=== PATIENT | female | born 1945 | race Caucasian/White ===

== ENCOUNTER → 2016-03-19 | Outpatient (CLI) | payer MEDICARE ==
--- NOTE | 2016-03-19 11:08 | REP ---
Bilateral shoulders: The right shoulder three views : There is no fracture or dislocation. Mineralization and joint spaces are normal. There are no calcifications or foreign bodies. Impression: Negative right shoulder Left shoulder three views : There is no fracture or dislocation. Mineralization and joint spaces are normal. There are no calcifications or foreign bodies. Impression: Negative left shoulder . Signed by Dimitri Nunez MD 03/19/2016 11:00 A
--- NOTE | 2016-03-19 11:13 | REP ---
Cervical spine seven views: There are no comparison studies. There is approximate 4 mm of anterolisthesis of C4-5 on the flexion view para. This corrects on the neutral view and extension view. The facets are normally aligned. This may be from ligamentous laxity. Prevertebral soft tissues are normal. Vertebral alignment is otherwise normal. Vertebral body heights are normal. There is a degenerative disc disease at C 05/ and 07/14. The odontoid view is unremarkable. There is moderate bony foraminal encroachment on the right at C6-7 The left foramen are suboptimally demonstrated. There is osteoarthritis in the posterior facets. Impression: 4 mm of the anterior listhesis of L4-5 on the flexion view. This corrects on the neutral and extension views. Prevertebral soft tissues are normal. Facets normally aligned. There is facet osteoarthritis. There is moderate bony foraminal encroachment on the right at C6-7. The left foramen are suboptimally demonstrated. Signed by Dimitri Nunez MD 03/19/2016 11:05 A
== END | disposition home or self-care (01) ==
LOC: M SMT 10:19
PROVIDERS: ATTEND Physician Assistant
DX: M25.512 Pain in left shoulder (principal); M25.511 Pain in right shoulder; M47.812 Spondylosis without myelopathy or radiculopathy, cervical region; M50.323 Other cervical disc degeneration at C6-C7 level; M43.16 Spondylolisthesis, lumbar region

== ENCOUNTER → 2016-05-20 | Outpatient (REF) | payer MEDICARE ==
[2016-05-20 17:40] LABS: ALBUMIN 4.1 GM/DL (3.2-5.2); ALBUMIN/GLOBULIN RATIO 1.41 (1.00-1.93); ALKALINE PHOSPHATASE 78 U/L (45-117); ALT/SGPT 35 U/L (12-78); ANION GAP 8 MEQ/L (8-16); AST/SGOT 18 U/L (15-37); BILIRUBIN,TOTAL 0.4 MG/DL (0.2-1.0); BLOOD UREA NITROGEN 12 MG/DL (7-18); CALCIUM LEVEL 9.2 MG/DL (8.8-10.2); CARBON DIOXIDE LEVEL 30 MEQ/L (21-32); CHLORIDE LEVEL 100 MEQ/L (98-107); CHOLESTEROL LEVEL 152 MG/DL (<200); CREATININE FOR GFR 0.53 MG/DL (0.55-1.02); GLOMERULAR FILTRATION RATE > 60.0 (>39); GLUCOSE, FASTING 138 MG/DL (83-110); POTASSIUM SERUM 4.1 MEQ/L (3.5-5.1); SODIUM LEVEL 138 MEQ/L (136-145); TRIGLYCERIDES LEVEL 114 MG/DL (<150); URIC ACID 6.3 MG/DL (2.6-6.0)
== END ==
LOC: M SFHCLACO 09:02
PROVIDERS: ATTEND Physician Assistant
DX: E78.2 Mixed hyperlipidemia (principal); I10 Essential (primary) hypertension; E11.9 Type 2 diabetes mellitus without complications; M10.9 Gout, unspecified; M15.9 Polyosteoarthritis, unspecified; Z79.1 Long term (current) use of non-steroidal anti-inflammatories (NSAID); Z79.82 Long term (current) use of aspirin; Z79.84 Long term (current) use of oral hypoglycemic drugs; Z79.899 Other long term (current) drug therapy

== ENCOUNTER → 2016-08-31 | Outpatient (REF) | payer MEDICARE ==
[2016-08-31 16:33] LABS: ALBUMIN/GLOBULIN RATIO 1.33 (1.00-1.93); ALKALINE PHOSPHATASE 82 U/L (45-117); ALT/SGPT 33 U/L (12-78); ANION GAP 8 MEQ/L (8-16); AST/SGOT 17 U/L (15-37); BILIRUBIN,TOTAL 0.4 MG/DL (0.2-1.0); BLOOD UREA NITROGEN 12 MG/DL (7-18); CALCIUM LEVEL 9.5 MG/DL (8.8-10.2); CARBON DIOXIDE LEVEL 29 MEQ/L (21-32); CHLORIDE LEVEL 101 MEQ/L (98-107); CHOLESTEROL LEVEL 143 MG/DL (<200); CREATININE FOR GFR 0.62 MG/DL (0.55-1.02); GLOMERULAR FILTRATION RATE > 60.0 (>39); GLUCOSE, FASTING 137 MG/DL (83-110); POTASSIUM SERUM 4.5 MEQ/L (3.5-5.1); SODIUM LEVEL 138 MEQ/L (136-145); TRIGLYCERIDES LEVEL 101 MG/DL (<150)
[2016-09-02 00:08] LABS: Lyme Disease IgG/IgM Antibodie <0.91 ISR (0.00-0.90); Lyme Disease IgM Ab Quantitati <0.80 index (0.00-0.79)
== END ==
LOC: M SFHCLACO 08:40
PROVIDERS: ATTEND Physician Assistant
DX: I10 Essential (primary) hypertension (principal); E78.2 Mixed hyperlipidemia; E11.9 Type 2 diabetes mellitus without complications; W57.XXXS Bitten or stung by nonvenomous insect and other nonvenomous arthropods, sequela; X58.XXXA Exposure to other specified factors, initial encounter; Y92.9 Unspecified place or not applicable

== ENCOUNTER → 2017-01-04 | Outpatient (REF) | payer MEDICARE ==
[2017-01-04 15:06] LABS: ALBUMIN 4.1 GM/DL (3.2-5.2); ALBUMIN/GLOBULIN RATIO 1.32 (1.00-1.93); ALKALINE PHOSPHATASE 65 U/L (45-117); ALT/SGPT 35 U/L (12-78); ANION GAP 10 MEQ/L (8-16); AST/SGOT 20 U/L (7-37); BILIRUBIN,TOTAL 0.4 MG/DL (0.2-1.0); BLOOD UREA NITROGEN 17 MG/DL (7-18); CALCIUM LEVEL 9.8 MG/DL (8.8-10.2); CARBON DIOXIDE LEVEL 28 MEQ/L (21-32); CHLORIDE LEVEL 100 MEQ/L (98-107); CHOLESTEROL LEVEL 139 MG/DL (<200); CREATININE FOR GFR 0.57 MG/DL (0.55-1.02); GLOMERULAR FILTRATION RATE > 60.0 (>39); GLUCOSE, FASTING 116 MG/DL (83-110); POTASSIUM SERUM 4.1 MEQ/L (3.5-5.1); SODIUM LEVEL 138 MEQ/L (136-145); TOTAL PROTEIN 7.2 GM/DL (6.4-8.2); TRIGLYCERIDES LEVEL 98 MG/DL (<150)
== END ==
LOC: M SFHCLACO 08:39
PROVIDERS: ATTEND Physician Assistant
DX: I10 Essential (primary) hypertension (principal); E78.2 Mixed hyperlipidemia; E11.9 Type 2 diabetes mellitus without complications

== ENCOUNTER → 2017-04-22 | Outpatient (REF) | payer MEDICARE | LOC: M SFHCLACO 14:57 | DX: L72.11 Pilar cyst (principal) | CPT/HCPCS: 88304 ==

== ENCOUNTER → 2017-04-28 | Outpatient (CLI) | payer MEDICARE | LOC: M ADAMS 11:52 | DX: M25.551 Pain in right hip (principal); M54.5 Low back pain; M51.36 Other intervertebral disc degeneration, lumbar region; M51.37 Other intervertebral disc degeneration, lumbosacral region | CPT/HCPCS: 72110 ==

== ENCOUNTER → 2017-05-04 | Outpatient (CLI) | payer MEDICARE | LOC: M RAD 14:22 | DX: M51.36 Other intervertebral disc degeneration, lumbar region (principal); M48.061 Spinal stenosis, lumbar region without neurogenic claudication | CPT/HCPCS: 72148 ==

== ENCOUNTER → 2017-05-17 | Outpatient (REF) | payer MEDICARE ==
[2017-05-17 15:13] LABS: ALBUMIN 4.2 GM/DL (3.2-5.2); ALBUMIN/GLOBULIN RATIO 1.35 (1.00-1.93); ALKALINE PHOSPHATASE 71 U/L (45-117); ALT/SGPT 29 U/L (12-78); ANION GAP 6 MEQ/L (8-16); AST/SGOT 18 U/L (7-37); BILIRUBIN,TOTAL 0.3 MG/DL (0.2-1.0); BLOOD UREA NITROGEN 14 MG/DL (7-18); CALCIUM LEVEL 9.3 MG/DL (8.8-10.2); CARBON DIOXIDE LEVEL 28 MEQ/L (21-32); CHLORIDE LEVEL 102 MEQ/L (98-107); CHOLESTEROL LEVEL 141 MG/DL (<200); CHOLESTEROL RISK RATIO 2.311 (<5); CREATININE FOR GFR 0.56 MG/DL (0.55-1.30); GLOMERULAR FILTRATION RATE > 60.0 (>39); GLUCOSE, FASTING 127 MG/DL (70-100); HDL CHOLESTEROL 61 MG/DL (>40); LDL CHOLESTEROL 63.8 MG/DL (<100); NON-HDL-C 80 MG/DL; POTASSIUM SERUM 4.4 MEQ/L (3.5-5.1); SODIUM LEVEL 136 MEQ/L (136-145); TOTAL PROTEIN 7.3 GM/DL (6.4-8.2); TRIGLYCERIDES LEVEL 81 MG/DL (<150)
[2017-05-17 15:16] LABS: ESTIMATED AVERAGE GLUCOSE 151 MG/DL (60-110); HEMOGLOBIN A1c 6.9 %
== END ==
LOC: M SFHCLACO 08:36
DX: I10 Essential (primary) hypertension (principal); E78.2 Mixed hyperlipidemia; E11.9 Type 2 diabetes mellitus without complications
CPT/HCPCS: 80053

== ENCOUNTER → 2017-05-18 | Outpatient (CLI) | payer MEDICARE | LOC: M PAIN 14:15 | DX: M51.26 Other intervertebral disc displacement, lumbar region (principal); M54.16 Radiculopathy, lumbar region; M48.061 Spinal stenosis, lumbar region without neurogenic claudication; I10 Essential (primary) hypertension; E78.5 Hyperlipidemia, unspecified; E11.9 Type 2 diabetes mellitus without complications; J45.909 Unspecified asthma, uncomplicated; F41.9 Anxiety disorder, unspecified; M85.80 Other specified disorders of bone density and structure, unspecified site; Z79.82 Long term (current) use of aspirin; Z79.84 Long term (current) use of oral hypoglycemic drugs; Z79.1 Long term (current) use of non-steroidal anti-inflammatories (NSAID); Z79.899 Other long term (current) drug therapy; Z88.1 Allergy status to other antibiotic agents; Z88.6 Allergy status to analgesic agent; Z88.8 Allergy status to other drugs, medicaments and biological substances; Z86.39 Personal history of other endocrine, nutritional and metabolic disease; Z98.61 Coronary angioplasty status | CPT/HCPCS: G0463 ==

== ENCOUNTER → 2017-05-26 | Outpatient (CLI) | payer MEDICARE ==
[~2017-05-26] MED LIST: ISOVUE-M 300 61% 15ML VIAL (Q9967) As Ordered; LIDOCAINE 1% SDV INJ 30 ML VIAL As Ordered; diazePAM 5 MG TAB As Ordered; methylPREDNISolone SUSP 40 MG/ML (DEPO-medrol) VIAL (J1030) As Ordered; oxyCODONE 5MG TAB As Ordered
== END ==
LOC: M PAIN 13:30
DX: G89.29 Other chronic pain (principal); M48.07 Spinal stenosis, lumbosacral region; I10 Essential (primary) hypertension; E78.5 Hyperlipidemia, unspecified; I25.10 Atherosclerotic heart disease of native coronary artery without angina pectoris; J45.909 Unspecified asthma, uncomplicated; E11.9 Type 2 diabetes mellitus without complications; M10.9 Gout, unspecified; M85.80 Other specified disorders of bone density and structure, unspecified site; F41.9 Anxiety disorder, unspecified; Z79.82 Long term (current) use of aspirin; Z79.84 Long term (current) use of oral hypoglycemic drugs; Z79.899 Other long term (current) drug therapy; Z95.5 Presence of coronary angioplasty implant and graft; Z88.1 Allergy status to other antibiotic agents; Z88.8 Allergy status to other drugs, medicaments and biological substances; Z88.6 Allergy status to analgesic agent
CPT/HCPCS: J1030

== ENCOUNTER → 2017-06-23 | Outpatient (CLI) | payer MEDICARE | LOC: M PAIN 09:15 | DX: G89.29 Other chronic pain (principal); M51.26 Other intervertebral disc displacement, lumbar region; M54.16 Radiculopathy, lumbar region; M48.061 Spinal stenosis, lumbar region without neurogenic claudication; I10 Essential (primary) hypertension; E78.5 Hyperlipidemia, unspecified; I25.10 Atherosclerotic heart disease of native coronary artery without angina pectoris; J45.909 Unspecified asthma, uncomplicated; E11.9 Type 2 diabetes mellitus without complications; M10.9 Gout, unspecified; M85.80 Other specified disorders of bone density and structure, unspecified site; F41.9 Anxiety disorder, unspecified; Z79.82 Long term (current) use of aspirin; Z79.84 Long term (current) use of oral hypoglycemic drugs; Z79.891 Long term (current) use of opiate analgesic; Z79.899 Other long term (current) drug therapy; Z88.1 Allergy status to other antibiotic agents; Z88.6 Allergy status to analgesic agent; Z88.8 Allergy status to other drugs, medicaments and biological substances | CPT/HCPCS: G0463 ==

== ENCOUNTER → 2017-07-07 | Outpatient (CLI) | payer MEDICARE ==
[~2017-07-07] MED LIST changes: +BUPIVACAINE HCL 0.25% 30 ML VIAL As Ordered; +TRIAMCINOLONE ACETONIDE SUSP 40 MG/ML VIAL (J3301) As Ordered; -methylPREDNISolone SUSP 40 MG/ML (DEPO-medrol) VIAL (J1030) As Ordered
== END ==
LOC: M PAIN 10:30
DX: G89.29 Other chronic pain (principal); M47.816 Spondylosis without myelopathy or radiculopathy, lumbar region; M47.817 Spondylosis without myelopathy or radiculopathy, lumbosacral region; E78.5 Hyperlipidemia, unspecified; I10 Essential (primary) hypertension; I25.10 Atherosclerotic heart disease of native coronary artery without angina pectoris; J45.909 Unspecified asthma, uncomplicated; E11.9 Type 2 diabetes mellitus without complications; M10.9 Gout, unspecified; M85.80 Other specified disorders of bone density and structure, unspecified site; F41.9 Anxiety disorder, unspecified; Z79.82 Long term (current) use of aspirin; Z79.84 Long term (current) use of oral hypoglycemic drugs; Z79.891 Long term (current) use of opiate analgesic; Z79.899 Other long term (current) drug therapy; Z95.5 Presence of coronary angioplasty implant and graft; Z88.6 Allergy status to analgesic agent; Z88.8 Allergy status to other drugs, medicaments and biological substances
CPT/HCPCS: J3301

== ENCOUNTER → 2017-07-21 | Outpatient (CLI) | payer MEDICARE | LOC: M PAIN 10:00 | DX: M51.26 Other intervertebral disc displacement, lumbar region (principal); M54.16 Radiculopathy, lumbar region; M48.061 Spinal stenosis, lumbar region without neurogenic claudication; E11.9 Type 2 diabetes mellitus without complications; E78.5 Hyperlipidemia, unspecified; I10 Essential (primary) hypertension; I25.10 Atherosclerotic heart disease of native coronary artery without angina pectoris; J45.909 Unspecified asthma, uncomplicated; M85.80 Other specified disorders of bone density and structure, unspecified site; F41.9 Anxiety disorder, unspecified; Z79.82 Long term (current) use of aspirin; Z79.84 Long term (current) use of oral hypoglycemic drugs; Z79.899 Other long term (current) drug therapy; Z88.1 Allergy status to other antibiotic agents; Z88.6 Allergy status to analgesic agent; Z88.8 Allergy status to other drugs, medicaments and biological substances; Z87.39 Personal history of other diseases of the musculoskeletal system and connective tissue | CPT/HCPCS: G0463 ==

== ENCOUNTER → 2017-08-02 | Outpatient (CLI) | payer MEDICARE | LOC: M PAIN 08:30 | DX: M46.1 Sacroiliitis, not elsewhere classified (principal); M53.3 Sacrococcygeal disorders, not elsewhere classified; G89.29 Other chronic pain; E78.5 Hyperlipidemia, unspecified; I10 Essential (primary) hypertension; I35.0 Nonrheumatic aortic (valve) stenosis; J45.909 Unspecified asthma, uncomplicated; E11.9 Type 2 diabetes mellitus without complications; M85.80 Other specified disorders of bone density and structure, unspecified site; F41.9 Anxiety disorder, unspecified; Z79.52 Long term (current) use of systemic steroids; Z79.84 Long term (current) use of oral hypoglycemic drugs; Z79.899 Other long term (current) drug therapy; Z88.1 Allergy status to other antibiotic agents; Z88.6 Allergy status to analgesic agent; Z88.8 Allergy status to other drugs, medicaments and biological substances; Z86.79 Personal history of other diseases of the circulatory system; Z87.39 Personal history of other diseases of the musculoskeletal system and connective tissue | CPT/HCPCS: J3301 ==

== ENCOUNTER → 2017-09-08 | Outpatient (CLI) | payer MEDICARE | LOC: M PAIN 10:30 | DX: M51.26 Other intervertebral disc displacement, lumbar region (principal); M54.16 Radiculopathy, lumbar region; M48.061 Spinal stenosis, lumbar region without neurogenic claudication; E11.9 Type 2 diabetes mellitus without complications; E78.5 Hyperlipidemia, unspecified; I10 Essential (primary) hypertension; J45.909 Unspecified asthma, uncomplicated; F41.9 Anxiety disorder, unspecified; Z79.82 Long term (current) use of aspirin; Z79.84 Long term (current) use of oral hypoglycemic drugs; Z79.899 Other long term (current) drug therapy; Z88.1 Allergy status to other antibiotic agents; Z88.6 Allergy status to analgesic agent; Z88.8 Allergy status to other drugs, medicaments and biological substances; Z86.79 Personal history of other diseases of the circulatory system; Z87.39 Personal history of other diseases of the musculoskeletal system and connective tissue | CPT/HCPCS: G0463 ==

== ENCOUNTER → 2017-09-27 | Outpatient (CLI) | payer MEDICARE ==
[~2017-09-27] MED LIST changes: -BUPIVACAINE HCL 0.25% 30 ML VIAL As Ordered; -TRIAMCINOLONE ACETONIDE SUSP 40 MG/ML VIAL (J3301) As Ordered; +methylPREDNISolone SUSP 40 MG/ML (DEPO-medrol) VIAL (J1030) As Ordered
== END ==
LOC: M PAIN 13:15
DX: M51.17 Intervertebral disc disorders with radiculopathy, lumbosacral region (principal); M48.062 Spinal stenosis, lumbar region with neurogenic claudication; E78.5 Hyperlipidemia, unspecified; I10 Essential (primary) hypertension; I25.10 Atherosclerotic heart disease of native coronary artery without angina pectoris; J45.909 Unspecified asthma, uncomplicated; E11.9 Type 2 diabetes mellitus without complications; M10.9 Gout, unspecified; M85.80 Other specified disorders of bone density and structure, unspecified site; F41.9 Anxiety disorder, unspecified; Z95.5 Presence of coronary angioplasty implant and graft; Z98.41 Cataract extraction status, right eye; Z98.42 Cataract extraction status, left eye; Z90.49 Acquired absence of other specified parts of digestive tract; Z79.82 Long term (current) use of aspirin; Z79.84 Long term (current) use of oral hypoglycemic drugs; Z79.899 Other long term (current) drug therapy; Z88.2 Allergy status to sulfonamides; Z88.6 Allergy status to analgesic agent; Z88.8 Allergy status to other drugs, medicaments and biological substances
CPT/HCPCS: J1030

== ENCOUNTER → 2017-10-11 | Outpatient (CLI) | payer MEDICARE | LOC: M PAIN 09:45 | DX: M51.26 Other intervertebral disc displacement, lumbar region (principal); M54.16 Radiculopathy, lumbar region; M48.061 Spinal stenosis, lumbar region without neurogenic claudication; E11.9 Type 2 diabetes mellitus without complications; I10 Essential (primary) hypertension; E78.5 Hyperlipidemia, unspecified; J45.909 Unspecified asthma, uncomplicated; F41.9 Anxiety disorder, unspecified; M85.80 Other specified disorders of bone density and structure, unspecified site; Z79.82 Long term (current) use of aspirin; Z79.84 Long term (current) use of oral hypoglycemic drugs; Z79.899 Other long term (current) drug therapy; Z88.1 Allergy status to other antibiotic agents; Z88.8 Allergy status to other drugs, medicaments and biological substances; Z86.79 Personal history of other diseases of the circulatory system; Z87.39 Personal history of other diseases of the musculoskeletal system and connective tissue | CPT/HCPCS: G0463 ==

== ENCOUNTER → 2017-10-31 | Outpatient (CLI) | payer MEDICARE ==
[~2017-10-31] MED LIST changes: +BUPIVACAINE HCL 0.25% 30 ML VIAL As Ordered; -diazePAM 5 MG TAB As Ordered; -methylPREDNISolone SUSP 40 MG/ML (DEPO-medrol) VIAL (J1030) As Ordered; -oxyCODONE 5MG TAB As Ordered
== END ==
LOC: M PAIN 10:00
DX: M47.816 Spondylosis without myelopathy or radiculopathy, lumbar region (principal); M47.817 Spondylosis without myelopathy or radiculopathy, lumbosacral region; E78.5 Hyperlipidemia, unspecified; I10 Essential (primary) hypertension; I25.10 Atherosclerotic heart disease of native coronary artery without angina pectoris; J45.909 Unspecified asthma, uncomplicated; E11.9 Type 2 diabetes mellitus without complications; M10.9 Gout, unspecified; M85.80 Other specified disorders of bone density and structure, unspecified site; F41.9 Anxiety disorder, unspecified; Z79.82 Long term (current) use of aspirin; Z79.84 Long term (current) use of oral hypoglycemic drugs; Z79.899 Other long term (current) drug therapy; Z88.6 Allergy status to analgesic agent; Z88.2 Allergy status to sulfonamides; Z88.8 Allergy status to other drugs, medicaments and biological substances
CPT/HCPCS: Q9967

== ENCOUNTER → 2017-11-16 | Outpatient (CLI) | payer MEDICARE | LOC: M PAIN 10:45 | DX: M51.26 Other intervertebral disc displacement, lumbar region (principal); M54.16 Radiculopathy, lumbar region; M48.061 Spinal stenosis, lumbar region without neurogenic claudication; E11.9 Type 2 diabetes mellitus without complications; E78.5 Hyperlipidemia, unspecified; I10 Essential (primary) hypertension; J45.909 Unspecified asthma, uncomplicated; F41.9 Anxiety disorder, unspecified; M85.80 Other specified disorders of bone density and structure, unspecified site; Z79.82 Long term (current) use of aspirin; Z79.84 Long term (current) use of oral hypoglycemic drugs; Z79.899 Other long term (current) drug therapy; Z88.1 Allergy status to other antibiotic agents; Z88.6 Allergy status to analgesic agent; Z88.8 Allergy status to other drugs, medicaments and biological substances; Z86.79 Personal history of other diseases of the circulatory system; Z87.39 Personal history of other diseases of the musculoskeletal system and connective tissue | CPT/HCPCS: G0463 ==

== ENCOUNTER → 2018-01-16 | Outpatient (CLI) | payer MEDICARE ==
--- NOTE | 2018-02-09 01:19 | ECWPNPC ---
PATIENT NAME: AL BARRIOS : 1945 GENDER: FEMALE VISIT DATE: 01/16/2018 DISCHARGE DATE: 01/16/18 1110 VISIT LOCKED DATE TIME: PHYSICIAN: PETER RECINOS RESOURCE: PETER RECINOS REASON FOR APPOINTMENT 1. BACK HISTORY OF PRESENT ILLNESS DEPRESSION SCREENING: PHQ-2 IN LAST TWO WEEKS HAVE YOU BEEN BOTHERED BY LITTLE INTEREST OR PLEASURE IN DOING THINGSNO FEELING DOWN, DEPRESSED, OR HOPELESSNO HISTORY OF PRESENT ILLNESS: HERE FOR F/U OF CHRONIC RIGHT LOW BACK PAIN.HAS INTERMITTENT SEVERE RIGHT LOW BACK PAIN WITH AMBULATION.RATING PAIN RANGE FROM 0-10/10.DESCRIBES PAIN INTERMITTENT AND STABBING. PAIN THE PATIENT DESCRIBES THE PAIN... FALL RISK SCREENING: SCREENING :NO FALLS IN THE PAST YEAR CURRENT MEDICATIONS TAKING ATENOLOL 50 MG TABLET 1 TABLET ORALLY ONCE A DAY TAKING LISINOPRIL 2.5 MG TABLET 1 TABLET ORALLY ONCE A DAY TAKING HYDROCHLOROTHIAZIDE 25 MG TABLET 1 TABLET ORALLY ONCE A DAY TAKING ASPIRIN 81 MG TABLET 2 TABLETS ORALLY ONCE A DAY TAKING FOLIC ACID 400 MCG TABLET 1 TABLET ORALLY ONCE A DAY TAKING JANUVIA 25 MG TABLET 1 TABLET ORALLY ONCE A DAY TAKING WELLBUTRIN SR 150 MG TABLET EXTENDED RELEASE 12 HOUR TAKE 1 TABLET TWICE DAILY TWICE A DAY TAKING SPIRONOLACTONE 25 MG TABLET 1/2 TABLET ORALLY ONCE A DAY TAKING CALCIUM CITRATE 150 MG CAPSULE 1 CAP ORALLY TWICE A DAY TAKING VITAMIN B COMPLEX TABLET 1 TABLET ORALLY ONCE A DAY TAKING ZINC 50 MG TABLET 1 TABLET ORALLY ONCE A DAY TAKING YOSEF 500 MG CAPSULE 1 CAP ORALLY TWICE A DAY TAKING VITAMIN D3 5000 UNIT CAPSULE 1 CAPSULE ORALLY ONCE A DAY TAKING METFORMIN HCL 500 MG TABLET TAKE 1 TABLET TWICE DAILY TAKING EPIPEN 2-DELROY 0.3 MG/0.3ML (1:1000) DEVICE DIRECTED INTRAMUSCULAR NEEDED TAKING TYLENOL 325 MG TABLET 2 TABLET NEEDED ORALLY EVERY 6 HRS TAKING TRAMADOL HCL 50 MG TABLET 1 ORALLY Q8H PRN FOR SEVERE PAIN MDD3 TAKING LIPITOR 40 MG TABLET TAKE 1 TABLET EVERY DAY TAKING ALLOPURINOL 100 MG TABLET TAKE 1 TABLET EVERY DAY TAKING HYDROCHLOROTHIAZIDE 25 MG TABLET TAKE 1 TABLET EVERY DAY NOT-TAKING PERCOCET 5-325 MG TABLET 1 TABLET NEEDED ORALLY Q8H PRN MDD 3 #30 TAB SHOULD LAST 30 DAYS, NOTES: TAKING SPORATICALLY MEDICATION LIST REVIEWED AND RECONCILED WITH THE PATIENT PAST MEDICAL HISTORY HYPERLIPIDEMIA HYPERTENSION CORONARY ARTERY DISEASE-2008-RST WITHOUT REVERSIBILITY MILD AORTIC STENOSIS AND MILD AORTIC REGURGITATION AND MILD MITRAL REGURGITATION BY TTE SEPTEMBER 2008 ASTHMA DIABETES MELLITUS TYPE 2 [id number] SEPTEMBER 2009 A1C 6.5 GOUT OSTEOPENIA MULTIPLE CHEMICAL SENSITIVITY ANXIETY ALLERGIES LESCOL: MYALGIA: ALLERGY ADVAIR: PARALYZED VIOCAL CORDS: ALLERGY BACTRIM: HIVES: ALLERGY DECONGESTANTS: SHAKING ON THE INSIDE, FEELS "UNWELL": SIDE EFFECTS IBUPROFEN: HEAVINESS IN CHEST: SIDE EFFECTS NAPROXEN: RINGING IN EARS: SIDE EFFECTS MINOCYCLINE JANUVIA: FATIGUE, WEAKNESS: SIDE EFFECTS SURGICAL HISTORY HYSTERECTOMY 1986 ANGIOPLASTY WITH STENT 06/10 RIGHT CARPAL RELEASE 11/2009 T&A 1951 APPENDECTOMY 1956 BUNIONECTOMY 1993 MENISCUS REPAIR 1996 CHOLECYSTECTOMY 2013 BILAT CATARACTS REMOVED 2016 CARPAL TUNNEL RIGHT 2011 CALCIFIED CYST REMOVED FROM HEAD 04/2017 SOCIAL HISTORY GENERAL: TOBACCO USE ARE YOU A:NONSMOKER LUNG CANCER SCREENING SMOKING STATUS:NON SMOKER BMI CARE GOAL FOLLOW-UP ABOVE NORMAL BMI FOLLOW-UPDIETARY MANAGEMENT EDUCATION, GUIDANCE, AND COUNSELING ALCOHOL SCREENING DID YOU HAVE A DRINK CONTAINING ALCOHOL IN THE PAST YEAR?NO POINTS0 INTERPRETATIONNEGATIVE RECREATIONAL DRUG USE DENIES. CAFFEINE NONE. SEXUAL HX HAD SEX IN THE LAST 12 MONTHS (VAGINAL, ORAL, OR ANAL)?NO HAVE YOU EVER HAD AN STD?NO HIV / HEP-C SCREENING HIV TEST OFFERED TO PATIENT:YES DATE OFFERED:04/22/2017 TEST ACCEPTED:NO HEP-C TEST OFFERED TO PATIENT:YES DATE OFFERED:04/22/2017 REASON:PATIENT DECLINED TEST ACCEPTED:NO REASON:PATIENT DECLINED BROCHURE PROVIDED TO PATIENTYES SIKH [id number] [employer] LANGUAGE SCOTTISH. 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 DIET: LOW FAT, LOW CHOLESTEROL, NO CONCENTRATED SWEETS.. EXERCISE: GARDENS. MARITAL STATUS: SINGLE. OTHERS AT HOME: NONE. PAIN CLINIC PFS, CLERGY, PUBLIC HEALTH REFERRALS PFS REFERRAL NEEDED?NO CLERGY REFERRAL NEEDED?NO PUBLIC HEALTH REFERRAL NEEDED?NO WAS THE PROVIDER NOTIFIED OF ANY PERTINENT INFO?YES N/A HAS THE PATIENT BEEN EDUCATED REGARDING HIS/HER PLAN OF CARE?YES HAS THE PATIENT BEEN EDUCATED REGARDING PAIN, THE RISK FOR PAIN, THE IMPORTANCE OF EFFECTIVE PAIN MANAGEMENT, AND THE PAIN ASSESSMENT PROCESS?YES HOUSING: OWNS HOME. ADVANCE DIRECTIVE ADVANCE DIRECTIVE DISCUSSED WITH PATIENT:YES HCP KRISTEN SHEPPARD [phone] LIVING WILL ALDO PARRISH [phone] REVIEWED WITH PT 09/27/17 1355 LAS REVIEWED WITH PATIENT 11/16/17 1114 JS. HOSPITALIZATION/MAJOR DIAGNOSTIC PROCEDURE SURGERIES ABOVE REVIEW OF SYSTEMS REVIEWED BY: PROVIDER: PETER RIGGS . CONSTITUTIONAL: ANY CHANGE IN YOUR MEDICAL CONDITION? NO . CHILLS NO . FEVER NO . INFECTION: DO YOU HAVE NEW INFECTIONS? NO . DO YOU HAVE HISTORY OF MRSA? NO . MUSCULOSKELETAL: ANY NEW PATTERNS OF PAIN OR NUMBNESS? NO . GASTROENTEROLOGY: ANY NEW CHANGE IN BOWEL CONTROL? NO . GENITOURINARY: ANY NEW CHANGE IN BLADDER CONTROL? NO . IS THERE A CHANCE YOU COULD BE ? NO . HEMATOLOGY/LYMPH: DO YOU TAKE ANY BLOOD THINNERS? (FOR EXAMPLE- COUMADIN, PLAVIX, AGGRENOX, PLATEL, PRADAXA, OR XARELTO) NO . WHEN WAS YOUR LAST DOSE? DATE: TIME: . NEUROLOGY: HAVE YOU FALLEN IN THE PAST 6 MONTHS? NO . ANY NEW EXTREMITY NUMBNESS OR WEAKNESS? NO . CARDIOLOGY: DO YOU HAVE A PACEMAKER OR DEFIBRILLATOR? NO . RESPIRATORY: HAVE YOU BEEN SICK IN THE PAST WEEK? NO . FEVER NO . FLU LIKE SYMPTOMS? NO . COUGH NO . INTEGUMENTARY: DO YOU HAVE ANY RASHES OR OPEN SORES? NO . ALLERGIC/IMMUNO: ARE YOU ALLERGIC TO SHELLFISH OR IV DYE? NO . ANY NEW ALLERGIES? NO . PSYCHIATRIC: DO YOU HAVE THOUGHTS OF HURTING YOURSELF OR SOMEONE ELSE? NO . ARE YOU ABUSED, NEGLECTED, OR IN AN UNSAFE ENVIRONMENT? NO . ENDOCRINOLOGY: ARE YOU DIABETIC? YES . OTHER: DO YOU NEED ANY PRESCRIPTIONS? NO . IF YES, PLEASE LIST: ____ . ANY NEW PROBLEMS WITH YOUR MEDICATIONS? NO . WHEN DID YOU LAST EAT? ____ . WHEN DID YOU LAST DRINK? ____ . WHAT DID YOU LAST DRINK? ____ . NAME OF PERSON DRIVING YOU HOME? ____ . DO YOU HAVE ANY OTHER QUESTIONS OR CONCERNS NO . VITAL SIGNS WT 184 LBS, HT 61 IN, BMI 34.76 INDEX, BP 184/78 MM HG, HR 79 /MIN, RR 16 /MIN, TEMP 96.1 F, OXYGEN SAT % 98%, NA INITIALS SC 10:18, REVIEWED BY: EM. EXAMINATION GENERAL EXAMINATION: GENERAL APPEARANCE:ALERT,APPEARS UNCOMFORTABLE . PSYCHAFFECT NORMAL . LUNGS:LUNG CALVIN ARE CLEAR TO AUSCULTATION BILATERALLY. GOOD MOVEMENT OF AIR . HEART:S1, S2 IN A REGULAR RATE AND RHYTHM. NO SIGNIFICANT MURMURS, RUBS OR GALLOPS NOTED . MUSCULOSKELETAL:SPECIFIC RIGHT L4/5-L5/S1 LUMBAR FACET PAIN W FACET LOADING . LUMBAR SACRAL SPINESPECIFIC RIGHT SIJ TENDERNESS. ASSESSMENTS SACROILIITIS - M46.1 (PRIMARY) INTERVERTEBRAL DISC DISORDER WITH RADICULOPATHY OF LUMBOSACRAL REGION - M51.17 TREATMENT SACROILIITIS NOTES: RIGHT SIJ. PROCEDURE CODES FA211 ESTABILISHED PATIENT NEW [facility] CHARGE DISPOSITION & COMMUNICATION FOLLOW UP POST (REASON: RIGHT SIJ IN 2 MOS) ELECTRONICALLY SIGNED BY ONEIL SHI ON 02/08/2018 AT 02:19 PM EST DISCLAIMER : THIS IS A VISIT SUMMARY EXTRACTED FROM THE [employer] CHART. IT IS NOT A COPY OF THE [employer] PROGRESS NOTE. CELESTINO
== END ==
LOC: M PAIN 10:15
PROVIDERS: ATTEND Nurse Practitioner Family
DX: M46.1 Sacroiliitis, not elsewhere classified (principal); M51.17 Intervertebral disc disorders with radiculopathy, lumbosacral region; E78.5 Hyperlipidemia, unspecified; I10 Essential (primary) hypertension; I25.10 Atherosclerotic heart disease of native coronary artery without angina pectoris; J45.909 Unspecified asthma, uncomplicated; E11.9 Type 2 diabetes mellitus without complications; M10.9 Gout, unspecified; M85.80 Other specified disorders of bone density and structure, unspecified site; F41.9 Anxiety disorder, unspecified; Z95.5 Presence of coronary angioplasty implant and graft; Z98.41 Cataract extraction status, right eye; Z98.42 Cataract extraction status, left eye; Z90.49 Acquired absence of other specified parts of digestive tract; Z79.82 Long term (current) use of aspirin; Z79.84 Long term (current) use of oral hypoglycemic drugs; Z79.899 Other long term (current) drug therapy; Z88.2 Allergy status to sulfonamides; Z88.6 Allergy status to analgesic agent; Z88.8 Allergy status to other drugs, medicaments and biological substances

== ENCOUNTER → 2018-04-20 | Outpatient (CLI) | payer MEDICARE ==
[~2018-04-20] MED LIST changes: -BUPIVACAINE HCL 0.25% 30 ML VIAL As Ordered; +BUPIVACAINE HCL 0.25% 30 ML VIAL As Ordered ONE; -ISOVUE-M 300 61% 15ML VIAL (Q9967) As Ordered; +ISOVUE-M 300 61% 15ML VIAL (Q9967) As Ordered ONE; -LIDOCAINE 1% SDV INJ 30 ML VIAL As Ordered; +LIDOCAINE 1% SDV INJ 30 ML VIAL As Ordered ONE; +TRIAMCINOLONE ACETONIDE SUSP 40 MG/ML VIAL (J3301) As Ordered ONE; +oxyCODONE 5MG TAB As Ordered ONE
--- NOTE | 2018-04-20 13:55 | REP ---
FLUOROSCOPIC GUIDANCE FOR RIGHT SI JOINT INJECTION: 04/20/2018 CLINICAL HISTORY: Right SI joint pain. FINDINGS: Six images from C-arm fluoroscopy provided to Dr. Schmitt of the pain clinic are reviewed. A needle is adjacent to the lower mid and upper portions of the right SI joint on the various images. Some images show contrast adjacent to the needle at the joint. FLUOROSCOPY TIME: 27 seconds. Electronically Signed by Markos Díaz MD 04/20/2018 07:49 P
--- NOTE | 2018-05-03 00:53 | ECWPNPC ---
PATIENT NAME: AL BARRIOS : 1945 GENDER: FEMALE VISIT DATE: 04/20/2018 DISCHARGE DATE: 04/20/18 1117 VISIT LOCKED DATE TIME: PHYSICIAN: AMINATA GARCIA MD RESOURCE: AMINATA GARCIA MD REASON FOR APPOINTMENT 1. RIGHT SIJ HISTORY OF PRESENT ILLNESS HISTORY OF PRESENT ILLNESS: PAIN THE PATIENT DESCRIBES THE PAIN... FALL RISK SCREENING: SCREENING : NO FALLS IN THE PAST YEAR. CURRENT MEDICATIONS TAKING ATENOLOL 50 MG TABLET 1 TABLET ORALLY ONCE A DAY, NOTES: 04/19/181999 TAKING LISINOPRIL 2.5 MG TABLET 1 TABLET ORALLY ONCE A DAY, NOTES: 04/19/181999 TAKING SPIRONOLACTONE 25 MG TABLET 1/2 TABLET ORALLY ONCE A DAY, NOTES: 04/19/18799 TAKING HYDROCHLOROTHIAZIDE 25 MG TABLET 1 TABLET ORALLY ONCE A DAY, NOTES: 04/19/18799 TAKING ASPIRIN 81 MG TABLET 2 TABLETS ORALLY ONCE A DAY, NOTES: 04/19/181999 TAKING FOLIC ACID 400 MCG TABLET 1 TABLET ORALLY ONCE A DAY, NOTES: 04/19/18799 TAKING LIPITOR 40 MG TABLET TAKE 1 TABLET EVERY DAY , NOTES: 04/19/181999 TAKING METFORMIN HCL 500 MG TABLET 1 TABLET WITH A MEAL ORALLY TWICE A DAY, NOTES: 04/19/181999 TAKING JANUVIA 25 MG TABLET 1 TABLET ORALLY ONCE A DAY, NOTES: 04/19/18799 TAKING WELLBUTRIN SR 150 MG TABLET EXTENDED RELEASE 12 HOUR TAKE 1 TABLET TWICE DAILY TWICE A DAY, NOTES: 04/19/18799 TAKING ALLOPURINOL 100 MG TABLET 1 TABLET ORALLY ONCE A DAY, NOTES: 04/16/18799 TAKING TYLENOL 325 MG TABLET 2 TABLET NEEDED ORALLY EVERY 6 HRS, NOTES: 04/19/18799 TAKING VITAMIN D3 5000 UNIT CAPSULE 1 CAPSULE ORALLY ONCE A DAY, NOTES: 04/19/18799 TAKING CALCIUM CITRATE 150 MG CAPSULE 1 CAP ORALLY TWICE A DAY, NOTES: FEW DAYS AGO TAKING VITAMIN B COMPLEX TABLET 1 TABLET ORALLY ONCE A DAY, NOTES: 04/19/18799 TAKING ZINC 50 MG TABLET 1 TABLET ORALLY ONCE A DAY, NOTES: 04/19/181999 TAKING YOSEF 500 MG CAPSULE 1 CAP ORALLY TWICE A DAY, NOTES: FEW DAYS AGO TAKING EPIPEN 2-DELROY 0.3 MG/0.3ML (1:1000) DEVICE DIRECTED INTRAMUSCULAR NEEDED, NOTES: NONE RECENT TAKING TRAMADOL HCL 50 MG TABLET 1 ORALLY Q8H PRN FOR SEVERE PAIN MDD3, NOTES: 04/19/18 1200 MEDICATION LIST REVIEWED AND RECONCILED WITH THE PATIENT PAST MEDICAL HISTORY HYPERLIPIDEMIA HYPERTENSION CORONARY ARTERY DISEASE-2008-RST WITHOUT REVERSIBILITY MILD AORTIC STENOSIS AND MILD AORTIC REGURGITATION AND MILD MITRAL REGURGITATION BY TTE SEPTEMBER 2008 ASTHMA DIABETES MELLITUS TYPE 2 [id number] SEPTEMBER 2009 A1C 6.5 GOUT OSTEOPENIA MULTIPLE CHEMICAL SENSITIVITY ANXIETY ALLERGIES LESCOL: MYALGIA - ALLERGY ADVAIR: PARALYZED VIOCAL CORDS - ALLERGY BACTRIM: HIVES - ALLERGY DECONGESTANTS: SHAKING ON THE INSIDE, FEELS "UNWELL" - SIDE EFFECTS IBUPROFEN: HEAVINESS IN CHEST - SIDE EFFECTS NAPROXEN: RINGING IN EARS - SIDE EFFECTS MINOCYCLINE JANUVIA: FATIGUE, WEAKNESS - SIDE EFFECTS SURGICAL HISTORY HYSTERECTOMY 1986 ANGIOPLASTY WITH STENT 06/10 RIGHT CARPAL RELEASE 11/2009 T&A 1951 APPENDECTOMY 1956 BUNIONECTOMY 1993 MENISCUS REPAIR 1996 CHOLECYSTECTOMY 2013 BILAT CATARACTS REMOVED 2016 CARPAL TUNNEL RIGHT 2011 CALCIFIED CYST REMOVED FROM HEAD 04/2017 FAMILY HISTORY FATHER: 68 YRS, ARTHRITIS, COMPLICATIONS, STROKE MOTHER: 92 YRS, CHF SIBLINGS: 58 YRS, NON-HODGKINS LYMPHOMA WITH TX COMPLICATIONS 2 SISTER(S) . 2 SON(S) . SISTER-GRAFT VS. HOST SYNDROME A RESULT OF DONOR TRANSPLANT FOR NON-HODGKINS LYMPHOMASISTER- ARTHRITIS, CHF, CAD1 SON COMMITTED SUICIDE1 SON ALIVE WITH SEVERE MENTAL ILLNESS AND ETOH. SOCIAL HISTORY GENERAL: TOBACCO USE ARE YOU A:NONSMOKER LATEX QUESTIONNAIRE LATEX ALLERGY : HAVE YOU EVER DEVELOPED ANY TYPE OF REACTION AFTER HANDLING LATEX PRODUCTS SUCH RUBBER GLOVES, CONDOMS, DIAPHRAGMS, BALLOONS, SOCKS, OR UNDERWEAR?NO LATEX ALLERGY : HAVE YOU EVER DEVELOPED ANY TYPE OF REACTION DURING OR AFTER DENTAL APPOINTMENT, VAGINAL/RECTAL EXAMINATION, SURGICAL PROCEDURE, OR ANY OTHER EXPOSURE?NO LATEX RISK : HAVE YOU EVER HAD ANY DIFFICULTY BREATHING OR HIVES AFTER EATING OR HANDLING ANY FRUITS, OR VEGETABLES; SUCH KIWI, BANANAS, STONE FRUITS, OR CHESTNUTSNO LATEX RISK : DO YOU HAVE A PREVIOUS PERSONAL HISTORY OF MORE THAN NINE SURGERIES, SPINA BIFIDA, OR REPEATED CATHERTIZATIONS? NO LATEX RISK : ARE YOU FREQUENTLY EXPOSED TO LATEX PRODUCTS IN YOUR OCCUPATION?NO DATE ASKED : 04/20/2018 LUNG CANCER SCREENING SMOKING STATUS:NON SMOKER BMI CARE GOAL FOLLOW-UP ABOVE NORMAL BMI FOLLOW-UPDIETARY MANAGEMENT EDUCATION, GUIDANCE, AND COUNSELING ALCOHOL SCREENING DID YOU HAVE A DRINK CONTAINING ALCOHOL IN THE PAST YEAR?NO POINTS0 INTERPRETATIONNEGATIVE RECREATIONAL DRUG USE DENIES. CAFFEINE NONE. SEXUAL HX HAD SEX IN THE LAST 12 MONTHS (VAGINAL, ORAL, OR ANAL)?NO HAVE YOU EVER HAD AN STD?NO HIV / HEP-C SCREENING HIV TEST OFFERED TO PATIENT:YES DATE OFFERED:04/22/2017 TEST ACCEPTED:NO HEP-C TEST OFFERED TO PATIENT:YES DATE OFFERED:04/22/2017 REASON:PATIENT DECLINED TEST ACCEPTED:NO REASON:PATIENT DECLINED BROCHURE PROVIDED TO PATIENTYES SCIENTOLOGIST [id number] WORSHIP LANGUAGE BRAZILIAN. 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 DIET: LOW FAT, LOW CHOLESTEROL, NO CONCENTRATED SWEETS.. EXERCISE: GARDENS. MARITAL STATUS: SINGLE. OTHERS AT HOME: NONE. PAIN CLINIC PFS, CLERGY, PUBLIC HEALTH REFERRALS PFS REFERRAL NEEDED?NO CLERGY REFERRAL NEEDED?NO PUBLIC HEALTH REFERRAL NEEDED?NO WAS THE PROVIDER NOTIFIED OF ANY PERTINENT INFO?YES N/A HAS THE PATIENT BEEN EDUCATED REGARDING HIS/HER PLAN OF CARE?YES HAS THE PATIENT BEEN EDUCATED REGARDING PAIN, THE RISK FOR PAIN, THE IMPORTANCE OF EFFECTIVE PAIN MANAGEMENT, AND THE PAIN ASSESSMENT PROCESS?YES HOUSING: OWNS HOME. ADVANCE DIRECTIVE ADVANCE DIRECTIVE DISCUSSED WITH PATIENT:YES HCP KRISTEN SHEPPARD [phone]([phone] LIVING WILL ALDO PARRISH [phone] REVIEWED WITH PT 09/27/17 1355 LAS REVIEWED WITH PATIENT 11/16/17 1114 JSREVIEWED WITH PATIENT 04/20/18 0958 JS. HOSPITALIZATION/MAJOR DIAGNOSTIC PROCEDURE SURGERIES ABOVE REVIEW OF SYSTEMS REVIEWED BY: PROVIDER: . CONSTITUTIONAL: ANY CHANGE IN YOUR MEDICAL CONDITION? NO . CHILLS NO . FEVER NO . INFECTION: DO YOU HAVE NEW INFECTIONS? NO . DO YOU HAVE HISTORY OF MRSA? NO . MUSCULOSKELETAL: ANY NEW PATTERNS OF PAIN OR NUMBNESS? NO . GASTROENTEROLOGY: ANY NEW CHANGE IN BOWEL CONTROL? YES, STATES BOUTS OF DIARRHEA, THINKS IT IS RELATED TO EATING WHEAT PRODUCTS . GENITOURINARY: ANY NEW CHANGE IN BLADDER CONTROL? NO . IS THERE A CHANCE YOU COULD BE ? NO . HEMATOLOGY/LYMPH: DO YOU TAKE ANY BLOOD THINNERS? (FOR EXAMPLE- COUMADIN, PLAVIX, AGGRENOX, PLATEL, PRADAXA, OR XARELTO) NO . WHEN WAS YOUR LAST DOSE? DATE: TIME: . NEUROLOGY: HAVE YOU FALLEN IN THE PAST 12 MONTHS? NO . ANY NEW EXTREMITY NUMBNESS OR WEAKNESS? NO . CARDIOLOGY: DO YOU HAVE A PACEMAKER OR DEFIBRILLATOR? NO . RESPIRATORY: HAVE YOU BEEN SICK IN THE PAST WEEK? NO . FEVER NO . FLU LIKE SYMPTOMS? NO . COUGH NO . INTEGUMENTARY: DO YOU HAVE ANY RASHES OR OPEN SORES? NO . ALLERGIC/IMMUNO: ARE YOU ALLERGIC TO IV DYE? NO . ANY NEW ALLERGIES? NO . PSYCHIATRIC: DO YOU HAVE THOUGHTS OF HURTING YOURSELF OR SOMEONE ELSE? NO . ARE YOU ABUSED, NEGLECTED, OR IN AN UNSAFE ENVIRONMENT? NO . ENDOCRINOLOGY: ARE YOU DIABETIC? YES . OTHER: DO YOU NEED ANY PRESCRIPTIONS? NO . IF YES, PLEASE LIST: ____ . ANY NEW PROBLEMS WITH YOUR MEDICATIONS? NO . WHEN DID YOU LAST EAT? ____04/19/181999 . WHEN DID YOU LAST DRINK? ____04/20/18 0800 . WHAT DID YOU LAST DRINK? ____WATER . NAME OF PERSON DRIVING YOU HOME? ____JOAN . DO YOU HAVE ANY OTHER QUESTIONS OR CONCERNS NO . VITAL SIGNS WT 180.2 LBS, HT 61 IN, BMI 34.04 INDEX, BP 169/70 MM HG, HR 71 /MIN, RR 16 /MIN, TEMP 96.3 F, OXYGEN SAT % 100%, BLOOD GLUCOSE LEVEL 145 THIS AM, SAFE IN ENV? (Y/N) YES, NA INITIALS CT 09:48, REVIEWED BY: LOREN. ASSESSMENTS SACROILIITIS, NOT ELSEWHERE CLASSIFIED - M46.1 (PRIMARY) PROCEDURES PN SI PRE PROCEDURE DIAGNOSIS SACROILIITIS, SACROILIAC JOINT DYSFUNCTION POST PROCEDURE DIAGNOSIS SACROILIITIS, SACROILIAC JOINT DYSFUNCTION PROCEDURE RIGHT SACROILIAC JOINT BLOCK SURGEON DR. AMINATA GARCIA PORTFOLIO CONSULTANT NONE ANESTHESIA LOCAL PRE PROCEDURE NOTE PATIENT WITH HISTORY OF CHRONIC LOW BACK PAIN. I EVALUATED THE PATIENT AND REVIEWED THE CHART. I WENT OVER THE RISKS, ALTERNATIVES, AND BENEFITS ASSOCIATED WITH THIS PROCEDURE. THE PATIENT WOULD LIKE TO PROCEED AND GAVE CONSENT TO PERFORM THE PROCEDURE. THE PATIENT DENIES UNEXPLAINABLE WEIGHT LOSS, FEVER, CHILLS, OR NEW CHANGES IN URINARY OR BOWEL CONTROL DESCRIPTION OF PROCEDURE THE PATIENT WAS BROUGHT TO THE PROCEDURE ROOM AND PLACED IN THE PRONE POSITION. THE LUMBOSACRAL AREA WAS CLEANED WITH CHLORAPREP SOLUTION AND DRAPED ASEPTICALLY. THE PROCEDURE WAS DONE UNDER STERILE CONDITIONS. I CHECKED LATERALITY AND THE LEVEL WHERE THE PROCEDURE WAS GOING TO BE PERFORMED WITH THE PATIENT AND THE SUPPORTING STAFF AT THE MOMENT OF THE TIME OUT IN THE PROCEDURE ROOM. UNDER FLUOROSCOPIC GUIDANCE, TARGET POINT WAS SELECTED AT THE LOWER BORDER OF THE RIGHT SACROILIAC JOINT. TARGET POINT WAS SELECTED AFTER MEDIAL ROTATION AND TILT OF THE MAGNIFIER OF THE C-ARM. LIDOCAINE WAS USED TO NUMB THE SKIN AND SUBCUTANEOUS TISSUE BELOW IT. A SPINAL NEEDLE, 22-GAUGE, WAS ADVANCED UNDER FLUOROSCOPIC GUIDANCE AND FOLLOWING PATIENT FEEDBACK UNTIL THE TARGET AREA WAS TOUCHED. THE POSITION OF THE NEEDLE WAS VERIFIED WITH AP AND LATERAL VIEWS. AFTER PROPER POSITION OF THE NEEDLE WAS ACHIEVED, ISOVUE M DYE 30%, 0.25 ML, WAS INJECTED SHOWING SPREAD OF THE DYE. THEN, A SOLUTION OF 20 MG OF KENALOG WAS INJECTED IN RIGHT JOINT WITH 3 ML OF BUPIVACAINE 0.125%. THERE WAS NO EVIDENCE OF BLOOD, PARESTHESIA OR CEREBROSPINAL FLUID DURING THE PROCEDURE. THE PATIENT WAS SENT TO THE RECOVERY ROOM. THE PATIENT WAS MOVING THE EXTREMITIES AND DOING WELL. THERE WAS NO COMPLICATION DURING THE PROCEDURE. FLUOROSCOPY TIME WAS 24 SECONDS POST PROCEDURE NOTE THE PATIENT WILL BE SEEN IN A FOLLOW UP IN THE NEXT FEW WEEKS. INSTRUCTIONS WERE GIVEN, QUESTIONS WERE ANSWERED, AND THE PATIENT EXPRESSED UNDERSTANDING AND AGREED WITH THE PLAN. I, BENNY TERRELL, DOCUMENTED THE ABOVE INFORMATION ACTING A SCRIBE FOR DR. GARCIA. I HAVE REVIEWED THE ABOVE DOCUMENT, WRITTEN BY BENNY BACA AND I VERIFY THAT IT IS ACCURATE. DIAGNOSTIC IMAGING [facility] FLUORO GUIDANCE (PAIN)[id number] PROCEDURE CODES 6045F RADXPS IN END [id number] PXD 10124 INJECT SACROILIAC JOINT, MODIFIERS: RT DISPOSITION & COMMUNICATION FOLLOW UP 3 WEEKS ELECTRONICALLY SIGNED BY AMINATA GARCIA MD, MD ON 05/02/2018 AT 10:54 AM EDT DISCLAIMER : THIS IS A VISIT SUMMARY EXTRACTED FROM THE [employer] CHART. IT IS NOT A COPY OF THE [employer] PROGRESS NOTE. CELESTINO
== END ==
LOC: M PAIN 10:00
PROVIDERS: ATTEND Anesthesiology
DX: M46.1 Sacroiliitis, not elsewhere classified (principal); E78.5 Hyperlipidemia, unspecified; I10 Essential (primary) hypertension; I25.10 Atherosclerotic heart disease of native coronary artery without angina pectoris; I35.2 Nonrheumatic aortic (valve) stenosis with insufficiency; J45.909 Unspecified asthma, uncomplicated; E11.9 Type 2 diabetes mellitus without complications; M10.9 Gout, unspecified; M85.80 Other specified disorders of bone density and structure, unspecified site; F41.9 Anxiety disorder, unspecified; Z98.41 Cataract extraction status, right eye; Z98.42 Cataract extraction status, left eye; Z90.49 Acquired absence of other specified parts of digestive tract; Z88.2 Allergy status to sulfonamides; Z88.6 Allergy status to analgesic agent; Z88.8 Allergy status to other drugs, medicaments and biological substances; Z79.82 Long term (current) use of aspirin; Z79.84 Long term (current) use of oral hypoglycemic drugs; Z79.891 Long term (current) use of opiate analgesic; Z79.899 Other long term (current) drug therapy
CPT/HCPCS: G0260; J3301; Q9967

== ENCOUNTER → 2018-05-10 | Outpatient (CLI) | payer MEDICARE ==
--- NOTE | 2018-05-25 00:40 | ECWPNPC ---
PATIENT NAME: AL BARRIOS : 1945 GENDER: FEMALE VISIT DATE: 05/10/2018 DISCHARGE DATE: 05/10/18 1145 VISIT LOCKED DATE TIME: PHYSICIAN: PETER RECINOS RESOURCE: PETER RECINOS REASON FOR APPOINTMENT 1. POST PROC HISTORY OF PRESENT ILLNESS HISTORY OF PRESENT ILLNESS: HERE FOR POST PROCEDURE F/U.HAD RIGHT SIJ ON 04/20/18.REPORTING SIGNIFICANT REDUCTION IN PAIN THAT CONTINUES TODAY.REPORTS IMPROVED ABILITY TO DRIVE AND TOLERATE PROLONGED SITTING.RATING PAIN 4/10. PAIN THE PATIENT DESCRIBES THE PAIN... FALL RISK SCREENING: SCREENING :NO FALLS REPORTED IN THE LAST YEAR CURRENT MEDICATIONS TAKING ATENOLOL 50 MG TABLET 1 TABLET ORALLY ONCE A DAY TAKING LISINOPRIL 2.5 MG TABLET 1 TABLET ORALLY ONCE A DAY TAKING SPIRONOLACTONE 25 MG TABLET 1/2 TABLET ORALLY ONCE A DAY TAKING HYDROCHLOROTHIAZIDE 25 MG TABLET 1 TABLET ORALLY ONCE A DAY TAKING ASPIRIN 81 MG TABLET 2 TABLETS ORALLY ONCE A DAY TAKING FOLIC ACID 400 MCG TABLET 1 TABLET ORALLY ONCE A DAY TAKING LIPITOR 40 MG TABLET TAKE 1 TABLET EVERY DAY TAKING METFORMIN HCL 500 MG TABLET 1 TABLET WITH A MEAL ORALLY TWICE A DAY TAKING JANUVIA 25 MG TABLET 1 TABLET ORALLY ONCE A DAY TAKING WELLBUTRIN SR 150 MG TABLET EXTENDED RELEASE 12 HOUR TAKE 1 TABLET TWICE DAILY TWICE A DAY TAKING ALLOPURINOL 100 MG TABLET 1 TABLET ORALLY ONCE A DAY TAKING TYLENOL 325 MG TABLET 2 TABLET NEEDED ORALLY EVERY 6 HRS TAKING VITAMIN D3 5000 UNIT CAPSULE 1 CAPSULE ORALLY ONCE A DAY TAKING CALCIUM CITRATE 150 MG CAPSULE 1 CAP ORALLY TWICE A DAY TAKING VITAMIN B COMPLEX TABLET 1 TABLET ORALLY ONCE A DAY TAKING ZINC 50 MG TABLET 1 TABLET ORALLY ONCE A DAY TAKING YOSEF 500 MG CAPSULE 1 CAP ORALLY TWICE A DAY TAKING EPIPEN 2-DELROY 0.3 MG/0.3ML (1:1000) DEVICE DIRECTED INTRAMUSCULAR NEEDED TAKING TRAMADOL HCL 50 MG TABLET 1 ORALLY Q8H PRN FOR SEVERE PAIN MDD3 MEDICATION LIST REVIEWED AND RECONCILED WITH THE PATIENT PAST MEDICAL HISTORY HYPERLIPIDEMIA HYPERTENSION CORONARY ARTERY DISEASE-2008-RST WITHOUT REVERSIBILITY MILD AORTIC STENOSIS AND MILD AORTIC REGURGITATION AND MILD MITRAL REGURGITATION BY TTE SEPTEMBER 2008 ASTHMA DIABETES MELLITUS TYPE 2 [id number] SEPTEMBER 2009 A1C 6.5 GOUT OSTEOPENIA MULTIPLE CHEMICAL SENSITIVITY ANXIETY ALLERGIES LESCOL: MYALGIA - ALLERGY ADVAIR: PARALYZED VIOCAL CORDS - ALLERGY BACTRIM: HIVES - ALLERGY DECONGESTANTS: SHAKING ON THE INSIDE, FEELS "UNWELL" - SIDE EFFECTS IBUPROFEN: HEAVINESS IN CHEST - SIDE EFFECTS NAPROXEN: RINGING IN EARS - SIDE EFFECTS MINOCYCLINE JANUVIA: FATIGUE, WEAKNESS - SIDE EFFECTS SURGICAL HISTORY HYSTERECTOMY 1986 ANGIOPLASTY WITH STENT 06/10 RIGHT CARPAL RELEASE 11/2009 T&A 195 APPENDECTOMY 1956 BUNIONECTOMY 1993 MENISCUS REPAIR 1996 CHOLECYSTECTOMY 2013 BILAT CATARACTS REMOVED 2016 CARPAL TUNNEL RIGHT 2011 CALCIFIED CYST REMOVED FROM HEAD 04/2017 FAMILY HISTORY FATHER: 68 YRS, ARTHRITIS, COMPLICATIONS, STROKE MOTHER: 92 YRS, CHF SIBLINGS: 58 YRS, NON-HODGKINS LYMPHOMA WITH [place] COMPLICATIONS 2 SISTER(S) . 2 SON(S) . SISTER-GRAFT VS. HOST SYNDROME A RESULT OF DONOR TRANSPLANT FOR NON-HODGKINS LYMPHOMA\\NSISTER- ARTHRITIS, CHF, CAD\\N1 SON COMMITTED SUICIDE\\N1 SON ALIVE WITH SEVERE MENTAL ILLNESS AND ETOH. SOCIAL HISTORY GENERAL: TOBACCO USE ARE YOU A:NONSMOKER LATEX QUESTIONNAIRE LATEX ALLERGY : HAVE YOU EVER DEVELOPED ANY TYPE OF REACTION AFTER HANDLING LATEX PRODUCTS SUCH RUBBER GLOVES, CONDOMS, DIAPHRAGMS, BALLOONS, SOCKS, OR UNDERWEAR?NO LATEX ALLERGY : HAVE YOU EVER DEVELOPED ANY TYPE OF REACTION DURING OR AFTER DENTAL APPOINTMENT, VAGINAL/RECTAL EXAMINATION, SURGICAL PROCEDURE, OR ANY OTHER EXPOSURE?NO DATE ASKED : 04/20/2018 LATEX RISK : HAVE YOU EVER HAD ANY DIFFICULTY BREATHING OR HIVES AFTER EATING OR HANDLING ANY FRUITS, OR VEGETABLES; SUCH KIWI, BANANAS, STONE FRUITS, OR CHESTNUTSNO LATEX RISK : DO YOU HAVE A PREVIOUS PERSONAL HISTORY OF MORE THAN NINE SURGERIES, SPINA BIFIDA, OR REPEATED CATHERTIZATIONS? NO LATEX RISK : ARE YOU FREQUENTLY EXPOSED TO LATEX PRODUCTS IN YOUR OCCUPATION?NO LUNG CANCER SCREENING SMOKING STATUS:NON SMOKER BMI CARE GOAL FOLLOW-UP ABOVE NORMAL BMI FOLLOW-UPDIETARY MANAGEMENT EDUCATION, GUIDANCE, AND COUNSELING ALCOHOL SCREENING DID YOU HAVE A DRINK CONTAINING ALCOHOL IN THE PAST YEAR?NO POINTS0 INTERPRETATIONNEGATIVE RECREATIONAL DRUG USE DENIES. CAFFEINE NONE. SEXUAL HX HAD SEX IN THE LAST 12 MONTHS (VAGINAL, ORAL, OR ANAL)?NO HAVE YOU EVER HAD AN STD?NO HIV / HEP-C SCREENING HIV TEST OFFERED TO PATIENT:YES DATE OFFERED:04/22/2017 TEST ACCEPTED:NO HEP-C TEST OFFERED TO PATIENT:YES DATE OFFERED:04/22/2017 REASON:PATIENT DECLINED TEST ACCEPTED:NO REASON:PATIENT DECLINED BROCHURE PROVIDED TO PATIENTYES CONGREGATIONAL LPRFWVIS95 CHRISTIAN LANGUAGE NIUEAN. 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 DIET: LOW FAT, LOW CHOLESTEROL, NO CONCENTRATED SWEETS.. EXERCISE: GARDENS. MARITAL STATUS: SINGLE. OTHERS AT HOME: NONE. PAIN CLINIC PFS, CLERGY, PUBLIC HEALTH REFERRALS PFS REFERRAL NEEDED?NO CLERGY REFERRAL NEEDED?NO PUBLIC HEALTH REFERRAL NEEDED?NO WAS THE PROVIDER NOTIFIED OF ANY PERTINENT INFO?YES N/A HAS THE PATIENT BEEN EDUCATED REGARDING HIS/HER PLAN OF CARE?YES HAS THE PATIENT BEEN EDUCATED REGARDING PAIN, THE RISK FOR PAIN, THE IMPORTANCE OF EFFECTIVE PAIN MANAGEMENT, AND THE PAIN ASSESSMENT PROCESS?YES HOUSING: OWNS HOME. ADVANCE DIRECTIVE ADVANCE DIRECTIVE DISCUSSED WITH PATIENT:YES HCP KRISTEN VALARIE [phone](H) LIVING WILL ALDO PARRISH [phone] REVIEWED WITH PT 09/27/17 1355 LAS REVIEWED WITH PATIENT 11/16/17 1114 JSREVIEWED WITH PATIENT 04/20/18 0958 JSREVIEWED WITH PATENT 05/10/18 1132 JS. HOSPITALIZATION/MAJOR DIAGNOSTIC PROCEDURE SURGERIES ABOVE REVIEW OF SYSTEMS REVIEWED BY: PROVIDER: PETER RIGGS . CONSTITUTIONAL: ANY CHANGE IN YOUR MEDICAL CONDITION? NO . CHILLS NO . FEVER NO . INFECTION: DO YOU HAVE NEW INFECTIONS? NO . DO YOU HAVE HISTORY OF MRSA? NO . MUSCULOSKELETAL: ANY NEW PATTERNS OF PAIN OR NUMBNESS? YES, STATES PAIN IMPROVED SINCE LAST PROCEDURE, RIGHT SACROILIAC JOINT BLOCK . GASTROENTEROLOGY: ANY NEW CHANGE IN BOWEL CONTROL? NO . GENITOURINARY: ANY NEW CHANGE IN BLADDER CONTROL? NO . IS THERE A CHANCE YOU COULD BE ? NO . HEMATOLOGY/LYMPH: DO YOU TAKE ANY BLOOD THINNERS? (FOR EXAMPLE- COUMADIN, PLAVIX, AGGRENOX, PLATEL, PRADAXA, OR XARELTO) NO . WHEN WAS YOUR LAST DOSE? DATE: TIME: . NEUROLOGY: HAVE YOU FALLEN IN THE PAST 12 MONTHS? NO . ANY NEW EXTREMITY NUMBNESS OR WEAKNESS? NO . CARDIOLOGY: DO YOU HAVE A PACEMAKER OR DEFIBRILLATOR? NO . RESPIRATORY: HAVE YOU BEEN SICK IN THE PAST WEEK? NO . FEVER NO . FLU LIKE SYMPTOMS? NO . COUGH NO . INTEGUMENTARY: DO YOU HAVE ANY RASHES OR OPEN SORES? NO . ALLERGIC/IMMUNO: ARE YOU ALLERGIC TO IV DYE? NO . ANY NEW ALLERGIES? NO . PSYCHIATRIC: DO YOU HAVE THOUGHTS OF HURTING YOURSELF OR SOMEONE ELSE? NO . ARE YOU ABUSED, NEGLECTED, OR IN AN UNSAFE ENVIRONMENT? NO . ENDOCRINOLOGY: ARE YOU DIABETIC? YES . OTHER: DO YOU NEED ANY PRESCRIPTIONS? NO . IF YES, PLEASE LIST: ____ . ANY NEW PROBLEMS WITH YOUR MEDICATIONS? NO . WHEN DID YOU LAST EAT? ____ . WHEN DID YOU LAST DRINK? ____ . WHAT DID YOU LAST DRINK? ____ . NAME OF PERSON DRIVING YOU HOME? ____ . DO YOU HAVE ANY OTHER QUESTIONS OR CONCERNS NO . VITAL SIGNS WT 180.3 LBS, HT 61 IN, BMI 34.06 INDEX, BP 161/69 MM HG, HR 71 /MIN, RR 16 /MIN, TEMP 96.9 F, OXYGEN SAT % 98%, SAFE IN ENV? (Y/N) YES, NA INITIALS MA 11:15, REVIEWED BY: LOREN. EXAMINATION GENERAL EXAMINATION: GENERAL APPEARANCE:AWAKE,ALERT ,PLEAASANT . PSYCHAFFECT NORMAL . LUNGS:LUNG CALVIN ARE CLEAR TO AUSCULTATION BILATERALLY. GOOD MOVEMENT OF AIR . HEART:S1, S2 IN A REGULAR RATE AND RHYTHM. NO SIGNIFICANT MURMURS, RUBS OR GALLOPS NOTED . ASSESSMENTS SACROILIITIS - M46.1 (PRIMARY) INTERVERTEBRAL DISC DISORDER WITH RADICULOPATHY OF LUMBOSACRAL REGION - M51.17 TREATMENT SACROILIITIS NOTES: PATIENT WAS ADVISED TO START A WALKING PROGRAM TO STRENGTHEN LUMBAR PARASPINAL MUSCLES AND IMPROVE MOBILITY. THEY WERE ADVISED THAT THIS WILL IMPROVE WEIGHT LOSS AND ALSO DEPRESSION/FIBROMYALGIA SYMPTOMS. ADVISED TO WALK 10 MINUTES EVERY OTHER DAY ON A FLAT SURFACE. EMPHASIZED THE IMPORTANCE OF DOING THIS CONSISTANTLY AND NOT SPORATICALLY TO AVOID INJURY. STRONG ADVISED NOT TO DO MORE THAN 10 MINUTES EVERY OTHER DAY FOR THE FIRST 4 WEEKS. PROCEDURE CODES FA211 ESTABILISHED PATIENT [facility] CHARGE DISPOSITION & COMMUNICATION FOLLOW UP 2 MONTHS ELECTRONICALLY SIGNED BY ONEIL SHI ON 05/24/2018 AT 10:22 AM EDT DISCLAIMER : THIS IS A VISIT SUMMARY EXTRACTED FROM THE [employer] CHART. IT IS NOT A COPY OF THE [employer] PROGRESS NOTE. CELESTINO
== END ==
LOC: M PAIN 10:45
PROVIDERS: ATTEND Nurse Practitioner Family
DX: M46.1 Sacroiliitis, not elsewhere classified (principal); M51.17 Intervertebral disc disorders with radiculopathy, lumbosacral region; E78.5 Hyperlipidemia, unspecified; I10 Essential (primary) hypertension; J45.909 Unspecified asthma, uncomplicated; E11.9 Type 2 diabetes mellitus without complications; Z86.39 Personal history of other endocrine, nutritional and metabolic disease; Z86.59 Personal history of other mental and behavioral disorders; Z88.1 Allergy status to other antibiotic agents; Z88.6 Allergy status to analgesic agent; Z88.8 Allergy status to other drugs, medicaments and biological substances; Z79.82 Long term (current) use of aspirin; Z79.84 Long term (current) use of oral hypoglycemic drugs; Z79.891 Long term (current) use of opiate analgesic; Z79.899 Other long term (current) drug therapy

== ENCOUNTER → 2018-07-10 | Outpatient (CLI) | payer MEDICARE ==
--- NOTE | 2018-07-25 02:33 | ECWPNPC ---
PATIENT NAME: AL BARRIOS : 1945 GENDER: FEMALE VISIT DATE: 07/10/2018 DISCHARGE DATE: 07/10/18 1016 VISIT LOCKED DATE TIME: PHYSICIAN: PETER RECINOS RESOURCE: PETER RECNIOS REASON FOR APPOINTMENT 1. LOW BACK HISTORY OF PRESENT ILLNESS HISTORY OF PRESENT ILLNESS: HERE FOR F/U OF CHRONIC LOW BACK PAIN.OVERALL DOING WELL.CONTINUES TO BENEFIT FROM RIGHT SIJ DONE ON 04/20/18.RATING PAIN VAS 4/10.USING TRAMADOL 1 TAB PLUS 2 ACETAMINOPHEN 500MG BID. PAIN THE PATIENT DESCRIBES THE PAIN... FALL RISK SCREENING: SCREENING :NO FALLS REPORTED IN THE LAST YEAR CURRENT MEDICATIONS TAKING ATENOLOL 50 MG TABLET 1 TABLET ORALLY ONCE A DAY TAKING LISINOPRIL 2.5 MG TABLET 1 TABLET ORALLY ONCE A DAY TAKING SPIRONOLACTONE 25 MG TABLET 1/2 TABLET ORALLY ONCE A DAY TAKING HYDROCHLOROTHIAZIDE 25 MG TABLET 1 TABLET ORALLY ONCE A DAY TAKING ASPIRIN 81 MG TABLET 2 TABLETS ORALLY ONCE A DAY TAKING FOLIC ACID 400 MCG TABLET 1 TABLET ORALLY ONCE A DAY TAKING LIPITOR 40 MG TABLET TAKE 1 TABLET EVERY DAY TAKING METFORMIN HCL 500 MG TABLET 1 TABLET WITH A MEAL ORALLY TWICE A DAY TAKING JANUVIA 25 MG TABLET 1 TABLET ORALLY ONCE A DAY TAKING WELLBUTRIN SR 150 MG TABLET EXTENDED RELEASE 12 HOUR TAKE 1 TABLET TWICE DAILY TWICE A DAY TAKING ALLOPURINOL 100 MG TABLET 1 TABLET ORALLY ONCE A DAY TAKING TYLENOL 325 MG TABLET 2 TABLET NEEDED ORALLY EVERY 6 HRS TAKING VITAMIN D3 5000 UNIT CAPSULE 1 CAPSULE ORALLY ONCE A DAY TAKING CALCIUM CITRATE 150 MG CAPSULE 1 CAP ORALLY TWICE A DAY TAKING VITAMIN B COMPLEX TABLET 1 TABLET ORALLY ONCE A DAY TAKING ZINC 50 MG TABLET 1 TABLET ORALLY ONCE A DAY TAKING YOSEF 500 MG CAPSULE 1 CAP ORALLY TWICE A DAY TAKING EPIPEN 2-DELROY 0.3 MG/0.3ML (1:1000) DEVICE DIRECTED INTRAMUSCULAR NEEDED TAKING TRAMADOL HCL 50 MG TABLET 1 ORALLY Q8H PRN FOR SEVERE PAIN MDD3 TAKING LORATADINE 10 MG TABLET 1 TABLET ORALLY ONCE A DAY MEDICATION LIST REVIEWED AND RECONCILED WITH THE PATIENT PAST MEDICAL HISTORY HYPERLIPIDEMIA HYPERTENSION CORONARY ARTERY DISEASE-2008-RST WITHOUT REVERSIBILITY MILD AORTIC STENOSIS AND MILD AORTIC REGURGITATION AND MILD MITRAL REGURGITATION BY TTE SEPTEMBER 2008 ASTHMA DIABETES MELLITUS TYPE 2 [id number] SEPTEMBER 2009 A1C 6.5 GOUT OSTEOPENIA MULTIPLE CHEMICAL SENSITIVITY ANXIETY ALLERGIES LESCOL: MYALGIA - ALLERGY ADVAIR: PARALYZED VIOCAL CORDS - ALLERGY BACTRIM: HIVES - ALLERGY DECONGESTANTS: SHAKING ON THE INSIDE, FEELS "UNWELL" - SIDE EFFECTS IBUPROFEN: HEAVINESS IN CHEST - SIDE EFFECTS NAPROXEN: RINGING IN EARS - SIDE EFFECTS MINOCYCLINE JANUVIA: FATIGUE, WEAKNESS - SIDE EFFECTS SURGICAL HISTORY HYSTERECTOMY 1986 ANGIOPLASTY WITH STENT 06/10 RIGHT CARPAL RELEASE 11/2009 T&A 1951 APPENDECTOMY 1956 BUNIONECTOMY 1993 MENISCUS REPAIR 1996 CHOLECYSTECTOMY 2013 BILAT CATARACTS REMOVED 2016 CARPAL TUNNEL RIGHT 2011 CALCIFIED CYST REMOVED FROM HEAD 04/2017 FAMILY HISTORY FATHER: 68 YRS, ARTHRITIS, COMPLICATIONS, STROKE MOTHER: 92 YRS, CHF SIBLINGS: 58 YRS, NON-HODGKINS LYMPHOMA WITH [place] COMPLICATIONS 2 SISTER(S) . 2 SON(S) . SISTER-GRAFT VS. HOST SYNDROME A RESULT OF DONOR TRANSPLANT FOR NON-HODGKINS LYMPHOMA\\NSISTER- ARTHRITIS, CHF, CAD\\N1 SON COMMITTED SUICIDE\\N1 SON ALIVE WITH SEVERE MENTAL ILLNESS AND ETOH. SOCIAL HISTORY GENERAL: TOBACCO USE ARE YOU A:NONSMOKER HIV / HEP-C SCREENING HIV TEST OFFERED TO PATIENT:YES DATE OFFERED:04/22/2017 TEST ACCEPTED:NO HEP-C TEST OFFERED TO PATIENT:YES DATE OFFERED:04/22/2017 REASON:PATIENT DECLINED TEST ACCEPTED:NO REASON:PATIENT DECLINED BROCHURE PROVIDED TO PATIENTYES OTHERS AT HOME: NONE. HOUSING: OWNS HOME. 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 DIET: LOW FAT, LOW CHOLESTEROL, NO CONCENTRATED SWEETS.. LANGUAGE TURKMEN. DOMESTIC VIOLENCE DO YOU FEEL SAFE IN YOUR ENVIRONMENT?YES BMI CARE GOAL FOLLOW-UP ABOVE NORMAL BMI FOLLOW-UPDIETARY MANAGEMENT EDUCATION, GUIDANCE, AND COUNSELING RECREATIONAL DRUG USE DENIES. EXERCISE: GARDENS. LEARNING BARRIERS / SPECIAL NEEDS CHANGE FROM LAST VISIT?NO BARRIERS TO LEARNING?NO HEARING IMPAIRED?NO VISION IMPAIRED?YES COGNITIVELY IMPAIRED?NO :CORRECTIVE LENSES READINESS TO LEARN?YES LEARNING PREFERENCES?NO LEARNING CAPABILITIES PRESENT?YES EMOTIONAL BARRIERS?NO SPECIAL DEVICES?NO BACKUP SAWYER NEEDED?NO LUNG CANCER SCREENING SMOKING STATUS:NON SMOKER PAIN CLINIC PFS, CLERGY, PUBLIC HEALTH REFERRALS PFS REFERRAL NEEDED?NO CLERGY REFERRAL NEEDED?NO PUBLIC HEALTH REFERRAL NEEDED?NO WAS THE PROVIDER NOTIFIED OF ANY PERTINENT INFO?YES N/A HAS THE PATIENT BEEN EDUCATED REGARDING HIS/HER PLAN OF CARE?YES HAS THE PATIENT BEEN EDUCATED REGARDING PAIN, THE RISK FOR PAIN, THE IMPORTANCE OF EFFECTIVE PAIN MANAGEMENT, AND THE PAIN ASSESSMENT PROCESS?YES LATEX QUESTIONNAIRE LATEX ALLERGY : HAVE YOU EVER DEVELOPED ANY TYPE OF REACTION AFTER HANDLING LATEX PRODUCTS SUCH RUBBER GLOVES, CONDOMS, DIAPHRAGMS, BALLOONS, SOCKS, OR UNDERWEAR?NO LATEX ALLERGY : HAVE YOU EVER DEVELOPED ANY TYPE OF REACTION DURING OR AFTER DENTAL APPOINTMENT, VAGINAL/RECTAL EXAMINATION, SURGICAL PROCEDURE, OR ANY OTHER EXPOSURE?NO DATE ASKED : 04/20/2018 LATEX RISK : HAVE YOU EVER HAD ANY DIFFICULTY BREATHING OR HIVES AFTER EATING OR HANDLING ANY FRUITS, OR VEGETABLES; SUCH KIWI, BANANAS, STONE FRUITS, OR CHESTNUTSNO LATEX RISK : DO YOU HAVE A PREVIOUS PERSONAL HISTORY OF MORE THAN NINE SURGERIES, SPINA BIFIDA, OR REPEATED CATHERTIZATIONS? NO LATEX RISK : ARE YOU FREQUENTLY EXPOSED TO LATEX PRODUCTS IN YOUR OCCUPATION?NO CAFFEINE NONE. ADVANCE DIRECTIVE ADVANCE DIRECTIVE DISCUSSED WITH PATIENT:YES HCP KRISTEN SHEPPARD [phone](H) LIVING WILL ALDO PARRISH [phone] JEW [id number] MANDAEN MARITAL STATUS: SINGLE. 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 SEXUAL HX HAD SEX IN THE LAST 12 MONTHS (VAGINAL, ORAL, OR ANAL)?NO HAVE YOU EVER HAD AN STD?NO REVIEWED WITH PT 09/27/17 1355 LAS REVIEWED WITH PATIENT 11/16/17 1114 JSREVIEWED WITH PATIENT 04/20/18 0958 JSREVIEWED WITH PATIENT 05/10/18 1132 JSREVIEWED WITH PATIENT 07/10/18 0922 JS. HOSPITALIZATION/MAJOR DIAGNOSTIC PROCEDURE SURGERIES ABOVE REVIEW OF SYSTEMS REVIEWED BY: PROVIDER: PETER RIGGS . CONSTITUTIONAL: ANY CHANGE IN YOUR MEDICAL CONDITION? NO . CHILLS NO . FEVER NO . INFECTION: DO YOU HAVE NEW INFECTIONS? NO . DO YOU HAVE HISTORY OF MRSA? NO . MUSCULOSKELETAL: ANY NEW PATTERNS OF PAIN OR NUMBNESS? NO . GASTROENTEROLOGY: ANY NEW CHANGE IN BOWEL CONTROL? NO . GENITOURINARY: ANY NEW CHANGE IN BLADDER CONTROL? NO . IS THERE A CHANCE YOU COULD BE ? NO . HEMATOLOGY/LYMPH: DO YOU TAKE ANY BLOOD THINNERS? (FOR EXAMPLE- COUMADIN, PLAVIX, AGGRENOX, PLATEL, PRADAXA, OR XARELTO) NO . WHEN WAS YOUR LAST DOSE? DATE: TIME: . NEUROLOGY: HAVE YOU FALLEN IN THE PAST 12 MONTHS? NO . ANY NEW EXTREMITY NUMBNESS OR WEAKNESS? NO . CARDIOLOGY: DO YOU HAVE A PACEMAKER OR DEFIBRILLATOR? NO . RESPIRATORY: HAVE YOU BEEN SICK IN THE PAST WEEK? NO . FEVER NO . FLU LIKE SYMPTOMS? NO . COUGH NO . INTEGUMENTARY: DO YOU HAVE ANY RASHES OR OPEN SORES? NO . ALLERGIC/IMMUNO: ARE YOU ALLERGIC TO IV DYE? NO . ANY NEW ALLERGIES? NO . PSYCHIATRIC: DO YOU HAVE THOUGHTS OF HURTING YOURSELF OR SOMEONE ELSE? NO . ARE YOU ABUSED, NEGLECTED, OR IN AN UNSAFE ENVIRONMENT? NO . ENDOCRINOLOGY: ARE YOU DIABETIC? YES . OTHER: DO YOU NEED ANY PRESCRIPTIONS? NO . IF YES, PLEASE LIST: ____ . ANY NEW PROBLEMS WITH YOUR MEDICATIONS? NO . WHEN DID YOU LAST EAT? ____ . WHEN DID YOU LAST DRINK? ____ . WHAT DID YOU LAST DRINK? ____ . NAME OF PERSON DRIVING YOU HOME? ____ . DO YOU HAVE ANY OTHER QUESTIONS OR CONCERNS NO . VITAL SIGNS WT 180.8 LBS, HT 61 IN, BMI 34.16 INDEX, BP 193/80 MM HG, REPEAT BP 141/64 MM HG, HR 80 /MIN, RR 16 /MIN, TEMP 97.1 F, OXYGEN SAT % 97%, SAFE IN ENV? (Y/N) YES, NA INITIALS CT 09:17, REVIEWED BY: LOREN. EXAMINATION GENERAL EXAMINATION: GENERAL APPEARANCE:AWAKE,ALERT ,PLEAASANT . PSYCHAFFECT NORMAL . LUNGS:LUNG CALVIN ARE CLEAR TO AUSCULTATION BILATERALLY. GOOD MOVEMENT OF AIR . HEART:S1, S2 IN A REGULAR RATE AND RHYTHM. NO SIGNIFICANT MURMURS, RUBS OR GALLOPS NOTED . ASSESSMENTS SACROILIITIS - M46.1 (PRIMARY) INTERVERTEBRAL DISC DISORDER WITH RADICULOPATHY OF LUMBOSACRAL REGION - M51.17 TREATMENT SACROILIITIS CONTINUE TRAMADOL HCL TABLET, 50 MG, 1, ORALLY, Q8H PRN FOR SEVERE PAIN MDD3, 30 DAY(S), 45, REFILLS 5 NOTES: ISTOP REGISTRY REVIEWED AND DEMONSTRATES COMPLLIANCE. (REF # ) BRINGS IN MEDICATIONS WHICH IS APPROPRIATE FOR WHAT WAS DISPENSED. RECENT URINE TOXICOLOGY REVIEWED. NO UNAUTHORIZED MEDICATIONS. NO ILLICIT SUBSTANCES AND PRESCRIBED MEDICATIONS WERE PRESENT. URINE TOX TODAY, RISKS AND BENEFITS OF NARCOTIC/OPIOD MEDICATIONS WERE REVIEWED WITH PATIENT - THIS INCLUDES BUT IS NOT LIMITED TO RISK OF DEPENDANCE/DEVELOPMENT OF ADDICTION, MOOD DISTURBANCE AND DEPRESSION, OSTEOPOROSIS, HORMONAL AND LABIDAL CHANGES, RESPIRATORY DEPRESSION AND . PATIENT IS ADVISED NOT TO DRIVE OR DRINK ALCOHOL WHILE ON THESE MEDICATIONS. PROCEDURE CODES FA211 ESTABILISHED PATIENT [facility] CHARGE DISPOSITION & COMMUNICATION FOLLOW UP 3 MONTHS ELECTRONICALLY SIGNED BY ONEIL SHI ON 07/24/2018 AT 03:50 PM EDT DISCLAIMER : THIS IS A VISIT SUMMARY EXTRACTED FROM THE [employer] CHART. IT IS NOT A COPY OF THE [employer] PROGRESS NOTE. CELESTINO
== END ==
LOC: M PAIN 09:15
PROVIDERS: ATTEND Nurse Practitioner Family
DX: M46.1 Sacroiliitis, not elsewhere classified (principal); M51.17 Intervertebral disc disorders with radiculopathy, lumbosacral region; G89.29 Other chronic pain; E78.5 Hyperlipidemia, unspecified; I10 Essential (primary) hypertension; J45.909 Unspecified asthma, uncomplicated; E11.9 Type 2 diabetes mellitus without complications; M85.88 Other specified disorders of bone density and structure, other site; Z86.59 Personal history of other mental and behavioral disorders; Z88.1 Allergy status to other antibiotic agents; Z88.6 Allergy status to analgesic agent; Z88.8 Allergy status to other drugs, medicaments and biological substances; Z79.82 Long term (current) use of aspirin; Z79.84 Long term (current) use of oral hypoglycemic drugs; Z79.891 Long term (current) use of opiate analgesic; Z79.899 Other long term (current) drug therapy

== ENCOUNTER → 2018-08-03 | Outpatient (CLI) | payer MEDICARE ==
--- NOTE | 2018-08-03 12:03 | REP ---
Clinical: Trauma. Technique: Frontal view of the chest with multiple views of the right hemithorax. Findings: Frontal view of the chest demonstrates no acute cardiopulmonary process. Multiple views of the right hemithorax demonstrates no obvious acute rib fracture or pathology. Impression: No obvious acute right rib fracture identified. Electronically Signed by Greg Urrutia MD 08/03/2018 11:55 A
== END ==
LOC: M ADAMS 09:45
PROVIDERS: ATTEND Physician Assistant
DX: R07.81 Pleurodynia (principal)
CPT/HCPCS: 71101; G0463

== ENCOUNTER → 2018-10-11 | Outpatient (CLI) | payer MEDICARE ==
--- NOTE | 2018-10-31 02:33 | ECWPNPC ---
PATIENT NAME: AL BARRIOS : 1945 GENDER: FEMALE VISIT DATE: 10/11/2018 DISCHARGE DATE: 10/11/18 1021 VISIT LOCKED DATE TIME: PHYSICIAN: PETER RECINOS RESOURCE: PETER RECINOS DISCLAIMER : THIS IS A VISIT SUMMARY EXTRACTED FROM THE [facility] CHART. IT IS NOT A COPY OF THE [facility] PROGRESS NOTE. CELESTINO
== END ==
LOC: M PAIN 09:45
PROVIDERS: ATTEND Nurse Practitioner Family
DX: M46.1 Sacroiliitis, not elsewhere classified (principal); G89.29 Other chronic pain; I10 Essential (primary) hypertension; E78.5 Hyperlipidemia, unspecified; J45.909 Unspecified asthma, uncomplicated; E11.9 Type 2 diabetes mellitus without complications; M85.88 Other specified disorders of bone density and structure, other site; Z86.59 Personal history of other mental and behavioral disorders; Z88.1 Allergy status to other antibiotic agents; Z88.6 Allergy status to analgesic agent; Z88.8 Allergy status to other drugs, medicaments and biological substances; Z79.82 Long term (current) use of aspirin; Z79.84 Long term (current) use of oral hypoglycemic drugs; Z79.891 Long term (current) use of opiate analgesic; Z79.899 Other long term (current) drug therapy

== ENCOUNTER → 2018-11-15 | Outpatient (CLI) | payer MEDICARE ==
[~2018-11-15] MED LIST changes: -oxyCODONE 5MG TAB As Ordered ONE
--- NOTE | 2018-11-15 16:02 | REP ---
C-ARM VIEWS RIGHT SACROILIAC JOINT: Clinical history: Pain. Four C-Arm views right sacroiliac joint performed during injection by Dr. Schmitt. Needle overlies the right sacroiliac joint. 16 seconds fluoroscopy time utilized. Electronically Signed by Dimitri Daiz MD 11/15/2018 06:43 P
--- NOTE | 2018-11-29 01:18 | ECWPNPC ---
PATIENT NAME: AL BARRIOS : 1945 GENDER: FEMALE VISIT DATE: 11/15/2018 DISCHARGE DATE: 11/15/18 1448 VISIT LOCKED DATE TIME: PHYSICIAN: AMINATA GARCIA MD RESOURCE: AMINATA GARCIA MD REASON FOR APPOINTMENT 1. RIGHT SIJ HISTORY OF PRESENT ILLNESS HISTORY OF PRESENT ILLNESS: PAIN THE PATIENT DESCRIBES THE PAIN... FALL RISK SCREENING: SCREENING :NO FALLS REPORTED IN THE LAST YEAR CURRENT MEDICATIONS TAKING LISINOPRIL 2.5 MG TABLET 1 TABLET ORALLY ONCE A DAY, NOTES: 11-14-18899 TAKING SPIRONOLACTONE 25 MG TABLET 1/2 TABLET ORALLY ONCE A DAY, NOTES: 11-15-18799 TAKING HYDROCHLOROTHIAZIDE 25 MG TABLET 1 TABLET ORALLY ONCE A DAY, NOTES: 11-15-18899 TAKING ASPIRIN 81 MG TABLET 2 TABLETS ORALLY ONCE A DAY, NOTES: 11-14-182099 TAKING FOLIC ACID 400 MCG TABLET 1 TABLET ORALLY ONCE A DAY, NOTES: 11-14-182099 TAKING LIPITOR 40 MG TABLET TAKE 1 TABLET EVERY DAY , NOTES: 11-14-182099 TAKING JANUVIA 25 MG TABLET 1 TABLET ORALLY ONCE A DAY, NOTES: YES TAKING WELLBUTRIN SR 150 MG TABLET EXTENDED RELEASE 12 HOUR TAKE 1 TABLET TWICE DAILY ONCE A DAY, NOTES: 11-15-18899 TAKING ALLOPURINOL 100 MG TABLET 1 TABLET ORALLY ONCE A DAY, NOTES: TUESDAY TAKING TYLENOL 325 MG TABLET 2 TABLET NEEDED ORALLY EVERY 6 HRS, NOTES: 11-15-18799 TAKING LORATADINE 10 MG TABLET 1 TABLET ORALLY ONCE A DAY, NOTES: 11-14-18899 TAKING VITAMIN D3 5000 UNIT CAPSULE 1 CAPSULE ORALLY ONCE A DAY, NOTES: 11-15-18799 TAKING CALCIUM CITRATE 150 MG CAPSULE 1 CAP ORALLY TWICE A DAY, NOTES: 11-14-182099 TAKING VITAMIN B COMPLEX TABLET 1 TABLET ORALLY ONCE A DAY, NOTES: 11-15-18799 TAKING ZINC 50 MG TABLET 1 TABLET ORALLY ONCE A DAY, NOTES: 11-14-182099 TAKING YOSEF 500 MG CAPSULE 1 CAP ORALLY TWICE A DAY, NOTES: 11-14-18899 TAKING TRAMADOL HCL 50 MG TABLET 1 ORALLY Q8H PRN FOR SEVERE PAIN MDD3, NOTES: 11-15-18899 TAKING ATENOLOL 50 MG TABLET 1 TABLET ORALLY ONCE A DAY, NOTES: 11-14-182099 TAKING METFORMIN HCL 500 MG TABLET TAKE 1 TABLET TWICE DAILY , NOTES: YESTERDAY UNKNOWN EPIPEN 2-DELROY 0.3 MG/0.3ML (1:1000) DEVICE DIRECTED INTRAMUSCULAR NEEDED MEDICATION LIST REVIEWED AND RECONCILED WITH THE PATIENT PAST MEDICAL HISTORY HYPERTENSION CORONARY ARTERY DISEASE-2008-RST WITHOUT REVERSIBILITY MILD AORTIC STENOSIS AND MILD AORTIC REGURGITATION AND MILD MITRAL REGURGITATION BY TTE SEPTEMBER 2008 HYPERLIPIDEMIA ASTHMA DIABETES MELLITUS TYPE 2 [id number] SEPTEMBER 2009 A1C 6.5 GOUT OSTEOPENIA MULTIPLE CHEMICAL SENSITIVITY ANXIETY ALLERGIES LESCOL: MYALGIA - ALLERGY ADVAIR: PARALYZED VIOCAL CORDS - ALLERGY BACTRIM: HIVES - ALLERGY DECONGESTANTS: SHAKING ON THE INSIDE, FEELS "UNWELL" - SIDE EFFECTS IBUPROFEN: HEAVINESS IN CHEST - SIDE EFFECTS NAPROXEN: RINGING IN EARS - SIDE EFFECTS MINOCYCLINE JANUVIA: FATIGUE, WEAKNESS - SIDE EFFECTS SURGICAL HISTORY HYSTERECTOMY 1986 ANGIOPLASTY WITH STENT 06/10 RIGHT CARPAL RELEASE 11/2009 T&A 1951 APPENDECTOMY 1956 BUNIONECTOMY 1993 MENISCUS REPAIR 1996 CHOLECYSTECTOMY 2013 BILAT CATARACTS REMOVED 2016 CARPAL TUNNEL RIGHT 2011 CALCIFIED CYST REMOVED FROM HEAD 04/2017 FAMILY HISTORY FATHER: 68 YRS, ARTHRITIS, COMPLICATIONS, STROKE MOTHER: 92 YRS, CHF SIBLINGS: 58 YRS, NON-HODGKINS LYMPHOMA WITH [place] COMPLICATIONS 2 SISTER(S) . 2 SON(S) . SISTER-GRAFT VS. HOST SYNDROME A RESULT OF DONOR TRANSPLANT FOR NON-HODGKINS LYMPHOMA\\NSISTER- ARTHRITIS, CHF, CAD\\N1 SON COMMITTED SUICIDE\\N1 SON ALIVE WITH SEVERE MENTAL ILLNESS AND ETOH DENIES ANY FAMILY HX OF MELANOMA AND PANCREATIC CANCERS. SOCIAL HISTORY GENERAL: TOBACCO USE ARE YOU A:NONSMOKER HIV / HEP-C SCREENING HIV TEST OFFERED TO PATIENT:YES DATE OFFERED:04/22/2017 TEST ACCEPTED:NO HEP-C TEST OFFERED TO PATIENT:YES DATE OFFERED:04/22/2017 REASON:PATIENT DECLINED TEST ACCEPTED:NO REASON:PATIENT DECLINED BROCHURE PROVIDED TO PATIENTYES OTHERS AT HOME: NONE. HOUSING: OWNS HOME. 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 DIET: LOW FAT, LOW CHOLESTEROL, NO CONCENTRATED SWEETS.. LANGUAGE CITIZEN OF [place]. DOMESTIC VIOLENCE DO YOU FEEL SAFE IN YOUR ENVIRONMENT?YES BMI CARE GOAL FOLLOW-UP ABOVE NORMAL BMI FOLLOW-UPDIETARY MANAGEMENT EDUCATION, GUIDANCE, AND COUNSELING RECREATIONAL DRUG USE DENIES. EXERCISE: GARDENS. LEARNING BARRIERS / SPECIAL NEEDS CHANGE FROM LAST VISIT?NO 09/22/18 BARRIERS TO LEARNING?NO HEARING IMPAIRED?NO VISION IMPAIRED?YES COGNITIVELY IMPAIRED?NO :CORRECTIVE LENSES READINESS TO LEARN?YES LEARNING PREFERENCES?NO LEARNING CAPABILITIES PRESENT?YES EMOTIONAL BARRIERS?NO SPECIAL DEVICES?NO AIRPLANE TESTER NEEDED?NO LUNG CANCER SCREENING SMOKING STATUS:NON SMOKER PAIN CLINIC PFS, CLERGY, PUBLIC HEALTH REFERRALS PFS REFERRAL NEEDED?NO CLERGY REFERRAL NEEDED?NO PUBLIC HEALTH REFERRAL NEEDED?NO WAS THE PROVIDER NOTIFIED OF ANY PERTINENT INFO?YES N/A HAS THE PATIENT BEEN EDUCATED REGARDING HIS/HER PLAN OF CARE?YES HAS THE PATIENT BEEN EDUCATED REGARDING PAIN, THE RISK FOR PAIN, THE IMPORTANCE OF EFFECTIVE PAIN MANAGEMENT, AND THE PAIN ASSESSMENT PROCESS?YES LATEX QUESTIONNAIRE LATEX ALLERGY : HAVE YOU EVER DEVELOPED ANY TYPE OF REACTION AFTER HANDLING LATEX PRODUCTS SUCH RUBBER GLOVES, CONDOMS, DIAPHRAGMS, BALLOONS, SOCKS, OR UNDERWEAR?NO LATEX ALLERGY : HAVE YOU EVER DEVELOPED ANY TYPE OF REACTION DURING OR AFTER DENTAL APPOINTMENT, VAGINAL/RECTAL EXAMINATION, SURGICAL PROCEDURE, OR ANY OTHER EXPOSURE?NO DATE ASKED : 04/20/2018 LATEX RISK : HAVE YOU EVER HAD ANY DIFFICULTY BREATHING OR HIVES AFTER EATING OR HANDLING ANY FRUITS, OR VEGETABLES; SUCH KIWI, BANANAS, STONE FRUITS, OR CHESTNUTSNO LATEX RISK : DO YOU HAVE A PREVIOUS PERSONAL HISTORY OF MORE THAN NINE SURGERIES, SPINA BIFIDA, OR REPEATED CATHERIZATIONS? NO LATEX RISK : ARE YOU FREQUENTLY EXPOSED TO LATEX PRODUCTS IN YOUR OCCUPATION?NO CAFFEINE NONE. ADVANCE DIRECTIVE ADVANCE DIRECTIVE DISCUSSED WITH PATIENT:YES HCP KRISTEN SHEPPARD [phone](H) LIVING WILL ALDO IMELDA PARRISH [phone](H) EPISCOPAL [id number] MU-ISM MARITAL STATUS: SINGLE. 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 SEXUAL HX HAD SEX IN THE LAST 12 MONTHS (VAGINAL, ORAL, OR ANAL)?NO HAVE YOU EVER HAD AN STD?NO REVIEWED WITH PT 09/27/17 1355 LAS REVIEWED WITH PATIENT 11/16/17 1114 JSREVIEWED WITH PATIENT 04/20/18 0958 JSREVIEWED WITH PATIENT 05/10/18 1132 JSREVIEWED WITH PATIENT 07/10/18 0922 JSREVIEWED WITH PT 10/11/18 0956 BV. HOSPITALIZATION/MAJOR DIAGNOSTIC PROCEDURE SURGERIES ABOVE REVIEW OF SYSTEMS REVIEWED BY: PROVIDER: . CONSTITUTIONAL: ANY CHANGE IN YOUR MEDICAL CONDITION? NO . CHILLS NO . FEVER NO . INFECTION: DO YOU HAVE NEW INFECTIONS? NO . DO YOU HAVE HISTORY OF MRSA? NO . MUSCULOSKELETAL: ANY NEW PATTERNS OF PAIN OR NUMBNESS? YES . GASTROENTEROLOGY: ANY NEW CHANGE IN BOWEL CONTROL? NO . GENITOURINARY: ANY NEW CHANGE IN BLADDER CONTROL? NO . IS THERE A CHANCE YOU COULD BE ? NO . HEMATOLOGY/LYMPH: DO YOU TAKE ANY BLOOD THINNERS? (FOR EXAMPLE- COUMADIN, PLAVIX, AGGRENOX, PLATEL, PRADAXA, OR XARELTO) NO . WHEN WAS YOUR LAST DOSE? DATE: TIME: . NEUROLOGY: HAVE YOU FALLEN IN THE PAST 12 MONTHS? NO . ANY NEW EXTREMITY NUMBNESS OR WEAKNESS? NO . CARDIOLOGY: DO YOU HAVE A PACEMAKER OR DEFIBRILLATOR? NO . RESPIRATORY: HAVE YOU BEEN SICK IN THE PAST WEEK? NO . FEVER NO . FLU LIKE SYMPTOMS? NO . COUGH NO . INTEGUMENTARY: DO YOU HAVE ANY RASHES OR OPEN SORES? NO . ALLERGIC/IMMUNO: ARE YOU ALLERGIC TO IV DYE? NO . ANY NEW ALLERGIES? NO . PSYCHIATRIC: DO YOU HAVE THOUGHTS OF HURTING YOURSELF OR SOMEONE ELSE? NO . ARE YOU ABUSED, NEGLECTED, OR IN AN UNSAFE ENVIRONMENT? NO . ENDOCRINOLOGY: ARE YOU DIABETIC? YES BLOOD SUGAR IS 140 THIS AM . OTHER: DO YOU NEED ANY PRESCRIPTIONS? NO . IF YES, PLEASE LIST: ____ . ANY NEW PROBLEMS WITH YOUR MEDICATIONS? NO . WHEN DID YOU LAST EAT? ____11-14- . WHEN DID YOU LAST DRINK? ____11-15- . WHAT DID YOU LAST DRINK? ____WATER . NAME OF PERSON DRIVING YOU HOME? ____SAULO GILLIAM . DO YOU HAVE ANY OTHER QUESTIONS OR CONCERNS NO . VITAL SIGNS WT 182 LBS, HT 61 IN, BMI 34.38 INDEX, BP 143/68 MM HG, HR 69 /MIN, RR 18 /MIN, TEMP 97.7 F, OXYGEN SAT % 97%, SAFE IN ENV? (Y/N) YES, NA INITIALS MT 10:45. ASSESSMENTS SACROILIITIS - M46.1 (PRIMARY) UNSPECIFIED ESSENTIAL HYPERTENSION - 401.9 TREATMENT SACROILIITIS [facility] FLUORO GUIDANCE (PAIN)[id number] PROCEDURES PN SI PRE PROCEDURE DIAGNOSIS SACROILIITIS, SACROILIAC JOINT DYSFUNCTION POST PROCEDURE DIAGNOSIS SACROILIITIS, SACROILIAC JOINT DYSFUNCTION PROCEDURE RIGHT SACROILIAC JOINT BLOCK SURGEON DR. AMINATA GARCIA REMOVABLE PROSTHODONTIST NONE ANESTHESIA LOCAL PRE PROCEDURE NOTE PATIENT WITH HISTORY OF CHRONIC LOW BACK PAIN. I EVALUATED THE PATIENT AND REVIEWED THE CHART. I WENT OVER THE RISKS, ALTERNATIVES, AND BENEFITS ASSOCIATED WITH THIS PROCEDURE. THE PATIENT WOULD LIKE TO PROCEED AND GAVE CONSENT TO PERFORM THE PROCEDURE. THE PATIENT DENIES UNEXPLAINABLE WEIGHT LOSS, FEVER, CHILLS, OR NEW CHANGES IN URINARY OR BOWEL CONTROL DESCRIPTION OF PROCEDURE THE PATIENT WAS BROUGHT TO THE PROCEDURE ROOM AND PLACED IN THE PRONE POSITION. THE LUMBOSACRAL AREA WAS CLEANED WITH CHLORAPREP SOLUTION AND DRAPED ASEPTICALLY. THE PROCEDURE WAS DONE UNDER STERILE CONDITIONS. I CHECKED LATERALITY AND THE LEVEL WHERE THE PROCEDURE WAS GOING TO BE PERFORMED WITH THE PATIENT AND THE SUPPORTING STAFF AT THE MOMENT OF THE TIME OUT IN THE PROCEDURE ROOM. UNDER FLUOROSCOPIC GUIDANCE, TARGET POINT WAS SELECTED AT THE LOWER BORDER OF THE RIGHT SACROILIAC JOINT. TARGET POINT WAS SELECTED AFTER MEDIAL ROTATION AND TILT OF THE MAGNIFIER OF THE C-ARM. LIDOCAINE WAS USED TO NUMB THE SKIN AND SUBCUTANEOUS TISSUE BELOW IT. A SPINAL NEEDLE, 22-GAUGE, WAS ADVANCED UNDER FLUOROSCOPIC GUIDANCE AND FOLLOWING PATIENT FEEDBACK UNTIL THE TARGET AREA WAS TOUCHED. THE POSITION OF THE NEEDLE WAS VERIFIED WITH AP AND LATERAL VIEWS. AFTER PROPER POSITION OF THE NEEDLE WAS ACHIEVED, ISOVUE M DYE 30%, 0.25 ML, WAS INJECTED SHOWING SPREAD OF THE DYE. THEN, A SOLUTION OF 20 MG OF KENALOG WAS INJECTED IN RIGHT JOINT WITH 3 ML OF BUPIVACAINE 0.125%. THERE WAS NO EVIDENCE OF BLOOD, PARESTHESIA OR CEREBROSPINAL FLUID DURING THE PROCEDURE. THE PATIENT WAS SENT TO THE RECOVERY ROOM. THE PATIENT WAS MOVING THE EXTREMITIES AND DOING WELL. THERE WAS NO COMPLICATION DURING THE PROCEDURE. FLUOROSCOPY TIME WAS 16 SECONDS POST PROCEDURE NOTE THE PATIENT WILL BE SEEN IN A FOLLOW UP IN THE NEXT FEW WEEKS. INSTRUCTIONS WERE GIVEN, QUESTIONS WERE ANSWERED, AND THE PATIENT EXPRESSED UNDERSTANDING AND AGREED WITH THE PLAN. I, MARY GRACE CLARKE, DOCUMENTED THE ABOVE INFORMATION ACTING A SCRIBE FOR DR. GARCIA. I HAVE REVIEWED THE ABOVE DOCUMENT, WRITTEN BY MARY GRACE BACA AND I VERIFY THAT IT IS ACCURATE. PROCEDURE CODES 58018 INJECT SACROILIAC JOINT 6045F RADXPS IN END [id number] PXD DISPOSITION & COMMUNICATION FOLLOW UP 3 WEEKS ELECTRONICALLY SIGNED BY AMINATA GARCIA MD, MD ON 11/28/2018 AT 05:38 PM EDT DISCLAIMER : THIS IS A VISIT SUMMARY EXTRACTED FROM THE [employer] CHART. IT IS NOT A COPY OF THE [employer] PROGRESS NOTE. MTDD
== END ==
LOC: M PAIN 10:30
PROVIDERS: ATTEND Anesthesiology
DX: M46.1 Sacroiliitis, not elsewhere classified (principal); I10 Essential (primary) hypertension; I25.10 Atherosclerotic heart disease of native coronary artery without angina pectoris; I08.0 Rheumatic disorders of both mitral and aortic valves; E78.5 Hyperlipidemia, unspecified; J45.909 Unspecified asthma, uncomplicated; E11.9 Type 2 diabetes mellitus without complications; M10.9 Gout, unspecified; M85.80 Other specified disorders of bone density and structure, unspecified site; F41.9 Anxiety disorder, unspecified; Z98.41 Cataract extraction status, right eye; Z98.42 Cataract extraction status, left eye; Z90.49 Acquired absence of other specified parts of digestive tract; Z79.84 Long term (current) use of oral hypoglycemic drugs; Z79.891 Long term (current) use of opiate analgesic; Z79.899 Other long term (current) drug therapy; Z88.6 Allergy status to analgesic agent; Z88.8 Allergy status to other drugs, medicaments and biological substances
CPT/HCPCS: G0260; J3301; Q9967

== ENCOUNTER → 2018-12-05 | Outpatient (CLI) | payer MEDICARE ==
--- NOTE | 2018-12-16 03:07 | ECWPNPC ---
PATIENT NAME: AL BARRIOS : 1945 GENDER: FEMALE VISIT DATE: 12/05/2018 DISCHARGE DATE: 12/05/18 1139 VISIT LOCKED DATE TIME: PHYSICIAN: PETER RECINOS RESOURCE: PETER RECINOS REASON FOR APPOINTMENT 1. POST RIGHT SIJ HISTORY OF PRESENT ILLNESS HISTORY OF PRESENT ILLNESS: HERE FOR POST PROCEDURE F/U.HAD RIGHT SIJ ON 11/15/18.REPORTING SIGNIFICANT REDUCTION IN PAIN THAT CONTINUES TODAY. CONTINUES WITH RESIDUAL RIGHT LBP THAT IS AGGREVATED WITH PROLONGED SITTING OR DRIVING.RATING PAIN /10.DISCUSSED DIAGNOSTIC FACET BLOCK AND RADIOFREQUENCY. PAIN THE PATIENT DESCRIBES THE PAIN... THE PATIENT DESCRIBES THE PAIN... FALL RISK SCREENING: SCREENING :NO FALLS REPORTED IN THE LAST YEAR CURRENT MEDICATIONS TAKING LISINOPRIL 2.5 MG TABLET 1 TABLET ORALLY ONCE A DAY TAKING SPIRONOLACTONE 25 MG TABLET 1/2 TABLET ORALLY ONCE A DAY TAKING HYDROCHLOROTHIAZIDE 25 MG TABLET 1 TABLET ORALLY ONCE A DAY TAKING ASPIRIN 81 MG TABLET 2 TABLETS ORALLY ONCE A DAY TAKING FOLIC ACID 400 MCG TABLET 1 TABLET ORALLY ONCE A DAY TAKING LIPITOR 40 MG TABLET TAKE 1 TABLET EVERY DAY TAKING JANUVIA 25 MG TABLET 1 TABLET ORALLY ONCE A DAY TAKING WELLBUTRIN SR 150 MG TABLET EXTENDED RELEASE 12 HOUR TAKE 1 TABLET TWICE DAILY ONCE A DAY TAKING ALLOPURINOL 100 MG TABLET 1 TABLET ORALLY ONCE A DAY TAKING TYLENOL 325 MG TABLET 2 TABLET NEEDED ORALLY EVERY 6 HRS TAKING LORATADINE 10 MG TABLET 1 TABLET ORALLY ONCE A DAY TAKING VITAMIN D3 5000 UNIT CAPSULE 1 CAPSULE ORALLY ONCE A DAY TAKING CALCIUM CITRATE 150 MG CAPSULE 1 CAP ORALLY TWICE A DAY TAKING VITAMIN B COMPLEX TABLET 1 TABLET ORALLY ONCE A DAY TAKING ZINC 50 MG TABLET 1 TABLET ORALLY ONCE A DAY TAKING YOSEF 500 MG CAPSULE 1 CAP ORALLY TWICE A DAY TAKING TRAMADOL HCL 50 MG TABLET 1 ORALLY Q8H PRN FOR SEVERE PAIN MDD3 TAKING ATENOLOL 50 MG TABLET 1 TABLET ORALLY ONCE A DAY TAKING METFORMIN HCL 500 MG TABLET TAKE 1 TABLET TWICE DAILY NOT-TAKING EPIPEN 2-DELROY 0.3 MG/0.3ML (1:1000) DEVICE DIRECTED INTRAMUSCULAR NEEDED MEDICATION LIST REVIEWED AND RECONCILED WITH THE PATIENT PAST MEDICAL HISTORY HYPERTENSION CORONARY ARTERY DISEASE-2008-RST WITHOUT REVERSIBILITY MILD AORTIC STENOSIS AND MILD AORTIC REGURGITATION AND MILD MITRAL REGURGITATION BY TTE SEPTEMBER 2008 HYPERLIPIDEMIA ASTHMA DIABETES MELLITUS TYPE 2 [id number] SEPTEMBER 2009 A1C 6.5 GOUT OSTEOPENIA MULTIPLE CHEMICAL SENSITIVITY ANXIETY SACROILIITIS ALLERGIES LESCOL: MYALGIA - ALLERGY ADVAIR: PARALYZED VIOCAL CORDS - ALLERGY BACTRIM: HIVES - ALLERGY DECONGESTANTS: SHAKING ON THE INSIDE, FEELS "UNWELL" - SIDE EFFECTS IBUPROFEN: HEAVINESS IN CHEST - SIDE EFFECTS NAPROXEN: RINGING IN EARS - SIDE EFFECTS MINOCYCLINE JANUVIA: FATIGUE, WEAKNESS - SIDE EFFECTS SURGICAL HISTORY HYSTERECTOMY 1986 ANGIOPLASTY WITH STENT 06/10 RIGHT CARPAL RELEASE 11/2009 T&A 1951 APPENDECTOMY 1956 BUNIONECTOMY 1993 MENISCUS REPAIR 1996 CHOLECYSTECTOMY 2013 BILAT CATARACTS REMOVED 2016 CARPAL TUNNEL RIGHT 2011 CALCIFIED CYST REMOVED FROM HEAD 04/2017 CRYOSURGERY NOSE 2019 FAMILY HISTORY FATHER: 68 YRS, ARTHRITIS, COMPLICATIONS, STROKE MOTHER: 92 YRS, CHF SIBLINGS: 58 YRS, NON-HODGKINS LYMPHOMA WITH TX COMPLICATIONS 2 SISTER(S) . 2 SON(S) . SISTER-GRAFT VS. HOST SYNDROME A RESULT OF DONOR TRANSPLANT FOR NON-HODGKINS LYMPHOMA\\NSISTER- ARTHRITIS, CHF, CAD\\N1 SON COMMITTED SUICIDE\\N1 SON ALIVE WITH SEVERE MENTAL ILLNESS AND ETOH DENIES ANY FAMILY HX OF MELANOMA AND PANCREATIC CANCERS. SOCIAL HISTORY GENERAL: TOBACCO USE ARE YOU A:NONSMOKER HIV / HEP-C SCREENING HIV TEST OFFERED TO PATIENT:YES DATE OFFERED:04/22/2017 TEST ACCEPTED:NO HEP-C TEST OFFERED TO PATIENT:YES DATE OFFERED:04/22/2017 REASON:PATIENT DECLINED TEST ACCEPTED:NO REASON:PATIENT DECLINED BROCHURE PROVIDED TO PATIENTYES OTHERS AT HOME: NONE. HOUSING: OWNS HOME. 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 DIET: LOW FAT, LOW CHOLESTEROL, NO CONCENTRATED SWEETS.. LANGUAGE [place]IAN. DOMESTIC VIOLENCE DO YOU FEEL SAFE IN YOUR ENVIRONMENT?YES BMI CARE GOAL FOLLOW-UP ABOVE NORMAL BMI FOLLOW-UPDIETARY MANAGEMENT EDUCATION, GUIDANCE, AND COUNSELING RECREATIONAL DRUG USE DENIES. EXERCISE: GARDENS. LEARNING BARRIERS / SPECIAL NEEDS CHANGE FROM LAST VISIT?NO 09/22/18 BARRIERS TO LEARNING?NO HEARING IMPAIRED?NO VISION IMPAIRED?YES COGNITIVELY IMPAIRED?NO :CORRECTIVE LENSES READINESS TO LEARN?YES LEARNING PREFERENCES?NO LEARNING CAPABILITIES PRESENT?YES EMOTIONAL BARRIERS?NO SPECIAL DEVICES?NO ELECTRICAL ASSEMBLER NEEDED?NO LUNG CANCER SCREENING SMOKING STATUS:NON SMOKER PAIN CLINIC PFS, CLERGY, PUBLIC HEALTH REFERRALS PFS REFERRAL NEEDED?NO CLERGY REFERRAL NEEDED?NO PUBLIC HEALTH REFERRAL NEEDED?NO WAS THE PROVIDER NOTIFIED OF ANY PERTINENT INFO?YES N/A HAS THE PATIENT BEEN EDUCATED REGARDING HIS/HER PLAN OF CARE?YES HAS THE PATIENT BEEN EDUCATED REGARDING PAIN, THE RISK FOR PAIN, THE IMPORTANCE OF EFFECTIVE PAIN MANAGEMENT, AND THE PAIN ASSESSMENT PROCESS?YES LATEX QUESTIONNAIRE LATEX ALLERGY : HAVE YOU EVER DEVELOPED ANY TYPE OF REACTION AFTER HANDLING LATEX PRODUCTS SUCH RUBBER GLOVES, CONDOMS, DIAPHRAGMS, BALLOONS, SOCKS, OR UNDERWEAR?NO LATEX ALLERGY : HAVE YOU EVER DEVELOPED ANY TYPE OF REACTION DURING OR AFTER DENTAL APPOINTMENT, VAGINAL/RECTAL EXAMINATION, SURGICAL PROCEDURE, OR ANY OTHER EXPOSURE?NO LATEX RISK : HAVE YOU EVER HAD ANY DIFFICULTY BREATHING OR HIVES AFTER EATING OR HANDLING ANY FRUITS, OR VEGETABLES; SUCH KIWI, BANANAS, STONE FRUITS, OR CHESTNUTSNO LATEX RISK : DO YOU HAVE A PREVIOUS PERSONAL HISTORY OF MORE THAN NINE SURGERIES, SPINA BIFIDA, OR REPEATED CATHERIZATIONS? NO LATEX RISK : ARE YOU FREQUENTLY EXPOSED TO LATEX PRODUCTS IN YOUR OCCUPATION?NO DATE ASKED : 12/05/2018 CAFFEINE CAFFEINE USE? 1-2 CUPS OF TEA PER DAY ADVANCE DIRECTIVE ADVANCE DIRECTIVE DISCUSSED WITH PATIENT:YES HCP KRISTEN SHEPPARD [phone](H) LIVING WILL ALDO PARRISH [phone]([phone] MOSQUE [id number] CHRISTIANITY MARITAL STATUS: SINGLE. 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 SEXUAL HX HAD SEX IN THE LAST 12 MONTHS (VAGINAL, ORAL, OR ANAL)?NO HAVE YOU EVER HAD AN STD?NO REVIEWED WITH PT 09/27/17 1355 LAS REVIEWED WITH PATIENT 11/16/17 1114 JSREVIEWED WITH PATIENT 04/20/18 0958 JSREVIEWED WITH PATIENT 05/10/18 1132 JSREVIEWED WITH PATIENT 07/10/18 0922 JSREVIEWED WITH PT 10/11/18 0956 BV. HOSPITALIZATION/MAJOR DIAGNOSTIC PROCEDURE SURGERIES ABOVE CHILDBIRTH MULTIPLE ADMISSIONS A CHILD REVIEW OF SYSTEMS REVIEWED BY: PROVIDER: PETER RIGGS . CONSTITUTIONAL: ANY CHANGE IN YOUR MEDICAL CONDITION? NO . CHILLS NO . FEVER NO . INFECTION: DO YOU HAVE NEW INFECTIONS? NO . DO YOU HAVE HISTORY OF MRSA? NO . MUSCULOSKELETAL: ANY NEW PATTERNS OF PAIN OR NUMBNESS? YES . GASTROENTEROLOGY: ANY NEW CHANGE IN BOWEL CONTROL? NO . GENITOURINARY: ANY NEW CHANGE IN BLADDER CONTROL? NO . IS THERE A CHANCE YOU COULD BE ? NO . HEMATOLOGY/LYMPH: DO YOU TAKE ANY BLOOD THINNERS? (FOR EXAMPLE- COUMADIN, PLAVIX, AGGRENOX, PLATEL, PRADAXA, OR XARELTO) NO . WHEN WAS YOUR LAST DOSE? DATE: TIME: . NEUROLOGY: HAVE YOU FALLEN IN THE PAST 12 MONTHS? NO . ANY NEW EXTREMITY NUMBNESS OR WEAKNESS? NO . CARDIOLOGY: DO YOU HAVE A PACEMAKER OR DEFIBRILLATOR? NO . RESPIRATORY: HAVE YOU BEEN SICK IN THE PAST WEEK? NO . FEVER NO . FLU LIKE SYMPTOMS? NO . COUGH NO . INTEGUMENTARY: DO YOU HAVE ANY RASHES OR OPEN SORES? NO . ALLERGIC/IMMUNO: ARE YOU ALLERGIC TO IV DYE? NO . ANY NEW ALLERGIES? NO . PSYCHIATRIC: DO YOU HAVE THOUGHTS OF HURTING YOURSELF OR SOMEONE ELSE? NO . ARE YOU ABUSED, NEGLECTED, OR IN AN UNSAFE ENVIRONMENT? NO . ENDOCRINOLOGY: ARE YOU DIABETIC? YES . OTHER: DO YOU NEED ANY PRESCRIPTIONS? NO . IF YES, PLEASE LIST: ____ . ANY NEW PROBLEMS WITH YOUR MEDICATIONS? NO . WHEN DID YOU LAST EAT? ____ . WHEN DID YOU LAST DRINK? ____ . WHAT DID YOU LAST DRINK? ____ . NAME OF PERSON DRIVING YOU HOME? ____ . DO YOU HAVE ANY OTHER QUESTIONS OR CONCERNS NO . VITAL SIGNS WT 181.0 LBS, HT 61 IN, BMI 34.20 INDEX, BP 163/70 MM HG, HR 67 /MIN, RR 18 /MIN, TEMP 97.6 F, OXYGEN SAT % 97%, NA INITIALS AW 1048, REVIEWED BY: LS. EXAMINATION GENERAL EXAMINATION: GENERAL AWAKE,ALERT ,PLEASANT . PSYCH AFFECT NORMAL . LUNGS: LUNG CALVIN ARE CLEAR TO AUSCULTATION BILATERALLY. GOOD MOVEMENT OF AIR . HEART: S1, S2 IN A REGULAR RATE AND RHYTHM. NO SIGNIFICANT MURMURS, RUBS OR GALLOPS NOTED . LUMBAR SACRAL SPINEPALPATION:TENDER OVER RIGHT L4/5-L5/S1 LUMBAR FACETS WITH FACET LOADING.. ASSESSMENTS SPONDYLOSIS OF LUMBOSACRAL REGION WITHOUT MYELOPATHY OR RADICULOPATHY - M47.817 (PRIMARY) TREATMENT SPONDYLOSIS OF LUMBOSACRAL REGION WITHOUT MYELOPATHY OR RADICULOPATHY NOTES: RIGHT L4/5-L5/S1 LFB DX. OTHERS NOTES: FACET JOINT INJECTION HOME CARE MATERIAL WAS PRINTED,FACET JOINT INJECTION MATERIAL WAS PRINTED. PREVENTIVE MEDICINE PAIN CLINIC TEACHING: PROCEDURE TEACHING PRE-PROCEDURE INSTRUCTIONS REVIEWED WITH PT USING TEACH BACK.. PROCEDURE CODES FA211 ESTABILISHED [facility]IENT [facility] FAC[facility] CHARGE DISPOSITION & COMMUNICATION FOLLOW UP POST (REASON: RIGHT L4/5-L5/S1 LFB DX) ELECTRONICALLY SIGNED BY ONEIL SHI ON 12/15/2018 AT 09:30 AM EST DISCLAIMER : THIS IS A VISIT SUMMARY EXTRACTED FROM THE [employer] CHART. IT IS NOT A COPY OF THE [employer] PROGRESS NOTE. CELESTINO
== END ==
LOC: M PAIN 10:30
PROVIDERS: ATTEND Nurse Practitioner Family
DX: M47.817 Spondylosis without myelopathy or radiculopathy, lumbosacral region (principal); I10 Essential (primary) hypertension; E78.5 Hyperlipidemia, unspecified; J45.909 Unspecified asthma, uncomplicated; E11.9 Type 2 diabetes mellitus without complications; Z86.59 Personal history of other mental and behavioral disorders; Z88.1 Allergy status to other antibiotic agents; Z88.6 Allergy status to analgesic agent; Z88.8 Allergy status to other drugs, medicaments and biological substances; Z79.82 Long term (current) use of aspirin; Z79.84 Long term (current) use of oral hypoglycemic drugs; Z79.891 Long term (current) use of opiate analgesic; Z79.899 Other long term (current) drug therapy

== ENCOUNTER → 2019-01-15 | Outpatient (REF) | payer MEDICARE ==
[2019-01-15 13:16] LABS: ALBUMIN 4.1 GM/DL (3.2-5.2); ALT/SGPT 29 U/L (12-78); BILIRUBIN,TOTAL 0.6 MG/DL (0.2-1.0); BLOOD UREA NITROGEN 13 MG/DL (7-18); CARBON DIOXIDE LEVEL 28 MEQ/L (21-32); CHLORIDE LEVEL 102 MEQ/L (98-107); CHOLESTEROL LEVEL 177 MG/DL (<200); CHOLESTEROL RISK RATIO 2.565 (<5); CREATININE FOR GFR 0.64 MG/DL (0.55-1.30); GLOMERULAR FILTRATION RATE > 60.0 (>39); GLUCOSE, FASTING 142 MG/DL (70-100); HDL CHOLESTEROL 69 MG/DL (>40); HEMOGLOBIN A1c 6.5 %; LDL CHOLESTEROL 80 MG/DL (<100); NON-HDL-C 108 MG/DL; POTASSIUM SERUM 4.4 MEQ/L (3.5-5.1); SODIUM LEVEL 137 MEQ/L (136-145); TOTAL PROTEIN 7.4 GM/DL (6.4-8.2); TRIGLYCERIDES LEVEL 140 MG/DL (<150)
[2019-01-15 13:46] LABS: TOTAL 25(OH) VITAMIN D 55.6 NG/ML (30.0-100.0)
== END ==
LOC: M SFHCADAM 08:52
PROVIDERS: ATTEND Physician Assistant
DX: I10 Essential (primary) hypertension (principal); E78.2 Mixed hyperlipidemia; E11.9 Type 2 diabetes mellitus without complications; M15.9 Polyosteoarthritis, unspecified; Z79.899 Other long term (current) drug therapy

== ENCOUNTER → 2019-02-13 | Outpatient (CLI) | payer MEDICARE ==
[~2019-02-13] MED LIST changes: -TRIAMCINOLONE ACETONIDE SUSP 40 MG/ML VIAL (J3301) As Ordered ONE
--- NOTE | 2019-02-13 13:20 | REP ---
C-ARM VIEWS LUMBAR SPINE: CLINICAL HISTORY: Pain. Two C-arm views of the lumbosacral junction performed during facet injection performed by Dr. Schmitt. Two needles are seen along the lower lumbar facet joints. Small amount of contrast is injected. Fluoroscopy time is 29 seconds. Electronically Signed by Dimitri Diaz MD 02/14/2019 09:50 A
--- NOTE | 2019-02-21 05:05 | ECWPNPC ---
PATIENT NAME: AL BARRIOS : 1945 GENDER: FEMALE VISIT DATE: 02/13/2019 DISCHARGE DATE: 02/13/19 1325 VISIT LOCKED DATE TIME: PHYSICIAN: AMINATA GARCIA MD RESOURCE: AMINATA GARCIA MD REASON FOR APPOINTMENT 1. RIGHT L5/S1 LFB DX CURRENT MEDICATIONS TAKING LISINOPRIL 2.5 MG TABLET 1 TABLET ORALLY ONCE A DAY, NOTES: 02-12-192099 TAKING SPIRONOLACTONE 25 MG TABLET 1/2 TABLET ORALLY ONCE A DAY, NOTES: 02-13-19599 TAKING HYDROCHLOROTHIAZIDE 25 MG TABLET 1 TABLET ORALLY ONCE A DAY, NOTES: 02-13-18599 TAKING ASPIRIN 81 MG TABLET 1 TABLET ORALLY ONCE A DAY, NOTES: 12-14-19 TAKING FOLIC ACID 400 MCG TABLET 1 TABLET ORALLY ONCE A DAY, NOTES: 02-13-19 TAKING LIPITOR 40 MG TABLET TAKE 1 TABLET EVERY DAY , NOTES: 02-12-192099 TAKING JANUVIA 25 MG TABLET 1 TABLET ORALLY ONCE A DAY, NOTES: 02-12-19899 TAKING WELLBUTRIN SR 150 MG TABLET EXTENDED RELEASE 12 HOUR TAKE 1 TABLET TWICE DAILY ONCE A DAY, NOTES: 02-13-19899 TAKING ALLOPURINOL 100 MG TABLET 1 TABLET ORALLY ONCE A DAY, NOTES: 02-13-18899 TAKING TYLENOL 325 MG TABLET 2 TABLET NEEDED ORALLY EVERY 6 HRS, NOTES: 02-13-19899 TAKING LORATADINE 10 MG TABLET 1 TABLET ORALLY ONCE A DAY, NOTES: 02-13-19899 TAKING VITAMIN D3 5000 UNIT CAPSULE 1 CAPSULE ORALLY ONCE A DAY, NOTES: 02-13-19899 TAKING CALCIUM CITRATE 150 MG CAPSULE 1 CAP ORALLY TWICE A DAY, NOTES: 02-13-19 TAKING VITAMIN B COMPLEX TABLET 1 TABLET ORALLY ONCE A DAY, NOTES: 02-13-19 0 TAKING ZINC 50 MG TABLET 1 TABLET ORALLY ONCE A DAY, NOTES: 02-13-18699 TAKING YOSEF 500 MG CAPSULE 1 CAP ORALLY TWICE A DAY, NOTES: 2. 0 TAKING TRAMADOL HCL 50 MG TABLET 1 ORALLY Q8H PRN FOR SEVERE PAIN MDD3, NOTES: 02-13-19699 TAKING ATENOLOL 50 MG TABLET 1 TABLET ORALLY ONCE A DAY, NOTES: 1-7-20 0800 TAKING METFORMIN HCL 500 MG TABLET TAKE 1 TABLET TWICE DAILY , NOTES: 02-12-19 TAKING OMEPRAZOLE 20 MG CAPSULE DELAYED RELEASE 1 CAPSULE 30 MINUTES BEFORE MORNING MEAL ORALLY ONCE A DAY, NOTES: 02-13-19 0700 TAKING EPIPEN 2-DELROY 0.3 MG/0.3ML (1:1000) DEVICE DIRECTED INTRAMUSCULAR NEEDED, NOTES: NOT LATELY MEDICATION LIST REVIEWED AND RECONCILED WITH THE PATIENT PAST MEDICAL HISTORY HYPERTENSION CORONARY ARTERY DISEASE-2008-RST WITHOUT REVERSIBILITY MILD AORTIC STENOSIS AND MILD AORTIC REGURGITATION AND MILD MITRAL REGURGITATION BY TTE SEPTEMBER 2008 HYPERLIPIDEMIA - CONTROLLED ASTHMA DIABETES MELLITUS TYPE 2 [id number] SEPTEMBER 2009 A1C 6.5 GOUT OSTEOPENIA MULTIPLE CHEMICAL SENSITIVITY - STRONG SMELLS, ETC ANXIETY SACROILIITIS GERD ATNWON - USES CPAP ALLERGIES LESCOL: MYALGIA - ALLERGY ADVAIR: PARALYZED VIOCAL CORDS - ALLERGY BACTRIM: HIVES - ALLERGY DECONGESTANTS: SHAKING ON THE INSIDE, FEELS "UNWELL" - SIDE EFFECTS IBUPROFEN: HEAVINESS IN CHEST - SIDE EFFECTS NAPROXEN: RINGING IN EARS - SIDE EFFECTS MINOCYCLINE JANUVIA: LARGER DOSES - FATIGUE, WEAKNESS - SIDE EFFECTS SURGICAL HISTORY HYSTERECTOMY 1986 ANGIOPLASTY WITH STENT 06/10 RIGHT CARPAL RELEASE 11/2009 TONSILLECTOMY & ADNOIDECTOMY X2 195 APPENDECTOMY 1956 BUNIONECTOMY 1993 MENISCUS REPAIR 1996 CHOLECYSTECTOMY 2013 BILAT CATARACTS REMOVED 2015 CALCIFIED CYST REMOVED FROM HEAD 04/2017 CRYOSURGERY NOSE 2019 FAMILY HISTORY FATHER: 68 YRS, ARTHRITIS, COMPLICATIONS, STROKE MOTHER: 92 YRS, CHF SIBLINGS: 58 YRS, NON-HODGKINS LYMPHOMA WITH [place] COMPLICATIONS 2 SISTER(S) . 2 SON(S) . SISTER-GRAFT VS. HOST SYNDROME A RESULT OF DONOR TRANSPLANT FOR NON-HODGKINS LYMPHOMA\\NSISTER- ARTHRITIS, CHF, CAD\\N1 SON COMMITTED SUICIDE\\N1 SON ALIVE WITH SEVERE MENTAL ILLNESS AND ETOH DENIES ANY FAMILY HX OF MELANOMA AND PANCREATIC CANCERS. SOCIAL HISTORY GENERAL: TOBACCO USE ARE YOU A:NONSMOKER HIV / HEP-C SCREENING HIV TEST OFFERED TO PATIENT:YES DATE OFFERED:04/22/2017 TEST ACCEPTED:NO HEP-C TEST OFFERED TO PATIENT:YES DATE OFFERED:04/22/2017 REASON:PATIENT DECLINED TEST ACCEPTED:NO REASON:PATIENT DECLINED BROCHURE PROVIDED TO PATIENTYES OTHERS AT HOME: NONE. HOUSING: OWNS HOME. 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 DIET: LOW FAT, LOW CHOLESTEROL, NO CONCENTRATED SWEETS.. LANGUAGE BELARUSIAN. DOMESTIC VIOLENCE DO YOU FEEL SAFE IN YOUR ENVIRONMENT?YES BMI CARE GOAL FOLLOW-UP ABOVE NORMAL BMI FOLLOW-UPDIETARY MANAGEMENT EDUCATION, GUIDANCE, AND COUNSELING RECREATIONAL DRUG USE DENIES. EXERCISE: GARDENS. 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 NEEDED?NO LUNG CANCER SCREENING SMOKING STATUS:NON SMOKER PAIN CLINIC PFS, CLERGY, PUBLIC HEALTH REFERRALS PFS REFERRAL NEEDED?NO CLERGY REFERRAL NEEDED?NO PUBLIC HEALTH REFERRAL NEEDED?NO WAS THE PROVIDER NOTIFIED OF ANY PERTINENT INFO?YES N/A HAS THE PATIENT BEEN EDUCATED REGARDING HIS/HER PLAN OF CARE?YES HAS THE PATIENT BEEN EDUCATED REGARDING PAIN, THE RISK FOR PAIN, THE IMPORTANCE OF EFFECTIVE PAIN MANAGEMENT, AND THE PAIN ASSESSMENT PROCESS?YES LATEX QUESTIONNAIRE LATEX ALLERGY : HAVE YOU EVER DEVELOPED ANY TYPE OF REACTION AFTER HANDLING LATEX PRODUCTS SUCH RUBBER GLOVES, CONDOMS, DIAPHRAGMS, BALLOONS, SOCKS, OR UNDERWEAR?NO LATEX ALLERGY : HAVE YOU EVER DEVELOPED ANY TYPE OF REACTION DURING OR AFTER DENTAL APPOINTMENT, VAGINAL/RECTAL EXAMINATION, SURGICAL PROCEDURE, OR ANY OTHER EXPOSURE?NO LATEX RISK : HAVE YOU EVER HAD ANY DIFFICULTY BREATHING OR HIVES AFTER EATING OR HANDLING ANY FRUITS, OR VEGETABLES; SUCH KIWI, BANANAS, STONE FRUITS, OR CHESTNUTSNO LATEX RISK : DO YOU HAVE A PREVIOUS PERSONAL HISTORY OF MORE THAN NINE SURGERIES, SPINA BIFIDA, OR REPEATED CATHERIZATIONS? NO LATEX RISK : ARE YOU FREQUENTLY EXPOSED TO LATEX PRODUCTS IN YOUR OCCUPATION?NO DATE ASKED : 12/05/2018 CAFFEINE CAFFEINE USE? 1-2 CUPS OF TEA PER DAY ADVANCE DIRECTIVE ADVANCE DIRECTIVE DISCUSSED WITH PATIENT:YES HCP KRISTEN SHEPPARD [phone](H) LIVING WILL ALDO SEGURA SHIVANI [phone](H) BUDDHISM [id number] MORAVIAN MARITAL STATUS: SINGLE. 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 SEXUAL HX HAD SEX IN THE LAST 12 MONTHS (VAGINAL, ORAL, OR ANAL)?NO HAVE YOU EVER HAD AN STD?NO REVIEWED WITH PT 09/27/17 1355 LAS REVIEWED WITH PATIENT 11/16/17 1114 JSREVIEWED WITH PATIENT 04/20/18 0958 JSREVIEWED WITH PATIENT 05/10/18 1132 JSREVIEWED WITH PATIENT 07/10/18 0922 JSREVIEWED WITH PT 10/11/18 0956 BVPRE-SCREENING COMPLETED 02/08/2019 1157 JS. HOSPITALIZATION/MAJOR DIAGNOSTIC PROCEDURE SURGERIES ABOVE CHILDBIRTH MULTIPLE ADMISSIONS A CHILD - TONSILS, CARDIAC, INTESTINAL VITAL SIGNS WT 187.2 LBS, HT 61 IN, BMI 35.37 INDEX, BP 176/79 MM HG, HR 78 /MIN, RR 18 /MIN, TEMP 96.5 F, OXYGEN SAT % 97%, NA INITIALS SC 09:52. ASSESSMENTS SPONDYLOSIS OF LUMBOSACRAL REGION WITHOUT MYELOPATHY OR RADICULOPATHY - M47.817 (PRIMARY) TREATMENT SPONDYLOSIS OF LUMBOSACRAL REGION WITHOUT MYELOPATHY OR RADICULOPATHY SMC FACET BLOCK (PAIN)[id number] PROCEDURES PN LUMBAR FACET BLOCK DIAGNOSTIC PRE PROCEDURE DIAGNOSIS LUMBOSACRAL SPONDYLOSIS POST PROCEDURE DIAGNOSIS LUMBOSACRAL SPONDYLOSIS PROCEDURE RIGHT L5-S1 LUMBAR FACET BLOCK DIAGNOSTIC NUMBER [address] AMINATA GARCIA POWER PRESS TENDER NONE ANESTHESIA LOCAL PRE PROCEDURE NOTE THE PATIENT WITH HISTORY OF CHRONIC LOW BACK PAIN. I EVALUATED THE PATIENT AND REVIEWED THE CHART. I WENT OVER THE RISKS, ALTERNATIVES, AND BENEFITS ASSOCIATED WITH THIS PROCEDURE. THE PATIENT WOULD LIKE TO PROCEED AND GAVE CONSENT TO PERFORM THE PROCEDURE. AGREED WITH THE PATIENT WE ARE DOING THIS PROCEDURE TO DETERMINE IF THE PATIENT IS A CANDIDATE FOR A RADIOFREQUENCY ABLATION OF THE FACETS JOINTS. THE PATIENT DENIES UNEXPLAINABLE WEIGHT LOSS, FEVER, CHILLS, OR NEW CHANGES IN URINARY OR BOWEL CONTROL DESCRIPTION OF PROCEDURE THE PATIENT WAS BROUGHT TO THE PROCEDURE ROOM AND PLACED IN THE PRONE POSITION. THE LUMBOSACRAL AREA WAS CLEANED WITH CHLORAPREP SOLUTION AND DRAPED ASEPTICALLY. THE PROCEDURE WAS DONE UNDER STERILE CONDITIONS. I CHECKED LATERALITY AND THE LEVEL WHERE THE PROCEDURE WAS GOING TO BE PERFORMED WITH THE PATIENT AND THE SUPPORTING STAFF AT THE MOMENT OF THE TIME OUT IN THE PROCEDURE ROOM. UNDER FLUOROSCOPIC GUIDANCE, TARGETS WERE SELECTED AT THE INTERSECTION OF THE RIGHT TRANSVERSE PROCESS OF L4, L5 AND ALA OF S1 WITH ITS RESPECTIVE SUPERIOR ARTICULAR PROCESS. LIDOCAINE WAS USED TO NUMB THE SKIN AND THE SUBCUTANEOUS TISSUE BELOW IT. SPINAL NEEDLE, 22-GAUGE WAS ADVANCED UNDER FLUOROSCOPIC GUIDANCE AND FOLLOWING PATIENT FEEDBACK UNTIL THE TARGETS WERE REACHED. POSITION OF THE NEEDLES WAS VERIFIED WITH AP AND LATERAL VIEWS. AFTER PROPER POSITION OF THE NEEDLES WAS ACHIEVED, ISOVUE-M DYE 30% 0.1 ML WAS INJECTED AT EACH SITE SHOWING ADEQUATE SPREAD OF THE DYE. THEN A SOLUTION OF 0.4 ML OF BUPIVACAINE 0.25% WAS INJECTED AT EACH SITE. THERE WAS NO EVIDENCE OF BLOOD, PARESTHESIA OR CEREBROSPINAL FLUID DURING THE PROCEDURE. THE PATIENT WAS SENT TO THE RECOVERY ROOM. THE PATIENT WAS MOVING THE EXTREMITIES AND DOING WELL. THERE WAS NO COMPLICATION DURING THE PROCEDURE. FLUOROSCOPY TIME WAS 29 SECONDS POST PROCEDURE NOTE THE PATIENT WILL DOCUMENT HIS PAIN LEVEL AND RESPONSE TO THIS PROCEDURE EVERY 30 MINUTES. THE PATIENT WILL BE SEEN IN A FOLLOW UP IN THE NEXT FEW WEEKS. DEPENDING ON THIS PROCEDURE, I MAY CONSIDER DOING COOL RADIOFREQUENCY FOR THE PATIENT IN THE FUTURE. FURTHER DETERMINATION FOR HIS CASE WILL BE DONE AT THE NEXT VISIT. INSTRUCTIONS WERE GIVEN, QUESTIONS WERE ANSWERED, AND THE PATIENT EXPRESSED UNDERSTANDING AND AGREED WITH THE PLAN. I, MARY GRACE CLARKE, DOCUMENTED THE ABOVE INFORMATION ACTING A SCRIBE FOR DR. GARCIA. I HAVE REVIEWED THE ABOVE DOCUMENT, WRITTEN BY MARY GRACE CLARKE SCRIBJose AND I VERIFY THAT IT IS ACCURATE. PROCEDURE CODES 11406 INJ PARAVERT F JNT L/S 1 LEV, MODIFIERS: RT 6045F RADXPS IN END [id number] PXD DISPOSITION & COMMUNICATION FOLLOW UP 3 WEEKS ELECTRONICALLY SIGNED BY AMINATA GARCIA MD, MD ON 02/20/2019 AT 10:19 AM EST DISCLAIMER : THIS IS A VISIT SUMMARY EXTRACTED FROM THE [employer] CHART. IT IS NOT A COPY OF THE [employer] PROGRESS NOTE. MTDD
== END ==
LOC: M PAIN 10:00
PROVIDERS: ATTEND Anesthesiology
DX: M47.817 Spondylosis without myelopathy or radiculopathy, lumbosacral region (principal); I10 Essential (primary) hypertension; E78.5 Hyperlipidemia, unspecified; J45.909 Unspecified asthma, uncomplicated; E11.9 Type 2 diabetes mellitus without complications; Z86.59 Personal history of other mental and behavioral disorders; K21.9 Gastro-esophageal reflux disease without esophagitis; G47.33 Obstructive sleep apnea (adult) (pediatric); Z88.1 Allergy status to other antibiotic agents; Z88.6 Allergy status to analgesic agent; Z88.8 Allergy status to other drugs, medicaments and biological substances; Z79.82 Long term (current) use of aspirin; Z79.84 Long term (current) use of oral hypoglycemic drugs; Z79.891 Long term (current) use of opiate analgesic; Z79.899 Other long term (current) drug therapy
CPT/HCPCS: 64493; Q9967

== ENCOUNTER → 2019-03-02 | Outpatient (CLI) | payer MEDICARE ==
--- NOTE | 2019-03-16 02:02 | ECWPNPC ---
PATIENT NAME: AL BARRIOS : 1945 GENDER: FEMALE VISIT DATE: 03/02/2019 DISCHARGE DATE: 03/02/19 1401 VISIT LOCKED DATE TIME: PHYSICIAN: AMINATA GARCIA MD RESOURCE: AMINATA GARCIA MD REASON FOR APPOINTMENT 1. DISCUSS MILD HISTORY OF PRESENT ILLNESS HISTORY OF PRESENT ILLNESS: PAIN THE PATIENT DESCRIBES THE PAIN... 73-YEAR-OLD FEMALE PATIENT WITH A HISTORY OF CHRONIC LOW BACK AND LEG PAIN. THE PATIENT DESCRIBES THAT PAIN ACHING, BURNING, STABBING, AND ACHING DEPENDING ON PHYSICAL ACTIVITY. THE PATIENT STATES THAT HER PAIN BEGINS IN HER LOWER BACK AND RADIATES MAINLY TO HER RIGHT LEG. THE PATIENT STATES THAT SHE HAS BEEN SUFFERING WITH THIS CONDITION FOR MANY YEARS. SHE STATES THAT THE PAIN AFFECTS HER ABILITY TO DRIVE FOR MORE THAN 20 MINUTES, TO CLEAN HER HOME AND TO CARRY OUT HER DAILY ACTIVITIES. THE PATIENT STATES THAT SHE CAN WALK MORE EASILY ON SOFT GROUND THAN ON HARD PAVEMENT DUE TO HER PAIN. THE PATIENT REPORTS THAT IF SHE STANDS MORE THAN 10 MINUTES, SHE MUST SIT TO RELIEVE THE PAIN. THE PATIENT SAYS THAT SHE CAN WALK 100 FEET, BUT THEN SHE MUST SIT TO RELIEVE THE PAIN. SHE STATES THAT SHE EXPERIENCES PAIN IF SHE SITS FOR AN EXTENDED PERIOD OF TIME. THE PATIENT REPORTS PAIN RELIEF AFTER A DIAGNOSTIC LUMBAR FACET BLOCK ON 02/13/2019. PATIENT DENIES UNEXPLAINABLE WEIGHT LOSS, FEVER, CHILLS, NEW CHANGES ON HER URINARY OR BOWEL CONTROL. FALL RISK SCREENING: SCREENING :NO FALLS REPORTED IN THE LAST YEAR CURRENT MEDICATIONS TAKING LISINOPRIL 2.5 MG TABLET 1 TABLET ORALLY ONCE A DAY TAKING SPIRONOLACTONE 25 MG TABLET 1/2 TABLET ORALLY ONCE A DAY TAKING HYDROCHLOROTHIAZIDE 25 MG TABLET 1 TABLET ORALLY ONCE A DAY TAKING ASPIRIN 81 MG TABLET 2 TABS ORALLY ONCE A DAY TAKING FOLIC ACID 400 MCG TABLET 1 TABLET ORALLY ONCE A DAY TAKING LIPITOR 40 MG TABLET TAKE 1 TABLET EVERY DAY TAKING JANUVIA 25 MG TABLET 1 TABLET ORALLY ONCE A DAY TAKING WELLBUTRIN SR 150 MG TABLET EXTENDED RELEASE 12 HOUR TAKE 1 TABLET TWICE DAILY ONCE A DAY TAKING ALLOPURINOL 100 MG TABLET 1 TABLET ORALLY ONCE A DAY TAKING TYLENOL 325 MG TABLET 2 TABLET NEEDED ORALLY EVERY 6 HRS TAKING LORATADINE 10 MG TABLET 1 TABLET ORALLY ONCE A DAY TAKING VITAMIN D3 5000 UNIT CAPSULE 1 CAPSULE ORALLY ONCE A DAY TAKING CALCIUM CITRATE 150 MG CAPSULE 1 CAP ORALLY TWICE A DAY TAKING VITAMIN B COMPLEX TABLET 1 TABLET ORALLY ONCE A DAY TAKING ZINC 50 MG TABLET 1 TABLET ORALLY ONCE A DAY TAKING YOSEF 500 MG CAPSULE 1 CAP ORALLY TWICE A DAY TAKING TRAMADOL HCL 50 MG TABLET 1 ORALLY Q8H PRN FOR SEVERE PAIN MDD3 TAKING ATENOLOL 50 MG TABLET 1 TABLET ORALLY ONCE A DAY TAKING METFORMIN HCL 500 MG TABLET TAKE 1 TABLET TWICE DAILY TAKING OMEPRAZOLE 20 MG CAPSULE DELAYED RELEASE 1 CAPSULE 30 MINUTES BEFORE MORNING MEAL ORALLY ONCE A DAY TAKING EPIPEN 2-DELROY 0.3 MG/0.3ML (1:1000) DEVICE DIRECTED INTRAMUSCULAR NEEDED MEDICATION LIST REVIEWED AND RECONCILED WITH THE PATIENT PAST MEDICAL HISTORY HYPERTENSION CORONARY ARTERY DISEASE-2008-RST WITHOUT REVERSIBILITY MILD AORTIC STENOSIS AND MILD AORTIC REGURGITATION AND MILD MITRAL REGURGITATION BY TTE SEPTEMBER 2008 HYPERLIPIDEMIA - CONTROLLED ASTHMA DIABETES MELLITUS TYPE 2 [id number] SEPTEMBER 2009 A1C 6.5 GOUT OSTEOPENIA MULTIPLE CHEMICAL SENSITIVITY - STRONG SMELLS, ETC ANXIETY SACROILIITIS GERD ANTWON - USES CPAP ALLERGIES LESCOL: MYALGIA - ALLERGY ADVAIR: PARALYZED VIOCAL CORDS - ALLERGY BACTRIM: HIVES - ALLERGY DECONGESTANTS: SHAKING ON THE INSIDE, FEELS "UNWELL" - SIDE EFFECTS IBUPROFEN: HEAVINESS IN CHEST - SIDE EFFECTS NAPROXEN: RINGING IN EARS - SIDE EFFECTS MINOCYCLINE JANUVIA: LARGER DOSES - FATIGUE, WEAKNESS - SIDE EFFECTS SURGICAL HISTORY HYSTERECTOMY 1986 ANGIOPLASTY WITH STENT 06/10 RIGHT CARPAL RELEASE 11/2009 TONSILLECTOMY & ADNOIDECTOMY X2 195 APPENDECTOMY 1956 BUNIONECTOMY 1993 MENISCUS REPAIR 1996 CHOLECYSTECTOMY 2013 BILAT CATARACTS REMOVED 2015 CALCIFIED CYST REMOVED FROM HEAD 04/2017 CRYOSURGERY NOSE 2019 FAMILY HISTORY FATHER: 68 YRS, ARTHRITIS, COMPLICATIONS, STROKE MOTHER: 92 YRS, CHF SIBLINGS: 58 YRS, NON-HODGKINS LYMPHOMA WITH [place] COMPLICATIONS 2 SISTER(S) . 2 SON(S) . SISTER-GRAFT VS. HOST SYNDROME A RESULT OF DONOR TRANSPLANT FOR NON-HODGKINS LYMPHOMA\\NSISTER- ARTHRITIS, CHF, CAD\\N1 SON COMMITTED SUICIDE\\N1 SON ALIVE WITH SEVERE MENTAL ILLNESS AND ETOH DENIES ANY FAMILY HX OF MELANOMA AND PANCREATIC CANCERS. SOCIAL HISTORY GENERAL: TOBACCO USE ARE YOU A:NONSMOKER HIV / HEP-C SCREENING HIV TEST OFFERED TO PATIENT:YES DATE OFFERED:04/22/2017 TEST ACCEPTED:NO HEP-C TEST OFFERED TO PATIENT:YES DATE OFFERED:04/22/2017 REASON:PATIENT DECLINED TEST ACCEPTED:NO REASON:PATIENT DECLINED BROCHURE PROVIDED TO PATIENTYES OTHERS AT HOME: NONE. HOUSING: OWNS HOME. 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 DIET: LOW FAT, LOW CHOLESTEROL, NO CONCENTRATED SWEETS.. LANGUAGE IVORIAN. DOMESTIC VIOLENCE DO YOU FEEL SAFE IN YOUR ENVIRONMENT?YES BMI CARE GOAL FOLLOW-UP ABOVE NORMAL BMI FOLLOW-UPDIETARY MANAGEMENT EDUCATION, GUIDANCE, AND COUNSELING RECREATIONAL DRUG USE DENIES. EXERCISE: GARDENS. 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 DIGITAL PUBLISHING SPECIALIST NEEDED?NO LUNG CANCER SCREENING SMOKING STATUS:NON SMOKER PAIN CLINIC PFS, CLERGY, PUBLIC HEALTH REFERRALS PFS REFERRAL NEEDED?NO CLERGY REFERRAL NEEDED?NO PUBLIC HEALTH REFERRAL NEEDED?NO WAS THE PROVIDER NOTIFIED OF ANY PERTINENT INFO?YES N/A HAS THE PATIENT BEEN EDUCATED REGARDING HIS/HER PLAN OF CARE?YES HAS THE PATIENT BEEN EDUCATED REGARDING PAIN, THE RISK FOR PAIN, THE IMPORTANCE OF EFFECTIVE PAIN MANAGEMENT, AND THE PAIN ASSESSMENT PROCESS?YES LATEX QUESTIONNAIRE LATEX ALLERGY : HAVE YOU EVER DEVELOPED ANY TYPE OF REACTION AFTER HANDLING LATEX PRODUCTS SUCH RUBBER GLOVES, CONDOMS, DIAPHRAGMS, BALLOONS, SOCKS, OR UNDERWEAR?NO LATEX ALLERGY : HAVE YOU EVER DEVELOPED ANY TYPE OF REACTION DURING OR AFTER DENTAL APPOINTMENT, VAGINAL/RECTAL EXAMINATION, SURGICAL PROCEDURE, OR ANY OTHER EXPOSURE?NO DATE ASKED : 12/05/2018 LATEX RISK : HAVE YOU EVER HAD ANY DIFFICULTY BREATHING OR HIVES AFTER EATING OR HANDLING ANY FRUITS, OR VEGETABLES; SUCH KIWI, BANANAS, STONE FRUITS, OR CHESTNUTSNO LATEX RISK : DO YOU HAVE A PREVIOUS PERSONAL HISTORY OF MORE THAN NINE SURGERIES, SPINA BIFIDA, OR REPEATED CATHERIZATIONS? NO LATEX RISK : ARE YOU FREQUENTLY EXPOSED TO LATEX PRODUCTS IN YOUR OCCUPATION?NO CAFFEINE CAFFEINE USE? 1-2 CUPS OF TEA PER DAY ADVANCE DIRECTIVE ADVANCE DIRECTIVE DISCUSSED WITH PATIENT:YES HCP KRISTEN SHEPPARD [phone](H) LIVING WILL ALDO PARRISH [phone](H) GNOSTICISM [id number] SIKHISM MARITAL STATUS: SINGLE. 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 SEXUAL HX HAD SEX IN THE LAST 12 MONTHS (VAGINAL, ORAL, OR ANAL)?NO HAVE YOU EVER HAD AN STD?NO REVIEWED WITH PT 09/27/17 1355 LAS REVIEWED WITH PATIENT 11/16/17 1114 JSREVIEWED WITH PATIENT 04/20/18 0958 JSREVIEWED WITH PATIENT 05/10/18 1132 JSREVIEWED WITH PATIENT 07/10/18 0922 JSREVIEWED WITH PT 10/11/18 0956 BVPRE-SCREENING COMPLETED 02/08/2019 1157 JSREVIEWED WITH PATIENT 03/02/2019 1123 NLJ. HOSPITALIZATION/MAJOR DIAGNOSTIC PROCEDURE SURGERIES ABOVE CHILDBIRTH MULTIPLE ADMISSIONS A CHILD - TONSILS, CARDIAC, INTESTINAL REVIEW OF SYSTEMS REVIEWED BY: PROVIDER: AMINATA GARCIA MD . CONSTITUTIONAL: ANY CHANGE IN YOUR MEDICAL CONDITION? NO . CHILLS NO . FEVER NO . INFECTION: DO YOU HAVE NEW INFECTIONS? NO . DO YOU HAVE HISTORY OF MRSA? NO . MUSCULOSKELETAL: ANY NEW PATTERNS OF PAIN OR NUMBNESS? NO . GASTROENTEROLOGY: ANY NEW CHANGE IN BOWEL CONTROL? NO . GENITOURINARY: ANY NEW CHANGE IN BLADDER CONTROL? NO . IS THERE A CHANCE YOU COULD BE ? NO . HEMATOLOGY/LYMPH: DO YOU TAKE ANY BLOOD THINNERS? (FOR EXAMPLE- COUMADIN, PLAVIX, AGGRENOX, PLATEL, PRADAXA, OR XARELTO) YES- ASA 81 MG 2 TABS DAILY . WHEN WAS YOUR LAST DOSE? DATE: TIME: . NEUROLOGY: HAVE YOU FALLEN IN THE PAST 12 MONTHS? NO . ANY NEW EXTREMITY NUMBNESS OR WEAKNESS? NO . CARDIOLOGY: DO YOU HAVE A PACEMAKER OR DEFIBRILLATOR? NO . RESPIRATORY: HAVE YOU BEEN SICK IN THE PAST WEEK? NO . FEVER NO . FLU LIKE SYMPTOMS? NO . COUGH NO . INTEGUMENTARY: DO YOU HAVE ANY RASHES OR OPEN SORES? NO . ALLERGIC/IMMUNO: ARE YOU ALLERGIC TO IV DYE? NO . ANY NEW ALLERGIES? NO . PSYCHIATRIC: DO YOU HAVE THOUGHTS OF HURTING YOURSELF OR SOMEONE ELSE? NO . ARE YOU ABUSED, NEGLECTED, OR IN AN UNSAFE ENVIRONMENT? NO . ENDOCRINOLOGY: ARE YOU DIABETIC? YES . OTHER: DO YOU NEED ANY PRESCRIPTIONS? NO . IF YES, PLEASE LIST: ____ . ANY NEW PROBLEMS WITH YOUR MEDICATIONS? NO . WHEN DID YOU LAST EAT? ____ . WHEN DID YOU LAST DRINK? ____ . WHAT DID YOU LAST DRINK? ____ . NAME OF PERSON DRIVING YOU HOME? ____ . DO YOU HAVE ANY OTHER QUESTIONS OR CONCERNS NO . VITAL SIGNS WT 191.2 LBS, HT 61 IN, BMI 36.12 INDEX, BP 146/63 MM HG, HR 80 /MIN, RR 18 /MIN, TEMP 96.5 F, OXYGEN SAT % 97%, SAFE IN ENV? (Y/N) YES, REVIEWED BY: ADRIANA. EXAMINATION GENERAL EXAMINATION: PATIENT IS ALERT O X 3 AND COOPERATIVE. THE PATIENT'S GAIT IS ANTALGIC. THE PATIENT WALKS WITH A LIMP IN HER RIGHT LEG. THE PATIENT'S LEFT LEG IS WEAKER ON EXTENSION AND FLEXION. PAIN INCREASES OVER THE LUMBAR FACET JOINTS WITH EXTENSION AND LATERAL ROTATION OF THE BACK. MRI OF 05/04/2017 SHOWS THE LIGAMENTUM FLAVUM MEASURES 4 MM AT L3-L4. THE LIGAMENTUM FLAVUM MEASURES 4.5 MM AT L4-L5. 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 BARRIOS'S PAIN MANAGEMENT CASE. I AM NOT CLEAR IF THE PATIENT IS A CANDIDATE FOR THE MILD PROCEDURE, AND I WILL CONTINUE WORKING HER CASE. THE PATIENT AGREES THAT SHE WILL DOCUMENT HOW MANY FEET SHE CAN WALK BEFORE HAVING TO SIT. I AM ORDERING LUMBAR AP/LATERAL/EXTENSION/FLEXION X-RAYS. BECAUSE MS. BARRIOS REPORTS PAIN RELIEF AFTER HER DIAGNOSTIC LUMBAR FACET BLOCK OVER THE RIGHT LUMBAR FACET JOINTS 02/13/2019, THE PATIENT WILL FOLLOW UP WITH A NURSE PRACTITIONER TO PURSUE A SECOND LUMBAR FACET BLOCK DIAGNOSTIC TEST FOR RADIOFREQUENCY. INSTRUCTIONS WERE GIVEN, QUESTIONS WERE ANSWERED, PATIENT REPORTS UNDERSTANDING AND AGREES WITH THE PLAN. I, GREGORIA FUENTES, DOCUMENTED THE ABOVE INFORMATION ACTING A SCRIBE FOR DR. GARCIA. I HAVE REVIEWED THE ABOVE DOCUMENT, WRITTEN BY KEVEN MOORE, AND I VERIFY THAT IT IS ACCURATE. . PROCEDURE CODES G8427 CURRENT MEDS W/DOSAGES DOCUMENTED G8730 PAIN ASSESS POS TOOL F/U PLAN DOC FA211 ESTABILISHED PATIENT [facility] [address] OFFICE/OUTPATIENT VISIT EST DISPOSITION & COMMUNICATION FOLLOW UP 3 WEEKS (REASON: ORDER LS X-RAY/F/UP FLIGHT OPERATION COORDINATOR FOR RF) ELECTRONICALLY SIGNED BY AMINATA GARCIA MD, MD ON 03/15/2019 AT 04:57 PM EST DISCLAIMER : THIS IS A VISIT SUMMARY EXTRACTED FROM THE [employer] CHART. IT IS NOT A COPY OF THE [employer] PROGRESS NOTE. CELESTINO
== END ==
LOC: M PAIN 11:15
PROVIDERS: ATTEND Anesthesiology
DX: M47.816 Spondylosis without myelopathy or radiculopathy, lumbar region (principal); M51.16 Intervertebral disc disorders with radiculopathy, lumbar region; M48.062 Spinal stenosis, lumbar region with neurogenic claudication; G89.29 Other chronic pain; I10 Essential (primary) hypertension; E78.5 Hyperlipidemia, unspecified; J45.909 Unspecified asthma, uncomplicated; E11.9 Type 2 diabetes mellitus without complications; Z86.59 Personal history of other mental and behavioral disorders; K21.9 Gastro-esophageal reflux disease without esophagitis; G47.33 Obstructive sleep apnea (adult) (pediatric); Z88.1 Allergy status to other antibiotic agents; Z88.6 Allergy status to analgesic agent; Z88.8 Allergy status to other drugs, medicaments and biological substances; Z79.82 Long term (current) use of aspirin; Z79.84 Long term (current) use of oral hypoglycemic drugs; Z79.891 Long term (current) use of opiate analgesic; Z79.899 Other long term (current) drug therapy

== ENCOUNTER → 2019-03-06 | Outpatient (CLI) | payer MEDICARE ==
--- NOTE | 2019-03-07 03:37 | ECWPNPC ---
PATIENT NAME: AL BARRIOS : 1945 GENDER: FEMALE VISIT DATE: 03/06/2019 DISCHARGE DATE: 03/06/19 1112 VISIT LOCKED DATE TIME: PHYSICIAN: PETER RECINOS RESOURCE: PETER RECINOS REASON FOR APPOINTMENT 1. POST RIGHT L4/5-L5/S1 LFB DX HISTORY OF PRESENT ILLNESS HISTORY OF PRESENT ILLNESS: HERE FOR POST PROCEDURE FOLLOW-UP. HAD DIAGNOSTIC #1. RIGHT L5-S1 FACET BLOCK ON 02/13/2019. REPORTING SIGNIFICANT REDUCTION I.E., GREATER THAN 80% RELIEF FOR APPROXIMATELY 1 WEEK, THEN PAIN GRADUALLY RETURNED TO BASELINE. SHE IS UNCOMFORTABLE TODAY WITH RIGHT LOW BACK PAIN THAT RADIATES INTO THE RIGHT LEG. RATING PAIN LEVEL /X VAS. WAS SEEN BY DR. GARCIA LAST WEEK TO DISCUSS MILD PROCEDURE. HE HAS SENT HER FOR X-RAYS OF THE SPINE. HE FEELS THAT SHE MAY NOT BE A CANDIDATE DUE TO LACK OF SIGNS AND SYMPTOMS OF NEUROGENIC CLAUDICATION. DISCUSSED DIAGNOSTIC TESTING. #2 IN MOVING FORWARD WITH RADIOFREQUENCY PLAN. PAIN THE PATIENT DESCRIBES THE PAIN... FALL RISK SCREENING: SCREENING :NO FALLS REPORTED IN THE LAST YEAR CURRENT MEDICATIONS TAKING LISINOPRIL 2.5 MG TABLET 1 TABLET ORALLY ONCE A DAY TAKING SPIRONOLACTONE 25 MG TABLET 1/2 TABLET ORALLY ONCE A DAY TAKING HYDROCHLOROTHIAZIDE 25 MG TABLET 1 TABLET ORALLY ONCE A DAY TAKING ASPIRIN 81 MG TABLET 2 TABS ORALLY ONCE A DAY TAKING FOLIC ACID 400 MCG TABLET 1 TABLET ORALLY ONCE A DAY TAKING LIPITOR 40 MG TABLET TAKE 1 TABLET EVERY DAY TAKING JANUVIA 25 MG TABLET 1 TABLET ORALLY ONCE A DAY TAKING WELLBUTRIN SR 150 MG TABLET EXTENDED RELEASE 12 HOUR TAKE 1 TABLET TWICE DAILY ONCE A DAY TAKING ALLOPURINOL 100 MG TABLET 1 TABLET ORALLY ONCE A DAY TAKING TYLENOL 325 MG TABLET 2 TABLET NEEDED ORALLY EVERY 6 HRS TAKING LORATADINE 10 MG TABLET 1 TABLET ORALLY ONCE A DAY TAKING VITAMIN D3 5000 UNIT CAPSULE 1 CAPSULE ORALLY ONCE A DAY TAKING CALCIUM CITRATE 150 MG CAPSULE 1 CAP ORALLY TWICE A DAY TAKING VITAMIN B COMPLEX TABLET 1 TABLET ORALLY ONCE A DAY TAKING ZINC 50 MG TABLET 1 TABLET ORALLY ONCE A DAY TAKING YOSEF 500 MG CAPSULE 1 CAP ORALLY TWICE A DAY TAKING TRAMADOL HCL 50 MG TABLET 1 ORALLY Q8H PRN FOR SEVERE PAIN MDD3 TAKING ATENOLOL 50 MG TABLET 1 TABLET ORALLY ONCE A DAY TAKING METFORMIN HCL 500 MG TABLET TAKE 1 TABLET TWICE DAILY TAKING OMEPRAZOLE 20 MG CAPSULE DELAYED RELEASE 1 CAPSULE 30 MINUTES BEFORE MORNING MEAL ORALLY ONCE A DAY TAKING EPIPEN 2-DELROY 0.3 MG/0.3ML (1:1000) DEVICE DIRECTED INTRAMUSCULAR NEEDED MEDICATION LIST REVIEWED AND RECONCILED WITH THE PATIENT PAST MEDICAL HISTORY HYPERTENSION CORONARY ARTERY DISEASE-2008-RST WITHOUT REVERSIBILITY MILD AORTIC STENOSIS AND MILD AORTIC REGURGITATION AND MILD MITRAL REGURGITATION BY TTE SEPTEMBER 2008 HYPERLIPIDEMIA - CONTROLLED ASTHMA DIABETES MELLITUS TYPE 2 [id number] SEPTEMBER 2009 A1C 6.5 GOUT OSTEOPENIA MULTIPLE CHEMICAL SENSITIVITY - STRONG SMELLS, ETC ANXIETY SACROILIITIS GERD ANTWON - USES CPAP ALLERGIES LESCOL: MYALGIA - ALLERGY ADVAIR: PARALYZED VIOCAL CORDS - ALLERGY BACTRIM: HIVES - ALLERGY DECONGESTANTS: SHAKING ON THE INSIDE, FEELS "UNWELL" - SIDE EFFECTS IBUPROFEN: HEAVINESS IN CHEST - SIDE EFFECTS NAPROXEN: RINGING IN EARS - SIDE EFFECTS MINOCYCLINE JANUVIA: LARGER DOSES - FATIGUE, WEAKNESS - SIDE EFFECTS SURGICAL HISTORY HYSTERECTOMY 1986 ANGIOPLASTY WITH STENT 06/10 RIGHT CARPAL RELEASE 11/2009 TONSILLECTOMY & ADNOIDECTOMY X2 195 APPENDECTOMY 1956 BUNIONECTOMY 1993 MENISCUS REPAIR 1996 CHOLECYSTECTOMY 2013 BILAT CATARACTS REMOVED 2015 CALCIFIED CYST REMOVED FROM HEAD 04/2017 CRYOSURGERY NOSE 2019 FAMILY HISTORY FATHER: 68 YRS, ARTHRITIS, COMPLICATIONS, STROKE MOTHER: 92 YRS, CHF SIBLINGS: 58 YRS, NON-HODGKINS LYMPHOMA WITH TX COMPLICATIONS 2 SISTER(S) . 2 SON(S) . SISTER-GRAFT VS. HOST SYNDROME A RESULT OF DONOR TRANSPLANT FOR NON-HODGKINS LYMPHOMA\\NSISTER- ARTHRITIS, CHF, CAD\\N1 SON COMMITTED SUICIDE\\N1 SON ALIVE WITH SEVERE MENTAL ILLNESS AND ETOH DENIES ANY FAMILY HX OF MELANOMA AND PANCREATIC CANCERS. SOCIAL HISTORY GENERAL: TOBACCO USE ARE YOU A:NONSMOKER HIV / HEP-C SCREENING HIV TEST OFFERED TO PATIENT:YES DATE OFFERED:04/22/2017 TEST ACCEPTED:NO HEP-C TEST OFFERED TO PATIENT:YES DATE OFFERED:04/22/2017 REASON:PATIENT DECLINED TEST ACCEPTED:NO REASON:PATIENT DECLINED BROCHURE PROVIDED TO PATIENTYES OTHERS AT HOME: NONE. HOUSING: OWNS HOME. 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 DIET: LOW FAT, LOW CHOLESTEROL, NO CONCENTRATED SWEETS.. LANGUAGE SINGAPOREAN. DOMESTIC VIOLENCE DO YOU FEEL SAFE IN YOUR ENVIRONMENT?YES BMI CARE GOAL FOLLOW-UP ABOVE NORMAL BMI FOLLOW-UPDIETARY MANAGEMENT EDUCATION, GUIDANCE, AND COUNSELING RECREATIONAL DRUG USE DENIES. EXERCISE: GARDENS. 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 NEEDED?NO LUNG CANCER SCREENING SMOKING STATUS:NON SMOKER PAIN CLINIC PFS, CLERGY, PUBLIC HEALTH REFERRALS PFS REFERRAL NEEDED?NO CLERGY REFERRAL NEEDED?NO PUBLIC HEALTH REFERRAL NEEDED?NO WAS THE PROVIDER NOTIFIED OF ANY PERTINENT INFO?YES N/A HAS THE PATIENT BEEN EDUCATED REGARDING HIS/HER PLAN OF CARE?YES HAS THE PATIENT BEEN EDUCATED REGARDING PAIN, THE RISK FOR PAIN, THE IMPORTANCE OF EFFECTIVE PAIN MANAGEMENT, AND THE PAIN ASSESSMENT PROCESS?YES LATEX QUESTIONNAIRE LATEX ALLERGY : HAVE YOU EVER DEVELOPED ANY TYPE OF REACTION AFTER HANDLING LATEX PRODUCTS SUCH RUBBER GLOVES, CONDOMS, DIAPHRAGMS, BALLOONS, SOCKS, OR UNDERWEAR?NO LATEX ALLERGY : HAVE YOU EVER DEVELOPED ANY TYPE OF REACTION DURING OR AFTER DENTAL APPOINTMENT, VAGINAL/RECTAL EXAMINATION, SURGICAL PROCEDURE, OR ANY OTHER EXPOSURE?NO LATEX RISK : HAVE YOU EVER HAD ANY DIFFICULTY BREATHING OR HIVES AFTER EATING OR HANDLING ANY FRUITS, OR VEGETABLES; SUCH KIWI, BANANAS, STONE FRUITS, OR CHESTNUTSNO LATEX RISK : DO YOU HAVE A PREVIOUS PERSONAL HISTORY OF MORE THAN NINE SURGERIES, SPINA BIFIDA, OR REPEATED CATHERIZATIONS? NO LATEX RISK : ARE YOU FREQUENTLY EXPOSED TO LATEX PRODUCTS IN YOUR OCCUPATION?NO DATE ASKED : 03/06/2019 CAFFEINE CAFFEINE USE? 1-2 CUPS OF TEA PER DAY ADVANCE DIRECTIVE ADVANCE DIRECTIVE DISCUSSED WITH PATIENT:YES HCP KRISTEN SHEPPARD [phone](H) LIVING WILL ALDO PARRISH [phone](H) BAPTISM [id number] HINDU MARITAL STATUS: SINGLE. 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 SEXUAL HX HAD SEX IN THE LAST 12 MONTHS (VAGINAL, ORAL, OR ANAL)?NO HAVE YOU EVER HAD AN STD?NO REVIEWED WITH PT 09/27/17 1355 LAS REVIEWED WITH PATIENT 11/16/17 1114 JSREVIEWED WITH PATIENT 04/20/18 0958 JSREVIEWED WITH PATIENT 05/10/18 1132 JSREVIEWED WITH PATIENT 07/10/18 0922 JSREVIEWED WITH PT 10/11/18 0956 BVREVIEWED WITH PT 03/06/19PRE-SCREENING COMPLETED 02/08/2019 1157 JSREVIEWED WITH PATIENT 03/02/2019 1123 NLJ. HOSPITALIZATION/MAJOR DIAGNOSTIC PROCEDURE SURGERIES ABOVE CHILDBIRTH MULTIPLE ADMISSIONS A CHILD - TONSILS, CARDIAC, INTESTINAL REVIEW OF SYSTEMS REVIEWED BY: PROVIDER: PETER RIGGS . CONSTITUTIONAL: ANY CHANGE IN YOUR MEDICAL CONDITION? NO . CHILLS NO . FEVER NO . INFECTION: DO YOU HAVE NEW INFECTIONS? NO . DO YOU HAVE HISTORY OF MRSA? NO . MUSCULOSKELETAL: ANY NEW PATTERNS OF PAIN OR NUMBNESS? NO . GASTROENTEROLOGY: ANY NEW CHANGE IN BOWEL CONTROL? NO . GENITOURINARY: ANY NEW CHANGE IN BLADDER CONTROL? NO . IS THERE A CHANCE YOU COULD BE ? NO . HEMATOLOGY/LYMPH: DO YOU TAKE ANY BLOOD THINNERS? (FOR EXAMPLE- COUMADIN, PLAVIX, AGGRENOX, PLATEL, PRADAXA, OR XARELTO) NO . WHEN WAS YOUR LAST DOSE? DATE: TIME: . NEUROLOGY: HAVE YOU FALLEN IN THE PAST 12 MONTHS? NO . ANY NEW EXTREMITY NUMBNESS OR WEAKNESS? NO . CARDIOLOGY: DO YOU HAVE A PACEMAKER OR DEFIBRILLATOR? NO . RESPIRATORY: HAVE YOU BEEN SICK IN THE PAST WEEK? NO . FEVER NO . FLU LIKE SYMPTOMS? NO . COUGH NO . INTEGUMENTARY: DO YOU HAVE ANY RASHES OR OPEN SORES? NO . ALLERGIC/IMMUNO: ARE YOU ALLERGIC TO IV DYE? NO . ANY NEW ALLERGIES? NO . PSYCHIATRIC: DO YOU HAVE THOUGHTS OF HURTING YOURSELF OR SOMEONE ELSE? NO . ARE YOU ABUSED, NEGLECTED, OR IN AN UNSAFE ENVIRONMENT? NO . ENDOCRINOLOGY: ARE YOU DIABETIC? YES . OTHER: DO YOU NEED ANY PRESCRIPTIONS? NO . IF YES, PLEASE LIST: ____ . ANY NEW PROBLEMS WITH YOUR MEDICATIONS? NO . WHEN DID YOU LAST EAT? ____ . WHEN DID YOU LAST DRINK? ____ . WHAT DID YOU LAST DRINK? ____ . NAME OF PERSON DRIVING YOU HOME? ____ . DO YOU HAVE ANY OTHER QUESTIONS OR CONCERNS NO . VITAL SIGNS WT 191 LBS, HT 61 IN, BMI 36.09 INDEX, BP 166/70 MM HG, HR 73 /MIN, RR 18 /MIN, TEMP 98.0 F, OXYGEN SAT % 985, SAFE IN ENV? (Y/N) YES, REVIEWED BY: JOSE. EXAMINATION GENERAL EXAMINATION: GENERAL AWAKE,ALERT ,PLEASANT . PSYCH AFFECT NORMAL . LUNGS: LUNG CALVIN ARE CLEAR TO AUSCULTATION BILATERALLY. GOOD MOVEMENT OF AIR . HEART: S1, S2 IN A REGULAR RATE AND RHYTHM. NO SIGNIFICANT MURMURS, RUBS OR GALLOPS NOTED . FOR BILAT. SIJ PALPATION:TENDER OVER RIGHT L4/5-L5/S1 LUMBAR FACETS WITH FACET LOADING.. ASSESSMENTS SPONDYLOSIS OF LUMBOSACRAL REGION WITHOUT MYELOPATHY OR RADICULOPATHY - M47.817 (PRIMARY) TREATMENT SPONDYLOSIS OF LUMBOSACRAL REGION WITHOUT MYELOPATHY OR RADICULOPATHY NOTES: RIGHT L5-S1 DIAGNOSTIC FACET BLOCK #2. OTHERS NOTES: FACET JOINT INJECTION MATERIAL WAS PRINTED. PROCEDURE CODES FA211 ESTABILISHED PATIENT [facility] CHARGE DISPOSITION & COMMUNICATION FOLLOW UP POST PROC F/U (REASON: RIGHT L5-S1 DIAGNOSTIC FACET BLOCK #2) ELECTRONICALLY SIGNED BY ONEIL SHI ON 03/06/2019 AT 11:13 AM EST DISCLAIMER : THIS IS A VISIT SUMMARY EXTRACTED FROM THE [employer] CHART. IT IS NOT A COPY OF THE [employer] PROGRESS NOTE. CELESTINO
== END ==
LOC: M PAIN 10:00
PROVIDERS: ATTEND Nurse Practitioner Family
DX: M47.817 Spondylosis without myelopathy or radiculopathy, lumbosacral region (principal); M51.36 Other intervertebral disc degeneration, lumbar region
CPT/HCPCS: 72110; G0463

== ENCOUNTER → 2019-03-06 | Outpatient (CLI) | payer MEDICARE ==
--- NOTE | 2019-03-06 13:31 | REP ---
Lumbar spine four views including flexion and extension views: There is a mild scoliosis convex right, possibly positional. Vertebral body heights and alignment are normal. There is mild degenerative disc disease at every lumbar level. There is no spondylolysis. There is mild grade 1 anterolisthesis of L4 on the flexion view. This is not present on the neutral and extension views. Impression: Multilevel mild degenerative disc disease. Mild grade 1 L4 anterolisthesis on the flexion view. Electronically Signed by Dimitri Nunez MD 03/06/2019 01:23 P
== END ==
LOC: M RAD 11:25
PROVIDERS: ATTEND Anesthesiology
DX: M51.36 Other intervertebral disc degeneration, lumbar region (principal)

== ENCOUNTER → 2019-04-10 | Outpatient (CLI) | payer MEDICARE ==
--- NOTE | 2019-04-10 13:57 | REP ---
C-ARM VIEW LOWER LUMBAR SPINE: A C-arm view lower lumbar spine is performed during lower lumbar facet injection performed by Dr. Schmitt. Two needles are seen along the lower lumbar spine and a small amount of contrast is injected. 21 seconds of fluoroscopy time utilized. Electronically Signed by Dimitri Diaz MD 04/10/2019 07:57 P
--- NOTE | 2019-04-13 01:51 | ECWPNPC ---
PATIENT NAME: AL BARRIOS : 1945 GENDER: FEMALE VISIT DATE: 04/10/2019 DISCHARGE DATE: 04/10/19 1352 VISIT LOCKED DATE TIME: PHYSICIAN: AMINATA GARCIA MD RESOURCE: AMINATA GARCIA MD REASON FOR APPOINTMENT 1. RIGHT L5-S1 DIAGNOSTIC FACET BLOCK #2 HISTORY OF PRESENT ILLNESS HISTORY OF PRESENT ILLNESS: PAIN THE PATIENT DESCRIBES THE PAIN... FALL RISK SCREENING: SCREENING :NO FALLS REPORTED IN THE LAST YEAR CURRENT MEDICATIONS TAKING LISINOPRIL 2.5 MG TABLET 1 TABLET ORALLY ONCE A DAY, NOTES: 04-09-19 TAKING SPIRONOLACTONE 25 MG TABLET 1/2 TABLET ORALLY ONCE A DAY, NOTES: 04-09-19 TAKING HYDROCHLOROTHIAZIDE 25 MG TABLET 1 TABLET ORALLY ONCE A DAY, NOTES: 04-09-19 TAKING ASPIRIN 81 MG TABLET 2 TABS ORALLY ONCE A DAY, NOTES: 04-09-19 TAKING FOLIC ACID 400 MCG TABLET 1 TABLET ORALLY ONCE A DAY, NOTES: 04-09-19 TAKING LIPITOR 40 MG TABLET TAKE 1 TABLET EVERY DAY , NOTES: 04-09-19 TAKING METFORMIN HCL 500 MG TABLET TAKE 1 TABLET TWICE DAILY TAKING JANUVIA 25 MG TABLET 1 TABLET ORALLY ONCE A DAY TAKING ALLOPURINOL 100 MG TABLET 1 TABLET ORALLY ONCE A DAY, NOTES: TUESDAY TAKING TRAMADOL HCL 50 MG TABLET 1 ORALLY Q8H PRN FOR SEVERE PAIN MDD3, NOTES: A TAKING TYLENOL 325 MG TABLET 2 TABLET NEEDED ORALLY EVERY 6 HRS, NOTES: 04-09-19 TAKING OMEPRAZOLE 20 MG CAPSULE DELAYED RELEASE 1 CAPSULE 30 MINUTES BEFORE MORNING MEAL ORALLY ONCE A DAY, NOTES: 04-10-19 0700 TAKING LORATADINE 10 MG TABLET 1 TABLET ORALLY ONCE A DAY, NOTES: 04-09-19 TAKING VITAMIN D3 5000 UNIT CAPSULE 1 CAPSULE ORALLY ONCE A DAY, NOTES: 04-09-19 TAKING CALCIUM CITRATE 150 MG CAPSULE 1 CAP ORALLY TWICE A DAY, NOTES: 04-09-19 TAKING VITAMIN B COMPLEX TABLET 1 TABLET ORALLY ONCE A DAY, NOTES: 04-09-19 TAKING ZINC 50 MG TABLET 1 TABLET ORALLY ONCE A DAY, NOTES: 04-09-19 TAKING YOSEF 500 MG CAPSULE 1 CAP ORALLY TWICE A DAY, NOTES: 04-09-19 TAKING EPIPEN 2-DELROY 0.3 MG/0.3ML (1:1000) DEVICE DIRECTED INTRAMUSCULAR NEEDED, NOTES: NEVER USED TAKING WELLBUTRIN SR 150 MG TABLET EXTENDED RELEASE 12 HOUR 1 TABLET ORALLY TWICE A DAY, NOTES: 04-09-19 TAKING ATENOLOL 50 MG TABLET 1 TABLET ORALLY ONCE A DAY, NOTES: 04-09-19 NOT-TAKING IBUPROFEN 600 MG TABLET 1 TABLET WITH FOOD OR MILK NEEDED ORALLY THREE TIMES A DAY MEDICATION LIST REVIEWED AND RECONCILED WITH THE PATIENT PAST MEDICAL HISTORY HYPERTENSION CORONARY ARTERY DISEASE-2008-RST WITHOUT REVERSIBILITY MILD AORTIC STENOSIS AND MILD AORTIC REGURGITATION AND MILD MITRAL REGURGITATION BY TTE SEPTEMBER 2008 HYPERLIPIDEMIA - CONTROLLED ASTHMA DIABETES MELLITUS TYPE 2 [id number] SEPTEMBER 2009 A1C 6.5 GOUT OSTEOPENIA MULTIPLE CHEMICAL SENSITIVITY - STRONG SMELLS, ETC ANXIETY SACROILIITIS GERD ANTWON - USES CPAP ALLERGIES LESCOL: MYALGIA - ALLERGY ADVAIR: PARALYZED VIOCAL CORDS - ALLERGY BACTRIM: HIVES - ALLERGY DECONGESTANTS: SHAKING ON THE INSIDE, FEELS "UNWELL" - SIDE EFFECTS IBUPROFEN: HEAVINESS IN CHEST - SIDE EFFECTS NAPROXEN: RINGING IN EARS - SIDE EFFECTS MINOCYCLINE JANUVIA: LARGER DOSES - FATIGUE, WEAKNESS - SIDE EFFECTS ARTIFICIAL SWEETENERS: ABDOMINAL PAIN - SIDE EFFECTS SURGICAL HISTORY HYSTERECTOMY 1986 ANGIOPLASTY WITH STENT 06/10 RIGHT CARPAL RELEASE 11/2009 TONSILLECTOMY & ADNOIDECTOMY X2 195 APPENDECTOMY 1956 BUNIONECTOMY 1993 MENISCUS REPAIR 1996 CHOLECYSTECTOMY 2013 BILAT CATARACTS REMOVED 2015 CALCIFIED CYST REMOVED FROM HEAD 04/2017 CRYOSURGERY NOSE 2019 FAMILY HISTORY FATHER: 68 YRS, ARTHRITIS, COMPLICATIONS, STROKE MOTHER: 92 YRS, CHF SIBLINGS: 58 YRS, NON-HODGKINS LYMPHOMA WITH TX COMPLICATIONS 2 SISTER(S) . 2 SON(S) . SISTER-GRAFT VS. HOST SYNDROME A RESULT OF DONOR TRANSPLANT FOR NON-HODGKINS LYMPHOMA\\NSISTER- ARTHRITIS, CHF, CAD\\N1 SON COMMITTED SUICIDE\\N1 SON ALIVE WITH SEVERE MENTAL ILLNESS AND ETOH DENIES ANY FAMILY HX OF MELANOMA AND PANCREATIC CANCERS. SOCIAL HISTORY GENERAL: TOBACCO USE ARE YOU A:NONSMOKER HIV / HEP-C SCREENING HIV TEST OFFERED TO PATIENT:YES DATE OFFERED:04/22/2017 TEST ACCEPTED:NO HEP-C TEST OFFERED TO PATIENT:YES DATE OFFERED:04/22/2017 REASON:PATIENT DECLINED TEST ACCEPTED:NO REASON:PATIENT DECLINED BROCHURE PROVIDED TO PATIENTYES OTHERS AT HOME: NONE. HOUSING: OWNS HOME. 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 DIET: LOW FAT, LOW CHOLESTEROL, NO CONCENTRATED SWEETS.. LANGUAGE DJIBOUTIAN. DOMESTIC VIOLENCE DO YOU FEEL SAFE IN YOUR ENVIRONMENT?YES BMI CARE GOAL FOLLOW-UP ABOVE NORMAL BMI FOLLOW-UPDIETARY MANAGEMENT EDUCATION, GUIDANCE, AND COUNSELING RECREATIONAL DRUG USE DENIES. EXERCISE: GARDENS. 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 NEEDED?NO LUNG CANCER SCREENING SMOKING STATUS:NON SMOKER PAIN CLINIC PFS, CLERGY, PUBLIC HEALTH REFERRALS PFS REFERRAL NEEDED?NO CLERGY REFERRAL NEEDED?NO PUBLIC HEALTH REFERRAL NEEDED?NO WAS THE PROVIDER NOTIFIED OF ANY PERTINENT INFO?YES N/A HAS THE PATIENT BEEN EDUCATED REGARDING HIS/HER PLAN OF CARE?YES HAS THE PATIENT BEEN EDUCATED REGARDING PAIN, THE RISK FOR PAIN, THE IMPORTANCE OF EFFECTIVE PAIN MANAGEMENT, AND THE PAIN ASSESSMENT PROCESS?YES LATEX QUESTIONNAIRE LATEX ALLERGY : HAVE YOU EVER DEVELOPED ANY TYPE OF REACTION AFTER HANDLING LATEX PRODUCTS SUCH RUBBER GLOVES, CONDOMS, DIAPHRAGMS, BALLOONS, SOCKS, OR UNDERWEAR?NO LATEX ALLERGY : HAVE YOU EVER DEVELOPED ANY TYPE OF REACTION DURING OR AFTER DENTAL APPOINTMENT, VAGINAL/RECTAL EXAMINATION, SURGICAL PROCEDURE, OR ANY OTHER EXPOSURE?NO DATE ASKED : 03/06/2019 LATEX RISK : HAVE YOU EVER HAD ANY DIFFICULTY BREATHING OR HIVES AFTER EATING OR HANDLING ANY FRUITS, OR VEGETABLES; SUCH KIWI, BANANAS, STONE FRUITS, OR CHESTNUTSNO LATEX RISK : DO YOU HAVE A PREVIOUS PERSONAL HISTORY OF MORE THAN NINE SURGERIES, SPINA BIFIDA, OR REPEATED CATHERIZATIONS? NO LATEX RISK : ARE YOU FREQUENTLY EXPOSED TO LATEX PRODUCTS IN YOUR OCCUPATION?NO CAFFEINE CAFFEINE USE? 1-2 CUPS OF TEA PER DAY ADVANCE DIRECTIVE ADVANCE DIRECTIVE DISCUSSED WITH PATIENT:YES HCP KRISTEN SHEPPARD [phone](H) LIVING WILL ALDO PARRISH [phone](H) YAZIDI [id number] SYNAGOGUE MARITAL STATUS: SINGLE. 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 SEXUAL HX HAD SEX IN THE LAST 12 MONTHS (VAGINAL, ORAL, OR ANAL)?NO HAVE YOU EVER HAD AN STD?NO REVIEWED WITH PT 09/27/17 1355 LAS PRE-SCREENING COMPLETED 02/08/2019 1157 JSREVIEWED WITH PATIENT 03/02/2019 1123 NLJPRE PROCEDURE PAT PHONE CALL 03/29/2019 MATTHEW. HOSPITALIZATION/MAJOR DIAGNOSTIC PROCEDURE SURGERIES ABOVE CHILDBIRTH MULTIPLE ADMISSIONS A CHILD - TONSILS, CARDIAC, INTESTINAL REVIEW OF SYSTEMS REVIEWED BY: PROVIDER: . CONSTITUTIONAL: ANY CHANGE IN YOUR MEDICAL CONDITION? NO . CHILLS NO . FEVER NO . INFECTION: DO YOU HAVE NEW INFECTIONS? NO . DO YOU HAVE HISTORY OF MRSA? NO . MUSCULOSKELETAL: ANY NEW PATTERNS OF PAIN OR NUMBNESS? NO . GASTROENTEROLOGY: ANY NEW CHANGE IN BOWEL CONTROL? NO . GENITOURINARY: ANY NEW CHANGE IN BLADDER CONTROL? NO . IS THERE A CHANCE YOU COULD BE ? NO . HEMATOLOGY/LYMPH: DO YOU TAKE ANY BLOOD THINNERS? (FOR EXAMPLE- COUMADIN, PLAVIX, AGGRENOX, PLATEL, PRADAXA, OR XARELTO) NO . WHEN WAS YOUR LAST DOSE? DATE: TIME: . NEUROLOGY: HAVE YOU FALLEN IN THE PAST 12 MONTHS? NO . ANY NEW EXTREMITY NUMBNESS OR WEAKNESS? NO . CARDIOLOGY: DO YOU HAVE A PACEMAKER OR DEFIBRILLATOR? NO . RESPIRATORY: HAVE YOU BEEN SICK IN THE PAST WEEK? NO . FEVER NO . FLU LIKE SYMPTOMS? NO . COUGH NO . INTEGUMENTARY: DO YOU HAVE ANY RASHES OR OPEN SORES? NO . ALLERGIC/IMMUNO: ARE YOU ALLERGIC TO IV DYE? NO . ANY NEW ALLERGIES? NO . PSYCHIATRIC: DO YOU HAVE THOUGHTS OF HURTING YOURSELF OR SOMEONE ELSE? NO . ARE YOU ABUSED, NEGLECTED, OR IN AN UNSAFE ENVIRONMENT? NO . ENDOCRINOLOGY: ARE YOU DIABETIC? NO . OTHER: DO YOU NEED ANY PRESCRIPTIONS? NO . IF YES, PLEASE LIST: ____ . ANY NEW PROBLEMS WITH YOUR MEDICATIONS? NO . WHEN DID YOU LAST EAT? ____04-09-19 5 PM . WHEN DID YOU LAST DRINK? ____0830 THIS AM . WHAT DID YOU LAST DRINK? ____WATER . NAME OF PERSON DRIVING YOU HOME? ____FOZIA PARRISH . DO YOU HAVE ANY OTHER QUESTIONS OR CONCERNS NO . VITAL SIGNS WT 194.6 LBS, HT 61 IN, BMI 36.77 INDEX, BP 149/70 MM HG, HR 77 /MIN, RR 18 /MIN, TEMP 97.7 F, OXYGEN SAT % 97%, SAFE IN ENV? (Y/N) YES, NA INITIALS AW 1132, REVIEWED BY: KG. ASSESSMENTS SPONDYLOSIS OF LUMBOSACRAL REGION WITHOUT MYELOPATHY OR RADICULOPATHY - M47.817 (PRIMARY) TREATMENT SPONDYLOSIS OF LUMBOSACRAL REGION WITHOUT MYELOPATHY OR RADICULOPATHY SMC FACET BLOCK (PAIN)[id number] PROCEDURES PN LUMBAR FACET BLOCK DIAGNOSTIC PRE PROCEDURE DIAGNOSIS LUMBOSACRAL SPONDYLOSIS POST PROCEDURE DIAGNOSIS LUMBOSACRAL SPONDYLOSIS PROCEDURE RIGHT L5-S1 FACET BLOCK DIAGNOSTIC NUMBER [address] AMINATA GARCIA ROW BOSS HOEING NONE ANESTHESIA LOCAL PRE PROCEDURE NOTE THE PATIENT WITH HISTORY OF CHRONIC LOW BACK PAIN. I EVALUATED THE PATIENT AND REVIEWED THE CHART. I WENT OVER THE RISKS, ALTERNATIVES, AND BENEFITS ASSOCIATED WITH THIS PROCEDURE. THE PATIENT WOULD LIKE TO PROCEED AND GAVE CONSENT TO PERFORM THE PROCEDURE. AGREED WITH THE PATIENT WE ARE DOING THIS PROCEDURE TO DETERMINE IF THE PATIENT IS A CANDIDATE FOR A RADIOFREQUENCY ABLATION OF THE FACETS JOINTS. THE PATIENT DENIES UNEXPLAINABLE WEIGHT LOSS, FEVER, CHILLS, OR NEW CHANGES IN URINARY OR BOWEL CONTROL DESCRIPTION OF PROCEDURE THE PATIENT WAS BROUGHT TO THE PROCEDURE ROOM AND PLACED IN THE PRONE POSITION. THE LUMBOSACRAL AREA WAS CLEANED WITH CHLORAPREP SOLUTION AND DRAPED ASEPTICALLY. THE PROCEDURE WAS DONE UNDER STERILE CONDITIONS. I CHECKED LATERALITY AND THE LEVEL WHERE THE PROCEDURE WAS GOING TO BE PERFORMED WITH THE PATIENT AND THE SUPPORTING STAFF AT THE MOMENT OF THE TIME OUT IN THE PROCEDURE ROOM. UNDER FLUOROSCOPIC GUIDANCE, TARGETS WERE SELECTED AT THE INTERSECTION OF THE RIGHT TRANSVERSE PROCESS OF L5 AND ALA OF S1 WITH ITS RESPECTIVE SUPERIOR ARTICULAR PROCESS. LIDOCAINE WAS USED TO NUMB THE SKIN AND THE SUBCUTANEOUS TISSUE BELOW IT. SPINAL NEEDLE, 22-GAUGE WAS ADVANCED UNDER FLUOROSCOPIC GUIDANCE AND FOLLOWING PATIENT FEEDBACK UNTIL THE TARGETS WERE REACHED. POSITION OF THE NEEDLES WAS VERIFIED WITH AP AND LATERAL VIEWS. AFTER PROPER POSITION OF THE NEEDLES WAS ACHIEVED, ISOVUE-M DYE 30% 0.1 ML WAS INJECTED AT EACH SITE SHOWING ADEQUATE SPREAD OF THE DYE. THEN A SOLUTION OF 0.4 ML OF BUPIVACAINE 0.25% WAS INJECTED AT EACH SITE. THERE WAS NO EVIDENCE OF BLOOD, PARESTHESIA OR CEREBROSPINAL FLUID DURING THE PROCEDURE. THE PATIENT WAS SENT TO THE RECOVERY ROOM. THE PATIENT WAS MOVING THE EXTREMITIES AND DOING WELL. THERE WAS NO COMPLICATION DURING THE PROCEDURE. FLUOROSCOPY TIME WAS 21 SECONDS POST PROCEDURE NOTE THE PATIENT WILL DOCUMENT HIS PAIN LEVEL AND RESPONSE TO THIS PROCEDURE EVERY 30 MINUTES. THE PATIENT WILL BE SEEN IN A FOLLOW UP IN THE NEXT FEW WEEKS. FURTHER DETERMINATION FOR HIS CASE WILL BE DONE AT THE NEXT VISIT. INSTRUCTIONS WERE GIVEN, QUESTIONS WERE ANSWERED, AND THE PATIENT EXPRESSED UNDERSTANDING AND AGREED WITH THE PLAN. I, MARY GRACE CLARKE, DOCUMENTED THE ABOVE INFORMATION ACTING A SCRIBE FOR DR. GARCIA. I HAVE REVIEWED THE ABOVE DOCUMENT, WRITTEN BY MARY GRACE CLARKE SCRIBE AND I VERIFY THAT IT IS ACCURATE. PROCEDURE CODES 6045F RADXPS IN END [id number] PXD 13123 INJ PARAVERT F JNT L/S 1 LEV, MODIFIERS: RT DISPOSITION & COMMUNICATION FOLLOW UP 3 WEEKS ELECTRONICALLY SIGNED BY AMINATA GARCIA MD, MD ON 04/12/2019 AT 03:19 PM EST DISCLAIMER : THIS IS A VISIT SUMMARY EXTRACTED FROM THE [employer] CHART. IT IS NOT A COPY OF THE [employer] PROGRESS NOTE. MTDD
== END ==
LOC: M PAIN 11:00
PROVIDERS: ATTEND Anesthesiology
DX: M47.817 Spondylosis without myelopathy or radiculopathy, lumbosacral region (principal); I10 Essential (primary) hypertension; I25.10 Atherosclerotic heart disease of native coronary artery without angina pectoris; E78.5 Hyperlipidemia, unspecified; J45.909 Unspecified asthma, uncomplicated; E11.9 Type 2 diabetes mellitus without complications; M10.9 Gout, unspecified; M85.80 Other specified disorders of bone density and structure, unspecified site; F41.9 Anxiety disorder, unspecified; K21.9 Gastro-esophageal reflux disease without esophagitis; G47.33 Obstructive sleep apnea (adult) (pediatric); Z79.84 Long term (current) use of oral hypoglycemic drugs; Z79.82 Long term (current) use of aspirin; Z79.899 Other long term (current) drug therapy; Z79.891 Long term (current) use of opiate analgesic; Z88.1 Allergy status to other antibiotic agents; Z88.6 Allergy status to analgesic agent; Z88.8 Allergy status to other drugs, medicaments and biological substances; Z91.018 Allergy to other foods
CPT/HCPCS: 64493; Q9967

== ENCOUNTER → 2019-04-26 | Outpatient (CLI) | payer MEDICARE ==
--- NOTE | 2019-04-27 03:10 | ECWPNPC ---
PATIENT NAME: AL BARRIOS : 1945 GENDER: FEMALE VISIT DATE: 04/26/2019 DISCHARGE DATE: 04/26/19 1103 VISIT LOCKED DATE TIME: PHYSICIAN: PETER RECINOS RESOURCE: PETER RECINOS REASON FOR APPOINTMENT 1. POST FACET BLK HISTORY OF PRESENT ILLNESS HISTORY OF PRESENT ILLNESS: HERE FOR POST PROCEDURE FOLLOW-UP. HAD DIAGNOSTIC #2 RIGHT L5-S1 FACET BLOCK ON 04/10/2019. REPORTING SIGNIFICANT REDUCTION I.E., GREATER THAN 80% RELIEF FOR APPROXIMATELY 3 DAYS, THEN PAIN GRADUALLY RETURNED TO BASELINE. RATING PAIN LEVEL 8/[address] GARCIA RECENT PAST TO DISCUSS MILD PROCEDURE. HE HAS SENT HER FOR X-RAYS OF THE SPINE. HE FEELS THAT SHE MAY NOT BE A CANDIDATE DUE TO LACK OF SIGNS AND SYMPTOMS OF NEUROGENIC CLAUDICATION. DISCUSSED MOVING FORWARD WITH RADIOFREQUENCY PLAN. PAIN THE PATIENT DESCRIBES THE PAIN... FALL RISK SCREENING: SCREENING :NO FALLS REPORTED IN THE LAST YEAR CURRENT MEDICATIONS TAKING LISINOPRIL 2.5 MG TABLET 1 TABLET ORALLY ONCE A DAY TAKING SPIRONOLACTONE 25 MG TABLET 1/2 TABLET ORALLY ONCE A DAY TAKING HYDROCHLOROTHIAZIDE 25 MG TABLET 1 TABLET ORALLY ONCE A DAY TAKING ASPIRIN 81 MG TABLET 2 TABS ORALLY ONCE A DAY TAKING FOLIC ACID 400 MCG TABLET 1 TABLET ORALLY ONCE A DAY TAKING LIPITOR 40 MG TABLET TAKE 1 TABLET EVERY DAY TAKING JANUVIA 25 MG TABLET 1 TABLET ORALLY ONCE A DAY TAKING ALLOPURINOL 100 MG TABLET 1 TABLET ORALLY ONCE A DAY TAKING TYLENOL 325 MG TABLET 2 TABLET NEEDED ORALLY EVERY 6 HRS TAKING LORATADINE 10 MG TABLET 1 TABLET ORALLY ONCE A DAY TAKING VITAMIN D3 5000 UNIT CAPSULE 1 CAPSULE ORALLY ONCE A DAY TAKING CALCIUM CITRATE 150 MG CAPSULE 1 CAP ORALLY TWICE A DAY TAKING VITAMIN B COMPLEX TABLET 1 TABLET ORALLY ONCE A DAY TAKING ZINC 50 MG TABLET 1 TABLET ORALLY ONCE A DAY TAKING YOSEF 500 MG CAPSULE 1 CAP ORALLY TWICE A DAY TAKING EPIPEN 2-DELROY 0.3 MG/0.3ML (1:1000) DEVICE DIRECTED INTRAMUSCULAR NEEDED, NOTES: NEVER USED TAKING WELLBUTRIN SR 150 MG TABLET EXTENDED RELEASE 12 HOUR 1 TABLET ORALLY TWICE A DAY TAKING ATENOLOL 50 MG TABLET 1 TABLET ORALLY ONCE A DAY TAKING TRAMADOL HCL 50 MG TABLET 1 ORALLY Q8H PRN FOR SEVERE PAIN MDD3 TAKING METFORMIN HCL 500 MG TABLET TAKE 1 TABLET TWICE DAILY ORALLY TWICE A DAY TAKING OMEPRAZOLE 20 MG CAPSULE DELAYED RELEASE 1 CAPSULE 30 MINUTES BEFORE MORNING MEAL ORALLY ONCE A DAY NOT-TAKING IBUPROFEN 600 MG TABLET 1 TABLET WITH FOOD OR MILK NEEDED ORALLY THREE TIMES A DAY MEDICATION LIST REVIEWED AND RECONCILED WITH THE PATIENT PAST MEDICAL HISTORY HYPERTENSION CORONARY ARTERY DISEASE-2008-RST WITHOUT REVERSIBILITY MILD AORTIC STENOSIS AND MILD AORTIC REGURGITATION AND MILD MITRAL REGURGITATION BY TTE SEPTEMBER 2008 HYPERLIPIDEMIA - CONTROLLED ASTHMA DIABETES MELLITUS TYPE 2 [id number] SEPTEMBER 2009 A1C 6.5 GOUT OSTEOPENIA MULTIPLE CHEMICAL SENSITIVITY - STRONG SMELLS, ETC ANXIETY SACROILIITIS GERD ANTWON - USES CPAP ALLERGIES LESCOL: MYALGIA - ALLERGY ADVAIR: PARALYZED VIOCAL CORDS - ALLERGY BACTRIM: HIVES - ALLERGY DECONGESTANTS: SHAKING ON THE INSIDE, FEELS "UNWELL" - SIDE EFFECTS IBUPROFEN: HEAVINESS IN CHEST - SIDE EFFECTS NAPROXEN: RINGING IN EARS - SIDE EFFECTS MINOCYCLINE JANUVIA: LARGER DOSES - FATIGUE, WEAKNESS - SIDE EFFECTS ARTIFICIAL SWEETENERS: ABDOMINAL PAIN - SIDE EFFECTS SURGICAL HISTORY HYSTERECTOMY 1986 ANGIOPLASTY WITH STENT 06/10 RIGHT CARPAL RELEASE 11/2009 TONSILLECTOMY & ADNOIDECTOMY X2 195 APPENDECTOMY 1956 BUNIONECTOMY 1993 MENISCUS REPAIR 1996 CHOLECYSTECTOMY 2013 BILAT CATARACTS REMOVED 2015 CALCIFIED CYST REMOVED FROM HEAD 04/2017 CRYOSURGERY NOSE 2019 FAMILY HISTORY FATHER: 68 YRS, ARTHRITIS, COMPLICATIONS, STROKE MOTHER: 92 YRS, CHF SIBLINGS: 58 YRS, NON-HODGKINS LYMPHOMA WITH [place] COMPLICATIONS 2 SISTER(S) . 2 SON(S) . SISTER-GRAFT VS. HOST SYNDROME A RESULT OF DONOR TRANSPLANT FOR NON-HODGKINS LYMPHOMA\\NSISTER- ARTHRITIS, CHF, CAD\\N1 SON COMMITTED SUICIDE\\N1 SON ALIVE WITH SEVERE MENTAL ILLNESS AND ETOH DENIES ANY FAMILY HX OF MELANOMA AND PANCREATIC CANCERS. SOCIAL HISTORY GENERAL: TOBACCO USE ARE YOU A:NONSMOKER HIV / HEP-C SCREENING HIV TEST OFFERED TO PATIENT:YES DATE OFFERED:04/22/2017 TEST ACCEPTED:NO HEP-C TEST OFFERED TO PATIENT:YES DATE OFFERED:04/22/2017 REASON:PATIENT DECLINED TEST ACCEPTED:NO REASON:PATIENT DECLINED BROCHURE PROVIDED TO PATIENTYES OTHERS AT HOME: NONE. HOUSING: OWNS HOME. 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 DIET: LOW FAT, LOW CHOLESTEROL, NO CONCENTRATED SWEETS.. LANGUAGE CROATIAN. DOMESTIC VIOLENCE DO YOU FEEL SAFE IN YOUR ENVIRONMENT?YES NEW PATIENT PAIN DIARY TODAY'S VISITNOTES 04/26/2019 PATIENT DESCRIBES PAIN :ACHING, STABBING, SHOOTING FROM 0-10, WHAT LEVEL IS YOUR PAIN TODAY?7 BMI CARE GOAL FOLLOW-UP ABOVE NORMAL BMI FOLLOW-UPDIETARY MANAGEMENT EDUCATION, GUIDANCE, AND COUNSELING RECREATIONAL DRUG USE DENIES. EXERCISE: GARDENS. 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 NEEDED?NO LUNG CANCER SCREENING SMOKING STATUS:NON SMOKER PAIN CLINIC PFS, CLERGY, PUBLIC HEALTH REFERRALS PFS REFERRAL NEEDED?NO CLERGY REFERRAL NEEDED?NO PUBLIC HEALTH REFERRAL NEEDED?NO WAS THE PROVIDER NOTIFIED OF ANY PERTINENT INFO?YES N/A HAS THE PATIENT BEEN EDUCATED REGARDING HIS/HER PLAN OF CARE?YES HAS THE PATIENT BEEN EDUCATED REGARDING PAIN, THE RISK FOR PAIN, THE IMPORTANCE OF EFFECTIVE PAIN MANAGEMENT, AND THE PAIN ASSESSMENT PROCESS?YES LATEX QUESTIONNAIRE LATEX ALLERGY : HAVE YOU EVER DEVELOPED ANY TYPE OF REACTION AFTER HANDLING LATEX PRODUCTS SUCH RUBBER GLOVES, CONDOMS, DIAPHRAGMS, BALLOONS, SOCKS, OR UNDERWEAR?NO LATEX ALLERGY : HAVE YOU EVER DEVELOPED ANY TYPE OF REACTION DURING OR AFTER DENTAL APPOINTMENT, VAGINAL/RECTAL EXAMINATION, SURGICAL PROCEDURE, OR ANY OTHER EXPOSURE?NO LATEX RISK : HAVE YOU EVER HAD ANY DIFFICULTY BREATHING OR HIVES AFTER EATING OR HANDLING ANY FRUITS, OR VEGETABLES; SUCH KIWI, BANANAS, STONE FRUITS, OR CHESTNUTSNO LATEX RISK : DO YOU HAVE A PREVIOUS PERSONAL HISTORY OF MORE THAN NINE SURGERIES, SPINA BIFIDA, OR REPEATED CATHERIZATIONS? NO LATEX RISK : ARE YOU FREQUENTLY EXPOSED TO LATEX PRODUCTS IN YOUR OCCUPATION?NO DATE ASKED : 03/06/2019 CAFFEINE CAFFEINE USE? 1-2 CUPS OF TEA PER DAY ADVANCE DIRECTIVE ADVANCE DIRECTIVE DISCUSSED WITH PATIENT:YES HCP KRISTEN SHEPPARD [phone] LIVING WILL ALDO IMELDA BAPTISTECY [phone](H) SYNAGOGUE [id number] MORMONISM MARITAL STATUS: SINGLE. 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 SEXUAL HX HAD SEX IN THE LAST 12 MONTHS (VAGINAL, ORAL, OR ANAL)?NO HAVE YOU EVER HAD AN STD?NO HOSPITALIZATION/MAJOR DIAGNOSTIC PROCEDURE SURGERIES ABOVE CHILDBIRTH MULTIPLE ADMISSIONS A CHILD - TONSILS, CARDIAC, INTESTINAL REVIEW OF SYSTEMS REVIEWED BY: PROVIDER: PETER RIGGS . CONSTITUTIONAL: ANY CHANGE IN YOUR MEDICAL CONDITION? NO . CHILLS NO . FEVER NO . INFECTION: DO YOU HAVE NEW INFECTIONS? NO . DO YOU HAVE HISTORY OF MRSA? NO . MUSCULOSKELETAL: ANY NEW PATTERNS OF PAIN OR NUMBNESS? YES, INCREASED TOE NUMBNESS AT TIMES . GASTROENTEROLOGY: ANY NEW CHANGE IN BOWEL CONTROL? NO . GENITOURINARY: ANY NEW CHANGE IN BLADDER CONTROL? NO . IS THERE A CHANCE YOU COULD BE ? NO . HEMATOLOGY/LYMPH: DO YOU TAKE ANY BLOOD THINNERS? (FOR EXAMPLE- COUMADIN, PLAVIX, AGGRENOX, PLATEL, PRADAXA, OR XARELTO) NO . WHEN WAS YOUR LAST DOSE? DATE: TIME: . NEUROLOGY: HAVE YOU FALLEN IN THE PAST 12 MONTHS? NO . ANY NEW EXTREMITY NUMBNESS OR WEAKNESS? NO . CARDIOLOGY: DO YOU HAVE A PACEMAKER OR DEFIBRILLATOR? NO . RESPIRATORY: HAVE YOU BEEN SICK IN THE PAST WEEK? NO . FEVER NO . FLU LIKE SYMPTOMS? NO . COUGH NO . INTEGUMENTARY: DO YOU HAVE ANY RASHES OR OPEN SORES? NO . ALLERGIC/IMMUNO: ARE YOU ALLERGIC TO IV DYE? NO . ANY NEW ALLERGIES? NO . PSYCHIATRIC: DO YOU HAVE THOUGHTS OF HURTING YOURSELF OR SOMEONE ELSE? NO . ARE YOU ABUSED, NEGLECTED, OR IN AN UNSAFE ENVIRONMENT? NO . ENDOCRINOLOGY: ARE YOU DIABETIC? YES, TYPE II . OTHER: DO YOU NEED ANY PRESCRIPTIONS? NO . IF YES, PLEASE LIST: ____ . ANY NEW PROBLEMS WITH YOUR MEDICATIONS? NO . WHEN DID YOU LAST EAT? ____ . WHEN DID YOU LAST DRINK? ____ . WHAT DID YOU LAST DRINK? ____ . NAME OF PERSON DRIVING YOU HOME? ____ . DO YOU HAVE ANY OTHER QUESTIONS OR CONCERNS NO . VITAL SIGNS WT 193 LBS, HT 61 IN, BMI 36.46 INDEX, BP 189/78 MM HG, HR 74 /MIN, RR 18 /MIN, TEMP 95.0 F, OXYGEN SAT % 98%, SAFE IN ENV? (Y/N) YES, NA INITIALS AW 0951, REVIEWED BY: LOREN04/26/2019 ELEVATED BP DUE TO PAIN LEVEL AFTER DRIVING HERE AND WALKING ALL THE WAY UP TO THE CLINIC. STATES SHE MONITORS HER BP AT HOME AND IT WAS GOOD THIS MORNING. ALSO ADMITS TO NOT TAKING HER DIUERECTICS THIS AM SHE HAD THIS APPOINTMENT. JS. EXAMINATION GENERAL EXAMINATION: GENERAL AWAKE,ALERT ,PLEASANT . PSYCH AFFECT NORMAL . LUNGS: LUNG CALVIN ARE CLEAR TO AUSCULTATION BILATERALLY. GOOD MOVEMENT OF AIR . HEART: S1, S2 IN A REGULAR RATE AND RHYTHM. NO SIGNIFICANT MURMURS, RUBS OR GALLOPS NOTED . LUMBAR:PALPATION:TENDER OVER RIGHT L4/5-L5/S1 LUMBAR FACETS WITH FACET LOADING.. ASSESSMENTS SPONDYLOSIS OF LUMBOSACRAL REGION WITHOUT MYELOPATHY OR RADICULOPATHY - M47.817 (PRIMARY) TREATMENT SPONDYLOSIS OF LUMBOSACRAL REGION WITHOUT MYELOPATHY OR RADICULOPATHY NOTES: RIGHT L4/5-L5/S1 RF. PREVENTIVE MEDICINE PAIN CLINIC TEACHING: PROCEDURE TEACHING REVIEWED INFORMATION ON RADIOFREQUENCY PROCEDURE WITH PATIENT. ALSO REVIEWED PRE-PROCEDURE INSTRUCTIONS. PATIENT VERBALIZED AN UNDERSTANDING. BUCK ODELL 04/26/2019 11:10:28 AM > . PROCEDURE CODES FA211 ESTABILISHED PATIENT [facility] CHARGE DISPOSITION & COMMUNICATION FOLLOW UP POST (REASON: RIGHT L4/5-L5/S1 RF) ELECTRONICALLY SIGNED BY ONEIL SHI ON 04/26/2019 AT 11:24 AM EDT DISCLAIMER : THIS IS A VISIT SUMMARY EXTRACTED FROM THE [employer] CHART. IT IS NOT A COPY OF THE [employer] PROGRESS NOTE. CELESTINO
== END ==
LOC: M PAIN 10:00
PROVIDERS: ATTEND Nurse Practitioner Family
DX: M47.817 Spondylosis without myelopathy or radiculopathy, lumbosacral region (principal); I10 Essential (primary) hypertension; E11.9 Type 2 diabetes mellitus without complications; Z79.82 Long term (current) use of aspirin; Z79.84 Long term (current) use of oral hypoglycemic drugs; Z79.891 Long term (current) use of opiate analgesic; Z79.899 Other long term (current) drug therapy; Z88.1 Allergy status to other antibiotic agents; Z88.6 Allergy status to analgesic agent; Z88.8 Allergy status to other drugs, medicaments and biological substances; Z91.018 Allergy to other foods

== ENCOUNTER 2019-05-12 15:50 | Emergency (ER) | payer MEDICARE ==
[~2019-05-12] VITALS: Ht 154.9 cm; Wt 86.3 kg
[2019-05-12 16:21] LABS: BASO % 0.4 % (0.0-1.0); EOS % 0.4 % (0.0-3.0); HEMATOCRIT 39.8 % (36.0-47.0); LYMPH # 1.7 10^3/uL (1.5-5.0); LYMPH % 20.5 % (24.0-44.0); MEAN CORPUSCULAR HEMOGLOBIN 28.7 pg (27.0-33.0); MEAN CORPUSCULAR HGB CONC 32.7 g/dl (32.0-36.5); MEAN CORPUSCULAR VOLUME 87.9 fl (80.0-96.0); MONO # 0.5 10^3/uL (0.0-0.8); MONO % 5.5 % (0.0-5.0); NEUTROPHILS # 5.9 10^3/uL (1.5-8.5); NEUTROPHILS % 72.8 % (36.0-66.0); PLATELET COUNT, AUTOMATED 311 10^3/uL (150-450); RED BLOOD COUNT 4.53 10^6/uL (4.00-5.40); WHITE BLOOD COUNT 8.2 10^3/uL (4.0-10.0)
[2019-05-12] MEDS ORDERED: ACET1TAB55 PO (16:22)
[2019-05-12] MEDS ORDERED: VITA500079 PO (16:22)
[2019-05-12] MEDS ORDERED: LISI-1046 PO (16:22)
[2019-05-12] MEDS ORDERED: CALC250T PO (16:22)
[2019-05-12] MEDS ORDERED: LORA-622 PO (16:22)
[2019-05-12] MEDS ORDERED: NS 1,000 ML IV SCH (16:27)
[2019-05-12] MEDS ORDERED: OMEP-218 PO (16:29)
[2019-05-12] MEDS ORDERED: BUPR15TA PO (16:29)
[2019-05-12] MEDS ORDERED: ASPI81TA26 PO (16:29)
[2019-05-12] MEDS ORDERED: EPIP0.3I2 IM (16:29)
[2019-05-12] MEDS ORDERED: JANU25TA PO (16:29)
[2019-05-12] MEDS ORDERED: FOLI400T PO (16:29)
[2019-05-12] MEDS ORDERED: ZINC1TAB2 PO (16:29)
[2019-05-12] MEDS ORDERED: ALLO100T PO (16:29)
[2019-05-12] MEDS ORDERED: EQL50TAB2 PO (16:29)
[2019-05-12] MEDS ORDERED: LIPI20TA PO (16:29)
[2019-05-12] MEDS ORDERED: METF500T13 PO (16:29)
[2019-05-12] MEDS ORDERED: SPIR-10 PO (16:29)
[2019-05-12] MEDS ORDERED: TRAM50TA2 PO (16:29)
[2019-05-12] MEDS ORDERED: GING500C2 PO (16:29)
[2019-05-12] MEDS ORDERED: ATEN50TA2 PO (16:29)
[2019-05-12] MEDS: NITROGLYCERIN 0.4 MG SUBL TABLET SL PRN ×3 (16:39→16:49)
[2019-05-12 16:49] VITALS: BP 145/65
[2019-05-12 16:53] LABS: BLOOD UREA NITROGEN 11 MG/DL (7-18); CALCIUM LEVEL 9.9 MG/DL (8.8-10.2); CARBON DIOXIDE LEVEL 29 MEQ/L (21-32); CHLORIDE LEVEL 99 MEQ/L (98-107); CK-MB VALUE MASS 1.1 NG/ML (<3.6); CPK CREATINE PHOSPHOKINASE 62 U/L (26-192); CREATININE FOR GFR 0.67 MG/DL (0.55-1.30); GLOMERULAR FILTRATION RATE > 60.0 (>39); GLUCOSE, FASTING 130 MG/DL (70-100); MB/CK RELATIVE INDEX 1.77 (< OR =4); POTASSIUM SERUM 3.4 MEQ/L (3.5-5.1); SODIUM LEVEL 135 MEQ/L (136-145); TROPONIN I < 0.02 NG/ML (< 0.10)
[2019-05-12 16:55] LABS: INR 1.04; PROTHROMBIN TIME 13.3 SECONDS (11.8-14.0)
[2019-05-12] MEDS ORDERED: ISOVUE-370 76% 100ML VIAL (Q9967) As Ordered ONE (17:34)
--- NOTE | 2019-05-12 17:57 | REPVR ---
PROCEDURE INFORMATION: Exam: CT Angiography Chest With Contrast Exam date and time: 05/12/2019 5:37 PM Age: 73 years old Clinical indication: Chest pain; Additional info: R/O disection TECHNIQUE: Imaging protocol: Computed tomographic angiography of the chest with intravenous contrast. 3D rendering: MIP and/or 3D reconstructed images were created by the technologist. Radiation optimization: All CT scans at this facility use at least one of these dose optimization techniques: automated exposure control; mA and/or kV adjustment per patient size (includes targeted exams where dose is matched to clinical indication); or iterative reconstruction. Contrast material: ISOVUE 370; Contrast volume: 75 ml; Contrast route: IV; COMPARISON: CT ANGIO CHEST 09/23/2013 12:45 PM FINDINGS: Pulmonary arteries: There are no pulmonary emboli. 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 Aorta: The aorta demonstrates mild atherosclerotic calcification. There is no aortic dissection or aneurysm. Lungs: Calcified granuloma left lung base. Pleural space: Unremarkable. No pneumothorax. No pleural effusion. Heart: Status post coronary artery stenting. Mediastinum: A moderate hiatal hernia is present. Liver: There is a diffuse decrease in hepatic parenchymal density, consistent with steatosis. Gallbladder and bile ducts: There has been a cholecystectomy. Adrenals: There is bilateral adrenal hyperplasia. Kidneys and ureters: Focal parenchymal scarring upper pole left kidney. Lymph nodes: Unremarkable. No enlarged lymph nodes. Bones/joints: The spine demonstrates mild degenerative changes. Soft tissues: Unremarkable. IMPRESSION: 1. There is no aortic dissection or aneurysm. 2. There are no pulmonary emboli. 3. A moderate hiatal hernia is present. 4. There is a diffuse decrease in hepatic parenchymal density, consistent with steatosis. 5. There is bilateral adrenal hyperplasia. 6. There has been a cholecystectomy. 7. Findings consistent with remote intrathoracic granulomatous infection. Electronically signed by: Jem Villeda On 05/12/2019 17:56:46 PM
[2019-05-12 18:51] VITALS: BP 148/64
--- NOTE | 2019-05-12 18:54 | ECGEPIP ---
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
--- NOTE | 2019-05-13 06:55 | REP ---
PORTABLE CHEST: AP portable view of the chest is performed and compared to a prior study of 08/03/2018. I see no evidence of acute infiltrate. Heart does not appear to be significantly enlarged. There is calcification of the thoracic aorta. There is elevation of the right hemidiaphragm. IMPRESSION: No acute pulmonary disease. Electronically Signed by Dimitri Diaz MD 05/13/2019 10:54 A
--- NOTE | 2019-05-14 14:39 | ED PDOC ---
Post-Departure Follow-Up jeremi emanual faxed formal report of cta chest for fu Odalys Martin MD May 14, 2019 14:39
== END 2019-05-12 19:10 | disposition home or self-care (01) ==
LOC: EDBD 15:50 → M ED 15:50
DX: R07.89 Other chest pain (principal); I48.91 Unspecified atrial fibrillation; J44.9 Chronic obstructive pulmonary disease, unspecified; E25.0 Congenital adrenogenital disorders associated with enzyme deficiency; K76.89 Other specified diseases of liver; I10 Essential (primary) hypertension; E78.5 Hyperlipidemia, unspecified; Z79.82 Long term (current) use of aspirin; Z79.84 Long term (current) use of oral hypoglycemic drugs; Z79.899 Other long term (current) drug therapy; Z88.8 Allergy status to other drugs, medicaments and biological substances; Z88.6 Allergy status to analgesic agent
CPT/HCPCS: 71045; 71275; 80048; 82550; 82553; 84443; 84484; 85025; 85610; 93005; 93041; 94760; 96360; 96361; 99285; Q9967

== ENCOUNTER → 2019-06-21 | Outpatient (CLI) | payer MEDICARE ==
[~2019-06-21] MED LIST changes: +ACET1TAB55 PO; +ALLO100T PO; +ASPI81TA26 PO; +ATEN50TA2 PO; -BUPIVACAINE HCL 0.25% 30 ML VIAL As Ordered ONE; +BUPR15TA PO; +CALC250T PO; +EPIP0.3I2 IM; +EQL50TAB2 PO; +FOLI400T PO; +GING500C2 PO; -ISOVUE-M 300 61% 15ML VIAL (Q9967) As Ordered ONE; +JANU25TA PO; -LIDOCAINE 1% SDV INJ 30 ML VIAL As Ordered ONE; +LIPI20TA PO; +LISI2.5T2 PO; +LORA-622 PO; +METF500T13 PO; +OMEP-218 PO; +SPIR-10 PO; +TRAM50TA2 PO; +VITA500079 PO; +ZINC1TAB2 PO
--- NOTE | 2019-06-26 03:50 | ECWPNPC ---
PATIENT NAME: AL BARRIOS : 1945 GENDER: FEMALE VISIT DATE: 06/21/2019 DISCHARGE DATE: 06/21/19841 VISIT LOCKED DATE TIME: PHYSICIAN: PETER RECINOS RESOURCE: PETER RECINOS REASON FOR APPOINTMENT 1. POST PROC PT PHONE CALL COMPLETED HISTORY OF PRESENT ILLNESS HISTORY OF PRESENT ILLNESS: PATIENT IS AGREEABLE TO TELEPHONE VISIT TODAY. CONTINUES WITH RIGHT LOW BACK PAIN. RATING PAIN LEVEL A 7/10 VAS. WAS SCHEDULED FOR RIGHT RADIOFREQUENCY BUT THAT WAS CANCELED. PATIENT WOULD LIKE TO PROCEED WITH RADIOFREQUENCY. PAIN IS AGGRAVATED BY PROLONGED SITTING. PAIN IS RELIEVED SOMEWHAT AT REST. DISCUSSED RADIOFREQUENCY PROCEDURE. PAIN THE PATIENT DESCRIBES THE PAIN... FALL RISK SCREENING: SCREENING :NO FALLS REPORTED IN THE LAST YEAR CURRENT MEDICATIONS TAKING LISINOPRIL 2.5 MG TABLET 1 TABLET ORALLY ONCE A DAY TAKING SPIRONOLACTONE 25 MG TABLET 1/2 TABLET ORALLY ONCE A DAY TAKING HYDROCHLOROTHIAZIDE 25 MG TABLET 1 TABLET ORALLY ONCE A DAY TAKING ASPIRIN 81 MG TABLET 2 TABS ORALLY ONCE A DAY TAKING FOLIC ACID 400 MCG TABLET 1 TABLET ORALLY ONCE A DAY TAKING LIPITOR 40 MG TABLET TAKE 1 TABLET EVERY DAY TAKING JANUVIA 25 MG TABLET 1 TABLET ORALLY ONCE A DAY TAKING ALLOPURINOL 100 MG TABLET 1 TABLET ORALLY ONCE A DAY TAKING TYLENOL 325 MG TABLET 2 TABLET NEEDED ORALLY EVERY 6 HRS TAKING LORATADINE 10 MG TABLET 1 TABLET ORALLY ONCE A DAY TAKING VITAMIN D3 5000 UNIT CAPSULE 1 CAPSULE ORALLY ONCE A DAY TAKING CALCIUM CITRATE 150 MG CAPSULE 1 CAP ORALLY TWICE A DAY TAKING VITAMIN B COMPLEX TABLET 1 TABLET ORALLY ONCE A DAY TAKING ZINC 50 MG TABLET 1 TABLET ORALLY ONCE A DAY TAKING YOSEF 500 MG CAPSULE 1 CAP ORALLY TWICE A DAY TAKING EPIPEN 2-DELROY 0.3 MG/0.3ML (1:1000) DEVICE DIRECTED INTRAMUSCULAR NEEDED, NOTES: NEVER USED TAKING WELLBUTRIN SR 150 MG TABLET EXTENDED RELEASE 12 HOUR 1 TABLET ORALLY ONCE A DAY TAKING ATENOLOL 50 MG TABLET 1 TABLET ORALLY ONCE A DAY TAKING TRAMADOL HCL 50 MG TABLET 1 ORALLY Q8H PRN FOR SEVERE PAIN MDD3 TAKING METFORMIN HCL 500 MG TABLET TAKE 1 TABLET TWICE DAILY ORALLY TWICE A DAY TAKING OMEPRAZOLE 20 MG CAPSULE DELAYED RELEASE 1 CAPSULE 30 MINUTES BEFORE MORNING MEAL ORALLY ONCE A DAY NOT-TAKING IBUPROFEN 600 MG TABLET 1 TABLET WITH FOOD OR MILK NEEDED ORALLY THREE TIMES A DAY MEDICATION LIST REVIEWED AND RECONCILED WITH THE PATIENT PAST MEDICAL HISTORY HYPERTENSION CORONARY ARTERY DISEASE-2008-RST WITHOUT REVERSIBILITY MILD AORTIC STENOSIS AND MILD AORTIC REGURGITATION AND MILD MITRAL REGURGITATION BY TTE SEPTEMBER 2008 HYPERLIPIDEMIA - CONTROLLED ASTHMA DIABETES MELLITUS TYPE 2 [id number] SEPTEMBER 2009 A1C 6.5 GOUT OSTEOPENIA MULTIPLE CHEMICAL SENSITIVITY - STRONG SMELLS, ETC ANXIETY SACROILIITIS GERD ANTWON - USES CPAP ALLERGIES LESCOL: MYALGIA - ALLERGY ADVAIR: PARALYZED VIOCAL CORDS - ALLERGY BACTRIM: HIVES - ALLERGY DECONGESTANTS: SHAKING ON THE INSIDE, FEELS "UNWELL" - SIDE EFFECTS IBUPROFEN: HEAVINESS IN CHEST - SIDE EFFECTS NAPROXEN: RINGING IN EARS - SIDE EFFECTS MINOCYCLINE JANUVIA: LARGER DOSES - FATIGUE, WEAKNESS - SIDE EFFECTS ARTIFICIAL SWEETENERS: ABDOMINAL PAIN - SIDE EFFECTS SURGICAL HISTORY HYSTERECTOMY 1986 ANGIOPLASTY WITH STENT 06/10 RIGHT CARPAL RELEASE 11/2009 TONSILLECTOMY & ADNOIDECTOMY X2 1951 APPENDECTOMY 1956 BUNIONECTOMY 1993 MENISCUS REPAIR 1996 CHOLECYSTECTOMY 2013 BILAT CATARACTS REMOVED 2015 CALCIFIED CYST REMOVED FROM HEAD 04/2017 CRYOSURGERY NOSE 2019 FAMILY HISTORY FATHER: 68 YRS, ARTHRITIS, COMPLICATIONS, STROKE MOTHER: 92 YRS, CHF SIBLINGS: 58 YRS, NON-HODGKINS LYMPHOMA WITH [place] COMPLICATIONS 2 SISTER(S) . 2 SON(S) . SISTER-GRAFT VS. HOST SYNDROME A RESULT OF DONOR TRANSPLANT FOR NON-HODGKINS LYMPHOMA\\NSISTER- ARTHRITIS, CHF, CAD\\N1 SON COMMITTED SUICIDE\\N1 SON ALIVE WITH SEVERE MENTAL ILLNESS AND ETOH DENIES ANY FAMILY HX OF MELANOMA AND PANCREATIC CANCERS. SOCIAL HISTORY GENERAL: TOBACCO USE ARE YOU A:NONSMOKER LATEX QUESTIONNAIRE LATEX ALLERGY : HAVE YOU EVER DEVELOPED ANY TYPE OF REACTION AFTER HANDLING LATEX PRODUCTS SUCH RUBBER GLOVES, CONDOMS, DIAPHRAGMS, BALLOONS, SOCKS, OR UNDERWEAR?NO LATEX ALLERGY : HAVE YOU EVER DEVELOPED ANY TYPE OF REACTION DURING OR AFTER DENTAL APPOINTMENT, VAGINAL/RECTAL EXAMINATION, SURGICAL PROCEDURE, OR ANY OTHER EXPOSURE?NO DATE ASKED : 03/06/2019 LATEX RISK : HAVE YOU EVER HAD ANY DIFFICULTY BREATHING OR HIVES AFTER EATING OR HANDLING ANY FRUITS, OR VEGETABLES; SUCH KIWI, BANANAS, STONE FRUITS, OR CHESTNUTSNO LATEX RISK : DO YOU HAVE A PREVIOUS PERSONAL HISTORY OF MORE THAN NINE SURGERIES, SPINA BIFIDA, OR REPEATED CATHERIZATIONS? NO LATEX RISK : ARE YOU FREQUENTLY EXPOSED TO LATEX PRODUCTS IN YOUR OCCUPATION?NO LUNG CANCER SCREENING SMOKING STATUS:NON SMOKER BMI CARE GOAL FOLLOW-UP ABOVE NORMAL BMI FOLLOW-UPDIETARY MANAGEMENT EDUCATION, GUIDANCE, AND COUNSELING ALCOHOL SCREENING DID YOU HAVE A DRINK CONTAINING ALCOHOL IN THE PAST YEAR?NO POINTS0 INTERPRETATIONNEGATIVE RECREATIONAL DRUG USE DENIES. CAFFEINE CAFFEINE USE? 1-2 CUPS OF TEA PER DAY SEXUAL HX HAD SEX IN THE LAST 12 MONTHS (VAGINAL, ORAL, OR ANAL)?NO HAVE YOU EVER HAD AN STD?NO HIV / HEP-C SCREENING HIV TEST OFFERED TO PATIENT:YES DATE OFFERED:04/22/2017 TEST ACCEPTED:NO HEP-C TEST OFFERED TO PATIENT:YES DATE OFFERED:04/22/2017 REASON:PATIENT DECLINED TEST ACCEPTED:NO REASON:PATIENT DECLINED BROCHURE PROVIDED TO PATIENTYES EPISCOPAL [id number] ALEVISM LANGUAGE MONTENEGRIN. 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 DIET: LOW FAT, LOW CHOLESTEROL, NO CONCENTRATED SWEETS.. EXERCISE: GARDENS. MARITAL STATUS: SINGLE. OTHERS AT HOME: NONE. NEW PATIENT PAIN DIARY TODAY'S VISIT 06/20/19 PATIENT DESCRIBES PAIN :IT COMES AND GOES, STABBING, SHOOTING FROM 0-10, WHAT LEVEL IS YOUR PAIN TODAY?3 INCREASES WITH DRIVING, OR ACTIVITY TO 7-8 PRECIPITATING FACTORS DRIVING, PROLONGED STANDING, ACTIVIRTY ALLEVIATING FACTORS CHANGING POSITIONS PAIN CLINIC PFS, CLERGY, PUBLIC HEALTH REFERRALS PFS REFERRAL NEEDED?NO CLERGY REFERRAL NEEDED?NO PUBLIC HEALTH REFERRAL NEEDED?NO WAS THE PROVIDER NOTIFIED OF ANY PERTINENT INFO?YES N/A HAS THE PATIENT BEEN EDUCATED REGARDING HIS/HER PLAN OF CARE?YES HAS THE PATIENT BEEN EDUCATED REGARDING PAIN, THE RISK FOR PAIN, THE IMPORTANCE OF EFFECTIVE PAIN MANAGEMENT, AND THE PAIN ASSESSMENT PROCESS?YES HOUSING: OWNS HOME. ADVANCE DIRECTIVE ADVANCE DIRECTIVE DISCUSSED WITH PATIENT:YES HCP KRISTEN SHEPPARD [phone]) LIVING WILL ALDO IMELDA PARRISH [phone] HOSPITALIZATION/MAJOR DIAGNOSTIC PROCEDURE SURGERIES ABOVE CHILDBIRTH MULTIPLE ADMISSIONS A CHILD - TONSILS, CARDIAC, INTESTINAL REVIEW OF SYSTEMS REVIEWED BY: PROVIDER: PETER RIGGS . CONSTITUTIONAL: ANY CHANGE IN YOUR MEDICAL CONDITION? PT REPORTS RECENT TRIP TO [facility] EMERGENCY ROOM DUE TO HIGH BLOOD PRESSURE. . CHILLS NO . FEVER NO . INFECTION: DO YOU HAVE NEW INFECTIONS? NO . DO YOU HAVE HISTORY OF MRSA? NO . MUSCULOSKELETAL: ANY NEW PATTERNS OF PAIN OR NUMBNESS? NO . GASTROENTEROLOGY: ANY NEW CHANGE IN BOWEL CONTROL? NO . GENITOURINARY: ANY NEW CHANGE IN BLADDER CONTROL? NO . IS THERE A CHANCE YOU COULD BE ? NO . HEMATOLOGY/LYMPH: DO YOU TAKE ANY BLOOD THINNERS? (FOR EXAMPLE- COUMADIN, PLAVIX, AGGRENOX, PLATEL, PRADAXA, OR XARELTO) NO . WHEN WAS YOUR LAST DOSE? DATE: TIME: . NEUROLOGY: HAVE YOU FALLEN IN THE PAST 12 MONTHS? NO . ANY NEW EXTREMITY NUMBNESS OR WEAKNESS? NO . CARDIOLOGY: DO YOU HAVE A PACEMAKER OR DEFIBRILLATOR? NO . RESPIRATORY: HAVE YOU BEEN SICK IN THE PAST WEEK? NO . FEVER NO . FLU LIKE SYMPTOMS? NO . COUGH NO . INTEGUMENTARY: DO YOU HAVE ANY RASHES OR OPEN SORES? NO . ALLERGIC/IMMUNO: ARE YOU ALLERGIC TO IV DYE? NO . ANY NEW ALLERGIES? NO . PSYCHIATRIC: DO YOU HAVE THOUGHTS OF HURTING YOURSELF OR SOMEONE ELSE? NO . ARE YOU ABUSED, NEGLECTED, OR IN AN UNSAFE ENVIRONMENT? NO . ENDOCRINOLOGY: ARE YOU DIABETIC? YES . OTHER: DO YOU NEED ANY PRESCRIPTIONS? NO . IF YES, PLEASE LIST: ____ . ANY NEW PROBLEMS WITH YOUR MEDICATIONS? NO . WHEN DID YOU LAST EAT? ____ . WHEN DID YOU LAST DRINK? ____ . WHAT DID YOU LAST DRINK? ____ . NAME OF PERSON DRIVING YOU HOME? ____ . DO YOU HAVE ANY OTHER QUESTIONS OR CONCERNS NO . ASSESSMENTS SPONDYLOSIS OF LUMBOSACRAL REGION WITHOUT MYELOPATHY OR RADICULOPATHY - M47.817 (PRIMARY) TREATMENT SPONDYLOSIS OF LUMBOSACRAL REGION WITHOUT MYELOPATHY OR RADICULOPATHY NOTES: RIGHT L4-5, L5-S1 RADIOFREQUENCY. OTHERS NOTES: NO VITAL SIGNS TAKEN, THIS IS A PHONE/VIRTUAL VISIT,. DISPOSITION & COMMUNICATION FOLLOW UP POST (REASON: RIGHT L4-5, L5-S1 RADIOFREQUENCY) ELECTRONICALLY SIGNED BY ONEIL SHI ON 06/25/2019 AT 03:08 PM EDT DISCLAIMER : THIS IS A VISIT SUMMARY EXTRACTED FROM THE [employer] CHART. IT IS NOT A COPY OF THE [employer] PROGRESS NOTE. CELESTINO
== END ==
LOC: M PAIN 11:00
PROVIDERS: ATTEND Nurse Practitioner Family
DX: M47.817 Spondylosis without myelopathy or radiculopathy, lumbosacral region (principal); I10 Essential (primary) hypertension; J45.909 Unspecified asthma, uncomplicated; E11.9 Type 2 diabetes mellitus without complications; Z86.59 Personal history of other mental and behavioral disorders; K21.9 Gastro-esophageal reflux disease without esophagitis; G47.33 Obstructive sleep apnea (adult) (pediatric); Z88.1 Allergy status to other antibiotic agents; Z88.6 Allergy status to analgesic agent; Z88.8 Allergy status to other drugs, medicaments and biological substances; Z91.02 Food additives allergy status; Z79.82 Long term (current) use of aspirin; Z79.84 Long term (current) use of oral hypoglycemic drugs; Z79.891 Long term (current) use of opiate analgesic; Z79.899 Other long term (current) drug therapy

== ENCOUNTER → 2019-07-07 | Outpatient (CLI) | payer MEDICARE | LOC: M LABSMTC 11:15 | PROVIDERS: ATTEND Anesthesiology | DX: Z03.818 Encounter for observation for suspected exposure to other biological agents ruled out (principal); Z11.59 Encounter for screening for other viral diseases | CPT/HCPCS: C9803; U0003 ==

== ENCOUNTER → 2019-07-10 | Outpatient (CLI) | payer MEDICARE ==
[~2019-07-10] MED LIST changes: +BUPIVACAINE HCL 0.25% 30ML VIAL As Ordered ONE; +ISOVUE-M 300 61% 15ML VIAL As Ordered ONE; +LIDOCAINE 1% SDV 30ML VIAL As Ordered ONE; +dexameTHASONE 10MG/1ML VIAL PRES.FREE (J1100 PER 1MG) As Ordered ONE
--- NOTE | 2019-07-10 15:41 | REP ---
C-ARM VIEWS OF THE LOWER LUMBAR SPINE: CLINICAL HISTORY: Pain. Three C-arm views of the lower lumbar spine performed during injection by Dr. Schmitt. [place] are seen along the lower lumbar spine. 1 minute fluoroscopy time is utilized. Electronically Signed by Dimitri Diaz MD 07/11/2019 12:32 P
--- NOTE | 2019-07-11 00:49 | ECWPNPC ---
PATIENT NAME: AL BARRIOS : 1945 GENDER: FEMALE VISIT DATE: 07/10/2019 DISCHARGE DATE: 07/10/19 1338 VISIT LOCKED DATE TIME: PHYSICIAN: AMINATA GARCIA MD RESOURCE: AMINATA GARCIA MD REASON FOR APPOINTMENT 1. RIGHT L5-S1 RF- DONALD AWARE HISTORY OF PRESENT ILLNESS GENERAL: -. FALL RISK SCREENING: SCREENING :NO FALLS REPORTED IN THE LAST YEAR PAIN SCREENING: PATIENT HAS A COMPLAINT OF ACUTE OR CHRONIC PAIN :YES 07/09/19 INTENSITY OF PAIN (SCALE OF 1 TO 10):3 WHAT DOES YOUR PAIN FEEL LIKE:ACHING, INTERMITTENT, SHARP PAIN IS INCREASED BY: STANDING ON HARD SURFACES AND DRIVING PAIN IS DECREASED BY: POSITIONING NURSING NOTE: -. PAIN CENTER INTAKE QUESTIONS: DO YOU HAVE A HISTORY OF MRSA? :NO DO YOU TAKE A BLOOD THINNERS? :NO DO YOU HAVE ANY BLEEDING DISORDERS? :NO ANY NEW NUMBNESS OR WEAKNESS IN YOUR LEGS OR ARMS? :NO ANY PACEMAKER,DEFIBRILLATOR, OR DORSAL COLUMN STIMULATOR? :NO DO YOU HAVE ANY RASHES OR OPEN SORES? :NO ARE YOU ALLERGIC TO IV DYE? :NO ARE YOU DIABETIC? :YES ANY NEW PROBLEMS WITH YOUR MEDICATIONS? :NO HAVE YOU RECEIVED A VACCINE IN THE PAST 30 DAYS? :NO DO YOU PLAN TO RECEIVE A VACCINE IN THE NEXT 21 DAYS? :NO ANY HISTORY OF SEIZURES? :NO ANY HISTORY OF CARDIAC ISSUES OR EVENTS? :YES CARDIAC STENT AND HX OF CHF DO YOU HAVE SLEEP APNEA? :YES DO YOU WEAR A CPAP?YES ANY RECENT HEAD INJURY? :NO DO YOU HAVE ANY NEW INFECTIONS? :NO WHEN DID YOU LAST EAT? : - WHEN DID YOU LAST DRINK? : - WHAT DID YOU LAST DRINK? : - NAME OF PERSON DRIVING YOU HOME? : -FOZIA PARRISH DO YOU HAVE ANY OTHER QUESTIONS OR CONCERNS? : - CURRENT MEDICATIONS TAKING LISINOPRIL 2.5 MG TABLET 1 TABLET ORALLY ONCE A DAY, NOTES: 07-09-192099 TAKING SPIRONOLACTONE 25 MG TABLET 1/2 TABLET ORALLY ONCE A DAY, NOTES: 07-10-19699 TAKING HYDROCHLOROTHIAZIDE 25 MG TABLET 1 TABLET ORALLY ONCE A DAY, NOTES: 07-10-19699 TAKING ASPIRIN 81 MG TABLET 2 TABS ORALLY ONCE A DAY, NOTES: 07-09-19 2100 TAKING FOLIC ACID 400 MCG TABLET 1 TABLET ORALLY ONCE A DAY, NOTES: 07-10-19699 TAKING JANUVIA 25 MG TABLET 1 TABLET ORALLY ONCE A DAY, NOTES: 07-09-19699 TAKING ALLOPURINOL 100 MG TABLET 1 TABLET ORALLY ONCE A DAY, NOTES: 07-10-19799 TAKING TYLENOL 325 MG TABLET 2 TABLET NEEDED ORALLY EVERY 6 HRS, NOTES: TUESDAY TAKING LORATADINE 10 MG TABLET 1 TABLET ORALLY ONCE A DAY, NOTES: 07-10-19799 TAKING VITAMIN D3 5000 UNIT CAPSULE 1 CAPSULE ORALLY ONCE A DAY, NOTES: 07-10-19699 TAKING CALCIUM CITRATE 150 MG CAPSULE 1 CAP ORALLY TWICE A DAY, NOTES: 07-09-192099 TAKING VITAMIN B COMPLEX TABLET 1 TABLET ORALLY ONCE A DAY, NOTES: 07-10-19799 TAKING ZINC 50 MG TABLET 1 TABLET ORALLY ONCE A DAY, NOTES: 07-09-192099 TAKING YOSEF 500 MG CAPSULE 1 CAP ORALLY TWICE A DAY, NOTES: 07-09-19799 TAKING EPIPEN 2-DELROY 0.3 MG/0.3ML (1:1000) DEVICE DIRECTED INTRAMUSCULAR NEEDED, NOTES: NEVER USED TAKING WELLBUTRIN SR 150 MG TABLET EXTENDED RELEASE 12 HOUR 1 TABLET ORALLY ONCE A DAY, NOTES: 07-09-09699 TAKING ATENOLOL 50 MG TABLET 1 TABLET ORALLY ONCE A DAY, NOTES: 07-09-192099 TAKING TRAMADOL HCL 50 MG TABLET 1 ORALLY Q8H PRN FOR SEVERE PAIN MDD3, NOTES: TUESDAY TAKING METFORMIN HCL 500 MG TABLET TAKE 1 TABLET TWICE DAILY ORALLY TWICE A DAY, NOTES: 07-09-192099 TAKING OMEPRAZOLE 20 MG CAPSULE DELAYED RELEASE 1 CAPSULE 30 MINUTES BEFORE MORNING MEAL ORALLY ONCE A DAY, NOTES: 07-10-19799 TAKING LIPITOR 40 MG TABLET 1 TABLET ORALLY ONCE A DAY, NOTES: 07-09-19 TAKING COQ10 , NOTES: 07-10-19799 NOT-TAKING IBUPROFEN 600 MG TABLET 1 TABLET WITH FOOD OR MILK NEEDED ORALLY THREE TIMES A DAY MEDICATION LIST REVIEWED AND RECONCILED WITH THE PATIENT PAST MEDICAL HISTORY HYPERTENSION CORONARY ARTERY DISEASE-2008-RST WITHOUT REVERSIBILITY MILD AORTIC STENOSIS AND MILD AORTIC REGURGITATION AND MILD MITRAL REGURGITATION BY TTE SEPTEMBER 2008 HYPERLIPIDEMIA - CONTROLLED ASTHMA DIABETES MELLITUS TYPE 2 [id number] SEPTEMBER 2009 A1C 6.5 GOUT OSTEOPENIA MULTIPLE CHEMICAL SENSITIVITY - STRONG SMELLS, ETC ANXIETY SACROILIITIS GERD ANTWON - USES CPAP ALLERGIES LESCOL: MYALGIA - ALLERGY ADVAIR: PARALYZED VIOCAL CORDS - ALLERGY BACTRIM: HIVES - ALLERGY DECONGESTANTS: SHAKING ON THE INSIDE, FEELS "UNWELL" - SIDE EFFECTS IBUPROFEN: HEAVINESS IN CHEST - SIDE EFFECTS NAPROXEN: RINGING IN EARS - SIDE EFFECTS MINOCYCLINE JANUVIA: LARGER DOSES - FATIGUE, WEAKNESS - SIDE EFFECTS ARTIFICIAL SWEETENERS: ABDOMINAL PAIN - SIDE EFFECTS SURGICAL HISTORY HYSTERECTOMY 1986 ANGIOPLASTY WITH STENT 06/10 RIGHT CARPAL RELEASE 11/2009 TONSILLECTOMY & ADNOIDECTOMY X2 195 APPENDECTOMY 1956 BUNIONECTOMY 1993 MENISCUS REPAIR 1996 CHOLECYSTECTOMY 2013 BILAT CATARACTS REMOVED 2015 CALCIFIED CYST REMOVED FROM HEAD 04/2017 CRYOSURGERY NOSE 2019 FAMILY HISTORY FATHER: 68 YRS, ARTHRITIS, COMPLICATIONS, STROKE MOTHER: 92 YRS, CHF SIBLINGS: 58 YRS, NON-HODGKINS LYMPHOMA WITH [place] COMPLICATIONS 2 SISTER(S) . 2 SON(S) . SISTER-GRAFT VS. HOST SYNDROME A RESULT OF DONOR TRANSPLANT FOR NON-HODGKINS LYMPHOMA\\NSISTER- ARTHRITIS, CHF, CAD\\N1 SON COMMITTED SUICIDE\\N1 SON ALIVE WITH SEVERE MENTAL ILLNESS AND ETOH DENIES ANY FAMILY HX OF MELANOMA AND PANCREATIC CANCERS. SOCIAL HISTORY GENERAL: TOBACCO USE ARE YOU A:NONSMOKER LATEX QUESTIONNAIRE LATEX ALLERGY : HAVE YOU EVER DEVELOPED ANY TYPE OF REACTION AFTER HANDLING LATEX PRODUCTS SUCH RUBBER GLOVES, CONDOMS, DIAPHRAGMS, BALLOONS, SOCKS, OR UNDERWEAR?NO LATEX ALLERGY : HAVE YOU EVER DEVELOPED ANY TYPE OF REACTION DURING OR AFTER DENTAL APPOINTMENT, VAGINAL/RECTAL EXAMINATION, SURGICAL PROCEDURE, OR ANY OTHER EXPOSURE?NO DATE ASKED : 03/06/2019 LATEX RISK : HAVE YOU EVER HAD ANY DIFFICULTY BREATHING OR HIVES AFTER EATING OR HANDLING ANY FRUITS, OR VEGETABLES; SUCH KIWI, BANANAS, STONE FRUITS, OR CHESTNUTSNO LATEX RISK : DO YOU HAVE A PREVIOUS PERSONAL HISTORY OF MORE THAN NINE SURGERIES, SPINA BIFIDA, OR REPEATED CATHERIZATIONS? NO LATEX RISK : ARE YOU FREQUENTLY EXPOSED TO LATEX PRODUCTS IN YOUR OCCUPATION?NO LUNG CANCER SCREENING SMOKING STATUS:NON SMOKER BMI CARE GOAL FOLLOW-UP ABOVE NORMAL BMI FOLLOW-UPDIETARY MANAGEMENT EDUCATION, GUIDANCE, AND COUNSELING ALCOHOL SCREENING DID YOU HAVE A DRINK CONTAINING ALCOHOL IN THE PAST YEAR?NO POINTS0 INTERPRETATIONNEGATIVE RECREATIONAL DRUG USE DENIES. CAFFEINE CAFFEINE USE? 1-2 CUPS OF TEA PER DAY SEXUAL HX HAD SEX IN THE LAST 12 MONTHS (VAGINAL, ORAL, OR ANAL)?NO HAVE YOU EVER HAD AN STD?NO HIV / HEP-C SCREENING HIV TEST OFFERED TO PATIENT:YES DATE OFFERED:04/22/2017 TEST ACCEPTED:NO HEP-C TEST OFFERED TO PATIENT:YES DATE OFFERED:04/22/2017 REASON:PATIENT DECLINED TEST ACCEPTED:NO REASON:PATIENT DECLINED BROCHURE PROVIDED TO PATIENTYES BAHAI [id number] [employer] LANGUAGE FRENCH. 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 DIET: LOW FAT, LOW CHOLESTEROL, NO CONCENTRATED SWEETS.. EXERCISE: GARDENS. MARITAL STATUS: SINGLE. OTHERS AT HOME: NONE. NEW PATIENT PAIN DIARY TODAY'S VISIT 06/20/19 PATIENT DESCRIBES PAIN :IT COMES AND GOES, STABBING, SHOOTING FROM 0-10, WHAT LEVEL IS YOUR PAIN TODAY?3 INCREASES WITH DRIVING, OR ACTIVITY TO 7-8 PRECIPITATING FACTORS DRIVING, PROLONGED STANDING, ACTIVIRTY ALLEVIATING FACTORS CHANGING POSITIONS PAIN CLINIC PFS, CLERGY, PUBLIC HEALTH REFERRALS PFS REFERRAL NEEDED?NO CLERGY REFERRAL NEEDED?NO PUBLIC HEALTH REFERRAL NEEDED?NO WAS THE PROVIDER NOTIFIED OF ANY PERTINENT INFO?YES N/A HAS THE PATIENT BEEN EDUCATED REGARDING HIS/HER PLAN OF CARE?YES HAS THE PATIENT BEEN EDUCATED REGARDING PAIN, THE RISK FOR PAIN, THE IMPORTANCE OF EFFECTIVE PAIN MANAGEMENT, AND THE PAIN ASSESSMENT PROCESS?YES HOUSING: OWNS HOME. ADVANCE DIRECTIVE ADVANCE DIRECTIVE DISCUSSED WITH PATIENT:YES HCP KRISTEN SHEPPARD [phone](H) LIVING WILL ALDO PARRISH [phone](H) HOSPITALIZATION/MAJOR DIAGNOSTIC PROCEDURE SURGERIES ABOVE CHILDBIRTH MULTIPLE ADMISSIONS A CHILD - TONSILS, CARDIAC, INTESTINAL VITAL SIGNS WT 193 LBS, HT 61 IN, BMI 36.46 INDEX, BP 149/79 MM HG, HR 75 /MIN, RR 18 /MIN, TEMP 98.0 F, OXYGEN SAT % 98%, SAFE IN ENV? (Y/N) YES, NA INITIALS AW 1117, REVIEWED BY: KG. EXAMINATION GENERAL EXAMINATION: THE PATIENT IS ALERT, ORIENTED TIMES THREE AND COOPERATIVE. HEART SHOWS REGULAR RHYTHM, NO MURMURS AND NO GALLOPS. LUNGS ARE CLEAR TO AUSCULTATION. ASSESSMENTS SPONDYLOSIS OF LUMBOSACRAL REGION WITHOUT MYELOPATHY OR RADICULOPATHY - M47.817 TREATMENT SPONDYLOSIS OF LUMBOSACRAL REGION WITHOUT MYELOPATHY OR RADICULOPATHY [facility] FACET BLOCK (PAIN)[id number] OTHERS CLINICAL NOTES: PRE SCREENING CALL DONE 07/09/19 EM. PROCEDURES PAIN NURSING RECORD PRE-PROCEDURE IV SITE N/A PROCEDURE IN ROOM 1225, PHYSICIAN IN ROOM 1238, START 1240, PHYSICIAN OUT OF ROOM 1235, OUT OF ROOM 1308, STEROID YES, O2 RA, SAFETY STRAP NO STRAP, IV INFUSED NONE, DRESSING TEGADERM DR GARCIA LOC: 1. ALERT, ORIENTED RESP: 1. REGULAR, NO DYSPNEA COLOR: 1. PINK SKIN: 1. WARM, DRY POSITION: 1. PRONE VITALS: 146/78-82-95% 18 @192548- KGULLO 152/76- 82 99% 18 @1300 KGULLO RN 149/68-88-98 % 18 @[facility]: DRESSING SITE DRY AND INTACT, IV N/A, GAIT STEADY, TEACHING COMPLETED, PATIENT ACKNOWLEDGES UNDERSTANDING YES, PATIENT DISCHARGED AT NA TOOK PT DOWN BY WC DUE TO HER LEG FEELING A 'LITTLE HEAVY" STATES IT IS FEELING BETTER JUST DIFFERENT COOL RADIOFREQUENCYPRE PROCEDURE DIAGNOSES: 1. LUMBAR SPONDYLOSIS. 2. LUMBOSACRAL SPONDYLOSIS. POST PROCEDURE DIAGNOSES: 1. LUMBAR SPONDYLOSIS. 2. LUMBOSACRAL SPONDYLOSIS. PROCEDURE: RIGHT L5-S1 LUMBAR FACET RADIOFREQUENCY. SURGEON: DR. AMINATA GARCIA. SPEECH WRITER: NONE. ANESTHESIA: LOCAL. PRE PROCEDURE REPORT: THE PATIENT HAS HISTORY OF CHRONIC LOW BACK PAIN. I EVALUATED THE PATIENT AND REVIEWED THE CHART. I WENT OVER THE RISKS, ALTERNATIVES, AND BENEFITS ASSOCIATED WITH THIS PROCEDURE. I DISCUSSED THAT THE USE OF STEROIDS MAY CONTRIBUTE TO IMMUNOSUPPRESSION OF THE PATIENT'S BODY AGAINST INFECTIONS SUCH THE CARRIZALES VIRUS, COVID-19. THE PATIENT IS AWARE OF THE POTENTIAL COMPLICATIONS ASSOCIATED WITH AN INFECTION OF THIS VIRUS INCLUDING . THE PATIENT WOULD LIKE TO PROCEED AND GAVE CONSENT TO PERFORMED THE PROCEDURE. THE PATIENT DENIES UNEXPLAINABLE WEIGHT LOSS, FEVER, CHILLS, OR NEW CHANGES IN URINARY OR BOWEL CONTROL. THE PATIENT IS COVID-19 NEGATIVE.DESCRIPTION OF PROCEDURE: THE PATIENT WAS BROUGHT TO THE PROCEDURE ROOM AND PLACED IN THE PRONE POSITION. THE LUMBOSACRAL AREA WAS CLEANED WITH CHLORAPREP SOLUTION AND DRAPED ASEPTICALLY. THE PROCEDURE WAS DONE UNDER STERILE CONDITIONS. I CHECKED LATERALITY AND THE LEVEL WHERE THE PROCEDURE WAS GOING TO BE PERFORMED WITH THE PATIENT AND THE SUPPORTING STAFF AT THE MOMENT OF THE TIME OUT IN THE PROCEDURE ROOM. UNDER FLUOROSCOPIC GUIDANCE, TARGETS WERE SELECTED AT THE INTERSECTION OF THE RIGHT TRANSVERSE PROCESS OF L5 AND ALA OF S1 WITH ITS RESPECTIVE SUPERIOR ARTICULAR PROCESS. LIDOCAINE WAS USED TO NUMB THE SKIN AND THE SUBCUTANEOUS TISSUE BELOW IT. RADIOFREQUENCY CANNULAS, 17-GAUGE, 100 MM LONG WITH 4 MM ACTIVE TIP, WERE ADVANCED UNDER FLUOROSCOPIC GUIDANCE AND FOLLOWING PATIENT FEEDBACK UNTIL THE TARGET AREA WAS REACHED. POSITION OF THE CANNULAS WAS VERIFIED WITH AP AND LATERAL VIEWS. AFTER PROPER POSITION OF THE CANNULA WAS ACHIEVED, WE WORKED WITH THE RIGHT SELECTED MEDIAN BRANCHES OF L4 AND THE DORSAL RAMI OF L5. WE MEASURED THE CORRESPONDING IMPEDANCES AND MOTOR RESPONSES INDICATED IN THE RADIOFREQUENCY WORKSHEET. POSITION OF THE CANNULAS WAS VERIFIED AGAIN WITH AP AND LATERAL VIEWS. LIDOCAINE 1%, 2 ML, WAS INJECTED AT EACH LEVEL. RADIOFREQUENCY WAS DONE AT EACH LEVEL USING THE Compliance 11 SYSTEM-- COOLED RF-- WITH A SETTING AT THE MACHINE OF 60 DEGREES WITH A TARGET TISSUE TEMPERATURE OF 80 TO 90 DEGREES FOR A MINIMUM OF 150 SECONDS. AFTER RADIOFREQUENCY WAS DONE, THE PATIENT RECEIVED BUPIVACAINE 0.125%, 1 ML, WITH DEXAMETHASONE 2 MG AT EACH SITE. THERE WAS NO EVIDENCE OF BLOOD, PARESTHESIA OR CEREBROSPINAL FLUID DURING THE PROCEDURE. THE PATIENT WAS SENT TO THE RECOVERY ROOM. THE PATIENT WAS MOVING THE EXTREMITIES AND DOING WELL. THERE WERE NO COMPLICATIONS DURING THE PROCEDURE. FLUOROSCOPY TIME WAS 1 MINUTE. POST PROCEDURE NOTE: THE PATIENT WILL BE SEEN IN A FOLLOW UP IN THE NEXT FEW WEEKS. INSTRUCTIONS WERE GIVEN, QUESTIONS WERE ANSWERED, AND THE PATIENT EXPRESSED UNDERSTANDING AND AGREES WITH THE PLAN. I, RACHANA MERCHANT, DOCUMENTED THE ABOVE INFORMATION ACTING A SCRIBE FOR DR. GARCIA. I HAVE REVIEWED THE ABOVE DOCUMENT, WRITTEN BY RACHANA MERCHANT, SCRIBE, AND I VERIFY THAT IT IS ACCURATE. PROCEDURE CODES [id number] DESTROY LUMB/SAC FACET JNT, MODIFIERS: RT DISPOSITION & COMMUNICATION FOLLOW UP F/UP WITH FLIGHT PARAMEDIC (REASON: POST RT COOL RF L5-S1) ELECTRONICALLY SIGNED BY AMINATA GARCIA MD, MD ON 07/10/2019 AT 04:44 PM EDT DISCLAIMER : THIS IS A VISIT SUMMARY EXTRACTED FROM THE [employer] CHART. IT IS NOT A COPY OF THE [employer] PROGRESS NOTE. CELESTINO
== END ==
LOC: M PAIN 11:15
PROVIDERS: ATTEND Anesthesiology
DX: M47.817 Spondylosis without myelopathy or radiculopathy, lumbosacral region (principal); I10 Essential (primary) hypertension; E11.9 Type 2 diabetes mellitus without complications; Z79.82 Long term (current) use of aspirin; Z79.84 Long term (current) use of oral hypoglycemic drugs; Z79.891 Long term (current) use of opiate analgesic; Z79.899 Other long term (current) drug therapy; Z88.1 Allergy status to other antibiotic agents; Z88.6 Allergy status to analgesic agent; Z88.8 Allergy status to other drugs, medicaments and biological substances; Z91.018 Allergy to other foods
CPT/HCPCS: 64635; J1100; Q9967

== ENCOUNTER → 2019-08-03 | Outpatient (CLI) | payer MEDICARE ==
[~2019-08-03] MED LIST changes: -BUPIVACAINE HCL 0.25% 30ML VIAL As Ordered ONE; -ISOVUE-M 300 61% 15ML VIAL As Ordered ONE; -LIDOCAINE 1% SDV 30ML VIAL As Ordered ONE; -dexameTHASONE 10MG/1ML VIAL PRES.FREE (J1100 PER 1MG) As Ordered ONE
--- NOTE | 2019-08-08 01:42 | ECWPNPC ---
PATIENT NAME: AL BARRIOS : 1945 GENDER: FEMALE VISIT DATE: 08/03/2019 DISCHARGE DATE: 08/03/19 1107 VISIT LOCKED DATE TIME: PHYSICIAN: PETER RECINOS RESOURCE: PETER RECINOS REASON FOR APPOINTMENT 1. POST RF [phone] PAT DONE HISTORY OF PRESENT ILLNESS GENERAL: PATIENT IS AGREEABLE TO TELEPHONE VISIT TODAY. HAD RIGHT L4/L5 COOL RADIOFREQUENCY ON 07/10/2019. REPORTING MARKED REDUCTION IN LOW BACK PAIN. REPORTING IMPROVED ACTIVITY TOLERANCE SINCE PROCEDURE. SHE CAN'T BELIEVE THE DIFFERENCE THIS HAS MADE. DISCUSSED TREATMENT PLAN. -. FALL RISK SCREENING: SCREENING :NO FALLS REPORTED IN THE LAST YEAR PAIN SCREENING: PATIENT HAS A COMPLAINT OF ACUTE OR CHRONIC PAIN :YES LOCATION OF PAIN:LOW BACK INTENSITY OF PAIN (SCALE OF 1 TO 10):2 WHAT DOES YOUR PAIN FEEL LIKE:ACHING, CONTINOUS, INTERMITTENT NURSING NOTE: -. PAIN CENTER INTAKE QUESTIONS: NOTES: PT STATES THAT SHE IS CONTINUING TO HAVE GREAT RELIEF FROM PROCEDURE, PT STATES THAT SHE HAS DIFFICULTY WITH DRIVING DUE TO POSITIONAL DISCOMFORT OF RIGHT LEG, PROLONGED STANDING ON HARD SURFACES WILL CAUSE INCREASED DISCOMFORT . DO YOU HAVE A HISTORY OF MRSA? :NO DO YOU TAKE A BLOOD THINNERS? :YES ASA 81MG DO YOU HAVE ANY BLEEDING DISORDERS? :NO ANY NEW NUMBNESS OR WEAKNESS IN YOUR LEGS OR ARMS? :NO ANY PACEMAKER,DEFIBRILLATOR, OR DORSAL COLUMN STIMULATOR? :NO DO YOU HAVE ANY RASHES OR OPEN SORES? :NO ARE YOU ALLERGIC TO IV DYE? :NO ARE YOU DIABETIC? :YES MANAGED WITH ORAL MEDS ANY NEW PROBLEMS WITH YOUR MEDICATIONS? :NO HAVE YOU RECEIVED A VACCINE IN THE PAST 30 DAYS? :NO DO YOU PLAN TO RECEIVE A VACCINE IN THE NEXT 21 DAYS? :NO DO YOU NEED ANY PRESCRIPTION? :NO DO YOU TAKE ANY IMMUNOSUPPRESSIVE MEDICATIONS? :NO IS THERE A CHANCE YOU COULD BE ? :NO ARE YOU BREAST FEEDING? :NO CURRENT MEDICATIONS TAKING LISINOPRIL 2.5 MG TABLET 1 TABLET ORALLY ONCE A DAY TAKING SPIRONOLACTONE 25 MG TABLET 1/2 TABLET ORALLY ONCE A DAY TAKING HYDROCHLOROTHIAZIDE 25 MG TABLET 1 TABLET ORALLY ONCE A DAY TAKING ASPIRIN 81 MG TABLET 2 TABS ORALLY ONCE A DAY TAKING FOLIC ACID 400 MCG TABLET 1 TABLET ORALLY ONCE A DAY TAKING JANUVIA 25 MG TABLET 1 TABLET ORALLY ONCE A DAY TAKING ALLOPURINOL 100 MG TABLET 1 TABLET ORALLY ONCE A DAY TAKING TYLENOL 325 MG TABLET 2 TABLET NEEDED ORALLY EVERY 6 HRS TAKING LORATADINE 10 MG TABLET 1 TABLET ORALLY ONCE A DAY TAKING VITAMIN D3 5000 UNIT CAPSULE 1 CAPSULE ORALLY ONCE A DAY TAKING CALCIUM CITRATE 150 MG CAPSULE 1 CAP ORALLY TWICE A DAY TAKING VITAMIN B COMPLEX TABLET 1 TABLET ORALLY ONCE A DAY TAKING ZINC 50 MG TABLET 1 TABLET ORALLY ONCE A DAY TAKING YOSEF 500 MG CAPSULE 1 CAP ORALLY TWICE A DAY TAKING EPIPEN 2-DELROY 0.3 MG/0.3ML (1:1000) DEVICE DIRECTED INTRAMUSCULAR NEEDED TAKING WELLBUTRIN SR 150 MG TABLET EXTENDED RELEASE 12 HOUR 1 TABLET ORALLY ONCE A DAY TAKING ATENOLOL 50 MG TABLET 1 TABLET ORALLY ONCE A DAY TAKING TRAMADOL HCL 50 MG TABLET 1 ORALLY Q8H PRN FOR SEVERE PAIN MDD3 TAKING METFORMIN HCL 500 MG TABLET TAKE 1 TABLET TWICE DAILY ORALLY TWICE A DAY TAKING OMEPRAZOLE 20 MG CAPSULE DELAYED RELEASE 1 CAPSULE 30 MINUTES BEFORE MORNING MEAL ORALLY ONCE A DAY TAKING LIPITOR 40 MG TABLET 1 TABLET ORALLY ONCE A DAY TAKING COQ10 NOT-TAKING IBUPROFEN 600 MG TABLET 1 TABLET WITH FOOD OR MILK NEEDED ORALLY THREE TIMES A DAY MEDICATION LIST REVIEWED AND RECONCILED WITH THE PATIENT PAST MEDICAL HISTORY HYPERTENSION CORONARY ARTERY DISEASE-2008-RST WITHOUT REVERSIBILITY MILD AORTIC STENOSIS AND MILD AORTIC REGURGITATION AND MILD MITRAL REGURGITATION BY TTE SEPTEMBER 2008 HYPERLIPIDEMIA - CONTROLLED ASTHMA DIABETES MELLITUS TYPE 2 [id number] SEPTEMBER 2009 A1C 6.5 GOUT OSTEOPENIA MULTIPLE CHEMICAL SENSITIVITY - STRONG SMELLS, ETC ANXIETY SACROILIITIS GERD ANTWON - USES CPAP ALLERGIES LESCOL: MYALGIA - ALLERGY ADVAIR: PARALYZED VIOCAL CORDS - ALLERGY BACTRIM: HIVES - ALLERGY DECONGESTANTS: SHAKING ON THE INSIDE, FEELS "UNWELL" - SIDE EFFECTS IBUPROFEN: HEAVINESS IN CHEST - SIDE EFFECTS NAPROXEN: RINGING IN EARS - SIDE EFFECTS MINOCYCLINE JANUVIA: LARGER DOSES - FATIGUE, WEAKNESS - SIDE EFFECTS ARTIFICIAL SWEETENERS: ABDOMINAL PAIN - SIDE EFFECTS SURGICAL HISTORY HYSTERECTOMY 1986 ANGIOPLASTY WITH STENT 06/10 RIGHT CARPAL RELEASE 11/2009 TONSILLECTOMY & ADNOIDECTOMY X2 195 APPENDECTOMY 195 BUNIONECTOMY 1993 MENISCUS REPAIR 1996 CHOLECYSTECTOMY 2013 BILAT CATARACTS REMOVED 2015 CALCIFIED CYST REMOVED FROM HEAD 04/2017 CRYOSURGERY NOSE 2019 FAMILY HISTORY FATHER: 68 YRS, ARTHRITIS, COMPLICATIONS, STROKE MOTHER: 92 YRS, CHF SIBLINGS: 58 YRS, NON-HODGKINS LYMPHOMA WITH [place] COMPLICATIONS 2 SISTER(S) . 2 SON(S) . SISTER-GRAFT VS. HOST SYNDROME A RESULT OF DONOR TRANSPLANT FOR NON-HODGKINS LYMPHOMA\\NSISTER- ARTHRITIS, CHF, CAD\\N1 SON COMMITTED SUICIDE\\N1 SON ALIVE WITH SEVERE MENTAL ILLNESS AND ETOH DENIES ANY FAMILY HX OF MELANOMA AND PANCREATIC CANCERS. SOCIAL HISTORY GENERAL: TOBACCO USE ARE YOU A:NONSMOKER LATEX QUESTIONNAIRE LATEX ALLERGY : HAVE YOU EVER DEVELOPED ANY TYPE OF REACTION AFTER HANDLING LATEX PRODUCTS SUCH RUBBER GLOVES, CONDOMS, DIAPHRAGMS, BALLOONS, SOCKS, OR UNDERWEAR?NO LATEX ALLERGY : HAVE YOU EVER DEVELOPED ANY TYPE OF REACTION DURING OR AFTER DENTAL APPOINTMENT, VAGINAL/RECTAL EXAMINATION, SURGICAL PROCEDURE, OR ANY OTHER EXPOSURE?NO LATEX RISK : HAVE YOU EVER HAD ANY DIFFICULTY BREATHING OR HIVES AFTER EATING OR HANDLING ANY FRUITS, OR VEGETABLES; SUCH KIWI, BANANAS, STONE FRUITS, OR CHESTNUTSNO LATEX RISK : DO YOU HAVE A PREVIOUS PERSONAL HISTORY OF MORE THAN NINE SURGERIES, SPINA BIFIDA, OR REPEATED CATHERIZATIONS? NO LATEX RISK : ARE YOU FREQUENTLY EXPOSED TO LATEX PRODUCTS IN YOUR OCCUPATION?NO DATE ASKED : 08/02/2019 LUNG CANCER SCREENING SMOKING STATUS:NON SMOKER BMI CARE GOAL FOLLOW-UP ABOVE NORMAL BMI FOLLOW-UPDIETARY MANAGEMENT EDUCATION, GUIDANCE, AND COUNSELING ALCOHOL SCREENING DID YOU HAVE A DRINK CONTAINING ALCOHOL IN THE PAST YEAR?NO POINTS0 INTERPRETATIONNEGATIVE RECREATIONAL DRUG USE DENIES. CAFFEINE CAFFEINE USE? 1-2 CUPS OF TEA PER DAY SEXUAL HX HAD SEX IN THE LAST 12 MONTHS (VAGINAL, ORAL, OR ANAL)?NO HAVE YOU EVER HAD AN STD?NO HIV / HEP-C SCREENING HIV TEST OFFERED TO PATIENT:YES DATE OFFERED:04/22/2017 TEST ACCEPTED:NO HEP-C TEST OFFERED TO PATIENT:YES DATE OFFERED:04/22/2017 REASON:PATIENT DECLINED TEST ACCEPTED:NO REASON:PATIENT DECLINED BROCHURE PROVIDED TO PATIENTYES [id number] [place]. 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 DIET: LOW FAT, LOW CHOLESTEROL, NO CONCENTRATED SWEETS.. EXERCISE: GARDENS. MARITAL STATUS: SINGLE. OTHERS AT HOME: NONE. PAIN CLINIC PFS, CLERGY, PUBLIC HEALTH REFERRALS PFS REFERRAL NEEDED?NO CLERGY REFERRAL NEEDED?NO PUBLIC HEALTH REFERRAL NEEDED?NO WAS THE PROVIDER NOTIFIED OF ANY PERTINENT INFO?YES N/A HAS THE PATIENT BEEN EDUCATED REGARDING HIS/HER PLAN OF CARE?YES HAS THE PATIENT BEEN EDUCATED REGARDING PAIN, THE RISK FOR PAIN, THE IMPORTANCE OF EFFECTIVE PAIN MANAGEMENT, AND THE PAIN ASSESSMENT PROCESS?YES HOUSING: OWNS HOME. ADVANCE DIRECTIVE ADVANCE DIRECTIVE DISCUSSED WITH PATIENT:YES HCP KRISTEN SHEPPARD [phone](H) LIVING WILL ALDO PARRISH [phone](H) HOSPITALIZATION/MAJOR DIAGNOSTIC PROCEDURE SURGERIES ABOVE CHILDBIRTH MULTIPLE ADMISSIONS A CHILD - TONSILS, CARDIAC, INTESTINAL REVIEW OF SYSTEMS CONSTITUTIONAL: ANY RECENT FEVER NO . CHILLS NO . WEIGHT CHANGE OF UNKNOWN REASONS NO . GASTROENTEROLOGY: NEW UNEXPLAINABLE CHANGES IN BOWEL CONTROL NO . CONSTIPATION NO . GENITOURINARY: ANY NEW CHANGE IN BLADDER CONTROL? NO . NEUROLOGY: NEW ONSET DIZZINESS OR NEUROLOGICAL CHANGES NOT MENTIONED NO . NEW NUMBNESS OR PAIN PATTERNS NOT MENTIONED AND PERTINENT TO TODAY'S VISIT NO . CARDIOLOGY: NEW CHEST PRESSURE NO . NEW CHEST PAIN NO . RESPIRATORY: UNEXPLAINABLE COUGH NO . NEW SHORTNESS OF BREATH NO . ASSESSMENTS SPONDYLOSIS OF LUMBOSACRAL REGION WITHOUT MYELOPATHY OR RADICULOPATHY - M47.817 (PRIMARY) TREATMENT SPONDYLOSIS OF LUMBOSACRAL REGION WITHOUT MYELOPATHY OR RADICULOPATHY NOTES: ADVISED PATIENT TO WALK ON A REGULAR BASIS ON A FLAT SURFACE. THIS WILL IMPROVE ACTIVITY TOLERANCE AND PROMOTE LONGEVITY OF PAIN RELIEF FROM PROCEDURE. FOLLOW-UP AT PAIN CLINIC IN 3 MONTHS. ENCOURAGED TO CALL IF HER CONDITION CHANGES. TOTAL TIME SPENT DURING TELEPHONE VISIT WAS APPROXIMATELY 12 MINUTES. DISPOSITION & COMMUNICATION FOLLOW UP 3 MONTHS (REASON: LOW BACK PAIN/RIGHT SIDE/RS ON 07/10/2019) ELECTRONICALLY SIGNED BY ONEIL SHI ON 08/07/2019 AT 08:31 AM EDT DISCLAIMER : THIS IS A VISIT SUMMARY EXTRACTED FROM THE [employer] CHART. IT IS NOT A COPY OF THE [employer] PROGRESS NOTE. CELESTINO
== END ==
LOC: M PAIN 14:15
PROVIDERS: ATTEND Nurse Practitioner Family
DX: M47.817 Spondylosis without myelopathy or radiculopathy, lumbosacral region (principal); Z79.82 Long term (current) use of aspirin; Z79.84 Long term (current) use of oral hypoglycemic drugs; Z79.899 Other long term (current) drug therapy; Z88.1 Allergy status to other antibiotic agents; Z88.8 Allergy status to other drugs, medicaments and biological substances; Z91.018 Allergy to other foods

== ENCOUNTER → 2019-09-26 | Outpatient (REF) | payer MEDICARE | LOC: M LAB REF 16:23 | PROVIDERS: ATTEND Dermatology | DX: D04.9 Carcinoma in situ of skin, unspecified (principal) | CPT/HCPCS: 11102; 88305; G0463 ==

== ENCOUNTER → 2019-11-02 | Outpatient (CLI) | payer MEDICARE | LOC: M PAIN 10:59 | PROVIDERS: ATTEND Nurse Practitioner Family | DX: M47.817 Spondylosis without myelopathy or radiculopathy, lumbosacral region (principal) ==

== ENCOUNTER → 2019-11-07 | Outpatient (REF) | payer MEDICARE ==
[2019-11-07 14:28] LABS: ALBUMIN 3.9 GM/DL (3.2-5.2); ALT/SGPT 29 U/L (12-78); BILIRUBIN,TOTAL 0.5 MG/DL (0.2-1.0); BLOOD UREA NITROGEN 13 MG/DL (7-18); CARBON DIOXIDE LEVEL 25 MEQ/L (21-32); CHLORIDE LEVEL 99 MEQ/L (98-107); CHOLESTEROL LEVEL 159 MG/DL (<200); CHOLESTEROL RISK RATIO 2.606 (<5); CREATININE FOR GFR 0.63 MG/DL (0.55-1.30); GLOMERULAR FILTRATION RATE > 60.0 (>39); GLUCOSE, FASTING 162 MG/DL (70-100); HDL CHOLESTEROL 61 MG/DL (>40); LDL CHOLESTEROL 75 MG/DL (<100); NON-HDL-C 98 MG/DL; POTASSIUM SERUM 4.6 MEQ/L (3.5-5.1); SODIUM LEVEL 134 MEQ/L (136-145); TOTAL PROTEIN 7.3 GM/DL (6.4-8.2); TRIGLYCERIDES LEVEL 115 MG/DL (<150)
[2019-11-07 15:34] LABS: HEMOGLOBIN A1c 7.2 %
== END ==
LOC: M SFHCADAM 12:28
PROVIDERS: ATTEND Physician Assistant
DX: I10 Essential (primary) hypertension (principal); E78.2 Mixed hyperlipidemia; E11.9 Type 2 diabetes mellitus without complications

== ENCOUNTER → 2019-12-21 | Outpatient (REF) | payer MEDICARE ==
[2019-12-21 13:49] LABS: BASO # 0.1 10^3/uL (0.0-0.2); BASO % 0.8 % (0.0-1.0); EOS # 0.3 10^3/uL (0.0-0.5); EOS % 3.8 % (0.0-3.0); HEMATOCRIT 41.9 % (36.0-47.0); HEMOGLOBIN 13.4 g/dl (12.0-15.5); LYMPH # 1.7 10^3/uL (1.5-5.0); MEAN CORPUSCULAR HEMOGLOBIN 28.8 pg (27.0-33.0); MEAN CORPUSCULAR VOLUME 89.9 fl (80.0-96.0); MONO # 0.4 10^3/uL (0.0-0.8); MONO % 4.8 % (0.0-5.0); NEUTROPHILS # 5.1 10^3/uL (1.5-8.5); NEUTROPHILS % 68.2 % (36.0-66.0); PLATELET COUNT, AUTOMATED 339 10^3/uL (150-450); RED BLOOD COUNT 4.66 10^6/uL (4.00-5.40); WHITE BLOOD COUNT 7.5 10^3/uL (4.0-10.0)
[2019-12-21 14:36] LABS: BLOOD UREA NITROGEN 12 MG/DL (7-18); CALCIUM LEVEL 9.7 MG/DL (8.8-10.2); CARBON DIOXIDE LEVEL 30 MEQ/L (21-32); CHLORIDE LEVEL 102 MEQ/L (98-107); CREATININE FOR GFR 0.57 MG/DL (0.55-1.30); GLOMERULAR FILTRATION RATE > 60.0 (>39); GLUCOSE, FASTING 136 MG/DL (70-100); POTASSIUM SERUM 4.5 MEQ/L (3.5-5.1); SODIUM LEVEL 137 MEQ/L (136-145)
== END ==
LOC: M LABDRWAD 12:13
PROVIDERS: ATTEND Physician Assistant
DX: I25.10 Atherosclerotic heart disease of native coronary artery without angina pectoris (principal)

== ENCOUNTER → 2020-01-05 | Outpatient (CLI) | payer MEDICARE | LOC: M LABSMTC 08:49 | PROVIDERS: ATTEND Internal Medicine Cardiovascular Disease | DX: Z20.828 Contact with and (suspected) exposure to other viral communicable diseases (principal) ==

== ENCOUNTER → 2020-02-13 | Outpatient (CLI) | payer MEDICARE ==
--- NOTE | 2020-02-14 23:51 | ECWPNPC ---
PATIENT NAME: AL BARRIOS : 1945 GENDER: FEMALE VISIT DATE: 02/13/2020 DISCHARGE DATE: 02/13/20 1229 VISIT LOCKED DATE TIME: PHYSICIAN: PETER RECINOS PHYSICIAN PAGER NO: ACTIVE RESOURCE: PETER RECINOS REASON FOR APPOINTMENT 1. 3MOS MED MANAGEMENT HISTORY OF PRESENT ILLNESS DEPRESSION SCREENING: PHQ-2 (2015 EDITION) LITTLE INTEREST OR PLEASURE IN DOING THINGS?NOT AT ALL FEELING DOWN, DEPRESSED, OR HOPELESS?NOT AT ALL TOTAL SCORE0 GENERAL: HERE TODAY FOR 3 MONTH FOLLOW-UP OF CHRONIC LOW BACK PAIN. CONTINUES TO BENEFIT FROM RADIOFREQUENCY DONE IN JULY 2019. REPORTING IMPROVED ACTIVITY TOLERANCE. REPORTS INTERMITTENT LOW BACK PAIN AND RIGHT LEG PAIN WITH EXERTION BUT OVERALL CONTINUES TO BE HAPPY WITH PROCEDURE. CURRENTLY USING TRAMADOL 1 TABLET UP TO TWICE A DAY NEEDED FOR SEVERE PAIN. DENIES ADVERSE EFFECTS OF MEDICATIONS. ADVISED TO BRING IN HER MEDICATION TO ALL FUTURE APPOINTMENTS. -. FALL RISK SCREENING: SCREENING :NO FALLS REPORTED IN THE LAST YEAR PAIN SCREENING: PATIENT HAS A COMPLAINT OF ACUTE OR CHRONIC PAIN :YES LOCATION OF PAIN:LOW BACK, RIGHT HIP INTENSITY OF PAIN (SCALE OF 1 TO 10):4 AVERAGE 4. WHAT DOES YOUR PAIN FEEL LIKE:INTERMITTENT, SHARP, OTHER DURATION:INTERMITTENT, AWAKENS FROM SLEEP PAIN IS INCREASED BY:ACTIVITIES, PROLONGED STANDING, OTHERS WALKING ON HARD SURFACES, DISHES PAIN IS DECREASED BY:USE OF PAIN MEDICATIONS, OTHERS ICE, TRAMADOL NEEDED, CHANGING POSITIONS, STRETCHES NURSING NOTE: -. PAIN CENTER INTAKE QUESTIONS: DO YOU HAVE A HISTORY OF MRSA? :NO DO YOU TAKE A BLOOD THINNERS? :NO DO YOU HAVE ANY BLEEDING DISORDERS? :NO ANY NEW NUMBNESS OR WEAKNESS IN YOUR LEGS OR ARMS? :NO ANY PACEMAKER,DEFIBRILLATOR, OR DORSAL COLUMN STIMULATOR? :NO DO YOU HAVE ANY RASHES OR OPEN SORES? :NO ARE YOU ALLERGIC TO IV DYE? :NO ARE YOU DIABETIC? :YES ANY NEW PROBLEMS WITH YOUR MEDICATIONS? :NO HAVE YOU RECEIVED A VACCINE IN THE PAST 30 DAYS? :NO DO YOU PLAN TO RECEIVE A VACCINE IN THE NEXT 21 DAYS? :YES IF SO WHAT VACCINE AND WHEN? WISHES TO RECEIVE COVID VACCINATION WHEN AVAILABLE. DO YOU NEED ANY PRESCRIPTION? :YES TRAMADOL DO YOU TAKE ANY IMMUNOSUPPRESSIVE MEDICATIONS? :NO IS THERE A CHANCE YOU COULD BE ? :NO ARE YOU BREAST FEEDING? :NO CURRENT MEDICATIONS TAKING ATENOLOL 50 MG TABLET 1 TABLET ORALLY ONCE A DAY TAKING LISINOPRIL 2.5 MG TABLET 1 TABLET ORALLY ONCE A DAY TAKING SPIRONOLACTONE 25 MG TABLET 1/2 TABLET ORALLY ONCE A DAY TAKING ASPIRIN 81 MG TABLET 2 TABS ORALLY ONCE A DAY TAKING FOLIC ACID 400 MCG TABLET 1 TABLET ORALLY ONCE A DAY TAKING LIPITOR 40 MG TABLET 1 TABLET ORALLY ONCE A DAY TAKING METFORMIN HCL 500 MG TABLET 1 TABLET WITH A MEAL ORALLY TWICE A DAY TAKING JANUVIA 50 MG TABLET 1 TABLET ORALLY ONCE A DAY TAKING OMEPRAZOLE 20 MG CAPSULE DELAYED RELEASE 1 CAPSULE 30 MINUTES BEFORE MORNING MEAL ORALLY ONCE A DAY TAKING TRAMADOL HCL 50 MG TABLET 1 ORALLY Q8H PRN FOR SEVERE PAIN MDD3 TAKING VITAMIN D3 5000 UNIT CAPSULE 1 CAPSULE ORALLY ONCE A DAY TAKING CALCIUM CITRATE 150 MG CAPSULE 1 CAP ORALLY TWICE A DAY TAKING LORATADINE 10 MG TABLET 1 TABLET ORALLY ONCE A DAY TAKING VITAMIN B COMPLEX TABLET 1 TABLET ORALLY ONCE A DAY TAKING ZINC 50 MG TABLET 1 TABLET ORALLY ONCE A DAY TAKING YOSEF 500 MG CAPSULE 1 CAP ORALLY TWICE A DAY TAKING COQ10 TAKING EPIPEN 2-DELROY 0.3 MG/0.3ML (1:1000) DEVICE DIRECTED INTRAMUSCULAR NEEDED, NOTES: PRN TAKING WELLBUTRIN SR 150 MG TABLET EXTENDED RELEASE 12 HOUR 1 TABLET ORALLY ONCE A DAY TAKING ALLOPURINOL 100 MG TABLET 1 TABLET ORALLY ONCE A DAY TAKING LOPERAMIDE HCL 2 MG CAPSULE 2 CAPS AT ONSET, THEN 1 CAP Q2H NEEDED, MDD=8 ORALLY DIRECTED, NOTES: PRN TAKING HYDROCHLOROTHIAZIDE 25 MG TABLET 1 TABLET ORALLY ONCE A DAY TAKING TYLENOL EXTRA STRENGTH 500 MG TABLET 1 TABLET NEEDED ORALLY EVERY 6 HRS NOT-TAKING TYLENOL 325 MG TABLET 2 TABLET NEEDED ORALLY EVERY 6 HRS, NOTES: PRN NOT-TAKING ATENOLOL 50 MG TABLET TAKE 1 TABLET BY MOUTH ONCE DAILY , NOTES: DUPLICATE NOT-TAKING OMEPRAZOLE 20 MG CAPSULE DELAYED RELEASE TAKE 1 CAPSULE BY MOUTH EVERY DAY 30 MINUTES BEFORE BREAKFAST , NOTES: DUPLICATE MEDICATION LIST REVIEWED AND RECONCILED WITH THE PATIENT PAST MEDICAL HISTORY HYPERTENSION CORONARY ARTERY DISEASE-2008-RST WITHOUT REVERSIBILITY MILD AORTIC STENOSIS AND MILD AORTIC REGURGITATION AND MILD MITRAL REGURGITATION BY TTE SEPTEMBER 2008 HYPERLIPIDEMIA - CONTROLLED ASTHMA DIABETES MELLITUS TYPE 2 [id number]-[id number] SEPTEMBER 2009 A1C 6.5 GOUT OSTEOPENIA MULTIPLE CHEMICAL SENSITIVITY - STRONG SMELLS, ETC ANXIETY SACROILIITIS GERD ANTWON - USES CPAP SQUAMOUS CELL CARCINOMA ALLERGIES LESCOL: MYALGIA - ALLERGY ADVAIR: PARALYZED VIOCAL CORDS - ALLERGY BACTRIM: HIVES - ALLERGY DECONGESTANTS: SHAKING ON THE INSIDE, FEELS "UNWELL" - SIDE EFFECTS IBUPROFEN: HEAVINESS IN CHEST - SIDE EFFECTS NAPROXEN: RINGING IN EARS - SIDE EFFECTS MINOCYCLINE JANUVIA: LARGER DOSES - FATIGUE, WEAKNESS - SIDE EFFECTS ARTIFICIAL SWEETENERS: ABDOMINAL PAIN - SIDE EFFECTS SURGICAL HISTORY HYSTERECTOMY 1986 ANGIOPLASTY WITH STENT 06/10 RIGHT CARPAL RELEASE 11/2009 TONSILLECTOMY & ADNOIDECTOMY X2 195 APPENDECTOMY 1956 BUNIONECTOMY 1993 MENISCUS REPAIR 1996 CHOLECYSTECTOMY 2013 BILAT CATARACTS REMOVED 2015 CALCIFIED CYST REMOVED FROM HEAD 04/2017 CRYOSURGERY NOSE 2018 SQUAMOUS CELL REMOVAL FALL 2019 CARDIAC CATHETERIZATION 01/13/20 FAMILY HISTORY FATHER: 68 YRS, ARTHRITIS, COMPLICATIONS, STROKE MOTHER: 92 YRS, CHF SIBLINGS: 58 YRS, NON-HODGKINS LYMPHOMA WITH TX COMPLICATIONS 2 SISTER(S) . 2 SON(S) . SISTER-GRAFT VS. HOST SYNDROME A RESULT OF DONOR TRANSPLANT FOR NON-HODGKINS LYMPHOMA\\NSISTER- ARTHRITIS, CHF, CAD\\N1 SON COMMITTED SUICIDE\\N1 SON ALIVE WITH SEVERE MENTAL ILLNESS AND ETOH DENIES ANY FAMILY HX OF MELANOMA AND PANCREATIC CANCERS. SOCIAL HISTORY GENERAL: TOBACCO USE ARE YOU A:NONSMOKER LATEX QUESTIONNAIRE LATEX ALLERGY : HAVE YOU EVER DEVELOPED ANY TYPE OF REACTION AFTER HANDLING LATEX PRODUCTS SUCH RUBBER GLOVES, CONDOMS, DIAPHRAGMS, BALLOONS, SOCKS, OR UNDERWEAR?NO LATEX ALLERGY : HAVE YOU EVER DEVELOPED ANY TYPE OF REACTION DURING OR AFTER DENTAL APPOINTMENT, VAGINAL/RECTAL EXAMINATION, SURGICAL PROCEDURE, OR ANY OTHER EXPOSURE?NO LATEX RISK : HAVE YOU EVER HAD ANY DIFFICULTY BREATHING OR HIVES AFTER EATING OR HANDLING ANY FRUITS, OR VEGETABLES; SUCH KIWI, BANANAS, STONE FRUITS, OR CHESTNUTSNO LATEX RISK : DO YOU HAVE A PREVIOUS PERSONAL HISTORY OF MORE THAN NINE SURGERIES, SPINA BIFIDA, OR REPEATED CATHERIZATIONS? NO LATEX RISK : ARE YOU FREQUENTLY EXPOSED TO LATEX PRODUCTS IN YOUR OCCUPATION?NO DATE ASKED : 02/13/2020 LUNG CANCER SCREENING SMOKING STATUS:NON SMOKER BMI CARE GOAL FOLLOW-UP ABOVE NORMAL BMI FOLLOW-UPDIETARY MANAGEMENT EDUCATION, GUIDANCE, AND COUNSELING ALCOHOL SCREENING DID YOU HAVE A DRINK CONTAINING ALCOHOL IN THE PAST YEAR?NO POINTS0 INTERPRETATIONNEGATIVE RECREATIONAL DRUG USE DENIES. CAFFEINE CAFFEINE USE? 1-2 CUPS OF TEA PER DAY SEXUAL HX HAD SEX IN THE LAST 12 MONTHS (VAGINAL, ORAL, OR ANAL)?NO HAVE YOU EVER HAD AN STD?NO HIV / HEP-C SCREENING HIV TEST OFFERED TO PATIENT:YES DATE OFFERED:04/22/2017 TEST ACCEPTED:NO HEP-C TEST OFFERED TO PATIENT:YES DATE OFFERED:04/22/2017 REASON:PATIENT DECLINED TEST ACCEPTED:NO REASON:PATIENT DECLINED BROCHURE PROVIDED TO PATIENTYES AMISH [id number] JEWISH LANGUAGE BENGALI. 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 DIET: LOW FAT, LOW CHOLESTEROL, NO CONCENTRATED SWEETS.. EXERCISE: GARDENS. MARITAL STATUS: SINGLE. OTHERS AT HOME: NONE. PAIN CLINIC PFS, CLERGY, PUBLIC HEALTH REFERRALS PFS REFERRAL NEEDED?NO CLERGY REFERRAL NEEDED?NO PUBLIC HEALTH REFERRAL NEEDED?NO WAS THE PROVIDER NOTIFIED OF ANY PERTINENT INFO?YES N/A HAS THE PATIENT BEEN EDUCATED REGARDING HIS/HER PLAN OF CARE?YES HAS THE PATIENT BEEN EDUCATED REGARDING PAIN, THE RISK FOR PAIN, THE IMPORTANCE OF EFFECTIVE PAIN MANAGEMENT, AND THE PAIN ASSESSMENT PROCESS?YES HOUSING: OWNS HOME. ADVANCE DIRECTIVE ADVANCE DIRECTIVE DISCUSSED WITH PATIENT:YES HCP KRISTEN SHEPPARD [phone](H) LIVING WILL ALDO PARRISH [phone]) 02/13/20 S[facility] DAVIS HOSPITALIZATION/MAJOR DIAGNOSTIC PROCEDURE SURGERIES ABOVE CHILDBIRTH MULTIPLE ADMISSIONS A CHILD - TONSILS, CARDIAC, INTESTINAL REVIEW OF SYSTEMS CONSTITUTIONAL: ANY RECENT FEVER NO . CHILLS NO . WEIGHT CHANGE OF UNKNOWN REASONS NO . GASTROENTEROLOGY: NEW UNEXPLAINABLE CHANGES IN BOWEL CONTROL NO . CONSTIPATION NO . GENITOURINARY: ANY NEW CHANGE IN BLADDER CONTROL? NO . NEUROLOGY: NEW ONSET DIZZINESS OR NEUROLOGICAL CHANGES NOT MENTIONED NO . NEW NUMBNESS OR PAIN PATTERNS NOT MENTIONED AND PERTINENT TO TODAY'S VISIT NO . CARDIOLOGY: NEW CHEST PRESSURE NO . NEW CHEST PAIN NO . RESPIRATORY: UNEXPLAINABLE COUGH NO . NEW SHORTNESS OF BREATH NO . VITAL SIGNS WT 194.4 LBS, HT 61 IN, BMI 36.73 INDEX, BP 163/70 MM HG, HR 91 /MIN, RR 18 /MIN, TEMP 97.6 F, OXYGEN SAT % 96%, SAFE IN ENV? (Y/N) YES, NA INITIALS AW 1103, REVIEWED BY: SIXTO CRAWFORD. EXAMINATION GENERAL EXAMINATION: GENERALAWAKE,ALERT ,PLEASANT . PSYCHAFFECT NORMAL . LUNGS:LUNG CALVIN ARE CLEAR TO AUSCULTATION BILATERALLY. GOOD MOVEMENT OF AIR . HEART:S1, S2 IN A REGULAR RATE AND RHYTHM. NO SIGNIFICANT MURMURS, RUBS OR GALLOPS NOTED . ASSESSMENTS SPONDYLOSIS OF LUMBOSACRAL REGION WITHOUT MYELOPATHY OR RADICULOPATHY - M47.817 (PRIMARY) TREATMENT SPONDYLOSIS OF LUMBOSACRAL REGION WITHOUT MYELOPATHY OR RADICULOPATHY REFILL TRAMADOL HCL TABLET, 50 MG, 1, ORALLY, Q8H PRN FOR SEVERE PAIN MDD3, 30 DAY(S), 45, REFILLS 2 NOTES: CONTINUE HOME EXERCISE AND STRETCHING. , ISTOP REGISTRY REVIEWED AND DEMONSTRATES COMPLLIANCE. RECENT URINE TOXICOLOGY REVIEWED. NO UNAUTHORIZED MEDICATIONS. NO ILLICIT SUBSTANCES AND PRESCRIBED MEDICATIONS WERE PRESENT. URINE TOX TODAY , RISKS OF NARCOTIC/OPIOD MEDICATIONS INCLUDES BUT IS NOT LIMITED TO RISK OF DEPENDANCE/DEVELOPMENT OF ADDICTION, MOOD DISTURBANCE AND DEPRESSION, OSTEOPOROSIS, HORMONAL AND LABIDAL CHANGES, RESPIRATORY DEPRESSION AND . PATIENT IS ADVISED NOT TO DRIVE OR DRINK ALCOHOL WHILE ON THESE MEDICATIONS. PROCEDURE CODES FA211 ESTABILISHED PATIENT [facility] CHARGE DISPOSITION & COMMUNICATION FOLLOW UP 3 MONTHS (REASON: MED MGMNT/REVIEW UTOX) ELECTRONICALLY SIGNED BY ONEIL SHI ON 02/14/2020 AT 03:13 PM EST DISCLAIMER : THIS IS A VISIT SUMMARY EXTRACTED FROM THE [employer] CHART. IT IS NOT A COPY OF THE [employer] PROGRESS NOTE. CELESTINO
== END ==
LOC: M PAIN 11:00
PROVIDERS: ATTEND Nurse Practitioner Family
DX: M47.817 Spondylosis without myelopathy or radiculopathy, lumbosacral region (principal); G89.29 Other chronic pain; E11.9 Type 2 diabetes mellitus without complications; J45.909 Unspecified asthma, uncomplicated; G47.33 Obstructive sleep apnea (adult) (pediatric); K21.9 Gastro-esophageal reflux disease without esophagitis; Z86.59 Personal history of other mental and behavioral disorders; Z88.1 Allergy status to other antibiotic agents; Z88.6 Allergy status to analgesic agent; Z88.8 Allergy status to other drugs, medicaments and biological substances; Z91.02 Food additives allergy status; Z79.82 Long term (current) use of aspirin; Z79.84 Long term (current) use of oral hypoglycemic drugs; Z79.891 Long term (current) use of opiate analgesic; Z79.899 Other long term (current) drug therapy

== ENCOUNTER 2020-03-31 16:16 | Emergency (ER) | payer MEDICARE ==
[~2020-03-31] VITALS: Ht 154.9 cm; Wt 90.9 kg
--- OUTSIDE RECORDS SUMMARY | 2020-03-31 16:28 | CCD ---
Author Author [facility] [employer] Organization [facility] [employer] Address Unknown Phone Unavailable Care Team Providers Care Transfer Agent Name Role Phone Lynette Bishop Unavailable PROBLEMS Type Condition ICD9-CM Code [id number] Code Onset Dates Condition S tatus W/U Status Risk SNOMED Code Notes Problem Gout M10.9 Active confirmed 60880668 Well controlled on current regimen of allopurinol 100 mg a day. I advised Al that if she starts to get the beginning of a flare of gout, she can increase her allopurinol to 300 mg a day Problem Coronary atherosclerosis of [place] coronary artery I25.10 Active confirmed [id number] Problem Essential hypertension I10 Active confirmed 06421309 Well controlled on current regimen of atenolol, lisinopril, spironolactone, HCTZ. No medication changes Problem Chronic respiratory condition due to fumes and vapors J68.4 Active confirmed 55868478 Problem Generalized osteoarthrosis, involving multiple sites M15.9 Active confirmed 671718333 Stable with therapy with the [facility] Problem Other chronic pain G89.29 Active confirmed 8 2243094 Problem Sacroiliitis, not elsewhere classified M46.1 A ctive confirmed 83315149 Problem Mixed hyperlipidemia E78.2 Active confirmed 717000569 Well controlled on current regimen Lipitor and fish oil. No medication changes Problem Generalized anxiety disorder F41.1 Active confirme d 59409952 Well controlled on current regimen of Wellbutrin SR 150 mg, no medication changes Problem Protrusion of lumbar intervertebral disc M51.26 Active confirmed 610564439 Problem Pain in right hip M25.551 Active confirmed 4 9470870 We will obtain an x-ray of the SI joints, and Al will continue physical therapy. In the meantime, we reviewed the risks, benefits and potential side effects of tramadol and she is willing to give it a try. I also advised that she start acetaminophen 325 mg one or 2 twice a day as needed. I will see her back in a month to see if she's doing Problem Spinal stenosis of lumbosacral region M48.07 Ac tive confirmed 96158529 Problem Intervertebral disc disorder with radiculopathy of lumbosacral region M51.17 Active confirmed 08542180 Problem Spondylosis of lumbar region without myelopathy or radiculopathy M47.816 Active confirmed 48663043 Problem Spondylosis of lumbosacral region without myelop athy or radiculopathy M47.817 Active confirmed 40899248 Problem Sacroiliac joint dysfunction M53.3 Active confirme d 799647814 Problem Spinal stenosis of lumbar region with neurogenic nora ication M48.062 Active confirmed [id number] Problem Sacroiliitis M46.1 Active confirmed 0365091 9 Problem Spinal stenosis, lumbar region with neurogenic claudicatio n M48.062 Active confirmed 69615323 Problem Type II or unspecified type diabetes mellitus without mention of complication, not stated as uncontrolled E11.9 Active confirm ed 66193040 Hemoglobin A1c has gone up to 7.2. Tracy will continue the metformin 500 mg twice a day and Januvia 50 mg once a day. 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 Active confirmed 842947120 Problem Lentigines L81.4 Active confirmed 305159000 ALLERGIES Allergen (clinical drug ingredient) Drug/Non Drug Allergy do cumented on EMR Reaction Allergy Type Onset Date Status artificial sweeteners abdominal pain Non Drug Allergy Active minocycline Minocycline([facility] Code:[address]-90) Unknown Drug Aller gy Active lescol myalgia Non Drug Allergy Active ibuprofen Ibuprofen([facility] Code:[address]-57) heaviness in chest Drug Allergy Active naproxen Naproxen([facility] Code:[address]-20) ringing in ears Drug Sheldon rgy Active sitagliptin Januvia([facility] Code:[address]-20) Larger Doses - f atigue, weakness Drug Allergy Active advair paralyzed viocal cords Non Drug Allergy Active decongestants shaking on the inside, feels "unwell" Non D rug Allergy Active sulfamethoxazole / trimethoprim Bactrim([facility] Code:[address]-03) Hives Drug Allergy Active ENCOUNTERS from 1945 to 2020-03-17 Encounter Location Date Provider Diagnosis [facility] [address] [place] [address] 08 Mar, 2020 [facility] IMMUNIZATIONS Vaccine Route Administration Date Status Influenza (18 yrs & older) Flublok Unknown Oct 12, 2018 Administered Zoster 50mcg/0.5mL (Shingrix) Unknown Mar 15, 2018 Ad ministered Zoster 50mcg/0.5mL (Shingrix) Unknown Jan 01, 2018 Ad ministered Influenza (High Dose 65 & up) Unknown Nov 01, 2017 Ad ministered Pneumococcal Adult 0.5mL (Pneumovax 23) Unknown May Administered TDAP 0.5mL (Boostrix) Unknown May 31, 2018 Administer ed Pneumococcal 0.5mL (Prevnar 13) IM Intramuscular Feb 25, 2015 Administered Influenza (6mo & up) Fluzone Unknown Nov 03, 2016 Adm inistered Influenza (6mo & up) Fluzone IM Intramuscular Mar 30, 2010 Ad ministered SOCIAL HISTORY Tobacco Use: Social History Observation Description Date Details (start date - stop date) Never Smoker Sex Assigned At : Social History Observation Description Sex Assigned At Unknown Audit Question Answer Notes Total Score: 0 Interpretation: Alcohol Education Gnosticist: Question Answer Notes Gnosticist 06 Religious Sexual Hx: Question Answer Notes Had sex in the last 12 months (vaginal, oral, or anal)? No Have you ever had an STD? No Drug and Alcohol Question Answer Notes Total Score: 0 Interpretation: No problems reported Alcohol Screening: Question Answer Notes Did you have a drink containing alcohol in the past year? No Points 0 Interpretation Negative BMI Care Goal Follow-Up Question Answer Notes Above Normal BMI Follow-Up Dietary management educatio n, guidance, and counseling Tobacco Use: Question Answer Notes Are you a: never smoker REASON FOR REFERRAL No Information VITAL SIGNS No information MEDICATIONS Medication SIG (Take, Route, Frequency, Duration) Notes Start Da te End Date Status Tylenol Extra Strength 500 MG 1 tablet as needed Orally every 6 hrs Active Calcium Citrate 150 MG 1 cap Orally Twice a day Active Aspirin 81 MG 2 TABS Orally Once a day Active Loratadine 10 MG 1 tablet Orally Once a day for 30 day(s) Active Vitamin D3 5000 UNIT 1 capsule Orally Once a day Active Vitamin B Complex 1 tablet Orally Once a day Active Tylenol 325 MG 2 tablet as needed Orally every 6 hrs Not-Taking Zinc 50 mg 1 tablet Orally Once a day Active CoQ10 Active Omeprazole 20 MG TAKE 1 CAPSULE BY MOUTH EVER Y DAY 30 MINUTES BEFORE BREAKFAST for 90 Not-Taking Spironolactone 25 MG 1/2 tablet Orally Once a day Active Metformin HCl 500 MG 1 tablet with a meal Orally Twice a day Active Atenolol 50 MG TAKE 1 TABLET BY MOUTH ONCE DAILY for 90 Not-Taking Wellbutrin SR 150 MG 1 tablet Orally Once a day for 90 days Active Omeprazole 20 MG 1 capsule 30 minutes before morning meal Orally Once a day for 30 day(s) Active Lisinopril 2.5 MG 1 tablet Orally Once a day Active Amber 500 MG 1 cap Orally twice a day Active EpiPen 2-Satya 0.3 MG/0.3ML (1:1000) as directed Intramu scular As needed for 90 day(s) Active Lipitor 40 MG 1 tablet Orally Once a day for 90 days Active Folic Acid 400 MCG 1 tablet Orally Once a day Active Januvia 50 MG 1 tablet Orally Once a day Active Loperamide HCl 2 MG 2 caps at onset, then 1 cap q2h as needed, mdd=8 Orally as directed for 90 days Nov, Active Atenolol 50 MG 1 tablet Orally Once a day for 90 days Active Hydrochlorothiazide 25 mg 1 tablet Orally Once a day for 90 Active Allopurinol 100 MG 1 tablet Orally Once a day for 90 days Active Tramadol HCl 50 MG 1 Orally q8h prn for severe pain mdd3 for 30 day(s) Nov, Active PROCEDURES No Information RESULTS No Results REASON FOR VISIT Covid vaccine MEDICAL (GENERAL) HISTORY Type Description Date Medical History hypertension Medical History Coronary Artery Disease-Sept emb2008-RST without reversibility Medical History mild aortic stenosis and mil d aortic regurgitation and mild mitral regurgitation by TTE September 2008 Medical History hyperlipidemia - controlled Medical History Asthma Medical History diabetes mellitus type 2 non -insulin-dependent September 2009 A1c 6.5 Medical History Gout Medical History Osteopenia Medical History Multiple chemical sensitivity - strong s mells, etc Medical History Anxiety Medical History sacroiliitis Medical History GERD Medical History ANTWON - Uses CPAP Medical History Squamous cell carcinoma Surgical History Hysterectomy 1985 Surgical History angioplasty with stent 06/10 Surgical History right carpal release 11/2009 Surgical History Tonsillectomy & Adnoidectomy x2 1951 Surgical History appendectomy 1956 Surgical History bunionectomy 1993 Surgical History meniscus repair 1996 Surgical History cholecystectomy 2013 Surgical History bilat cataracts removed 2015 Surgical History Calcified cyst removed from head 04/2017 Surgical History cryosurgery nose 2018 Surgical History Squamous cell removal Fall 2019 Surgical History Cardiac catheterization 01/13/20 Hospitalization History surgeries as above Hospitalization History childbirth Hospitalization History multiple admissions as a chi ld - tonsils, cardiac, intestinal Goals Section No Information Health Concerns No Information MEDICAL EQUIPMENT No Information MENTAL STATUS No Information FUNCTIONAL STATUS No Information ASSESSMENTS No Information PLAN OF TREATMENT Medication Medication Name Sig Start Date Stop Date Tramadol HCl 50 MG 1 Orally q8h prn for severe pain mdd3 fo r 30 day(s) Nov, Next Appt Details Provider Name:Lynette Bishop, 6 08:30:00 AM, [address], [place], [address], Provider Name:Sammie Torres, 2020-05-15 10 :00:00 AM, [address] [place], [address], Insurance Providers Payer Name Payer Address Payer Phone Insured Name Patient Relati onship to Insured Coverage Start Date Coverage End Date MEDICARE Part A and B [address] [facility] [phone] AL BARRIOS [facility] OPTIONS [facility] CLAIM DIV [address] [facility] [phone] AL BARRIOS
--- OUTSIDE RECORDS SUMMARY | 2020-03-31 16:28 | CCD | Continuity of Care Document ---
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 eart failure TONY Rodriguez Onset: 04/15/2011 Aortic valve disorder TONY Rodriguez Onset: 09/2011 Mitral valve disorder TONY Rodriguez Onset: 09/2011 Pure hypercholesterolemia TONY Rodriguez Onset: 04/15/2011 Obesity TONY Rodriguez Onset: 04/14 Carotid artery occlusion Regina Dc PA-C Onset: 016 Obstructive sleep apnea syndrome Regina Dc PA-C Onset: 11/13/2012 Aortic valve stenosis with insufficiency CORTEZ Gillespie Onset: 11/25/2016 Dietary management surveillance Regina Dc PA-C Onset: 11/25/2016 Social History Type Date Description Comments Sex Unknown Tobacco Use Start: Unknown Never Smoked Cigarettes ETOH Use Consumes Beer 2 annually Tobacco Use Start: Unknown Patient has never smoked Smoking Status Reviewed: 02/18/20 Patient has never smoked Exercise Type/Frequency Does housework twice a w [place] Exercise Type/Frequency Does gardening daily Exercise Type/Frequency Walks sporadically Exercise Type/Frequency Does yardwork sporadical ly stacking wood Exercise Limitations Back Pain Exercise Limitations Joint Pain Allergies, Adverse Reactions, Alerts Active Allergies Reaction Severity Comments Date Lescol myalgia 07/13/2006 Niacin redness, swelling, numbness all over 07/13/2006 Advair HFA paralyzed vocal cords 2007 Cinnamon migraines 10/18/2011 Perfume anaphylaxis 11/20/2014 Minocycline passed out 11/20/2014 Bactrim hives, boils, throat closing up 11/20/2014 Sulfa hives 11/20/2014 Ibuprofen chest pressure, anxiety 05/09 Decongestants severe anxiety 06/02/2017 Medications Active Medications SIG Qnty Indications Ordering Provide r Date Aspirin [address] 1 by mouth every day Anthony Correa MD 12/20/2019 Januvia 50mg Tablets 1 by mouth every day Lynette Bishop PA 11/11/2019 MSM 1000mg Capsules 1 by mouth once daily Unknown 11/11/[address] 1 by mouth every day Jerri Calvillo FNP 2019 Tramadol HCL 50mg Tablets 1 by mouth three times a day as needed, MDD=3 Sammie Torres Crn a 11/11/2019 Anti-Diarrheal 2mg Capsules 1 by mouth as needed Unknown 11/11/2019 Milk Thistle 1000mg Capsules 1 by mouth daily Unknown 11/11/2019 Amber Root 250mg Capsules 2 by mouth every day Unknown 05/09/2019 Hydrochlorothiazide 25mg Tablets 1 by mouth every day Unknown 11/24/2016 Allergy Relief 10mg Tablets 1 by mouth every day Unknown 05/25/2016 Acetaminophen Extra Strength 500mg Tablets as needed Unknown 05/25/2016 Atenolol 50mg Tablets 1 by mouth every day Unknown 05/25/2016 Citracal Maximum [id number] Ta blets twice daily Unknown 05/25/2016 Nitrostat 0.4mg Tablets Sub 1 sl every 5min x3 as needed for chest pain 25tabs I25.10 Anthony Correa MD 05/22/2015 Bupropion HCL ER (XL) 150mg Tablets ER 24HR 1 by mouth twice daily Lynette Bishop PA 05/22/2015 Vitamin D3 5000Unit Capsules 1 by mouth every day Unknown 05/22/2015 Metformin HCL 500mg Tablets 1 by mouth twice a day Lynette Bishop PA 11/20/2014 Atorvastatin Calcium 40mg Tablets 1 by mouth every night at bedtime E78.0 Anthony Correa MD 05/21/2014 I25.10 Co-Enzyme [id number] E [id number] Wafer 1 by mouth daily Unknown 09/27/2013 Allopurinol 100mg Tablets 1 p o qd Lynette Bishop PA 11/12/2012 Lisinopril 2.5mg Tablets 1 by mouth every night at bedtime 90tabs I25.10 Anthony Correa MD 03/30/2012 I11.9 Epipen 2-Satya 0.3mg/0.3ML Device as directed prn Lynette Bishop PA 10/28/2010 Folic Acid 400mcg Tablets 1 p o daily Unknown 06/14/2008 Zinc 50mg Tablets 1 po daily Unknown 06/14/2008 Spironolactone 25mg Tablets 1/2 tab by mouth daily 45tabs I11.9 Anthony Correa MD 07/13/2006 B Complex Tablets 1 po qd Unknown History Medications Brilinta 90mg Tablets 1 by mouth twice a day 60tabs Anthony Correa MD 12/20/2019 - 01/10/2020 Immunizations Description No Information Available Vital Signs Date Vital Result Comment 02/18/2020 11:11am Weight 190.00 lb Home Weight 191lb Home weight Height 62 inches 5'2" BMI (Body Mass Index) 34.7 kg/m2 Heart Rate 89 /min Respiratory Rate 16 /min BP Systolic Sitting 132 mmHg BP Diastolic Sitting 82 mmHg O2 % BldC Oximetry 98 % 11/12/2019 9:51am Weight 188.00 lb Home Weight 188lb Height 62 inches 5'2" BMI (Body Mass Index) 34.4 kg/m2 Heart Rate 72 /min Regular Respiratory Rate 16 /min BP Systolic Right Arm 136 mmHg sitting, large cuf f BP Diastolic Right Arm 74 mmHg sitting, large cu ff BP Systolic Left Arm 134 mmHg sitting BP Diastolic Left Arm 70 mmHg sitting Results Test Acquired Date Facility Test Result H/L Range Note Basic Metabolic Profile 12/21/2019 [facility] [phone] Glucose, Fasting 136 mg/dL High 70-100 Blood Urea Nitrogen 12 mg/dL Normal 7-18 Creatinine For GFR 0.57 mg/dL Normal 0.55-1.30 Glomerular Filtration Rate > 60.0 Normal >39 1 Sodium Level 137 mEq/L Normal 136-145 Potassium Serum 4.5 mEq/L Normal 3.5-5.1 Chloride Level 102 mEq/L Normal 98-107 Carbon Dioxide Level 30 mEq/L Normal 21-32 Anion Gap 5 mEq/L Low 8-16 Calcium Level 9.7 mg/dL Normal 8.8-10.2 CBC With Differential 12/21/2019 [facility] [phone] White Blood Count 7.5 10 Normal 4.0-10.0 Red Blood Count 4.66 10 Normal 4.00-5.40 Hemoglobin 13.4 g/dL Normal 12.0-15.5 Hematocrit 41.9 % Normal 36.0-47.0 Mean Corpuscular Volume 89.9 fl Normal 80.0-96.0 Mean Corpuscular Hemoglobin 28.8 pg Normal 27.0-33.0 Mean Corpuscular HGB Conc 32.0 g/dL Normal 32.0-36.5 Red Cell Distribution Width 13.6 % Normal 11.5-14.5 Platelet Count, Automated 339 10 Normal 150-450 Neutrophils % 68.2 % High 36.0-66.0 Lymph % 22.0 % Low 24.0-44.0 Foster % 4.8 % Normal 0.0-5.0 Eos % 3.8 % High 0.0-3.0 Baso % 0.8 % Normal 0.0-1.0 Immature Granulocyte % 0.4 % Normal 0-3.0 Nucleated Red Blood Cell % 0.0 % Normal 0-0 Neutrophils # 5.1 10 Normal 1.5-8.5 Lymph # 1.7 10 Normal 1.5-5.0 Foster # 0.4 10 Normal 0.0-0.8 Eos # 0.3 10 Normal 0.0-0.5 Baso # 0.1 10 Normal 0.0-0.2 Comprehensive Metabolic Profil 11/07/2019 [facility] [phone] Glucose, Fasting 162 mg/dL High 70-100 Blood Urea Nitrogen 13 mg/dL Normal 7-18 Creatinine For GFR 0.63 mg/dL Normal 0.55-1.30 Glomerular Filtration Rate > 60.0 Normal >39 2 Sodium Level 134 mEq/L Low 136-145 Potassium Serum 4.6 mEq/L Normal 3.5-5.1 Chloride Level 99 mEq/L Normal 98-107 Carbon Dioxide Level 25 mEq/L Normal 21-32 Anion Gap 10 mEq/L Normal 8-16 Calcium Level 10.0 mg/dL Normal 8.8-10.2 Ast/Sgot 20 U/L Normal 7-37 Alt/SGPT 29 U/L Normal 12-78 Alkaline Phosphatase 85 U/L Normal 45-117 Bilirubin,Total 0.5 mg/dL Normal 0.2-1.0 Total Protein 7.3 GM/DL Normal 6.4-8.2 Albumin 3.9 GM/DL Normal 3.2-5.2 Albumin/Globulin Ratio 1.1 Low 1.2-2.2 Lipid Panel 11/07/2019 [facility] [phone] Triglycerides Level 115 mg/dL Normal <150 Cholesterol Level 159 mg/dL Normal <200 HDL Cholesterol 61 mg/dL Normal >40 LDL Cholesterol 75 mg/dL Normal <100 Non-HDL-C 98 mg/dL Normal Cholesterol Risk Ratio 2.606 Normal <5 Hemoglobin A1c 11/07/2019 [facility] [phone] Hemoglobin A1c 7.2 % Normal 3 Estimated Average Glucose 160 mg/dL High 60-110 1 Units are mL/min/1.73 m2 Chronic Kidney Disease Staging per NKF: Stage I & II GFR >=60 Normal to Mildly Decreased Stage III GFR 30-59 Moderately Decreased Stage IV GFR 15-29 Severely Decreased Stage V GFR <15 Very Little GFR Left ESRD GFR <15 on PROCESSING ASSOCIATE 2 Units are mL/min/1.73 m2 Chronic Kidney Disease Staging per NKF: Stage I & II GFR >=60 Normal to Mildly Decreased Stage III GFR 30-59 Moderately Decreased Stage IV GFR 15-29 Severely Decreased Stage V GFR <15 Very Little GFR Left ESRD GFR <15 on PROCESSING ASSOCIATE 3 REFERENCE RANGES: <=5.6% NORMAL 5.7-6.4% SUGGESTS IMPAIRED GLUCOSE META BOLISM/PREDIABETIC >= 6.5% ABNORMAL Procedures Date Code Description Status 12/18/2019 98758 Treadmill/Pharmacological Monito ring Completed 12/18/2019 41041 Myocardial Perfusion Spect Multi ple Completed 11/12/2019 50747 ECG 12-Lead Completed Medical Devices Description No Information Available Encounters Type Date Location Provider Dx Diagnosis Office Visit 02/18/2020 11:15a Main Office Regina Dc PA-C I25.1 0 Athscl heart disease of [place] coronary artery w/o ang pctrs Office Visit 12/04/2019 10:16a Main Office Guido Godinez MD I35.2 Nonrheumatic aortic (valve) stenosis with insufficiency I34.0 Nonrheumatic mitral (valve) insufficiency E78.00 Pure hypercholesterolemia, u nspecified G47.33 Obstructive sleep apnea (wilfred lt) (pediatric) Office Visit 11/12/2019 9:45a Main Office Regina Dc PA-C I25.1 0 Athscl heart disease of [place] coronary artery w/o ang pctrs Z95.5 Presence of coronary angiopl asty implant and graft I11.9 Hypertensive heart disease w ithout heart failure I35.2 Nonrheumatic aortic (valve) stenosis with insufficiency I34.0 Nonrheumatic mitral (valve) insufficiency E78.00 Pure hypercholesterolemia, u nspecified G47.33 Obstructive sleep apnea (wilfred lt) (pediatric) Z71.3 Dietary counseling and surve illance Office Visit 11/05/2019 3:53p Main Office Guido Godinez MD I35.2 Nonrheumatic aortic (valve) stenosis with insufficiency I34.0 Nonrheumatic mitral (valve) insufficiency E78.00 Pure hypercholesterolemia, u nspecified G47.33 Obstructive sleep apnea (wilfred lt) (pediatric) Office Visit 10/05/2019 8:53a Main Office Guido Godinez MD G47.3 3 Obstructive sleep apnea (adult) (pediatric) E78.00 Pure hypercholesterolemia, u nspecified I34.0 Nonrheumatic mitral (valve) insufficiency I35.2 Nonrheumatic aortic (valve) stenosis with insufficiency Office Visit 08/30/2019 1:06p Main Office Guido Godinez MD G47.3 3 Obstructive sleep apnea (adult) (pediatric) E78.00 Pure hypercholesterolemia, u nspecified I34.0 Nonrheumatic mitral (valve) insufficiency I35.2 Nonrheumatic aortic (valve) stenosis with insufficiency Assessments Date Code Description Provider 02/18/2020 I25.10 Atherosclerotic heart disease of [place] coronary artery with Regina Dc, PA-C 12/18/2019 I25.10 Atherosclerotic heart disease of [place] coronary artery with Stress Nuclear/Reg Treadmill 12/18/2019 R94.31 Abnormal electrocardiogram [ECG] [EKG] Stress Nuclear/Reg Treadmill 12/18/2019 Z95.5 Presence of coronary angioplasty implant and graft Stress Nuclear/Reg Treadmill 12/04/2019 I35.2 Nonrheumatic aortic (valve) sten osis with insufficiency Guido Godinez MD 12/04/2019 I34.0 Nonrheumatic mitral (valve) insu fficiency Guido Godinez MD 12/04/2019 E78.00 Pure hypercholesterolemia, unspe cified Guido Godinez MD 12/04/2019 G47.33 Obstructive sleep apnea (adult) (pediatric) Guido Godinez MD 11/12/2019 I25.10 Atherosclerotic heart disease of [place] coronary artery with Regina Dc, PA-C 11/12/2019 Z95.5 Presence of coronary angioplasty implant and graft Regina Dc PA-C 11/12/2019 I11.9 Hypertensive heart disease witho ut heart failure Regina Dc PA-C 11/12/2019 I35.2 Nonrheumatic aortic (valve) sten osis with insufficiency AVE Gillespie-C 11/12/2019 I34.0 Nonrheumatic mitral (valve) insu fficiency Regina Dc, PA-C 11/12/2019 E78.00 Pure hypercholesterolemia, unspe cified Regina Dc, PA-C 11/12/2019 G47.33 Obstructive sleep apnea (adult) (pediatric) Regina Dc PA-C 11/12/2019 Z71.3 Dietary counseling and surveilla nce Regina cD, PA-C 11/05/2019 I35.2 Nonrheumatic aortic (valve) sten osis with insufficiency Guido Godniez MD 11/05/2019 I34.0 Nonrheumatic mitral (valve) insu fficiency Guido Godinez MD 11/05/2019 E78.00 Pure hypercholesterolemia, unspe cified Guido Godinez MD 11/05/2019 G47.33 Obstructive sleep apnea (adult) (pediatric) Guido Godinez MD 10/05/2019 G47.33 Obstructive sleep apnea (adult) (pediatric) Guido Godinez MD 10/05/2019 E78.00 Pure hypercholesterolemia, unspe cified Guido Godinez MD 10/05/2019 I34.0 Nonrheumatic mitral (valve) insu fficiency Guido Godinez MD 10/05/2019 I35.2 Nonrheumatic aortic (valve) sten osis with insufficiency Guido Godinez MD 08/30/2019 G47.33 Obstructive sleep apnea (adult) (pediatric) Guido Godinez MD 08/30/2019 E78.00 Pure hypercholesterolemia, unspe cified Guido Godinez MD 08/30/2019 I34.0 Nonrheumatic mitral (valve) insu fficiency Guido Godinez MD 08/30/2019 I35.2 Nonrheumatic aortic (valve) sten osis with insufficiency Guido Godinez MD Plan of Treatment Future Appointment(s):* 05/20/2020 11:30 am - Regina Dc PA-C at Main Office 02/18/2020 - Regina Dc PA-C* I25.10 Atherosclerotic heart disease of [place] coronary artery with* Recommendations:* Discuss SGLT-2 inhibitor (Jardiance or Farxiga) with your PCP at your next appointment, as these medications have been shown to reduce cardiovascular risk in patients with coronary artery disease and diabetes. * All * Follow up:* As scheduled in May. Functional Status Functional Condition Comment Date Status Independent with all ADL's Activ e Independent with ambulating ambulating with cane when outside of home Active Mental Status Description No Information Available Referrals Description No Information Available
--- OUTSIDE RECORDS SUMMARY | 2020-03-31 16:28 | CCD | Continuity of Care Document ---
Author Author Dalila TAVERAS MD Organization Unknown Address [address] [place] [address] [address] [place] [address] Phone [phone] Care Team Providers Care Playroom Attendant Name Role Phone [facility] [phone] Guido Godinez MD AUTM Direct, [facility] AUTM Unavailable 2-7 AUTM [phone] Problems Description No Information Available Social History Type Date Description Comments Sex Unknown Allergies, Adverse Reactions, Alerts Description No Information Available Medications Description No Information Available Immunizations Description No Information Available Vital Signs Description No Information Available Results Test Acquired Date Facility Test Result H/L Range Note Coronavirus 2019 Nasopharygeal 01/05/2020 [facility] Coronavirus 2019 Nasopharygeal This nucleic aci <SEE NOTE> 1 1 This nucleic acid amplificat ion test was developed and its performance characteristics determined by [employer]. Nucleic acid amplification tests include PCR and TMA. This test has not been FDA cleared or approved. This test has been authorized by FDA under an Emergency Use Authorization (EUA). This test is only authorized for the duration of time the declaration that circumstances exist justifying the authorization of the emergency use of in vitro diagnostic tests for detection of SARS-CoV-2 virus and/or diagnosis of COVID-19 infection under section 564(b)(1) of the Act, 21 U.S.C. 360bbb-3 (b) (1), unless the authorization is terminated or revoked sooner. When diagnostic testing is negative, the possibility of a false negative result should be considered in the context of a patient's recent exposures and the presence of clinical signs and symptoms consistent with COVID-19. An individual without symptoms of COVID-19 and who is not shedding SARS-CoV-2 virus would expect to have a negative (not detected) result in this assay. Performed at: [facility] [address], [place] [address] [id number] [employer] Instructor: Rylee Levy PhD, Phone: [phone] Not Detected Procedures Date Code Description Status 01/10/2020 32036 Left Heart Cath W/Wo LV & Frances ry Angiography Completed Medical Devices Description No Information Available Encounters Description No Information Available Assessments Date Code Description Provider 01/10/2020 R94.39 Abnormal result of other cardiov ascular function study Ryan Taveras MD 01/10/2020 I25.10 Atherosclerotic hear t disease of [place] coronary artery without angina pectoris Ryan Taveras MD 01/10/2020 R06.00 Dyspnea, unspecified Shirley Taveras MD 01/10/2020 I35.0 Nonrheumatic aortic (valve) sten osis Ryan Taveras MD Plan of Treatment No Information Available Functional Status Description No Information Available Mental Status Description No Information Available Referrals Description No Information Available
--- OUTSIDE RECORDS SUMMARY | 2020-03-31 16:28 | CCD ---
Author Author [email or web address] Organization [facility] [facility] Address Unknown Phone Unavailable Care Team Providers Care Hebrew Cantor Name Role Phone Lynette Bishop Unavailable PROBLEMS Type Condition ICD9-CM Code [id number] Code Onset Dates Condition S tatus W/U Status Risk SNOMED Code Notes Problem Essential hypertension I10 Active confirmed 10094522 Well controlled on current regimen of atenolol, lisinopril, spironolactone, HCTZ. No medication changes Problem Gout M10.9 Active confirmed 45868060 Well controlled on current regimen of allopurinol 100 mg a day. I advised Al that if she starts to get the beginning of a flare of gout, she can increase her allopurinol to 300 mg a day Problem Generalized osteoarthrosis, involving multiple sites M15.9 Active confirmed 536669694 Stable with [facility] with [facility] Problem Coronary atherosclerosis of [place] coronary artery I25.10 Active confirmed 9367928310144 Problem Asthma due to environmental allergies J45.909 Ac tive confirmed 707422423 Well controlled on current regimen of Du oNeb and Claritin as needed, no changes Problem Chronic respiratory condition due to fumes and vapors J68.4 Active confirmed 82940315 Problem Sacroiliac joint dysfunction M53.3 Active confirme d 488288701 Problem Other chronic pain G89.29 Active confirmed 8 4186065 Problem Pain in right hip M25.551 Active confirmed 4 4798218 We will obtain an x-ray of the [...] month to see if she's doing Problem Mixed hyperlipidemia E78.2 Active confirmed 202606691 Well controlled on current regimen Lipitor and fish oil. No medication changes Problem Intervertebral disc disorder with radiculopathy of lumbosacral region M51.17 Active confirmed 25993842 Problem Protrusion of lumbar intervertebral disc M51.26 Active confirmed 127100645 Problem Spondylosis of lumbosacral region without myelop athy or radiculopathy M47.817 Active confirmed 84085753 Problem Spinal stenosis of lumbosacral region M48.07 Ac tive confirmed 71122501 Problem Sacroiliitis, not elsewhere classified M46.1 A ctive confirmed 78795551 Problem Spondylosis of lumbar region without myelopathy or radiculopathy M47.816 Active confirmed 84224467 Problem Spinal stenosis of lumbar region with neurogenic nora ication M48.062 Active confirmed [id number] Problem Sacroiliitis M46.1 Active confirmed 1008043 9 Problem Actinic keratoses L57.0 Active confirmed 40 8333547 Problem Spondylosis without myelopathy or radiculopathy, lumbar region M47.816 Active confirmed 604362478 Problem Low back pain M54.5 Active confirmed 982345 007 Stable with therapy with [facility] Problem Obstructive sleep apnea G47.33 Active confirmed 47235905 She has been stable on this for more than 15 years, and is fully compliant. She needs a new mask, however, so I will send an order if that is needed Problem Type II or unspecified type diabetes mellitus without mention of complication, not stated as uncontrolled E11.9 Active confirm ed 58237298 Hemoglobin A1c has gone up to 7.2. Tracy will continue the metformin 500 mg twice a day and Januvia 50 mg once a day. 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 Active confirmed 350090806 Problem Lentigines L81.4 Active confirmed 222189569 Problem Spinal stenosis, lumbar region with neurogenic claudicatio n M48.062 Active confirmed 60436409 ALLERGIES Allergen (clinical drug ingredient) Drug/Non Drug Allergy do cumented on EMR Reaction Allergy Type Onset Date Status artificial sweeteners abdominal pain Non Drug Allergy Active minocycline Minocycline(NDC Code:[address]-66) Unknown Drug Aller gy Active lescol myalgia Non Drug Allergy Active ibuprofen Ibuprofen(NDC Code:[address]-56) heaviness in chest Drug Allergy Active naproxen Naproxen(NDC Code:[address]-05) ringing in ears Drug Sheldon rgy Active sitagliptin Januvia(NDC Code:[address]-59) Larger Doses - f atigue, weakness Drug Allergy Active advair paralyzed viocal cords Non Drug Allergy Active decongestants shaking on the inside, feels "unwell" Non D rug Allergy Active sulfamethoxazole / trimethoprim Bactrim([facility] Code:[address]-29) Hives Drug Allergy Active ENCOUNTERS from 1944 to 2020-03-29 Encounter Location Date Provider Diagnosis [facility] [address] [place] [address] 17 Mar, 2020 Hea ther Dario Obstructive sleep apnea G47.33 ; Mixed hyperlipidemia E78.2 ; Essential hypertension I10 ; Type II or unspecified type diabetes mellitus without mention of complication, not stated as uncontrolled E11.9 and Generalized osteoarthrosis, involving multiple sites M15.9 IMMUNIZATIONS Vaccine Route Administration Date Status Influenza 18 yrs & older Flublok Unknown Oct 12, 2018 Administered Zoster 50mcg/0.5mL Shingrix Unknown Mar 15, 2018 Admi nistered Zoster 50mcg/0.5mL Shingrix Unknown Jan 01, 2018 Admi nistered Influenza (High Dose 65 & up) Unknown Nov 01, 2017 Ad ministered Pneumococcal Adult 0.5mL Pneumovax 23 Unknown May 31, 2018 Administered TDAP 0.5mL (Boostrix) Unknown May 31, 2018 Administer ed Pneumococcal 0.5mL Prevnar 13 IM Intramuscular Feb 25, 2015 A dministered Influenza 6mo & up Fluzone Unknown Nov 03, 2016 Admin istered Influenza 6mo & up Fluzone IM Intramuscular Mar 30, 2010 Admi nistered SOCIAL HISTORY Tobacco Use: Social History Observation Description Date Details (start date - stop date) Never Smoker Sex Assigned At : Social History Observation Description Sex Assigned At Unknown Audit Question Answer Notes Total Score: 0 Interpretation: Alcohol Education Mormonism: Question Answer Notes Mormonism 06 Hindu Sexual Hx: Question Answer Notes Had sex [...] Notes Start Da te End Date Status Spironolactone 25 MG 1/2 tablet Orally Once a day Active CoQ10 1 capsule with a meal Orally Once a day Active Tramadol HCl 50 MG 1 Orally q8h prn for severe pain mdd3 for 30 day(s) Nov, Active Wellbutrin SR 150 MG 1 tablet Orally Once a day for 90 days Active Vitamin B Complex 1 tablet Orally Once a day Active Loperamide HCl 2 MG 2 caps at onset, then 1 cap q2h as needed, mdd=8 Orally as directed for 90 days Nov, Active Metformin HCl 500 MG 1 tablet with a meal Orally Twice a day Active Folic Acid 400 MCG 1 tablet Orally Once a day Active Januvia 50 MG 1 tablet Orally Once a day Active Aspirin 81 MG 2 TABS Orally Once a day Active Calcium Citrate 150 MG 1 cap Orally Twice a day Active Vitamin D3 5000 UNIT 1 capsule Orally Once a day Active Atenolol 50 MG 1 tablet Orally Once a day for 90 days Active Tylenol Extra Strength 500 MG 1 tablet as needed Orally every 6 hrs Active Loratadine 10 MG 1 tablet Orally Once a day for 30 day(s) Active EpiPen 2-Satya 0.3 MG/0.3ML (1:1000) as directed Intramu scular As needed for 90 day(s) Not-Taking Omeprazole 20 MG 1 capsule 30 minutes before morning meal Orally Once a day for 30 day(s) Active Lipitor 40 MG 1 tablet Orally Once a day for 90 days Active Allopurinol 100 MG 1 tablet Orally Once a day for 90 days Active Zinc 50 mg 1 tablet Orally Once a day Active Amber 500 MG 1 cap Orally twice a day Active Hydrochlorothiazide 25 mg 1 tablet Orally Once a day for 90 Active CPAP mask as directed G47.33, ANTWON Nightly for 365 days Mar, Active Lisinopril 2.5 MG 1 tablet Orally Once a day Active PROCEDURES No Information RESULTS No Results REASON FOR VISIT CPAP MEDICAL (GENERAL) HISTORY Type Description Date Medical History hypertension Medical History Coronary Artery Disease-Sept ember 2008-RST without reversibility Medical History mild aortic stenosis [...] No Information FUNCTIONAL STATUS No Information ASSESSMENTS Encounter Date Diagnosis Assessment Notes Treatment Notes Treatm ent Clinical Notes Mar, Obstructive sleep apnea (ICD-10 - G47.33 ) She has been stable on this for more than 15 years, and is fully compliant. She needs a new mask, however, so I will send an order if that is needed Mar, Mixed hyperlipidemia (ICD-10 - E78.2) Mar, Essential hypertension (ICD-10 - I10) Mar, Type II or unspecified type diabetes mellitus without mention of complication, not stated as uncontrolled (ICD-10 - E11.9) Mar, Generalized osteoarthrosis, involving multiple sites (ICD-10 - M15.9) PLAN OF TREATMENT Medication Medication Name Sig Start Date Stop Date CPAP mask as directed G47.33, ANTWON Nightly for 365 days Mar, Future Test Test Name Order Date Comprehensive Metabolic Profile (CMP) 20200508 HEMOGLOBIN A1c 20200508 LIPID PANEL (CARDIAC RISK) 20200508 VITAMIN D 25-HYDROXY 20200508 Next Appt Details as scheduled in 2 months Reason: Provider Name:Lynette Bishop, 6 08:30:00 AM, [address], [place], [address], Provider Name:Sammie Torres, 2020-05-15 10 :00:00 AM, [address] [place], [address], Insurance Providers Payer Name Payer Address Payer Phone Insured Name Patient Relati onship to Insured Coverage Start Date Coverage End Date [employer] [facility] CLAIM DIV [address] [facility] [phone] [place] MEDICARE Part A and B [address] [facility] [phone] [place]
--- OUTSIDE RECORDS SUMMARY | 2020-03-31 16:28 | CCD ---
Author Author [facility] [employer] [facility] Organization [facility] [employer] [facility] Address Unknown Phone Unavailable Care Team Providers Care Chicken Tender Name Role Phone Sammie Torres Unavailable PROBLEMS Type Condition ICD9-CM Code BJP92-UY Code Onset Dates Condition S tatus SNOMED Code Notes Problem Gout M10.9 Active 52073238 Well controlled on current regimen of allopurinol 100 mg a day. I advised Al that if she starts to get the beginning of a flare of gout, she can increase her allopurinol to 300 mg a day Problem Coronary atherosclerosis of [place] coronary artery I25.10 Active 3617919963897 Problem Essential hypertension I10 Active 31925307 Well controlled on current regimen of atenolol, lisinopril, spironolactone, HCTZ. No medication changes Problem Chronic respiratory condition due to fumes and vapors J68.4 Active 91979723 Problem Generalized osteoarthrosis, involving multiple sites M15.9 Active 019469065 Stable with therapy with [facility] Problem Other chronic pain G89.29 Active 10901840 Problem Sacroiliitis, not elsewhere classified M46.1 A ctive 36077064 Problem Mixed hyperlipidemia E78.2 Active 348813792 W ell controlled on current regimen Lipitor and fish oil. No medication changes Problem Generalized anxiety disorder F41.1 Active 218 60015 Well controlled on current regimen of Wellbutrin SR 150 mg, no medication changes Problem Protrusion of lumbar intervertebral disc M51.26 Active 541862344 Problem Pain in right hip M25.551 Active 20220660 We wi ll obtain an x-ray of the SI joints, [...] stenosis of lumbosacral region M48.07 Ac tive 83531572 Problem Intervertebral disc disorder with radiculopathy of lumbosacral region M51.17 Active 49670760 Problem Spondylosis of lumbar region without myelopathy or radiculopathy M47.816 Active 08818260 Problem Spondylosis of lumbosacral region without myelop athy or radiculopathy M47.817 Active 13746373 Problem Sacroiliac joint dysfunction M53.3 Active 202 105384 Problem Spinal stenosis of lumbar region with neurogenic nora ication M48.062 Active 498002846703706 Problem Sacroiliitis M46.1 Active 18893313 Problem Spinal stenosis, lumbar region with neurogenic claudicatio n M48.062 Active 17926078 Problem Type II or unspecified type diabetes mellitus without mention of complication, not stated as uncontrolled E11.9 Active 22648188 Hemoglobin A1c has gone up to 7.2. Tracy will continue the metformin 500 mg twice a day and Januvia 50 mg once a day. 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 Active 464733414 Problem Lentigines L81.4 Active 517671738 ALLERGIES Allergen (clinical drug ingredient) Drug/Non Drug Allergy do cumented on EMR Reaction Allergy Type Onset Date Status artificial sweeteners abdominal pain Non Drug Allergy Active minocycline Minocycline(NDC Code:[address]-92) Unknown Drug Aller gy Active lescol myalgia Non Drug Allergy Active ibuprofen Ibuprofen([facility]C Code:[address]-58) heaviness in chest Drug Allergy Active naproxen Naproxen([facility] Code:[address]-99) ringing in ears Drug Sheldon rgy Active sitagliptin Januvia([facility] Code:[address]-93) Larger Doses - f atigue, weakness Drug Allergy Active advair paralyzed viocal cords Non Drug Allergy Active decongestants shaking on the inside, feels "unwell" Non D rug Allergy Active sulfamethoxazole / trimethoprim Bactrim([facility] Code:[address]-22) Hives Drug Allergy Active ENCOUNTERS from 1944 to 2020-02-15 Encounter Location Date Provider Diagnosis [facility] [address] [place] [address] Feb, Sammie Torres Spondylosis of lumbosacral region withou t myelopathy or radiculopathy M47.817 IMMUNIZATIONS Vaccine Route Administration Date Status Influenza [...] Notes Total Score: 0 Interpretation: Alcohol Education Gnosticism: Question Answer Notes Gnosticism 06 Anabaptism Sexual Hx: Question Answer Notes Had sex [...] REASON FOR REFERRAL No Information VITAL SIGNS Weight 194.4 lbs Feb, Height 61 in Feb, BMI 36.73 kg/m2 Feb, Heart Rate 91 /min Feb, Respiratory Rate 18 /min Feb, Temperature 97.6 degrees Fahrenheit Feb, Oximetry 96% Feb, Blood pressure systolic 163 mm Hg Feb, Blood pressure diastolic 70 mm Hg Feb, MEDICATIONS Medication SIG (Take, Route, Frequency, Duration) [...] Information RESULTS No Results REASON FOR VISIT [facility] MED MANAGEMENT MEDICAL (GENERAL) HISTORY Type Description Date Medical [...] 11/2009 Surgical History Tonsillectomy & Adnoidectomy x2 195 Surgical History appendectomy 1956 Surgical History bunionectomy [...] Notes Treatment Notes Treatm ent Clinical Notes Feb, Spondylosis of lumbosacral r egion without myelopathy or radiculopathy (ICD-10 - M47.817) Continue home exercise and stretching. , ISTOP registry reviewed and demonstrates complliance. Recent urine toxicology reviewed. No unauthorized medications. No illicit substances and prescribed m edications were present. URINE TOX TODAY , Risks of narcotic/opiod medications includes but is not limited to risk of dependance/development of addiction, mood disturbance and depression, osteoporosis, hormonal and labidal changes, respiratory depression and . Patient is advised NOT to DRIVE or drink ALCOHOL while on these medications PLAN OF TREATMENT Medication Medication Name Sig Start Date Stop Date Tramadol HCl 50 MG 1 Orally q8h prn for severe pain mdd3 fo r 30 day(s) Nov, Treatment Notes Assessment Notes Clinical Notes Spondylosis of lumbosacral region without myelopathy o r radiculopathy Continue home exercise and stretching., ISTOP registry reviewed and demonstrates complliance. Recent urine toxicology reviewed. No unauthorized medications. No illicit substances and prescribed medications were present.URINE TOX TODAY, Risks of narcotic/opiod medications includes but is not limited to risk of dependance/development of addiction, mood disturbance and depression, osteoporosis, hormonal and labidal changes, respiratory depression and . Patient is advised NOT to DRIVE or drink ALCOHOL while on these medications Next Appt Details 3 Months Reason:MED MGMNT/REVIEW UTOX Provider Name:Eliecer Palmer, 2020-02 01:15:00 PM, [address] [place] [address], [facility], [place], [address], Provider Name:Lynette Bishop, 6 08:30:00 AM, [address], [place], [address], Provider Name:Sammiesherrie Torres, 2020-05-15 10 :00:00 AM, [address] [place] [address], [address], Follow Up:3 MonthsMED MGMNT/REVIEW UTOX Insurance Providers Payer Name Payer Address Payer Phone Insured Name Patient Relati onship to Insured Coverage Start Date Coverage End Date MEDICARE Part A and B [address] [facility] [phone] [place] [facility] HE[facility]ARE [facility] CLAIM DIV [address] [facility] [phone] [place]
--- OUTSIDE RECORDS SUMMARY | 2020-03-31 16:29 | CCD | Continuity of Care Document ---
Author Author Dalila GOIDNEZ MD Organization Unknown Address [address] [place] [address], [facility] [place] [address] Phone [phone] Care Team Providers Care Business Continuity Planning Director Name Role Phone Lynette Bishop AUTM [phone] Ramiro Velez MD AUTM [phone] Erica Gutierrez MD AUTM [phone] Sammie Torres Crna AUTM [phone] Problems Active Problems Provider Date Coronary arteriosclerosis TONY Rodriguez Onset: 04/15/2011 Patient post percutaneous transluminal coronary angiop lasty TONY Rodriguez Onset: 04/15/2011 Benign hypertensive heart disease without congestive h eart failure TONY Rodriguez Onset: 04/15/2011 Aortic valve disorder TONY Rodriguez Onset: 09/2011 Mitral valve disorder TONY Rodriguez Onset: 09/2011 Pure hypercholesterolemia TONY Rodriguez Onset: 04/15/2011 Obesity ONEIL Rodriguez-ZIA Onset: 04/14 Carotid artery occlusion Regina Quezada PA-C Onset: 016 Obstructive sleep apnea syndrome Regina Quezada PA-C Onset: 11/13/2012 Aortic valve stenosis with insufficiency CORTEZ Gillespie Onset: 11/25/2016 Dietary management surveillance Regina Quezada PA-C Onset: 11/25/2016 Social History Type Date Description Comments Sex Unknown Tobacco Use Start: Unknown Never Smoked Cigarettes ETOH Use Consumes Beer 2 annually Tobacco Use Start: Unknown Patient has never smoked Smoking Status Reviewed: 11/12/19 Patient has never smoked Exercise Type/Frequency Does housework twice a w [place] Exercise Type/Frequency Does gardening daily Exercise Type/Frequency [...] mouth every day Unknown 05/25/2016 Citracal Maximum [id number] Ta blets twice daily Unknown 05/25/2016 Nitrostat [...] E78.0 Anthony Correa MD 05/21/2014 I25.10 Co-Enzyme [id number] E [id number] Wafer 1 by mouth daily Unknown 09/27/2013 [...] Available Vital Signs Date Vital Result Comment 11/12/2019 9:51am Weight 188.00 lb Home Weight 188lb Height 62 inches 5'2" BMI (Body Mass Index) 34.4 kg/m2 Heart Rate 72 /min Regular Respiratory Rate 16 /min BP Systolic Right Arm 136 mmHg sitting, large cuf f BP Diastolic Right Arm 74 mmHg sitting, large cu ff BP Systolic Left Arm 134 mmHg sitting BP Diastolic Left Arm 70 mmHg sitting 05/11/2019 12:47pm Weight 190.00 lb Height 62 inches 5'2" BMI (Body Mass Index) 34.7 kg/m2 Heart Rate 69 /min BP Systolic Left Arm 154 mmHg Sitting with home B P cuff BP Diastolic Left Arm 70 mmHg Sitting with home BP cuff Results Test Acquired Date Facility Test Result H/L Range Note Basic Metabolic Profile 12/21/2019 [facility] [phone] Glucose, Fasting 136 mg/dL High 70-100 Blood [...] mg/dL Normal 8.8-10.2 CBC With Differential 12/21/2019 [facility] [phone] White Blood Count 7.5 10 Normal 4.0-10.0 [...] 36.0-66.0 Lymph % 22.0 % Low 24.0-44.0 [place] % 4.8 % Normal 0.0-5.0 Eos % 3.8 % High 0.0-3.0 Baso % 0.8 % Normal 0.0-1.0 Immature Granulocyte % 0.4 % Normal 0-3.0 Nucleated Red Blood Cell % 0.0 % Normal 0-0 Neutrophils # 5.1 10 Normal 1.5-8.5 Lymph # 1.7 10 Normal 1.5-5.0 [place] # 0.4 10 Normal 0.0-0.8 Eos # 0.3 10 Normal 0.0-0.5 Baso # 0.1 10 Normal 0.0-0.2 Comprehensive Metabolic Profil 11/07/2019 [facility] [phone] Glucose, Fasting 162 mg/dL High 70-100 Blood [...] Ratio 1.1 Low 1.2-2.2 Lipid Panel 11/07/2019 [facility] [phone] Triglycerides Level 115 mg/dL Normal <150 Cholesterol Level 159 mg/dL Normal <200 HDL Cholesterol 61 mg/dL Normal >40 LDL Cholesterol 75 mg/dL Normal <100 Non-HDL-C 98 mg/dL Normal Cholesterol Risk Ratio 2.606 Normal <5 Hemoglobin A1c 11/07/2019 [facility] [phone] Hemoglobin A1c 7.2 % Normal 3 Estimated Average Glucose 160 mg/dL High 60-110 1 Units are mL/min/1.73 m2 Chronic Kidney Disease Staging per NKF: Stage I & II GFR >=60 Normal to Mildly Decreased Stage III GFR 30-59 Moderately Decreased Stage IV GFR 15-29 Severely Decreased Stage V GFR <15 Very Little GFR Left ESRD GFR <15 on [employer] 2 Units are mL/min/1.73 m2 Chronic Kidney Disease Staging per NKF: Stage I & II GFR >=60 Normal to Mildly Decreased Stage III GFR 30-59 Moderately Decreased Stage IV GFR 15-29 Severely Decreased Stage V GFR <15 Very Little GFR Left ESRD GFR <15 on [employer] 3 REFERENCE RANGES: <=5.6% NORMAL 5.7-6.4% SUGGESTS IMPAIRED GLUCOSE META BOLISM/PREDIABETIC >= 6.5% ABNORMAL Procedures Date Code Description Status 12/18/2019 42005 Treadmill/Pharmacological [place] ring Completed 12/18/2019 00175 Myocardial Perfusion Spect Multi ple Completed 11/12/2019 72937 ECG 12-Lead Completed Medical Devices Description No Information Available Encounters Type Date Location Provider Dx Diagnosis Office Visit 12/04/2019 10:16a Main Office Guido Godinez MD I35.2 Nonrheumatic aortic (valve) stenosis with insufficiency I34.0 Nonrheumatic mitral (valve) insufficiency E78.00 Pure hypercholesterolemia, u nspecified G47.33 Obstructive sleep apnea (wilfred lt) (pediatric) Office Visit 11/12/2019 9:45a Main Office Regina Quezada PA-C I25.1 0 Athscl heart disease of [place] coronary artery w/o ang pctrs Z95.5 Presence [...] aortic (valve) stenosis with insufficiency Office Visit 07/31/2019 12:36p Main Office Guido Godinez MD G47.3 3 Obstructive sleep apnea (adult) (pediatric) E78.00 Pure hypercholesterolemia, u nspecified I34.0 Nonrheumatic mitral (valve) insufficiency I35.2 Nonrheumatic aortic (valve) stenosis with insufficiency Assessments Date Code Description Provider 12/18/2019 I25.10 Atherosclerotic heart disease of [place] coronary artery with Stress Nuclear/Reg Treadmill 12/18/2019 [...] MD 11/12/2019 I25.10 Atherosclerotic heart disease of [place] coronary artery with Regina Quezada, PA-C 11/12/2019 Z95.5 Presence of coronary angioplasty implant and graft Regina Quezada PA-C 11/12/2019 I11.9 Hypertensive heart disease witho ut heart failure Regina Quezada PA-C 11/12/2019 I35.2 Nonrheumatic aortic (valve) sten osis with insufficiency Regina Quezada PA-C 11/12/2019 I34.0 Nonrheumatic mitral (valve) insu fficiency Regina Quezada, PA-C 11/12/2019 E78.00 Pure hypercholesterolemia, unspe cified Regina Quezada, PA-C 11/12/2019 G47.33 Obstructive sleep apnea (adult) (pediatric) Regina Quezada PA-C 11/12/2019 Z71.3 Dietary counseling and surveilla nce Regina Quezada, PA-C 11/05/2019 I35.2 Nonrheumatic aortic (valve) sten osis with insufficiency Guido Godinez MD 11/05/2019 I34.0 Nonrheumatic mitral (valve) insu fficiency Guido Godinez MD 11/05/2019 E78.00 Pure hypercholesterolemia, unspe cified Guido Godinez MD 11/05/2019 G47.33 Obstructive sleep apnea (adult) (pediatric) Guido Godinez MD 10/05/2019 G47.33 Obstructive sleep apnea (adult) (pediatric) Guido Godinez MD 10/05/2019 E78.00 Pure hypercholesterolemia, unspe cified Guiod Godinez MD 10/05/2019 I34.0 Nonrheumatic mitral (valve) [...] sten osis with insufficiency Guido Godinez MD 07/31/2019 G47.33 Obstructive sleep apnea (adult) (pediatric) Guido Godinez MD 07/31/2019 E78.00 Pure hypercholesterolemia, unspe cified Guido Godinez MD 07/31/2019 I34.0 Nonrheumatic mitral (valve) insu fficiency Guido Godinez MD 07/31/2019 I35.2 Nonrheumatic aortic (valve) sten osis with insufficiency Guido Godinez MD Plan of Treatment Future Appointment(s):* 02/18/2020 11:15 am - Regina Quezada PA-C at Main Office * 05/15/2020 10:15 am - Regina Quezada PA-C at Main Office 11/12/2019 - Regina Quezada PA-C* I25.10 Atherosclerotic heart disease of [place] coronary artery with * Z95.5 Presence of coronary angioplasty implant and graft * I11.9 Hypertensive heart disease without heart failure * I35.2 Nonrheumatic aortic (valve) stenosis with insufficiency * I34.0 Nonrheumatic mitral (valve) insufficiency * E78.00 Pure hypercholesterolemia, unspecified * G47.33 Obstructive sleep apnea (adult) (pediatric) * Z71.3 Dietary counseling and surveillance* Recommendations:* Follow a low fat/low cholesterol diet and do as much aerobic exercise as you can tolerate. * All * Follow up:* 6 month follow up. Functional Status Functional Condition Comment Date Status Independent with all ADL's Activ e Independent with ambulating ambulating with cane when outside of home Active Mental Status Description No Information Available Referrals Description No Information Available
--- OUTSIDE RECORDS SUMMARY | 2020-03-31 16:29 | CCD ---
Author Author [facility] Organization [facility] Address Unknown Phone Unavailable Care Team Providers Care Custom Car Builder Name Role Phone RICKOL, Johanny DURANT MD Unavailable Unavailable ANTECOL, Johanny DURANT MD Unavailable Unavailable ANTECOL, Johanny DURANT MD Unavailable Unavailable ANTECOL, Johanny DURANT MD Unavailable Unavailable ANTECOL, Johanny DURANT MD Unavailable Unavailable ANTECOL, Johanny DURANT MD Unavailable Unavailable ANTECOL, Johanny DURANT MD Unavailable Unavailable ANTECOL, Johanny DURANT MD Unavailable Unavailable ANTECOLJohanny MD Unavailable Unavailable ANTECOLJohanny MD Unavailable Unavailable ANTECOLJohanny MD Unavailable Unavailable ANTECOLJohanny MD Unavailable Unavailable ANTECOLJohanny MD Unavailable Unavailable ANTECOLJohanny MD Unavailable Unavailable ANTECOLJohanny MD Unavailable Unavailable ANTECOLJohanny MD Unavailable Unavailable ANTECOLJohanny MD Unavailable Unavailable ANTECOLJohanny MD Unavailable Unavailable ANTECOLJohanny MD Unavailable Unavailable ANTECOLJohanny MD Unavailable Unavailable ANTECOLJohanny MD Unavailable Unavailable ANTECOLJohanny MD Unavailable Unavailable ANTECOLJohanny MD Unavailable Unavailable ANTECOLJohanny MD Unavailable Unavailable ANTECOLJohanny MD Unavailable Unavailable ANTECOLJohanny MD Unavailable Unavailable ANTECOLJohanny MD Unavailable Unavailable ANTECOLJohanny MD Unavailable Unavailable ANTECOLJohanny MD Unavailable Unavailable ANTECOLJohanny MD Unavailable Unavailable ANTECOLJohanny MD Unavailable Unavailable ANTECOLJohanny MD Unavailable Unavailable ANTECOL, Johanny DURANT MD Unavailable Unavailable ANTECOL, Johanny DURANT MD Unavailable Unavailable ANTECOL, Johanny DURANT MD Unavailable Unavailable ANTECOL, Johanny DURANT MD Unavailable Unavailable ANTECOL, Johanny DURANT MD Unavailable Unavailable ANTECOL, Johanny DURANT MD Unavailable Unavailable ANTECOL, Johanny DURANT MD Unavailable Unavailable ANTECOL, Johanny DURANT MD Unavailable Unavailable ANTECOL, Johanny DURANT MD Unavailable Unavailable ANTECOL, Johanny DURANT MD Unavailable Unavailable ANTECOL, Johanny DURANT MD Unavailable Unavailable ANTECOL, Johanny DURANT MD Unavailable Unavailable ANTECOL, Johanny DURANT MD Unavailable Unavailable ANTECOL, Johanny DURANT MD Unavailable Unavailable ANTECOL, Johanny DURANT MD Unavailable Unavailable ANTECOL, Johanny DURANT MD Unavailable Unavailable ANTECOL, Johanny DURANT MD Unavailable Unavailable ANTECOL, Johanny DURANT MD Unavailable Unavailable ANTECOL, Johanny DURANT MD Unavailable Unavailable ANTECOL, Johanny DURANT MD Unavailable Unavailable ANTECOL, Johanny DURANT MD Unavailable Unavailable ANTECOL, Johanny DURANT MD Unavailable Unavailable ANTECOL, Johanny DURANT MD Unavailable Unavailable Symenow, Lynn Regina PA Unavailable Unavailable Symenow, Lynn Regina PA Unavailable Unavailable Symenow, Lynn Regina PA Unavailable Unavailable Symenow, Lynn Regina PA Unavailable Unavailable Symenow, Lynn Regina PA Unavailable Unavailable Symenow, Lynn Regina PA Unavailable Unavailable Symenow, Lynn Regina PA Unavailable Unavailable Symenow, Lynn Regina PA Unavailable Unavailable Symenow, Lynn Regina PA Unavailable Unavailable Symenow, Lynn Regina PA Unavailable Unavailable Symenow, Lynn Regina PA Unavailable Unavailable Symenow, Lynn Regina PA Unavailable Unavailable Symenow, Lynn Regina PA Unavailable Unavailable Symenow, Lynn Regina PA Unavailable Unavailable Symenow, Lynn Regina PA Unavailable Unavailable Symenow, Lynn Regina PA Unavailable Unavailable Symenow, Lynn Regina PA Unavailable Unavailable Symenow, Lynn Regina PA Unavailable Unavailable Symenow, Lynn Regina PA Unavailable Unavailable Symenow, Lynn Regina PA Unavailable Unavailable Symenow, Lynn Regina PA Unavailable Unavailable Symenow, Lynn Regina PA Unavailable Unavailable Symenow, Lynn Regina PA Unavailable Unavailable Symenow, Lynn Regina PA Unavailable Unavailable Symenow, Lynn Regina PA Unavailable Unavailable Symenow, Lynn Regina PA Unavailable Unavailable Symenow, Lynn Regina PA Unavailable Unavailable Symenow, Lynn Regina PA Unavailable Unavailable Symenow, Lynn Regina PA Unavailable Unavailable Symenow, Lynn Regina PA Unavailable Unavailable Symenow, Lynn Regina PA Unavailable Unavailable Symenow, Lynn Regina PA Unavailable Unavailable Symenow, Lynn Regina PA Unavailable Unavailable Symenow, Lynn Regina PA Unavailable Unavailable Symenow, Lynn Regina PA Unavailable Unavailable Symenow, Lynn Regina PA Unavailable Unavailable Symenow, Lynn Regina PA Unavailable Unavailable Symenow, Lynn Regina PA Unavailable Unavailable Symenow, Lynn Regina PA Unavailable Unavailable Symenow, Lynn Regina PA Unavailable Unavailable Symenow, Lynn Regina PA Unavailable Unavailable Symenow, Lynn Regina PA Unavailable Unavailable Symenow, Lynn Regina PA Unavailable Unavailable Symenow, Lynn Regina PA Unavailable Unavailable Symenow, Lynn Regina PA Unavailable Unavailable Symenow, Lynn Regina PA Unavailable Unavailable Symenow, Lynn Regina PA Unavailable Unavailable Symenow, Lynn Regina PA Unavailable Unavailable Symenow, Lynn Regina PA Unavailable Unavailable Symenow, Lynn Regina PA Unavailable Unavailable Symenow, Lynn Regina PA Unavailable Unavailable Symenow, Lynn Regina PA Unavailable Unavailable Symenow, Lynn Regina PA Unavailable Unavailable Symenow, Lynn Regina PA Unavailable Unavailable Symenow, Lynn Regina PA Unavailable Unavailable Symenow, Lynn Regina PA Unavailable Unavailable Symenow, Lynn Regina PA Unavailable Unavailable Symenow, Lynn Regina PA Unavailable Unavailable Symenow, Lynn Regina PA Unavailable Unavailable Symenow, Lynn Regina PA Unavailable Unavailable Symenow, Lynn Regina PA Unavailable Unavailable Symenow, Lynn Regina PA Unavailable Unavailable Symenow, Lynn Regina PA Unavailable Unavailable Symenow, Lynn Regina PA Unavailable Unavailable Symenow, Lynn Regina PA Unavailable Unavailable Symenow, Lynn Regina PA Unavailable Unavailable Symenow, Lynn Regina PA Unavailable Unavailable Symenow, Lynn Regina PA Unavailable Unavailable Symenow, Lynn Regina PA Unavailable Unavailable Symenow, Lynn Regina PA Unavailable Unavailable Symenow, Lynn Regina PA Unavailable Unavailable Symenow, Lynn Regina PA Unavailable Unavailable RUDY, S AYMAN MD Unavailable Unavailable RUDY S AYMAN MD Unavailable Unavailable RUDY S AYMAN MD Unavailable Unavailable RUDY, S AYELIZABETH MD Unavailable Unavailable RUDY, S AYMAN MD Unavailable Unavailable RUDY, S AYELIZABETH PINEDA Unavailable Unavailable RUDY S AYMAN MD Unavailable Unavailable RUDY, S AYMAN MD Unavailable Unavailable RUDY, S AYELIZABETH MD Unavailable Unavailable RUDY, S AYELIZABETH MD Unavailable Unavailable RUDY, S AYELIZABETH PINEDA Unavailable Unavailable RUDY, S AYELIZABETH MD Unavailable Unavailable RUDY, S AYELIZABETH MD Unavailable Unavailable RUDY, S AYMAN MD Unavailable Unavailable RUDY, S AYELIZABETH PINEDA Unavailable Unavailable RUDY, S AYELIZABETH MD Unavailable Unavailable RUDY, S AYELIZABETH PINEDA Unavailable Unavailable RUDY S AYMAN MD Unavailable Unavailable RUDY, S AYELIZABETH MD Unavailable Unavailable RUDY, S AYMAN MD Unavailable Unavailable RUDY, S AYELIZABETH PINEDA Unavailable Unavailable RUDY, S AYELIZABETH MD Unavailable Unavailable RUDY, S AYELIZABETH MD Unavailable Unavailable RUDY S AYMAN MD Unavailable Unavailable RUDY, S AYMAN MD Unavailable Unavailable RUDY S AYMAN MD Unavailable Unavailable RUDY, S AYMAN MD Unavailable Unavailable RUDY, S AYMAN MD Unavailable Unavailable RUDY, S AYMAN MD Unavailable Unavailable RUDY S AYMAN MD Unavailable Unavailable RUDY, S AYMAN MD Unavailable Unavailable RUDY, S AYMAN MD Unavailable Unavailable RUDY, S AYMAN MD Unavailable Unavailable RUDY, S AYMAN MD Unavailable Unavailable RUDY, S AYMAN MD Unavailable Unavailable RUDY, S AYMAN MD Unavailable Unavailable RUDY, S AYMAN MD Unavailable Unavailable RUDY, S AYMAN MD Unavailable Unavailable RUDY, S AYMAN MD Unavailable Unavailable RUDY, S AYMAN MD Unavailable Unavailable RUDY, S AYMAN MD Unavailable Unavailable RUDY, S AYMAN MD Unavailable Unavailable RUDY, S AYMAN MD Unavailable Unavailable RUDY, S AYMAN MD Unavailable Unavailable RUDY, S AYMAN MD Unavailable Unavailable RUDY, S AYMAN MD Unavailable Unavailable RUDY, S AYMAN MD Unavailable Unavailable RUDY, S AYMAN MD Unavailable Unavailable RUDY, S AYMAN MD Unavailable Unavailable RUDY, S AYMAN MD Unavailable Unavailable RUDY, S AYMAN MD Unavailable Unavailable RUDY, S AYMAN MD Unavailable Unavailable RUDY, S AYMAN MD Unavailable Unavailable RUDY, S AYMAN MD Unavailable Unavailable RUDY, S AYMAN MD Unavailable Unavailable RUDY, S AYMAN MD Unavailable Unavailable RUDY, S AYMAN MD Unavailable Unavailable RUDY, S AYMAN MD Unavailable Unavailable RUDY, S AYMAN MD Unavailable Unavailable RUDY, S AYMAN MD Unavailable Unavailable RUDY, S AYMAN MD Unavailable Unavailable RUDY, S AYMAN MD Unavailable Unavailable RUDY, S AYMAN MD Unavailable Unavailable RUDY, S AYMAN MD Unavailable Unavailable RUDY, S AYMAN MD Unavailable Unavailable RUDY, S AYMAN MD Unavailable Unavailable RUDY, S AYMAN MD Unavailable Unavailable RUDY, S AYMAN MD Unavailable Unavailable RUDY, S AYMAN MD Unavailable Unavailable RUDY, S AYMAN MD Unavailable Unavailable RUDY, S AYMAN MD Unavailable Unavailable RUDY, S AYMAN MD Unavailable Unavailable RUDY, S AYMAN MD Unavailable Unavailable RUDY, S AYMAN MD Unavailable Unavailable RUDY, S AYMAN MD Unavailable Unavailable RUDY, S AYMAN MD Unavailable Unavailable RUDY, S AYMAN MD Unavailable Unavailable RUDY, S AYMAN MD Unavailable Unavailable RUDY, S AYMAN MD Unavailable Unavailable RUDY, S AYMAN MD Unavailable Unavailable RUDY, S AYMAN MD Unavailable Unavailable Musa TAVERAS MD Unavailable Unavailable Re-disclosure Warning The records that you are about to access may contain information from federally-assisted alcohol or drug abuse programs. If such information is present, then the following federally mandated warning applies: This information has been disclosed to you from records protected by federal confidentiality rules (42 CFR part 2). The federal rules prohibit you from making any further disclosure of this information unless further disclosure is expressly permitted by the written consent of the person to whom it pertains or as otherwise permitted by 42 CFR part 2. A general authorization for the release of medical or other information is NOT sufficient for this purpose. The Federal rules restrict any use of the information to criminally investigate or prosecute any alcohol or drug abuse patient.The records that you are about to access may contain highly sensitive health information, the redisclosure of which is protected by Article 27-F of the [facility] Public Health law. If you continue you may have access to information: Regarding HIV / AIDS; Provided by facilities licensed or operated by the [facility] Office of Mental Health; or Provided by the [facility] Office for People With Developmental Disabilities. If such information is present, then the following [facility] mandated warning applies: This information has been disclosed to you from confidential records which are protected by state law. State law prohibits you from making any further disclosure of this information without the specific written consent of the person to whom it pertains, or as otherwise permitted by law. Any unauthorized further disclosure in violation of state law may result in a fine or long-term sentence or both. A general authorization for the release of medical or other information is NOT sufficient authorization for further disc losure. Allergies and Adverse Reactions Type Description Substance Reaction Status Data Source(s ) Propensity to adverse reactions SULFA ANTIBIOTICS Sulfa Antibiotics Active [facility] Propensity to adverse reactions PSEUDOEPHEDRINE HCL Pseudoephedrine Hcl Active [facility] Propensity to adverse reactions NIACIN AND RELATED Niacin And Relat ed Rash Low Active [facility] Low Propensity to adverse reactions IBUPROFEN Ibuprofen Acti ve [facility] Propensity to adverse reactions MINOCYCLINE Minocycline Ac tive [facility] Propensity to adverse reactions FLUVASTATIN fluvastatin Ac tive [facility] Propensity to adverse reactions FLUTICASONE-SALMETEROL Fluticasone- Salmeterol Active [facility] Drug allergy Bactrim sulfamethoxazole / trimethoprim Hives Ac tive eCW1 ([facility]) Drug allergy Januvia sitagliptin Larger Doses - fatigue, weakness Active eCW1 ([facility]) Drug allergy Naproxen Naproxen ringing in ears Active eCW1 ( [facility]) Drug allergy Ibuprofen Ibuprofen heaviness in chest Active eCW 1 ([facility]) Drug allergy Minocycline Minocycline Unknown Active eCW1 ([facility]) artificial sweeteners artificial sweeteners artificial sweetener s abdominal pain Active eCW1 ([facility]) lescol lescol fluvastatin 40 MG Oral Capsule [Lescol] myalgia Active eCW1 ([facility]) 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 e CW1 ([facility]) decongestants decongestants decongestants shaking on the inside, feels "unwell" Active eCW1 ([facility]) artificial sweeteners artificial sweeteners artificial sweetener s abdominal pain Active eCW1 ([facility]) lescol lescol fluvastatin 40 MG Oral Capsule [Lescol] myalgia Active eCW1 ([facility]) 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 e CW1 ([facility]) decongestants decongestants decongestants shaking on the inside, feels "unwell" Active eCW1 ([facility]) lescol lescol fluvastatin 40 MG Oral Capsule [Lescol] myalgia Active eCW1 ([facility]) 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 e CW1 ([facility]) decongestants decongestants decongestants shaking on the inside, feels "unwell" Active eCW1 ([facility]) artificial sweeteners artificial sweeteners artificial sweetener s abdominal pain Active eCW1 ([facility]) lescol lescol fluvastatin 40 MG Oral Capsule [Lescol] myalgia Active eCW1 ([facility]) 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 e CW1 ([facility]) decongestants decongestants decongestants shaking on the inside, feels "unwell" Active eCW1 ([facility]) lescol lescol fluvastatin 40 MG Oral Capsule [Lescol] myalgia Active eCW1 ([facility]) 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 e CW1 ([facility]) decongestants decongestants decongestants shaking on the inside, feels "unwell" Active eCW1 ([facility]) Family History Family Member Name Family Member Gender Family Member Status Date o f Status Description Data Source(s) Unknown Unknown Problem MEDENT ([facility]) Unknown Female Problem MEDENT ([facility]) Encounters Encounter Providers Location Date Indications Data Source(s ) TeleMedicine Phone E/M by Phys 21-30 Min [address] [place] [address] 03/26/2020 12:00:00 AM EST eCW1 ([facility]) Unknown [address] [facility], [facility] [phone] 03/17/2020 12:00:00 AM EST eCW1 ([facility]) Outpatient Attender: Regina DORADO Main Office 02/18/2020 10:15:00 AM EST MEDENT ([facility]) Outpatient [address] [place] [address] 02/13/2020 12:00:00 AM EST eCW1 ([facility]) Outpatient Attender: RYAN TAVERAS MDAdmitter: RYAN GUZMÁN MD [email or web address] 01/10/2020 10:28:00 AM EST - 01/10/2020 06:14:[address] [facility] Patient discharged. Office Visit Attender: BHARGAV NATARAJAN MD Main Office 12/04/2019 10: 16:00 AM EDT MEDENT ([facility]) Unknown [address] [facility] [address] 11/30/2019 12:00:00 AM EDT eCW1 ([facility]) [place] [address] [facility] [address] 11/27/2019 12:00:00 AM EDT eCW1 ([facility]) [place] [address] [facility] [address] 11/14/2019 12:00:00 AM EDT eCW1 ([facility]) Outpatient [address] [facility] [place] [address] 11/13/2019 12:00:00 AM EDT eCW1 ([facility]) Unknown [address] [facility] [place] [address] 11/13/2019 12:00:00 AM EDT eCW1 ([facility]) Outpatient Attender: Regina DORADO Main Office 11/12/2019 09:45:00 AM EDT MEDENT ([facility]) Office Visit Attender: BHARGAV NATARAJAN MD Main Office 11/05/2019 03: 53:00 PM EDT MEDENT ([facility]) [place] [address] [facility] [address] 10/30/2019 12:00:00 AM EDT eCW1 ([facility]) Unknown [address] [facility] [place] [address] 10/30/2019 12:00:00 AM EDT eCW1 ([facility]) Office Visit Attender: BHARGAV NATARAJAN MD Main Office 10/05/2019 08: 53:00 AM EDT MEDENT ([facility]) [facility] [address] [place] [address] 09/26/2019 12:00:00 AM EDT eCW1 ([facility]) [facility] [place] [address] [place] [address] 09/11/2019 12:00:00 AM EDT eCW1 ([facility]) Office Visit Attender: BHARGAV NATARAJAN MD Main Office 08/30/2019 01: 06:00 PM EDT MEDENT ([facility]) Office Visit Attender: BHARGAV NATARAJAN MD Main Office 07/31/2019 12: 36:00 PM EDT MEDENT ([facility]) [facility] [address] [place] [phone] 07/26/2019 12:00:00 AM EDT eCW1 ([facility]) Outpatient [address] [place] [phone] 07/10/2019 12:00:00 AM EDT [facility]CW1 [facility]) Office Visit Attender: BHARGAV NATARAJAN MD Main Office 06/28/2019 10: 21:00 AM EDT MEDENT ([facility]) [facility] [place] [address] [place] [phone] 06/28/2019 12:00:00 AM EDT eCW1 ([facility]) Outpatient Referrer: Regina DORADO 06/25/2019 10:41:00 A M EDT [facility] [address] [place] [phone] 06/21/2019 12:00:00 AM EDT eCW1 ([facility]) [facility] [address] [place] [phone] 06/20/2019 12:00:00 AM EDT eCW1 ([facility]) [facility] [address] [place] [phone] 06/05/2019 12:00:00 AM EDT eCW1 [facility] [place] Office Visit Attender: BHARGAV NATARAJAN MD Main Office 06/04/2019 02: 58:00 PM EDT MEDENT ([facility]) Outpatient Attender: Regina DORADO Main Office 05/11/2019 11:30:00 AM EDT MEDENT ([facility]) [facility] [address] [place] [phone] 05/09/2019 12:00:00 AM EDT eCW1 ([facility]) [facility] [address] [place] [phone] 04/26/2019 12:00:00 AM EDT eCW1 ([facility]) [facility] [place] [address] [place] [address] 04/25/2019 12:00:00 AM EDT eCW1 ([facility]) [facility] [place] [address] [place] [place] [address] 04/24/2019 12:00:00 AM EDT eCW1 ([facility]) [facility] [address] [place] [phone] 04/23/2019 12:00:00 AM EDT eCW1 ([facility]) Outpatient Referrer: Regina DROADO 04/12/2019 03:12:00 P M EST [facility] [place] [address] [place] [phone] 04/10/2019 12:00:00 AM EST eCW1 ([facility]) [facility] [address] [place] [phone] 04/10/2019 12:00:00 AM EST eCW1 ([facility]) [facility] [address] [place] [phone] 03/29/2019 12:00:00 AM EST eCW1 ([facility]) [facility] [place] [address] [place] [phone] 03/15/2019 12:00:00 AM EST eCW1 ([facility]) [facility] [place] [address] [place] [phone] 03/13/2019 12:00:00 AM EST eCW1 ([facility]) Outpatient Referrer: Regina DORADO 03/09/2019 03:40:00 P M EST [facility] [address] [place] [phone] 03/06/2019 12:00:00 AM EST eCW1 ([facility]) [facility] [address] [place] [phone] 03/02/2019 12:00:00 AM EST eCW1 ([facility]) [facility] [address] [place] [phone] 02/13/2019 12:00:00 AM EST eCW1 ([facility]) [facility] [address] [place] [phone] 02/08/2019 12:00:00 AM EST eCW1 ([facility]) Outpatient 12/08/2017 12:00:00 AM EDT - 12/08/2017 11:59:00 PM EDT [facility] Patient discharged. Immunizations Vaccine Date Status Description Data Source(s) COVID-19 VACCINE, MRNA-[id number], LNP-S (MODERNA)/PF 03/26/2020 1 2:00:00 AM EST completed [facility] Medications Medication Brand Name Start Date Product Form Dose Route Admi nistrative Instructions Pharmacy Instructions Status Indications Reaction Description Data Source(s) CPAP mask UNK 03/26/2020 12:00:00 AM EST active CPAP mask eCW1 ([facility]) iopamidol ([id number]-[id number]) 76 % [id number] 01/10/2020 02:39:21 PM EST active As needed, Starting Chioma 01/10/20 at 1439, Intra-Procedu re [facility] Medication administered onsite normal saline flush 0.9 % injection 3 mL 21174-868-12 01/10/2020 02:00:00 PM EST 3 mL Intravenous active 3 mL , Intravenous, Every 8 hours (scheduled), First dose on Chioma 01/10/20 at 1400, Pre-op
Rapid push positive pressure flushing shall be performed with a 10 cc normal saline syringe to check the PATENCY of a PIV site prior to any infusion therapy initiation unless resistance is met.
[facility] Medication administered onsite normal saline flush 0.9 % injection 3 mL 12149-657-09 01/10/2020 02:00:00 PM EST 3 mL Intravenous active 3 mL , Intravenous, PROTOCOL, First dose on Chi[place] 01/10/20 at 1400, Pre-op
flush per protocol, D/C Main IV fluid if appropriate
[facility] Medication administered onsite 1 ML heparin sodium, porcine 1000 UNT/ML Injection hep clayton (porcine) injection heparin (porcine) injection 01/10/2020 01:56:26 PM EST active As needed, Starting Chioma 01/10/20 at 1356, Intra-Procedure [facility] [facility] Medication administered onsite 4 ML Verapamil hydrochloride 2.5 MG/ML Injection verap jasen (ISOPTIN) injection verapamil (ISOPTIN) injection 01/10/2020 01:56:16 PM EST active As needed, Starting Chioma 01/10/20 at 1356, Intra-Procedure [facility] Medication administered onsite lidocaine 1 % injection [id number] 01/10/2020 01:55:48 PM EST active As needed, Starting Chioma 01/10/20 at 1355, Intra-Procedure [facility] Medication administered onsite fentaNYL Citrate (PF) (SUBLIMAZE) injection [id number] 01/10/2020 01:54:56 PM EST active As neede d, Starting Chioma 01/10/20 at 1354, Intra-Procedure [facility] Medication administered onsite 2 ML Midazolam 1 MG/ML Injection midazolam (VERSED) in jection midazolam (VERSED) injection 01/10/2020 01:54:42 PM EST active As needed, Starting Chioma 01/10/20 at 1354, Intra-Procedure [facility] Medication administered onsite sodium chloride 0.9% (NS) infusion [id number] 01/10/2020 12:00:00 PM EST 100 mL/h Intravenous active at 100 m L/hr, 100 mL/hr, Intravenous, Continuous, Starting Chioma 01/10/20 at 1200, Pre-op
Start two hours prior to scheduled start time
[facility] Medication administered onsite Acetaminophen 325 MG Oral Tablet acetaminophen (TYLENO L) 325 MG tablet 650 mg acetaminophen (TYLENOL) 325 MG tablet 650 mg 01/10/2020 11:27:45 AM EST 650 mg Oral active 650 mg, Or al, Every 4 hours PRN, headaches, and non cardiac pain, Starting Chioma 01/10/20 at 1127, Pre-op
"Maximum dose of acetaminophen is 4,000 mg from all sources in 24 hours."
[facility] Medication administered onsite Aspirin 81 MG Delayed Release Oral Tablet Aspirin 81 2019 12:00:00 AM EST ORAL active MED[facility] ( [facility]) Ticagrelor 90 MG Oral Tablet [Brilinta] Brilinta 12/20/2019 12:00:0 0 AM EST ORAL completed [facility] ([facility]) Loperamide Hydrochloride 2 MG Oral Capsule Loperamide HCl 2 MG Loperamide HCl 2 MG 11/13/2019 12:00:00 AM EDT active Loperamide HCl 2 MG eCW1 ([facility]) Loperamide Hydrochloride 2 MG Oral Capsule Loperamide HCl 2 MG Loperamide HCl 2 MG 11/13/2019 12:00:00 AM EDT active Loperamide HCl 2 MG eCW1 ([facility]) Loperamide Hydrochloride 2 MG Oral Capsule Loperamide HCl 2 MG Loperamide HCl 2 MG 11/13/2019 12:00:00 AM EDT active Loperamide HCl 2 MG eCW1 ([facility]) Loperamide Hydrochloride 2 MG Oral Capsule Loperamide HCl 2 MG Loperamide HCl 2 MG 11/13/2019 12:00:00 AM EDT active Loperamide HCl 2 MG eCW1 ([facility]) Loperamide Hydrochloride 2 MG Oral Capsule Loperamide HCl 2 MG Loperamide HCl 2 MG 11/13/2019 12:00:00 AM EDT active Loperamide HCl 2 MG eCW1 ([facility]) Loperamide Hydrochloride 2 MG Oral Capsule Loperamide HCl 2 MG Loperamide HCl 2 MG 11/13/2019 12:00:00 AM EDT active Loperamide HCl 2 MG eCW1 ([facility]) Loperamide Hydrochloride 2 MG Oral Capsule Loperamide HCl 2 MG Loperamide HCl 2 MG 11/13/2019 12:00:00 AM EDT active Loperamide HCl 2 MG eCW1 ([facility]) Loperamide Hydrochloride 2 MG Oral Capsule Loperamide HCl 2 MG Loperamide HCl 2 MG 11/13/2019 12:00:00 AM EDT active Loperamide HCl 2 MG eCW1 ([facility]) Omeprazole 20 MG Delayed Release Oral Capsule Omeprazole 11/11/2019 12:00:00 AM EDT ORAL active [facility] ([facility]) tramadol hydrochloride 50 MG Oral Tablet Tramadol HCL 11/11/2019 12:00:00 AM EDT ORAL active [facility] ([facility]) sitagliptin 50 MG Oral Tablet [Januvia] Januvia 11/11/2019 12:00:0 0 AM EDT ORAL active [facility] ([facility]) methylsulfonylmethane 1000 MG Oral Capsule MSM 11/11/2019 12:0 0:00 AM EDT ORAL active [facility] ([facility]) Loperamide Hydrochloride 2 MG Oral Capsule Anti-Diarrheal 11/11/2019 12:00:00 AM EDT ORAL active [facility] ([facility]) Milk Thistle 11/11/2019 12:00:00 AM EDT ORAL activ e [facility] ([facility]) Omeprazole 40 MG Delayed Release Oral Capsule Omeprazole 05/09/2019 12:00:00 AM EDT ORAL active [facility] ([facility]) mary ann root 250 MG Oral Capsule Mary Ann Root 05/09/2019 12:00:00 AM EDT ORAL active [facility] ([facility]) Insurance Providers Payer name Policy type / Coverage type Policy ID Covered alliance party ID Covered alliance party's relationship to ryan Policy Ryan Plan Information MEDICARE [id number] SP [id number] [facility] HEALTH CARE OPTIONS [id number] SP [id number] [facility] [id number] MEDICARE [id number] MEDICARE [id number] Deepthi [id number] A31 [facility] [id number] Deepthi [id number] MEDICARE C [id number] S [id number] [facility] O [id number] S [id number] SELF PAY AARP HE[employer]CARE OPTIONS [id number] SP [id number] MEDICARE [id number] SP [id number] MEDICARE [id number] SP [id number] A ANSI-Commercial [id number] ANSI-Medicare Part B [id number] ANSI-Medicare Part B [id number] ANSI-Commercial [id number] ANSI-Commercial [id number] ANSI-Medicare Part B [id number] SELF PAY AARP HEALTHCARE OPTIONS [id number] MEDICARE [id number] SP [id number] [facility] Medigap Part B [id number] Self [id number] Medicare (Part B) Medicare Primary [id number] Self [id number] [employer] Medigap Part B [id number] Self [id number] [place] [facility] Medigap Part B [id number] Self [id number] [facility] Medigap Part B [id number] Self [id number] Medicare (Part B) Medicare Primary [id number] Self [id number] ANSI-Commercial [id number] ANSI-Medicare Part B [id number] ANSI-Medicare Part B [id number] ANSI-Commercial [id number] ANSI-Commercial [id number] ANSI-Medicare Part B [id number] SELF PAY AARP HEALTHCARE OPTIONS [id number] SP [id number] MEDICARE [id number] SP [id number] SELF PAY AARP HEALTHCARE OPTIONS [id number] SP [id number] MEDICARE [id number] SP [id number] A31 SELF PAY SP SELF PAY UNAVAILABLE SP UNAVAILA BLE [facility] Part B [id number] Self [id number] Medicare (Part B) Medicare Primary [id number] Self [id number] ANSI-Medicare Part B [id number] ANSI-Commercial [id number] ANSI-Medicare Part B [id number] ANSI-Commercial [id number] ANSI-Medicare Part B [id number] ANSI-Commercial [id number] MEDICARE C [id number] S [id number] A [facility] Medigap Part B [id number] Self [id number] Medicare (Part B) Medicare Primary [id number] Self [id number] AARP HE[employer] CARE OPTIONS [id number] SP [id number] MEDICARE [id number] SP [id number] A [employer] HE[employer]CARE OPTIONS [id number] SP [id number] MEDICARE [id number] SP [id number] A [facility] Medigap Part B [id number] Self [id number] Medicare (Part B) Medicare Primary [id number] Self [id number] AARP HE[employer]CARE OPTIONS UNAVAILABLE SP UNAVAILABLE MEDICARE [id number] A [facility] Medigap Part B [id number] Self [id number] Medicare (Part B) Medicare Primary [id number] Self [id number] AARP HE[employer] CARE OPTIONS [id number] SP [id number] [facility] Medigap Part B [place] Self AARP HEALTHCARE OPTIONS [id number] SP [id number] Medicare (Part B) Medicare Primary Self United Healthcare Medigap Part B Self United Healthcare Medigap Part B Self [facility] Medigap Part B Self Medicare Medicare Primary Self Aarp Medigap Part B Self [place] Primary Self [employer]AR [employer] CARE OPTIONS [id number] A Problems, Conditions, and Diagnoses Code Display Name Description Problem Type Effective Dates Data Source(s) G47.33 [id number] Obstructive sleep apnea Problem 03/26/2020 1 2:00:00 AM EST eCW1 ([facility]) M48.062 [id number] Spinal stenosis, lumbar region w ith neurogenic claudication Problem 03/08/2019 12:00:00 AM EST eCW1 ([facility]) M47.816 [id number] Spondylosis without myelopathy or radiculopathy, lumbar region Problem 03/08/2019 12:00:00 AM EST eCW1 ([facility]) I34.0 Nonrheumatic mitral (valve) insufficienc y Nonrheumatic mitral (valve) insufficienc Diagnosis 01/10/2020 10:28:[address] [facility] I35.2 Nonrheumatic aortic (valve) stenosis wit h insufficiency Nonrheumatic aortic (valve) stenosis wit Diagnosis 01/10/2020 10:28:00 AM EST [facility] R94.39 Abnormal result of other cardiovascular function study Abnormal result of other cardiovascular Diagnosis 01/10/2020 10:28:00 AM EST [facility] I25.10 Atherosclerotic heart diseas e of [place] coronary artery without angina pectoris Atherosclerotic heart disease of [place] Diagnosis 01/10/2020 10:28:[address] [facility] Surgeries/Procedures Procedure Description Date Indications Data Source(s) CARDIAC CATHETERIZATION CARDIAC CATHETERIZATION Routine 01/10/2020 2:36 PM EST Coronary atherosclerosis of [place] coronary artery Abnormal result of other cardiovascular function study Nonrheumatic aortic (valve) stenosis with insufficiency Nonrheumatic mitral (valve) insufficiency 01/10/2020 07:36:4 8 PM EST Nonrheumatic mitral (valve) insufficiencyNonrheumatic aortic (valve) stenosis with insufficiencyAbnormal result of other cardiovascular function studyCoronary atherosclerosis of [place] coronary artery [facility] Nonrheumatic mitral (valve) insufficienc y Nonrheumatic aortic (valve) stenosis wit h insufficiency Abnormal result of other cardiovascular function study Coronary atherosclerosis of [place] coron juan carlos artery ECG ROUTINE ECG W/LEAST 12 LDS W/I&R ECG 12-LEAD Routine 01/10/2020 11:01 AM EST 01/10/2020 04:01:[address] [facility] Left Heart Cath W/Wo LV & Coronary Angiography 020 12:00:00 AM EST MEDENT ([facility]) MYOCARDIAL SPECT MULTIPLE STUDIES 12/18/2019 12:00:00 AM EST MED[facility] ([facility]) CV STRS TST XERS&/OR RX CONT ECG PHYS SI&R 12/18/2019 12:00:00 AM EST MED[facility] ([facility]) ECG ROUTINE ECG W/LEAST 12 LDS W/I&R 11/12/2019 12:00: 00 AM EDT [facility] ([facility]) PHYSICIAN TELEPHONE EVALUATION 11-20 MIN 06/21/2019 12 :00:00 AM EDT eCW1 ([facility]) ESTABILISHED PATIENT [facility] FACILITY CHARGE 12:00:00 AM EDT eCW1 ([facility]) RADXPS IN END [id number] PXD 04/10/2019 12:00:00 AM ES T eCW1 ([facility]) INJ PARAVERT F JNT L/S 1 LEV 04/10/2019 12:00:00 AM ES T eCW1 ([facility]) Office Visit, Est Pt., Level 4 PC 03/13/2019 12:00:00 AM EST eCW1 ([facility]) Office Visit, Est Pt., Level 2 FC 03/13/2019 12:00:00 AM EST eCW1 ([facility]) Eligible professional attests to katherine crawford in the medical record they obtained, updated, or reviewed the patient's current medications 03/02/2019 12:00:00 AM EST eCW1 ([facility]) Pain assessment documented as positive u sing a standardized tool and a follow-up plan is documented 03/02/2019 12:00:00 AM EST e CW1 ([facility]) Results ID Date Data Source [id number] 01/10/2020 02:52:[address] [facility] Name Value Range Interpretation Code Description Data Isela rce(s) Supporting Document(s) &PDF [facility] WCVLKg8iPeVOZrLn81/GLFbpEZVfs6XlKJttNHm5GYiqGEQvJ4NfpQxvAD5FGmISAclYNYNYVs1sBMWh yKE [file] AgICAgICAgICAgICAgICAgICAgICAgICAgICAgICAg ICAgICAgICAgICAgICAgICANCiAgICAgICAgICAgICAgICAgICAgICAgICAgICAgICAgICAgICAgICAg ICAgICAgICAgICAgICAgICAgICAgICAgICAgICAgICAgICAgICAgICAgICAgICAgICAgICAgICAgICAN CiAgICAgICAgICAgICAgICAgICAgICAgICAgICAgIC AgICAgICAgICAgICAgICAgICAgICAgICAgICAgICAgICAgICAgICAgICAgICAgICAgICAgICAgICAgIC AgICAgICAgICANCiAgICAgICAgICAgICAgICAgICAgICAgICAgICAgICAgICAgICAgICAgICAgICAgIC AgICAgICAgICAgICAgICAgICAgICAgICAgICAgICAg ICAgICAgICAgICAgICAgICAgICANCiAgICAgICAgICAgICAgICAgICAgICAgICAgICAgICAgICAgICAg ICAgICAgICAgICAgICAgICAgICAgICAgICAgICAgICAgICAgICAgICAgICAgICAgICAgICAgICAgICAg ICANCiAgICAgICAgICAgICAgICAgICAgICAgICAgIC AgICAgICAgICAgICAgICAgICAgICAgICAgICAgICAgICAgICAgICAgICAgICAgICAgICAgICAgICAgIC AgICAgICAgICAgICANCiAgICAgICAgICAgICAgICAgICAgICAgICAgICAgICAgICAgICAgICAgICAgIC AgICAgICAgICAgICAgICAgICAgICAgICAgICAgICAg ICAgICAgICAgICAgICAgICAgICAgICANCiAgICAgICAgICAgICAgICAgICAgICAgICAgICAgICAgICAg ICAgICAgICAgICAgICAgICAgICAgICAgICAgICAgICAgICAgICAgICAgICAgICAgICAgICAgICAgICAg ICAgICANCiAgICAgICAgICAgICAgICAgICAgICAgIC AgICAgICAgICAgICAgICAgICAgICAgICAgICAgICAgICAgICAgICAgICAgICAgICAgICAgICAgICAgIC AgICAgICAgICAgICAgICANCiAgICAgICAgICAgICAgICAgICAgICAgICAgICAgICAgICAgICAgICAgIC AgICAgICAgICAgICAgICAgICAgICAgICAgICAgICAg ICAgICAgICAgICAgICAgICAgICAgICAgICANCjw/cMNzX0wpfFTcqjT1Y5wiZm7MYj0TZI3om7BcWOCw RAgwxzVnWnfYZdTiFDYaTthOMlq6BYvaFE6DmBPyN6LhW8XbTPmbEI9WOECuVOGwfYAwERQhEENdEdJ1 CBYpZNpoZD1KfVWyAVfnZBKnRJUxTaIvQJQcQLWbHY ZcUT7MBHWzQ955blFyGu4ADk8CVrXeQZ4hfb4JYgYoSTBmAowJEca6EDtpEJ4NqMGrpJQsAOTiIXNTQy XrN3qfh3QhBjLuAOSENFqfWZ7Hd9PleEXpNTe+Gp1GNC4hv1EcZJezEGQtMW2dau0MBDkUYiZgV0IhqH xdTHiiaVznqvUeFK7XGNKyVINfiYMkGGhwJLRWHY9L RCjmWSO6YPVbhxVxfNYbNDtfLV2NRFSwmyCzCaMyMJQXDQc+Vt9PZX9pl6UwNDuaCaQeWP1zat1JTQnS YfMzY3U3dETtO8N5PUmuLr6NHWIxLADgNaOsWVXCLSnfRY8XHO3wwlH3YB2EaPNhRTPuBSDiqNZvATo2 F61ooDHjWGltYK2KJXF+Miles+Qu4PFTLjCBBjJLHtCj IeZHRTCaPmS7ZsK3OVc8RaI9MwUH42cZfcwhPqAPpsVC7FQC2bDQJmRWNLXD7LtMUwhS4yedSeCLQhXD WJSsBkG47pvOSjBQChODJhTBLiMi0SODXaC4CdvuLabChmcuYxXGCjCUSDJX8PJNldlaDceVKvrIiaMC 51fTqmGV7OMp8ETtCfNE9etd2KxJXpYx1IBEZuWf2O WLHhMOMoAZSqXDM7MOWhTdHlWRxtHCOeWRDlTKC9KORfEANpPX3FPoMtTMJlEZH7KMLqUDTyRDVwid5Q MIXeMBI7HeD3VESuHOTcVBAuEQbpFIJsQNQaIRigKNJnCQMgVA1NGoCfIDBwYXHrOBDbRHYmHWElns8O QRLwKXZaLwXjOXAfZJFyCWUyHIdoRPNqUPW4RFTxHH BzMITdBY7LAvJpRLQlGSIrYePiHLByAWGrkj5TBOGyXIXxOuDcPHTgKAVxPKLhVRbnRXEbDKG5UcK4OG OjHBSxMW8KBvVmAKXsAYp5AfHzMBDpTGQsfp7FNTXxVEBzBty9ItZsGFWpAVKlSZyxHQTzQMH2GCR5PJ AqWIJeOO8ZCbHaLSKlXMd5TBCqVIDqAYZrjh6NPVLf EBNmINXvLnZaEPIjYWAxCDwbZXUsHER4Afg4QLCzCKPtCA6QNvVrXDDiSCNhMXwfGCWwJQJfuq2TQBKi GUPrGXmpNtEpWFFoXKOfIWmoIPTjZIRtZWu9VOXoMHDuTC2IAzFeOCXmPmF1OWYlRVBkJJWgxf5ZYFYh MDAzMjgwNCAwMDAwMCBuDQowMDAwMDUxNTcxIDAwMD JmEN4EFbYpSVXrNEZbAGghHMZbFKXnzb3NINAoBXV3ZtTaEJZxPHCgBVUdIJxsKWUtOGMxJSo6SOWbLZ MzIV9PUyCoNPOmUSR2LzeaGWVbESXdbj1LtBFzaWpkkx5BTBtVCe1BjUvwGOT7LMgqTv2cgDDoRhEtEO CRCh6PqgKyPYLrPEOYCYzdVJCsFLDmNLLeIRW2QxE8 YwC1DrVlVTv8JhK4TbZ3LsL0SSOaLtN9LnB9YNTxHKkgGXfeFdizP6HuHKajRyx1HcgoGnJyPpX+IF0g DQo+Ga3Wc5ZrffT4pzXuGUy5NcjqDw8QRNVRZ4SQYk== ID Date Data Source [id number] 01/10/2020 12:16:52 PM EST [facility] NT INFORMATIONPatient MRN Name Date of Age Gend*PT [id number] Al [place]s 1945 74 years F HOPPT Location Admission Date/Time Visit ID Attending [id number] 01/10/20 1028 --- Ryan Taveras MD([id number]) EPI ID CSN Admitting Provider [id number] Ryan Taveras MD([id number])Updated H&PPlease see the scanned/dictated outpatient note.I have reviewed the note, clinical history and physical exam findings. Therehave been no significant changes.Plan as outlined in the outpatient note.Risk/benifit/alternative of cardiac catheterization was discussed withpatient/family. Risks included, but not limited to; MD, CVA, , renalimpairment, vascular complication, and need for emergency surgery were discussedand accepted by patient.Ryan Taveras MD, [facility], [facility]ITALInterventional Director Clinical Data Name Value Range Interpretation Code Description Data Isela rce(s) Supporting Document(s) ID Date Data Source [id number] 01/10/2020 11:23:[address] [facility] Name Value Range Interpretation Code Description Data Isela rce(s) Supporting Document(s) EKG [facility] SBKCNc8lFmXVThWdk3NoReEoYTZmIX6qiuu3J6T2oTMkO8SraZCss5qxT7RxS3BaXBFmCLYSYC2KuBKa jb2 [file] care home+3rhvJITZdr+3vtHzFnj7MMHLzIVxohF0QGrwLqlGk1RW3ssZWZwgMpcIAOsVjcK5iL4UoGaoc0iB [file] NSAwIFIKCj4+ZaJ7KIA0nLPaYob1HVMoEVxrPWBYYy== ID Date Data Source [id number] 01/05/2020 08:30:00 AM EST MEDENT ([facility] Name Value Range Interpretation Code Description Data Isela rce(s) Supporting Document(s) Laboratory test finding (navigational concept) Laboratory test result MEDENT ([facility]) This nucleic acid amplification test was developed and its performance characteristics determined by [employer]. Nucleic acid amplification tests include PCR and [...] detected) result in this assay. Performed at: [facility] [address] [facility], [place] [id number] Associate Professor Plant Pathology: Rylee Levy PhD, Phone: [phone] Not Detected ID Date Data Source [id number] 01/05/2020 08:30:00 AM EST [facility] Name Value Range Interpretation Code Description Data Isela rce(s) Supporting Document(s) SARS coronavirus 2 RNA [facility] This lab was ordered by [facility] and reported by [facility]. ID Date Data Source [id number] 12/21/2019 08:27:00 AM EST MED[facility] ([facility]) Name Value Range Interpretation Code Description Data Isela rce(s) Supporting Document(s) Red Blood Count 4.66 10 4.00-5.40 [facility] ([facility] White Blood Count 7.5 10 4.0-10.0 [facility] ([facility]) Hemoglobin 13.4 g/dL 12.0-15.5 [facility] ([facility]) Hematocrit 41.9 % 36.0-47.0 [facility] ([facility]) Mean Corpuscular Volume 89.9 fl 80.0-96.0 M EDENT ([facility]) Mean Corpuscular Hemoglobin 28.8 pg 27.0-33.0 [facility] ([facility]) Red Cell Distribution Width 13.6 % 11.5-14.5 [facility] ([facility]) Mean Corpuscular HGB Conc 32.0 g/dL 32.0-36.5 [facility] ([facility]) Neutrophils % 68.2 % 36.0-66.0 [facility] ([facility]) Platelet Count, Automated 339 10 150-450 MED[facility] ([facility]) Mitchell % 4.8 % 0.0-5.0 [facility] Lymph % 22.0 % 24.0-44.0 [facility] Eos % 3.8 % 0.0-3.0 [facility] Nucleated Red Blood Cell % 0.0 % 0-0 MED ENT ([facility]) Baso % 0.8 % 0.0-1.0 [facility] Immature Granulocyte % 0.4 % 0-3.0 [facility] ([facility]) Lymph # 1.7 10 1.5-5.0 [facility] Neutrophils # 5.1 10 1.5-8.5 [facility] ([facility] Eos # 0.3 10 0.0-0.5 MEDENT ([facility]) Mitchell # 0.4 10 0.0-0.8 MED[facility] ([facility]) Baso # 0.1 10 0.0-0.2 MED[facility] ([facility]) ID Date Data Source [id number] 12/21/2019 08:27:00 AM EST [facility] ([facility]) Name Value Range Interpretation Code Description Data Isela rce(s) Supporting Document(s) Glucose, Fasting 136 mg/dL 70-100 MED[facility] ([facility]) Blood Urea Nitrogen 12 mg/dL 7-18 MEDENT ([facility]) Creatinine For GFR 0.57 mg/dL 0.55-1.30 MEDENT ([facility]iology [facility]) Glomerular Filtration Rate Laboratory test result MEDENT ([facility]) <content>Units are mL/min/1.73 m2</content>
<content></content>
<content>Chronic Kidney Disease Staging per NKF:</content>
<content></content>
<content>Stage I & II GFR >=60 Normal to Mildly Decreased</content>
<content>Stage III GFR 30- 59 Moderately Decreased</content>
<content>Stage IV GFR 15-29 Severely Decreased</content>
<content>Stage V GFR <15 Very Little GFR Left</content>
<content>ESRD GFR <15 on STACK SUPERVISOR</content>
<content></content> Sodium Level 137 meq/L 136-145 MEDENT ([facility]) Potassium Serum 4.5 meq/L 3.5-5.1 MED[facility] ([facility]) Chloride Level 102 meq/L 98-107 MED[facility] ([facility]) Carbon Dioxide Level 30 meq/L 21-32 MEDENT ([facility]) Anion Gap 5 meq/L 8-16 MEDENT ([facility]) Calcium Level 9.7 mg/dL 8.8-10.2 MEDENT ([facility]) ID Date Data Source [id number] 11/07/2019 08:50:00 AM EDT [facility] ([facility]) Name Value Range Interpretation Code Description Data Isela rce(s) Supporting Document(s) Hemoglobin A1c 7.2 % [facility] ([facility]) <content>REFERENCE RANGES:</content><br/ ><content></content>
<content><=5.6% NORMAL</content>
<content>5.7-6.4% SUGGESTS IMPAIRED GLUCOSE METABOLISM/PREDIABETIC</content>
<content>>= 6.5% ABNORMAL</content>
<content></content> Estimated Average Glucose 160 mg/dL 60-110 [facility] ([facility]) ID Date Data Source [id number] 11/07/2019 08:50:00 AM EDT [facility] Name Value Range Interpretation Code Description Data Isela rce(s) Supporting Document(s) Triglycerides Level 115 mg/dL [facility] ([facility]) LDL Cholesterol 75 mg/dL [facility] ([facility]) Cholesterol Level 159 mg/dL [facility] ([facility]) HDL Cholesterol 61 mg/dL [facility] ([facility]) Cholesterol Risk Ratio 2.606 [facility] ([facility]) Non-HDL-C 98 mg/dL [facility] ID Date Data Source [id number] 11/07/2019 08:50:00 AM EDT [facility] ([facility]) Name Value Range Interpretation Code Description Data Isela rce(s) Supporting Document(s) Glucose, Fasting 162 mg/dL 70-100 [facility] ([facility]) Blood Urea Nitrogen 13 mg/dL 7-18 [facility] ([facility]) Creatinine For GFR 0.63 mg/dL 0.55-1.30 [facility] ([facility]) Sodium Level 134 meq/L 136-145 [facility] ([facility]iolog [facility]) Glomerular Filtration Rate Laboratory test result MED[facility] ([facility]) <content>Units are mL/min/1.73 m2</content>
<content></content>
<content>Chronic Kidney Disease Staging per NKF:</content>
<content></content>
<content>Stage I & II GFR >=60 Normal to Mildly Decreased</content>
<content>Stage III GFR 30- 59 Moderately Decreased</content>
<content>Stage IV GFR 15-29 Severely Decreased</content>
<content>Stage V GFR <15 Very Little GFR Left</content>
<content>ESRD GFR <15 on [employer]</content>
<content></content> Potassium Serum 4.6 meq/L 3.5-5.1 [facility] ([facility]io [facility]) Chloride Level 99 meq/L 98-107 [facility] Carbon Dioxide Level 25 meq/L 21-32 [facility] Calcium Level 10.0 mg/dL 8.8-10.2 [facility] ([facility] Anion Gap 10 meq/L 8-16 [facility] ([facility]iology [facility]) Alt/SGPT 29 U/L 12-78 [facility] (Cardiology A [facility]) Ast/Sgot 20 U/L 7-37 MED[facility] ([facility]) Bilirubin,Total 0.5 mg/dL 0.2-1.0 MED[facility] (Cardio logy [facility]) Alkaline Phosphatase 85 U/L 45-117 MED[facility] (C [address]diology [facility]) Total Protein 7.3 GM/DL 6.4-8.2 [facility] ([facility]iolo gy [facility]) Albumin 3.9 GM/DL 3.2-5.2 [facility] ([facility]iology [facility]) Albumin/Globulin Ratio 1.1 1.2-2.2 [facility] ([facility]) ID Date Data Source [id number] 07/07/2019 11:15:00 AM EDT [facility] Name Value Range Interpretation Code Description Data Isela rce(s) Supporting Document(s) SARS CORONAVIRUS 2 RNA [facility] This lab was ordered by [facility] and reported by [facility]. ID Date Data Source [id number] 05/12/2019 10:00:00 AM EDT [facility] Name Value Range Interpretation Code Description Data Isela rce(s) Supporting Document(s) Thyrotropin [Units/volume] in Serum or Plasma 2.520 [facility] (Cardiology [facility]) ID Date Data Source [id number] 05/12/2019 10:00:00 AM EDT [facility] ([facility]) Name Value Range Interpretation Code Description Data Isela rce(s) Supporting Document(s) Troponin Laboratory test result [facility] (Cardiology [facility]) ID Date Data Source [id number] 05/12/2019 10:00:00 AM EDT [facility] ([facility]) Name Value Range Interpretation Code Description Data Isela rce(s) Supporting Document(s) Creatine kinase [Enzymatic activity/volume] in Serum or Plasma 62 [facility] (Card[address] [facility]) CPK-MB 1.1 [facility] ([facility]iology [facility]) MB/CK Relative 1.77 [facility] (Cardiol ogy [facility]) ID Date Data Source [id number] 05/12/2019 10:00:00 AM EDT [facility] ([facility]) Name Value Range Interpretation Code Description Data Isela rce(s) Supporting Document(s) Glucose 130 70-100 [facility] Blood Urea Nitrogen 11 7-18 [facility] ([facility]) Potassium 3.4 3.5-5.1 [facility] ([facility]) Creatinine 0.67 0.6-1.0 [facility] ([facility]) Sodium 135 136-145 [facility] ([facility]) Calcium 9.9 8.8-10.2 [facility] Glomerular filtration rate/1.73 sq M.pre dicted [Volume Rate/Area] in Serum or Plasma by Creatinine-based formula (MDRD) Laboratory test result [facility] ([facility]) Carbon Dioxide 29 21-32 [facility] ([facility]iol [facility]) Chloride 99 98-107 [facility] ([facility]) ID Date Data Source [id number] 05/12/2019 10:00:00 AM EDT [facility] ([facility]) Name Value Range Interpretation Code Description Data Isela rce(s) Supporting Document(s) White Blood Count 8.2 4.0-10.0 [facility] ([facility]) Red Blood Count 4.53 4.00-5.40 [facility] ([facility]io [facility]) Hemoglobin 13.0 [facility] ([facility]) Hematocrit 39.8 [facility] ([facility]) Platelets 311 150-450 [facility] ([facility]) Procedure Social History Code Duration Value Status Description Data Source(s ) Smoking 03/26/2020 12:00:00 AM EST Never Smoker completed Never S moker eCW1 ([facility]) Smoking 02/18/2020 12:00:00 AM EST Patient has never smoked co mpleted Patient has never smoked [facility] ([facility]) Smoking 02/13/2020 12:00:00 AM EST Never Smoker completed Never S moker eCW1 ([facility]) Smoking 02/13/2020 12:00:00 AM EST Never Smoker completed Never S moker eCW1 ([facility]) Alcohol intake 01/10/2020 12:00:00 AM EST Yes completed [facility] Smoking 01/10/2020 12:00:00 AM EST Never smoker completed Never s moker [facility] Smoking 11/27/2019 12:00:00 AM EDT Never Smoker completed Never S moker eCW1 ([facility]) Smoking 11/27/2019 12:00:00 AM EDT Never Smoker completed Never S moker eCW1 ([facility]) Smoking 11/13/2019 12:00:00 AM EDT Never Smoker completed Never S moker eCW1 ([facility]) Smoking 11/13/2019 12:00:00 AM EDT Never Smoker completed Never S moker eCW1 ([facility]) Smoking 11/13/2019 12:00:00 AM EDT Never Smoker completed Never S moker eCW1 ([facility]) Smoking 08/02/2019 12:00:00 AM EDT Never Smoker completed Never S moker eCW1 ([facility]) Smoking 08/02/2019 12:00:00 AM EDT Never Smoker completed Never S moker eCW1 ([facility]) Vital Signs ID Date Data Source [id number] Name Value Range Interpretation Code Description Data Source(s) Oxygen saturation in Arterial blood by Pulse oximetry 98 % 98 % [facility] ([facility]) Diastolic blood pressure--sitting 82 mm[Hg] 82 mm[Hg] [facility] ([facility]) Systolic blood pressure--sitting 132 mm[Hg] 132 mm[Hg] [facility] ([facility]) Respiratory rate 16 /min 16 /min [facility] ( [facility]) Heart rate 89 /min 89 /min [facility] ([facility]) Body mass index (BMI) [Ratio] 34.7 kg/m2 34.7 k g/m2 [facility] ([facility]) Body height 62 [in_i] 62 [in_i] [facility] ([facility]i [facility]) 5'2" Body weight 190.00 [lb_av] 190.00 [lb_av] MEDEN T ([facility]) Diastolic blood pressure 70 mm[Hg] 70 mm[Hg] eCW1 ([facility]) Systolic blood pressure 163 mm[Hg] 163 mm[Hg] e CW1 ([facility]) Body temperature 97.6 [degF] 97.6 [degF] eCW1 ( [facility]) Respiratory rate 18 /min 18 /min eCW1 ([facility]) Heart rate 91 /min 91 /min eCW1 ([facility]) Body mass index (BMI) [Ratio] 36.73 kg/m2 36.73 kg/m2 W1 ([facility]) Body height 61 [in_i] 61 [in_i] eCW1 ([facility]) Body weight 194.4 [lb_av] 194.4 [lb_av] eCW1 ([facility]) Oxygen saturation in Arterial blood by Pulse oximetry 96 % 96 % [facility] Respiratory rate 16 /min 16 /min [facility] Body temperature 36.78 Yamilka 36.78 Yamilka [facility] Heart rate 77 /min 77 /min [facility] Diastolic blood pressure 87 mm[Hg] 87 mm[Hg] [facility] Systolic blood pressure 125 mm[Hg] 125 mm[Hg] [facility] Diastolic blood pressure 74 mm[Hg] 74 mm[Hg] eCW1 ([facility]) Systolic blood pressure 130 mm[Hg] 130 mm[Hg] e CW1 ([facility]) Body mass index (BMI) [Ratio] 36.69 kg/m2 36.69 kg/m2 [facility] ([facility]) Body height 61 [in_i] 61 [in_i] eCW1 ([facility]) Body weight 194.2 [lb_av] 194.2 [lb_av] eCW1 ([facility]) Diastolic blood pressure 92 mm[Hg] 92 mm[Hg] eCW1 ([facility]) Systolic blood pressure 158 mm[Hg] 158 mm[Hg] e CW1 ([facility]) Body temperature 97.0 [degF] 97.0 [degF] eCW1 ( [facility]) Respiratory rate 18 /min 18 /min eCW1 ([facility]) Heart rate 90 /min 90 /min eCW1 ([facility]) Body mass index (BMI) [Ratio] 36.39 kg/m2 36.39 kg/m2 W1 ([facility]) Body height 61 [in_i] 61 [in_i] eCW1 ([facility]) Body weight 192.6 [lb_av] 192.6 [lb_av] eCW1 ([facility]) Diastolic blood pressure 70 mm[Hg] 70 mm[Hg] [facility] ([facility]) sitting Systolic blood pressure 134 mm[Hg] 134 mm[Hg] M EDEVELIO ([facility]) sitting Diastolic blood pressure 74 mm[Hg] 74 mm[Hg] [facility] ([facility]) sitting, large cuff Systolic blood pressure 136 mm[Hg] 136 mm[Hg] M EDENT ([facility]) sitting, large cuff Respiratory rate 16 /min 16 /min [facility] ( [facility]) Heart rate 72 /min 72 /min [facility] ([facility]) Regular Body mass index (BMI) [Ratio] 34.4 kg/m2 34.4 k g/m2 [facility] ([facility]) Body height 62 [in_i] 62 [in_i] [facility] ([facility]) 5'2" Body weight 188.00 [lb_av] 188.00 [lb_av] MEDEN T ([facility]) Diastolic blood pressure 79 mm[Hg] 79 mm[Hg] eCW1 ([facility]) Systolic blood pressure 149 mm[Hg] 149 mm[Hg] e CW1 ([facility]) Body temperature 98.0 [degF] 98.0 [degF] eCW1 ( [facility]) Respiratory rate 18 /min 18 /min eCW1 ([facility]) Heart rate 75 /min 75 /min eCW1 ([facility]) Body mass index (BMI) [Ratio] 36.46 kg/m2 36.46 kg/m2 eCW1 ([facility]) Body height 61 [in_i] 61 [in_i] eCW1 ([facility]) Body weight 193 [lb_av] 193 [lb_av] eCW1 ([facility]) Diastolic blood pressure 70 mm[Hg] 70 mm[Hg] [facility] ([facility]) Sitting with home BP cuff Systolic blood pressure 154 mm[Hg] 154 mm[Hg] M EDENT ([facility]) Sitting with home BP cuff Heart rate 69 /min 69 /min [facility] ([facility]) Body mass index (BMI) [Ratio] 34.7 kg/m2 34.7 k g/m2 [facility] ([facility]) Body height 62 [in_i] 62 [in_i] [facility] ([facility]) 5'2" Body weight 190.00 [lb_av] 190.00 [lb_av] MEDEN T ([facility]) Diastolic blood pressure 78 mm[Hg] 78 mm[Hg] eCW1 ([facility]) Systolic blood pressure 189 mm[Hg] 189 mm[Hg] e CW1 ([facility]) Body temperature 95.0 [degF] 95.0 [degF] eCW1 ( [facility]) Respiratory rate 18 /min 18 /min eCW1 ([facility]) Heart rate 74 /min 74 /min eCW1 ([facility]) Body mass index (BMI) [Ratio] 36.46 kg/m2 36.46 kg/m2 eCW1 ([facility]) Body height 61 [in_us] 61 [in_us] eCW1 ([facility]) Body weight Measured 193 [lb_av] 193 [lb_av] eC W1 ([facility]) Diastolic blood pressure 70 mm[Hg] 70 mm[Hg] eCW1 ([facility]) Systolic blood pressure 149 mm[Hg] 149 mm[Hg] e CW1 ([facility]) Body temperature 97.7 [degF] 97.7 [degF] eCW1 ( [facility]) Respiratory rate 18 /min 18 /min eCW1 ([facility]) Heart rate 77 /min 77 /min eCW1 ([facility]) Body mass index (BMI) [Ratio] 36.77 kg/m2 36.77 kg/m2 eCW1 ([facility]) Body height 61 [in_us] 61 [in_us] eCW1 ([facility]) Body weight Measured 194.6 [lb_av] 194.6 [lb_av ] eCW1 ([facility]) Diastolic blood pressure 74 mm[Hg] 74 mm[Hg] eCW1 ([facility]) Systolic blood pressure 148 mm[Hg] 148 mm[Hg] e CW1 ([facility]) Body temperature 98.8 [degF] 98.8 [degF] eCW1 ( [facility]) Respiratory rate 18 /min 18 /min eCW1 ([facility]) Heart rate 70 /min 70 /min eCW1 ([facility]) Body mass index (BMI) [Ratio] 36.24 kg/m2 36.24 kg/m2 eCW1 ([facility]) Body height 61 [in_us] 61 [in_us] eCW1 ([facility]) Body weight Measured 191.8 [lb_av] 191.8 [lb_av ] eCW1 ([facility]) Diastolic blood pressure 70 mm[Hg] 70 mm[Hg] eCW1 ([facility]) Systolic blood pressure 166 mm[Hg] 166 mm[Hg] e CW1 ([facility]) Body temperature 98.0 [degF] 98.0 [degF] eCW1 ( [facility]) Respiratory rate 18 /min 18 /min eCW1 ([facility]) Heart rate 73 /min 73 /min eCW1 ([facility]) Body mass index (BMI) [Ratio] 36.09 kg/m2 36.09 kg/m2 W1 ([facility]) Body height 61 [in_us] 61 [in_us] eCW1 ([facility]) Body weight Measured 191 [lb_av] 191 [lb_av] eC W1 ([facility]) Heart rate 80 /min 80 /min eCW1 ([facility]) Body mass index (BMI) [Ratio] 36.12 kg/m2 36.12 kg/m2 eCW1 ([facility]) Body height 61 [in_us] 61 [in_us] eCW1 ([facility]) Body weight Measured 191.2 [lb_av] 191.2 [lb_av ] eCW1 ([facility]) Diastolic blood pressure 63 mm[Hg] 63 mm[Hg] eCW1 ([facility]) Systolic blood pressure 146 mm[Hg] 146 mm[Hg] e CW1 ([facility]) Body temperature 96.5 [degF] 96.5 [degF] eCW1 ( [facility]) Respiratory rate 18 /min 18 /min eCW1 ([facility]) Patient Treatment Plan of Care Planned Activity Planned Date Details Description Data Source (s) CPAP mask 03/26/2020 12:00:00 AM EST e CW1 ([facility]) Loperamide Hydrochloride 2 MG Oral Capsule 11/13/2019 12:00:00 AM E DT eCW1 ([facility]) Loperamide Hydrochloride 2 MG Oral Capsule 11/13/2019 12:00:00 AM E DT eCW1 ([facility]) Loperamide Hydrochloride 2 MG Oral Capsule 11/13/2019 12:00:00 AM E DT eCW1 ([facility])
[2020-03-31] MEDS ORDERED: ACET-683 PO (16:58)
[2020-03-31] MEDS ORDERED: CITRTAB18 PO (16:58)
[2020-03-31] MEDS ORDERED: MILK500C PO (16:58)
[2020-03-31] MEDS ORDERED: HYDR12.55 PO (16:58)
[2020-03-31] MEDS ORDERED: MORPHINE 4 MG/ML 1ML VIAL/SYRINGE (J2270) IM ONE (17:15)
--- NOTE | 2020-03-31 17:50 | REP ---
INDICATION: right anterior chest wall pain; s/p fall. COMPARISON: 05/12/2019. TECHNIQUE: SINGLE PORTABLE AP VIEW OF THE CHEST WAS PERFORMED. FINDINGS: There is no acute infiltrate. The heart appears to be at the upper limits of normal in size. There is some calcification of the thoracic aorta. The mediastinal silhouette is grossly unchanged. There is again elevation of the right hemidiaphragm as seen on prior study. The right humeral head is anteriorly dislocated from the glenoid fossa. IMPRESSION: NO ACUTE PULMONARY DISEASE.Anterior dislocation of the right humeral head. <Electronically signed by Dimitri Diaz > 03/31/20 [id number]
--- NOTE | 2020-03-31 17:52 | REP ---
INDICATION: right upper arm pain; s/p fall COMPARISON: None. TECHNIQUE: Two views right humerus. FINDINGS: No fracture is seen of the visualized osseous structures. There is anterior dislocation of the right humeral head from the glenoid fossa. IMPRESSION: Anterior dislocation of the right humeral head. <Electronically signed by Dimitri Diaz > 03/31/20 [id number]
[2020-03-31] MEDS ORDERED: diazePAM 10MG/2ML SYRINGE (J3360 PER 5MG) IM ONE (18:15)
--- OUTSIDE RECORDS SUMMARY | 2020-03-31 18:18 | CCD ---
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 Role Phone ROSA ISELA, Johanny DURANT MD Unavailable Unavailable ANTECOL, Johanny [...] Lynn Regina PA Unavailable Unavailable Symenow, Lynn Rgeina PA Unavailable Unavailable Symenow, Lynn Regina PA [...] AYELIZABETH PINEDA Unavailable Unavailable RUDY, S AYELIZABETH PINEDA Unavailable Unavailable RUDY, S AYELIZABETH PINEDA Unavailable Unavailable RUDY, S AYMAN Unavailable Unavailable RUDY, S AYMAN MD Unavailable Unavailable RUDY, S AYELIZABETH PINEDA Unavailable Unavailable RUDY, S AYELIZABETH PINEDA Unavailable Unavailable RUDY, S AYELIZABETH PINEDA Unavailable Unavailable RUDY, S AYELIZABETH MD Unavailable Unavailable RUDY, S AYELIZABETH PINEDA Unavailable Unavailable RUDY, S AYMAN MD Unavailable Unavailable RUDY, S AYELIZABETH PINEDA Unavailable Unavailable RUDY, S AYELIZABETH PINEDA Unavailable Unavailable RUDY, S AYELIZABETH PINEDA Unavailable Unavailable RUDY, S AYELIZABETH MD Unavailable Unavailable RUDY, S AYELIZABETH MD Unavailable Unavailable RUDY, S AYELIZABETH PINEDA Unavailable Unavailable RUDY, S AYELIZABETH PINEDA Unavailable Unavailable RUDY, S AYELIZABETH PINEDA Unavailable Unavailable RUDY, S AYELIZABETH MD Unavailable Unavailable RUDY, S AYMAN MD Unavailable Unavailable RUDY, S AYMAN MD Unavailable Unavailable RUDY, S AYMAN MD Unavailable Unavailable RUDY, S AYELIZABETH PINEDA Unavailable Unavailable RUDY, S AYMAN MD Unavailable [...] Unavailable RUDY, S AYMAN MD Unavailable Unavailable URDY, S AYMAN MD Unavailable Unavailable RUDY, S [...] is protected by Article 27-F of the [facility] Public Health law. If you continue you may have access to information: Regarding HIV / AIDS; Provided by facilities licensed or operated by the [facility] Office of Mental Health; or Provided by the [facility] Office for People With Developmental Disabilities. If such information is present, then the following [facility] mandated warning applies: This information has been [...] law may result in a fine or mcfp sentence or both. A general authorization for the release of medical or other information is NOT sufficient authorization for further disc losure. Allergies and Adverse Reactions Type Description Substance Reaction Status Data Source(s ) Propensity to adverse reactions SULFA ANTIBIOTICS Sulfa Antibiotics Active [facility] Propensity to adverse reactions PSEUDOEPHEDRINE HCL Pseudoephedrine Hcl Active [facility] Propensity to adverse reactions NIACIN AND RELATED Niacin And Relat ed Rash Low Active [facility] Low Propensity to adverse reactions IBUPROFEN Ibuprofen Acti ve [facility] Propensity to adverse reactions MINOCYCLINE Minocycline Ac tive [facility] Propensity to adverse reactions FLUVASTATIN fluvastatin Ac tive [facility] Propensity to adverse reactions FLUTICASONE-SALMETEROL Fluticasone- Salmeterol Active [facility] Drug allergy Bactrim sulfamethoxazole / trimethoprim Hives Ac tive eCW1 ([facility]) Drug allergy Januvia sitagliptin Larger Doses - fatigue, weakness Active eCW1 ([facility]) Drug allergy Naproxen Naproxen ringing in ears Active eCW1 ( [facility]) Drug allergy Ibuprofen Ibuprofen heaviness in chest Active eCW 1 ([facility]) Drug allergy Minocycline Minocycline Unknown Active eCW1 ([facility]) artificial sweeteners artificial sweeteners artificial sweetener s abdominal pain Active eCW1 ([facility]) lescol lescol fluvastatin 40 MG Oral Capsule [Lescol] myalgia Active eCW1 ([facility]) 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 e CW1 ([facility]) decongestants decongestants decongestants shaking on the inside, feels "unwell" Active eCW1 ([facility]) artificial sweeteners artificial sweeteners artificial sweetener s abdominal pain Active eCW1 ([facility]) lescol lescol fluvastatin 40 MG Oral Capsule [Lescol] myalgia Active eCW1 ([facility]) 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 e CW1 ([facility]) decongestants decongestants decongestants shaking on the inside, feels "unwell" Active eCW1 ([facility]) lescol lescol fluvastatin 40 MG Oral Capsule [Lescol] myalgia Active eCW1 ([facility]) 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 e CW1 ([facility]) decongestants decongestants decongestants shaking on the inside, feels "unwell" Active eCW1 ([facility]) artificial sweeteners artificial sweeteners artificial sweetener s abdominal pain Active eCW1 ([facility]) lescol lescol fluvastatin 40 MG Oral Capsule [Lescol] myalgia Active eCW1 ([facility]) 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 e CW1 ([facility]) decongestants decongestants decongestants shaking on the inside, feels "unwell" Active eCW1 ([facility]) lescol lescol fluvastatin 40 MG Oral Capsule [Lescol] myalgia Active eCW1 ([facility]) 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 e CW1 ([facility]) decongestants decongestants decongestants shaking on the inside, feels "unwell" Active eCW1 ([facility]) Family History Family Member Name Family Member Gender Family Member Status Date o f Status Description Data Source(s) Unknown Unknown Problem MEDENT ([facility]) Unknown Female Problem MEDENT ([facility]) Encounters Encounter Providers Location Date Indications Data Source(s ) TeleMedicine Phone E/M by Phys 21-30 Min [address] [place] [address] 03/26/2020 12:00:00 AM EST eCW1 ([facility]) Unknown [address] [facility] [address] 03/17/2020 12:00:00 AM EST eCW1 ([facility]) Outpatient Attender: Regina DORADO Main Office 02/18/2020 10:15:00 AM EST MEDENT ([facility]) Outpatient [address] [facility] [address] 02/13/2020 12:00:00 AM EST eCW1 ([facility]) Outpatient Attender: RYAN TAVERAS MDAdmitter: RYAN GUZMÁN MD [email or web address] 01/10/2020 10:28:00 AM EST - 01/10/2020 06:14:00 PM EST [facility] Patient discharged. Office Visit Attender: BHARGAV NATARAJAN MD Main Office 12/04/2019 10: 16:00 AM EDT MEDENT ([facility]) Unknown [address] [facility], [facility] [address] 11/30/2019 12:00:00 AM EDT eCW1 ([facility]) [place] [address] [facility] [address] 11/27/2019 12:00:00 AM EDT eCW1 ([facility]) Unknown [address] [facility] [place] [address] 11/14/2019 12:00:00 AM EDT eCW1 ([facility]) Outpatient [address] [facility] [address] 11/13/2019 12:00:00 AM EDT eCW1 ([facility]) Unknown [address] [facility] [address] 11/13/2019 12:00:00 AM EDT eCW1 ([facility]) Outpatient Attender: Regina DORADO Main Office 11/12/2019 09:45:00 AM EDT MEDENT ([facility]) Office Visit Attender: BHARGAV NATARAJAN MD Main Office 11/05/2019 03: 53:00 PM EDT MEDENT ([facility]) Unknown [address] [facility] [address] 10/30/2019 12:00:00 AM EDT eCW1 ([facility]) Unknown [address] [facility] [address] 10/30/2019 12:00:00 AM EDT eCW1 ([facility]) Office Visit Attender: BHARGAV NATARAJAN MD Main Office 10/05/2019 08: 53:00 AM EDT MEDENT ([facility]) [facility] Dermatology [address] [place] [address] 09/26/2019 12:00:00 AM EDT eCW1 ([facility]) [facility] [address] [facility] [place] [address] 09/11/2019 12:00:00 AM EDT eCW1 ([facility]) Office Visit Attender: BHARGAV NATARAJAN MD Main Office 08/30/2019 01: 06:00 PM EDT MEDENT ([facility]) Office Visit Attender: BHARGAV NATARAJAN MD Main Office 07/31/2019 12: 36:00 PM EDT MEDENT ([facility]) [facility] Pain Center [address] [place] [address] 07/26/2019 12:00:00 AM EDT eCW1 ([facility]) Outpatient [address] [place] [address] 07/10/2019 12:00:00 AM EDT eCW1 ([facility]) Office Visit Attender: BHARGAV NATARAJAN MD Main Office 06/28/2019 10: 21:00 AM EDT MEDENT ([facility]) [facility] [place] [address] [place] [address] 06/28/2019 12:00:00 AM EDT eCW1 ([facility]) Outpatient Referrer: Regina DORADO 06/25/2019 10:41:00 A M EDT [facility] Pain Center [address] [place] [address] 06/21/2019 12:00:00 AM EDT eCW1 ([facility]) [facility] Pain Center [address] [place] [address] 06/20/2019 12:00:00 AM EDT eCW1 ([facility]) [facility] Pain Center [address] [place] [address] 06/05/2019 12:00:00 AM EDT eCW1 ([facility]) Office Visit Attender: BHARGAV NATARAJAN MD Main Office 06/04/2019 02: 58:00 PM EDT MEDENT ([facility]) Outpatient Attender: Regina DORADO Main Office 05/11/2019 11:30:00 AM EDT MEDENT ([facility]) [facility] Pain Center [address] [place] [address] 05/09/2019 12:00:00 AM EDT eCW1 ([facility]) [facility] Pain Center [address] [place] [address] 04/26/2019 12:00:00 AM EDT eCW1 ([facility]) [facility] [address] [facility] [address] 04/25/2019 12:00:00 AM EDT eCW1 ([facility]) [facility] [place] [address] [facility] [address] 04/24/2019 12:00:00 AM EDT eCW1 ([facility]) [facility] Pain Center [address] [place] [address] 04/23/2019 12:00:00 AM EDT eCW1 ([facility]) Outpatient Referrer: Regina DORADO 04/12/2019 03:12:00 P M EST [facility] [place] [address] [facility] [address] 04/10/2019 12:00:00 AM EST eCW1 ([facility]) [facility] Pain Center [address] [place] [address] 04/10/2019 12:00:00 AM EST eCW1 ([facility]) [facility] [address] [place] [address] 03/29/2019 12:00:00 AM EST eCW1 ([facility]) [facility] [place] [address] [facility] [address] 03/15/2019 12:00:00 AM EST eCW1 ([facility]) [facility] [place] [address] [facility] [address] 03/13/2019 12:00:00 AM EST eCW1 ([facility]) Outpatient Referrer: Regina DORADO 03/09/2019 03:40:00 P M EST [facility] Pain Center [address] [place] [address] 03/06/2019 12:00:00 AM EST eCW1 ([facility]) [facility] Pain Center [address] [place] [address] 03/02/2019 12:00:00 AM EST eCW1 ([facility]) [facility] Pain Center [address] [place] [address] 02/13/2019 12:00:00 AM EST eCW1 ([facility]) [facility] Pain Center [address] [place] [phone] 02/08/2019 12:00:00 AM EST eCW1 ([facility]) Outpatient 12/08/2017 12:00:00 AM EDT - 12/08/2017 11:59:00 PM EDT [facility] Patient discharged. Immunizations Vaccine Date Status Description Data Source(s) COVID-19 VACCINE, MRNA-1273, LNP-S (MODERNA)/PF 03/26/2020 1 2:00:00 AM EST completed [facility] Medications Medication Brand Name Start Date Product Form Dose Route Admi nistrative Instructions Pharmacy Instructions Status Indications Reaction Description Data Source(s) CPAP mask UNK 03/26/2020 12:00:00 AM EST active CPAP mask eCW1 ([facility]) iopamidol ([id number]-[id number]) 76 % [id number] 01/10/2020 02:39:21 PM EST active As needed, Starting Chioma 01/10/20 at 1439, Intra-Procedu re [facility] Medication administered onsite normal saline flush 0.9 % injection 3 mL [id number] 01/10/2020 02:00:00 PM EST 3 mL Intravenous active 3 mL , Intravenous, Every 8 hours (scheduled), First dose on Chioma 01/10/20 at 1400, Pre-op
Rapid push positive pressure flushing shall be performed with a 10 cc normal saline syringe to check the PATENCY of a PIV site prior to any infusion therapy initiation unless resistance is met.
[facility] Medication administered onsite normal saline flush 0.9 % injection 3 mL [id number] 01/10/2020 02:00:00 PM EST 3 mL Intravenous active 3 mL , Intravenous, PROTOCOL, First dose on Chioma 01/10/20 at 1400, Pre-op
flush per protocol, D/C Main IV fluid if appropriate
[facility] Medication administered onsite 1 ML heparin sodium, porcine 1000 UNT/ML Injection hep clayton (porcine) injection heparin (porcine) injection 01/10/2020 01:56:26 PM EST active As needed, Starting Chioma 01/10/20 at 1356, Intra-Procedure [facility] Medication administered onsite 4 ML Verapamil hydrochloride 2.5 MG/ML Injection verap jasen (ISOPTIN) injection verapamil (ISOPTIN) injection 01/10/2020 01:56:16 PM EST active As needed, Starting Chioma 01/10/20 at 1356, Intra-Procedure [facility] Medication administered onsite lidocaine 1 % injection 7184-7061-44 01/10/2020 01:55:48 PM EST active As needed, Starting Chioma 01/10/20 at 1355, Intra-Procedure [facility] Medication administered onsite fentaNYL Citrate (PF) (SUBLIMAZE) injection 8018-6042-16 01/10/2020 01:54:56 PM EST active As neede d, Starting Chioma 01/10/20 at 1354, Intra-Procedure [facility] Medication administered onsite 2 ML Midazolam 1 MG/ML Injection midazolam (VERSED) in jection midazolam (VERSED) injection 01/10/2020 01:54:42 PM EST active As needed, Starting Chioma 01/10/20 at 1354, Intra-Procedure [facility] Medication administered onsite sodium chloride 0.9% (NS) infusion 2159-3059-51 01/10/2020 12:00:00 PM EST 100 mL/h Intravenous active at 100 m L/hr, 100 mL/hr, Intravenous, Continuous, Starting Chioma 01/10/20 at 1200, Pre-op
Start two hours prior to scheduled start time
[facility] Medication administered onsite Acetaminophen 325 MG [...] mg from all sources in 24 hours."
[facility] Medication administered onsite Aspirin 81 MG Delayed Release Oral Tablet Aspirin 81 2019 12:00:00 AM EST ORAL active MEDENT ( [facility]) Ticagrelor 90 MG Oral Tablet [Brilinta] Brilinta 12/20/2019 12:00:0 0 AM EST ORAL completed [facility]ENT ([facility]) Loperamide Hydrochloride 2 MG Oral Capsule Loperamide HCl 2 MG Loperamide HCl 2 MG 11/13/2019 12:00:00 AM EDT active Loperamide HCl 2 MG eCW1 ([facility]) Loperamide Hydrochloride 2 MG Oral Capsule Loperamide HCl 2 MG Loperamide HCl 2 MG 11/13/2019 12:00:00 AM EDT active Loperamide HCl 2 MG eCW1 ([facility]) Loperamide Hydrochloride 2 MG Oral Capsule Loperamide HCl 2 MG Loperamide HCl 2 MG 11/13/2019 12:00:00 AM EDT active Loperamide HCl 2 MG eCW1 ([facility]) Loperamide Hydrochloride 2 MG Oral Capsule Loperamide HCl 2 MG Loperamide HCl 2 MG 11/13/2019 12:00:00 AM EDT active Loperamide HCl 2 MG eCW1 ([facility]) Loperamide Hydrochloride 2 MG Oral Capsule Loperamide HCl 2 MG Loperamide HCl 2 MG 11/13/2019 12:00:00 AM EDT active Loperamide HCl 2 MG eCW1 ([facility]) Loperamide Hydrochloride 2 MG Oral Capsule Loperamide HCl 2 MG Loperamide HCl 2 MG 11/13/2019 12:00:00 AM EDT active Loperamide HCl 2 MG eCW1 ([facility]) Loperamide Hydrochloride 2 MG Oral Capsule Loperamide HCl 2 MG Loperamide HCl 2 MG 11/13/2019 12:00:00 AM EDT active Loperamide HCl 2 MG eCW1 ([facility]) Loperamide Hydrochloride 2 MG Oral Capsule Loperamide HCl 2 MG Loperamide HCl 2 MG 11/13/2019 12:00:00 AM EDT active Loperamide HCl 2 MG eCW1 ([facility]) Omeprazole 20 MG Delayed Release Oral Capsule Omeprazole 11/11/2019 12:00:00 AM EDT ORAL active MEDENT ([facility]) tramadol hydrochloride 50 MG Oral Tablet Tramadol HCL 11/11/2019 12:00:00 AM EDT ORAL active [facility]ENT ([facility]) sitagliptin 50 MG Oral Tablet [Januvia] Januvia 11/11/2019 12:00:0 0 AM EDT ORAL active MEDENT ([facility]) methylsulfonylmethane 1000 MG Oral Capsule MSM 11/11/2019 12:0 0:00 AM EDT ORAL active [facility] ([facility]) Loperamide Hydrochloride 2 MG Oral Capsule Anti-Diarrheal 11/11/2019 12:00:00 AM EDT ORAL active [facility]ENT ([facility]) Milk Thistle 11/11/2019 12:00:00 AM EDT ORAL activ e MEDENT ([facility]) Omeprazole 40 MG Delayed Release Oral Capsule Omeprazole 05/09/2019 12:00:00 AM EDT ORAL active MEDENT ([facility]) mary ann root 250 MG Oral Capsule Mary Ann Root 05/09/2019 12:00:00 AM EDT ORAL active MEDENT ([facility]) Insurance Providers Payer name Policy type / Coverage type Policy ID Covered constitution party ID Covered constitution party's relationship to ryan Policy Ryan Plan Information MEDICARE [id number] SP [id number] [facility] HEALTH CARE OPTIONS [id number] SP [id number] [facility] [id number] MEDICARE [id number] MEDICARE [id number] Deepthi [id number] [id number] [facility] [id number] Deepthi [id number] MEDICARE C [id number] S [id number] A31 [facility] O [id number] S [id number] SELF PAY A[employer] OPTIONS [id number] SP [id number] MEDICARE [id number] SP [id number] MEDICARE [id number] SP [id number] A ANSI-Commercial [id number] ANSI-Medicare Part B [id number] ANSI-Medicare Part B [id number] ANSI-Commercial [id number] ANSI-Commercial [id number] ANSI-Medicare Part B [id number] SELF PAY AARP HE[employer]CARE OPTIONS [id number] SP [id number] MEDICARE [id number] SP [id number] [facility] Medigap Part B [id number] Self [id number] Medicare (Part B) Medicare Primary [id number] Self [id number] [employer] Medigap Part B [id number] Self [id number] [facility] Medigap Part B [id number] Self [id number] [facility] Medigap Part B [id number] Self [id number] Medicare (Part B) Medicare Primary [id number] Self [id number] ANSI-Commercial [id number] ANSI-Medicare Part B [id number] ANSI-Medicare Part B [id number] ANSI-Commercial [id number] ANSI-Commercial [id number] ANSI-Medicare Part B [id number] SELF PAY AARP HE[employer]CARE OPTIONS [id number] SP [id number] MEDICARE [id number] SP [id number] SELF PAY [employer] OPTIONS [id number] SP [id number] MEDICARE [id number] SP [id number] A31 SELF PAY SP SELF PAY UNAVAILABLE SP UNAVAILA BLE [facility] Part B [id number] Self [id number] Medicare (Part B) Medicare Primary [id number] Self [id number] ANSI-Medicare Part B [id number] ANSI-Commercial [id number] ANSI-Medicare Part B [id number] ANSI-Commercial [id number] ANSI-Medicare Part B [id number] ANSI-Commercial [id number] MEDICARE C [id number] S [id number] A [facility] Medigap Part B [id number] Self [id number] Medicare (Part B) Medicare Primary [id number] Self [id number] [employer] OPTIONS [id number] SP [id number] MEDICARE [id number] SP [id number] A [employer] OPTIONS [id number] SP [id number] MEDICARE [id number] SP [id number] A [facility] Medigap Part B [id number] Self [id number] Medicare (Part B) Medicare Primary [id number] Self [id number] [employer] OPTIONS UNAVAILABLE SP UNAVAILABLE MEDICARE [id number] A [facility] Medigap Part B [id number] Self [id number] Medicare (Part B) Medicare Primary [id number] Self [id number] [employer] OPTIONS [id number] SP [id number] [facility] Medigap Part B [place] Self [employer] OPTIONS [id number] SP [id number] Medicare (Part B) Medicare Primary Self [employer] Medigap Part B Self [employer] Medigap Part B Self [facility] Medigap Part B Self Medicare Medicare Primary Self [place] Part B Self [place] Primary Self [employer] OPTIONS [id number] A Problems, Conditions, and Diagnoses Code Display Name Description Problem Type Effective Dates Data Source(s) G47.33 [id number] Obstructive sleep apnea Problem 03/26/2020 1 2:00:00 AM EST eCW1 ([facility]) M48.062 [id number] Spinal stenosis, lumbar region w ith neurogenic claudication Problem 03/08/2019 12:00:00 AM EST eCW1 ([facility]) M47.816 [id number] Spondylosis without myelopathy or radiculopathy, lumbar region Problem 03/08/2019 12:00:00 AM EST eCW1 ([facility]) I34.0 Nonrheumatic mitral (valve) insufficienc y Nonrheumatic mitral (valve) insufficienc Diagnosis 01/10/2020 10:28:00 AM EST [facility] I35.2 Nonrheumatic aortic (valve) stenosis wit h insufficiency Nonrheumatic aortic (valve) stenosis wit Diagnosis 01/10/2020 10:28:00 AM EST [facility] R94.39 Abnormal result of other cardiovascular function study Abnormal result of other cardiovascular Diagnosis 01/10/2020 10:28:00 AM EST [facility] I25.10 Atherosclerotic heart diseas e of [place] coronary artery without angina pectoris Atherosclerotic heart disease of [place] Diagnosis 01/10/2020 10:28:00 AM EST [facility] Surgeries/Procedures Procedure Description Date Indications Data Source(s) CARDIAC CATHETERIZATION CARDIAC CATHETERIZATION Routine 01/10/2020 2:36 PM EST Coronary atherosclerosis of [place] coronary artery Abnormal result of other cardiovascular function study Nonrheumatic aortic (valve) stenosis with insufficiency Nonrheumatic mitral (valve) insufficiency 01/10/2020 07:36:4 8 PM EST Nonrheumatic mitral (valve) insufficiencyNonrheumatic aortic (valve) stenosis with insufficiencyAbnormal result of other cardiovascular function studyCoronary atherosclerosis of [place] coronary artery [facility] Nonrheumatic mitral (valve) insufficienc y Nonrheumatic aortic (valve) stenosis wit h insufficiency Abnormal result of other cardiovascular function study Coronary atherosclerosis of [place] coron juan carlos artery ECG ROUTINE ECG W/LEAST 12 LDS W/I&R ECG 12-LEAD Routine 01/10/2020 11:01 AM EST 01/10/2020 04:01:41 PM EST S [facility] Left Heart Cath W/Wo LV & Coronary Angiography 12:00:00 AM EST MEDENT ([facility]) MYOCARDIAL SPECT MULTIPLE STUDIES 12/18/2019 12:00:00 AM EST MEDENT ([facility]) CV STRS TST XERS&/OR RX CONT ECG PHYS SI&R 12/18/2019 12:00:00 AM EST MEDENT ([facility]) ECG ROUTINE ECG W/LEAST 12 LDS W/I&R 11/12/2019 12:00: 00 AM EDT MEDENT ([facility]) PHYSICIAN TELEPHONE EVALUATION 11-20 MIN 06/21/2019 12 :00:00 AM EDT eCW1 ([facility]) ESTABILISHED PATIENT [facility] FACILITY CHARGE 12:00:00 AM EDT eCW1 ([facility]) RADXPS IN END GUTG7TAPTE PXD 04/10/2019 12:00:00 AM ES T eCW1 ([facility]) INJ PARAVERT F JNT L/S 1 LEV 04/10/2019 12:00:00 AM ES T eCW1 ([facility]) Office Visit, Est Pt., Level 4 PC 03/13/2019 12:00:00 AM EST eCW1 ([facility]) Office Visit, Est Pt., Level 2 FC 03/13/2019 12:00:00 AM EST eCW1 ([facility]) Eligible professional attests to katherine crawford in the medical record they obtained, updated, or reviewed the patient's current medications 03/02/2019 12:00:00 AM EST eCW1 ([facility]) Pain assessment documented as positive u sing a standardized tool and a follow-up plan is documented 03/02/2019 12:00:00 AM EST e CW1 ([facility]) Results ID Date Data Source [id number] 01/10/2020 02:52:49 PM EST [facility] Name Value Range Interpretation Code Description Data Isela rce(s) Supporting Document(s) &PDF [facility] DEYUTl6cEdKMCqKe04/FQZquQNNzy8QuUSpjDOv7CZojEMToD2SyfEkfRS0EBrQDQkbSOXHJDo5xSNVp yKE [file] AgICAgICAgICAgICAgICAgICAgICAgICAgICAgICAg ICAgICAgICAgICAgICAgICANCiAgICAgICAgICAgICAgICAgICAgICAgICAgICAgICAgICAgICAgICAg ICAgICAgICAgICAgICAgICAgICAgICAgICAgICAgICAgICAgICAgICAgICAgICAgICAgICAgICAgICAN CiAgICAgICAgICAgICAgICAgICAgICAgICAgICAgIC AgICAgICAgICAgICAgICAgICAgICAgICAgICAgICAgICAgICAgICAgICAgICAgICAgICAgICAgICAgIC AgICAgICAgICANCiAgICAgICAgICAgICAgICAgICAgICAgICAgICAgICAgICAgICAgICAgICAgICAgIC AgICAgICAgICAgICAgICAgICAgICAgICAgICAgICAg ICAgICAgICAgICAgICAgICAgICANCiAgICAgICAgICAgICAgICAgICAgICAgICAgICAgICAgICAgICAg ICAgICAgICAgICAgICAgICAgICAgICAgICAgICAgICAgICAgICAgICAgICAgICAgICAgICAgICAgICAg ICANCiAgICAgICAgICAgICAgICAgICAgICAgICAgIC AgICAgICAgICAgICAgICAgICAgICAgICAgICAgICAgICAgICAgICAgICAgICAgICAgICAgICAgICAgIC AgICAgICAgICAgICANCiAgICAgICAgICAgICAgICAgICAgICAgICAgICAgICAgICAgICAgICAgICAgIC AgICAgICAgICAgICAgICAgICAgICAgICAgICAgICAg ICAgICAgICAgICAgICAgICAgICAgICANCiAgICAgICAgICAgICAgICAgICAgICAgICAgICAgICAgICAg ICAgICAgICAgICAgICAgICAgICAgICAgICAgICAgICAgICAgICAgICAgICAgICAgICAgICAgICAgICAg ICAgICANCiAgICAgICAgICAgICAgICAgICAgICAgIC AgICAgICAgICAgICAgICAgICAgICAgICAgICAgICAgICAgICAgICAgICAgICAgICAgICAgICAgICAgIC AgICAgICAgICAgICAgICANCiAgICAgICAgICAgICAgICAgICAgICAgICAgICAgICAgICAgICAgICAgIC AgICAgICAgICAgICAgICAgICAgICAgICAgICAgICAg ICAgICAgICAgICAgICAgICAgICAgICAgICANCjw/vWIxP4qlrNBfvaI6Z1miSb5KFj3DJT3lz9AwDURb WEvamaHmQdvPHkNaVWUlBfwMKfz0XNxlTK6JeRSnY9VzE1MbRLiuSR0VHHHiHMWflGRgATNxKLOpTmK6 HDVeFActMU0MbFDuRBvgSDJoEICcDpAjNSEnYAPqIC NtGH8EFXMkN777wiZmDv0GHj1BErPhBI7lcz4NJvJeIHMtWemAOmq2VHnzFK9QhOBavMHuZAQuXWJVVx UtT9eox4IcWcVeVOHTZPmnGG8Iw0KxeTKxDKs+So5BBZ2xb2QsRSraXFAdHS6krf3SOTbUMaBoA5MeqP aoOPvwtCvdqwMiRJ0DSNGxAXZubLYkTCrsNKXDNJ3U WNawNYL1FBWopgAxiRUeEFyqGO8ANZWunvTlUgDoBVGHOXk+Lm5UOO0mn4WxVMdkNfHlPT1ucc1GIVpK EbXlN5U7tCErI1P8MXhuOr7QRYQkACGcCjJcQKCLKCeiID4UMS4ngiK2GR6AzRYoGYVuOJWivQHlYSs4 E19bqRTzLPreRQ3NSGF+Miles+Vw2HVUGrKFYiLXGwZk NqAZVERwGdU9BvT5ADq5AhE8GqBN54sIcpjrOgSJicWL3MND1bMOGpOSYJON0TyPKqeF7troYnBTYeLZ OXQhAfD21eyBFpFWKcQKSuPKIyFs5FDTAyF5AxhjImfFwbakFnMOSyIXSTFA2VOBkkkxObtRQynNbxCS 20lDofLK2OXt3TFhCyVQ5avw6OrNDvGx2XICXjWr4O WZQnFUOsEDHiEDI8ZDSdImUsROixSGLrDETrLMJ0YETxVKBiTV9RZsPwJLOzEHH2YIFqQCVcLCVbel0T RBJhXMT3WdJ7BLWiCTUmNRMqRHriORCdYBQgHFfuFVTiMMPgAC7BGwXtMFQcAFVjOIGhOYUvRJXeny4H CLBcHNVcSqZxCVLqWMWaQYTeZRfzDKBbZUP0WKRrYE BvVTPuNZ3RYcJfZWWfHPUtUsSyWNMkZYJlek8PJYRnGDHvSaSuCGDoLIRiACUwCEsuMSVlBYW7NmU6CG DbQPDaLX4WZkDkOXMlESd3EbDaSDEeQMRdtc9UFQCkPMLjMpi3JlJzIQVmYYNcBNjfFMBnAJA0FOA3WD RmOSMoYN7THuBwCMKmRXg3UZVoRVGpOQEzpm2MUSPo CEKtURAfRoCgMNWtYEUjCOrxKRJfBLC6Lsq4UYRiRQIiFR8ICmCnSZTqQUEvBCllQQYqBIMjch1LKBYc OJAoZDwbCpFoZYXdZQXyTFvxALWxSYLgTQv2SNNgIHWsDP2KJcKzNAVlItH3ZGEqKHSmSJYjvw0HXBGh MDAzMjgwNCAwMDAwMCBuDQowMDAwMDUxNTcxIDAwMD CxEG5LGuBnYEVgDAOpMSfqZOSjUQDvsy2ONRHeBEJ1CuBlIDVsZKDhHGCyEQmjNIRcGYBeHZf7IWKfDU ZyMC9VQxJiNRQpWAK8IvuuQHCsDCZhnr7HxMUpfYpslb5RYNuXCz3IwDeiLZU5MFmgWp7haKXgPeCwVO NRYd2XihLiGHTgEDPHTBooLUByPGJhUPUiBQY8OiW8 RkW5MnEtDBf2WeZ8UvC7OlG3GUZpZlG4PgA5USNiJFwyOSniMtzxB9JoFItiZco0EpqjIcVkWwK+IF0g DQo+Qu0Dz4LtwcJ0nzGmLJd0XljsMe2TUPEDV3WYIa== ID Date Data Source [id number] 01/10/2020 12:16:52 PM EST [facility] NT INFORMATIONPatient MRN Name Date of Age Gend*PT [id number] Al Hooks 1945 74 years F HOPPT Location Admission Date/Time Visit ID Attending ProviderCV-01/10/20 1028 --- Ryan Taveras MD([id number]) EPI ID CSN Admitting Provider [id number] Ryan Taveras MD([id number])Updated H&PPlease see the scanned/dictated outpatient note.I have reviewed the note, clinical history and physical exam findings. Therehave been no significant changes.Plan as outlined in the outpatient note.Risk/benifit/alternative of cardiac catheterization was discussed withpatient/family. Risks included, but not limited to; CA, CVA, , renalimpairment, vascular complication, and need for emergency surgery were discussedand accepted by patient.Ryan Taveras MD, [facility], [facility] Name Value Range Interpretation Code Description Data Isela rce(s) Supporting Document(s) ID Date Data Source [id number] 01/10/2020 11:23:13 AM EST [facility] Name Value Range Interpretation Code Description Data Isela rce(s) Supporting Document(s) EKG [facility] CRGFNs8zBrGKVdJli2QoHdZbGWZbOV4ixhs4L6Q7xPXkU8ZvcPIvl0dxZ5MyR5BpGELuFLDZHC0IlARv jb2 [file] NSAwIFIKCj4+KaE4DPX2eARkJld4MIGqVHpkFDGZGg== ID Date Data Source [id number] 01/05/2020 08:30:00 AM EST MEDENT ([facility] Name Value Range Interpretation Code Description Data Isela rce(s) Supporting Document(s) Laboratory test finding (navigational concept) Laboratory test result MEDENT ([facility]) This nucleic acid amplification test was developed and its performance characteristics determined by [employer]. Nucleic acid amplification tests include PCR and [...] detected) result in this assay. Performed at: [employer] [address] [facility], [place] [address] [id number] Customer Orders Clerk: Rylee Levy PhD, Phone: [phone] Not Detected ID Date Data Source [id number] 01/05/2020 08:30:00 AM EST [facility] Name Value Range Interpretation Code Description Data Isela rce(s) Supporting Document(s) SARS coronavirus 2 RNA [facility] This lab was ordered by [facility] and reported by [facility]. ID Date Data Source [id number] 12/21/2019 08:27:00 AM EST [facility] ([facility] Name Value Range Interpretation Code Description Data [...] 10 150-450 [facility] ([facility]) [place] % 4.8 % 0.0-5.0 MEDENT ([facility] [...] 0.3 10 0.0-0.5 MEDENT ([facility]) [place] # 0.4 10 0.0-0.8 MEDENT ([facility]) Baso # 0.1 10 0.0-0.2 MEDENT ([facility]) ID Date Data Source [id number] 12/21/2019 08:27:00 AM EST MEDENT ([facility]) Name Value Range Interpretation Code Description Data Isela rce(s) Supporting Document(s) Glucose, Fasting 136 mg/dL 70-100 MEDENT ([facility]) Blood Urea Nitrogen 12 mg/dL 7-18 MEDENT ([facility]) Creatinine For GFR 0.57 mg/dL 0.55-1.30 MEDENT ([facility]) Glomerular Filtration Rate Laboratory test result MEDENT ([facility]) <content>Units are mL/min/1.73 m2</content>
<content></content>
<content>Chronic Kidney Disease Staging per NKF:</content>
<content></content>
<content>Stage I & II GFR >=60 Normal to Mildly Decreased</content>
<content>Stage III GFR 30- 59 Moderately Decreased</content>
<content>Stage IV GFR 15-29 Severely Decreased</content>
<content>Stage V GFR <15 Very Little GFR Left</content>
<content>ESRD GFR <15 on [employer]JUST[employer]</content>
<content></content> Sodium Level 137 meq/L 136-145 MEDENT ([facility]) Potassium Serum 4.5 meq/L 3.5-5.1 MEDENT ([facility]) Chloride Level 102 meq/L 98-107 MEDENT ([facility]) Carbon Dioxide Level 30 meq/L 21-32 MEDENT ([facility]) Anion Gap 5 meq/L 8-16 MEDENT ([facility]) Calcium Level 9.7 mg/dL 8.8-10.2 MEDENT ([facility]) ID Date Data Source [id number] 11/07/2019 08:50:00 AM EDT [facility] ([facility]) Name Value Range Interpretation Code Description Data Isela rce(s) Supporting Document(s) Hemoglobin A1c 7.2 % MEDENT ([facility]) <content>REFERENCE RANGES:</content><br/ ><content></content>
<content><=5.6% NORMAL</content>
<content>5.7-6.4% SUGGESTS IMPAIRED GLUCOSE METABOLISM/PREDIABETIC</content>
<content>>= 6.5% ABNORMAL</content>
<content></content> Estimated Average Glucose 160 mg/dL 60-110 MEDENT ([facility]) ID Date Data Source [id number] 11/07/2019 08:50:00 AM EDT MEDENT ([facility]) Name Value Range Interpretation Code Description Data Isela rce(s) Supporting Document(s) Triglycerides Level 115 mg/dL MEDENT ([facility]) LDL Cholesterol 75 mg/dL MEDENT ([facility]) Cholesterol Level 159 mg/dL MED[facility] ([facility]) HDL Cholesterol 61 mg/dL MED[facility] ([facility]) Cholesterol Risk Ratio 2.606 MEDENT ([facility]) Non-HDL-C 98 mg/dL [facility] ID Date Data Source [id number] 11/07/2019 08:50:00 AM EDT [facility] ([facility]) Name Value Range Interpretation Code Description Data Isela rce(s) Supporting Document(s) Glucose, Fasting 162 mg/dL 70-100 MEDENT ([facility]) Blood Urea Nitrogen 13 mg/dL 7-18 MEDENT ([facility]) Creatinine For GFR 0.63 mg/dL 0.55-1.30 MEDENT ([facility]) Sodium Level 134 meq/L 136-145 MEDENT ([facility]) Glomerular Filtration Rate Laboratory test result MEDENT ([facility]) <content>Units are mL/min/1.73 m2</content>
<content></content>
<content>Chronic Kidney Disease Staging per NKF:</content>
<content></content>
<content>Stage I & II GFR >=60 Normal to Mildly Decreased</content>
<content>Stage III GFR 30- 59 Moderately Decreased</content>
<content>Stage IV GFR 15-29 Severely Decreased</content>
<content>Stage V GFR <15 Very Little GFR Left</content>
<content>ESRD GFR <15 on [employer]</content>
<content></content> Potassium Serum 4.6 meq/L 3.5-5.1 [facility] Chloride Level 99 meq/L 98-107 [facility] Carbon Dioxide Level 25 meq/L 21-32 [facility] Calcium Level 10.0 mg/dL 8.8-10.2 [facility] Anion Gap 10 meq/L 8-16 [facility] Alt/SGPT 29 U/L 12-78 MEDENT (Cardiology [facility]) Ast/Sgot 20 U/L 7-37 MEDENT ([facility]) Bilirubin,Total 0.5 mg/dL 0.2-1.0 MEDENT (Cardio logy [facility]) Alkaline Phosphatase 85 U/L 45-117 MEDENT (C [facility]diology [facility]) Total Protein 7.3 GM/DL 6.4-8.2 MEDENT ([facility]) Albumin 3.9 GM/DL 3.2-5.2 [facility] ([facility] Albumin/Globulin Ratio 1.1 1.2-2.2 MEDENT ([facility]) ID Date Data Source [id number] 07/07/2019 11:15:00 AM EDT [facility] Name Value Range Interpretation Code Description Data Isela rce(s) Supporting Document(s) SARS CORONAVIRUS 2 RNA [facility] This lab was ordered by [facility] and reported by [facility]. ID Date Data Source [id number] 05/12/2019 10:00:00 AM EDT [facility] Name Value Range Interpretation Code Description Data Isela rce(s) Supporting Document(s) Thyrotropin [Units/volume] in Serum or Plasma 2.520 MEDENT ([facility]) ID Date Data Source [id number] 05/12/2019 10:00:00 AM EDT [facility] Name Value Range Interpretation Code Description Data Isela rce(s) Supporting Document(s) Troponin Laboratory test result MEDENT ([facility]) ID Date Data Source [id number] 05/12/2019 10:00:00 AM EDT [facility] Name Value Range Interpretation Code Description Data Isela rce(s) Supporting Document(s) Creatine kinase [Enzymatic activity/volume] in Serum or Plasma 62 MEDENT ([facility]) CPK-MB 1.1 [facility] MB/CK Relative 1.77 MEDENT ([facility]) ID Date Data Source [id number] 05/12/2019 10:00:00 AM EDT [facility] Name Value Range Interpretation Code Description Data Isela rce(s) Supporting Document(s) Glucose 130 70-100 MEDENT ([facility]) Blood Urea Nitrogen 11 7-18 MEDENT ([facility]) Potassium 3.4 3.5-5.1 MED[facility] ([facility]) Creatinine 0.67 0.6-1.0 MED[facility] ([facility]) Sodium 135 136-145 MED[facility] ([facility]) Calcium 9.9 8.8-10.2 MED[facility] ([facility]) Glomerular filtration rate/1.73 sq M.pre dicted [Volume Rate/Area] in Serum or Plasma by Creatinine-based formula (MDRD) Laboratory test result MEDENT ([facility]) Carbon Dioxide 29 21-32 [facility] Chloride 99 98-107 MEDENT ([facility]) ID Date Data Source [id number] 05/12/2019 10:00:00 AM EDT MEDENT ([facility]) Name Value Range Interpretation Code Description Data Isela rce(s) Supporting Document(s) White Blood Count 8.2 4.0-10.0 MEDENT ([facility]) Red Blood Count 4.53 4.00-5.40 MED[facility] ([facility]) Hemoglobin 13.0 MED[facility] ([facility]) Hematocrit 39.8 MEDENT ([facility]) Platelets 311 150-450 MEDENT ([facility]) Procedure Social History Code Duration Value Status Description Data Source(s ) Smoking 03/26/2020 12:00:00 AM EST Never Smoker completed Never S moker eCW1 ([facility]) Smoking 02/18/2020 12:00:00 AM EST Patient has never smoked co mpleted Patient has never smoked [facility] ([facility]) Smoking 02/13/2020 12:00:00 AM EST Never Smoker completed Never S moker eCW1 ([facility]) Smoking 02/13/2020 12:00:00 AM EST Never Smoker completed Never S moker eCW1 ([facility]) Alcohol intake 01/10/2020 12:00:00 AM EST Yes completed [facility] Smoking 01/10/2020 12:00:00 AM EST Never smoker completed Never s moker [facility] Smoking 11/27/2019 12:00:00 AM EDT Never Smoker completed Never S moker eCW1 ([facility]) Smoking 11/27/2019 12:00:00 AM EDT Never Smoker completed Never S moker eCW1 ([facility]) Smoking 11/13/2019 12:00:00 AM EDT Never Smoker completed Never S moker eCW1 ([facility]) Smoking 11/13/2019 12:00:00 AM EDT Never Smoker completed Never S moker eCW1 ([facility]) Smoking 11/13/2019 12:00:00 AM EDT Never Smoker completed Never S moker eCW1 ([facility]) Smoking 08/02/2019 12:00:00 AM EDT Never Smoker completed Never S moker eCW1 ([facility]) Smoking 08/02/2019 12:00:00 AM EDT Never Smoker completed Never S moker eCW1 ([facility]) Vital Signs ID Date Data Source [id number] Name Value Range Interpretation Code Description Data Source(s) Oxygen saturation in Arterial blood by Pulse oximetry 98 % 98 % MED[facility] ([facility]) Diastolic blood pressure--sitting 82 mm[Hg] 82 mm[Hg] MED[facility] ([facility]) Systolic blood pressure--sitting 132 mm[Hg] 132 mm[Hg] MED[facility] ([facility]) Respiratory rate 16 /min 16 /min MED[facility] ( [facility]) Heart rate 89 /min 89 /min MED[facility] ([facility]) Body mass index (BMI) [Ratio] 34.7 kg/m2 34.7 k g/m2 MED[facility] ([facility]) Body height 62 [in_i] 62 [in_i] MEDENT ([facility]) 5'2" Body weight 190.00 [lb_av] 190.00 [lb_av] MEDEN T ([facility]) Diastolic blood pressure 70 mm[Hg] 70 mm[Hg] eCW1 ([facility]) Systolic blood pressure 163 mm[Hg] 163 mm[Hg] e CW1 ([facility]) Body temperature 97.6 [degF] 97.6 [degF] eCW1 ( [facility]) Respiratory rate 18 /min 18 /min eCW1 ([facility]) Heart rate 91 /min 91 /min eCW1 ([facility]) Body mass index (BMI) [Ratio] 36.73 kg/m2 36.73 kg/m2 W1 ([facility]) Body height 61 [in_i] 61 [in_i] eCW1 ([facility]) Body weight 194.4 [lb_av] 194.4 [lb_av] eCW1 ([facility] Oxygen saturation in Arterial blood by Pulse oximetry 96 % 96 % [facility] Respiratory rate 16 /min 16 /min [facility] Body temperature 36.78 Yamilka 36.78 Yamilka [facility] Heart rate 77 /min 77 /min [facility] Diastolic blood pressure 87 mm[Hg] 87 mm[Hg] [facility] Systolic blood pressure 125 mm[Hg] 125 mm[Hg] [facility] Diastolic blood pressure 74 mm[Hg] 74 mm[Hg] eCW1 ([facility]) Systolic blood pressure 130 mm[Hg] 130 mm[Hg] e CW1 ([facility]) Body mass index (BMI) [Ratio] 36.69 kg/m2 36.69 kg/m2 [facility] ([facility]) Body height 61 [in_i] 61 [in_i] eCW1 ([facility]) Body weight 194.2 [lb_av] 194.2 [lb_av] eCW1 ([facility] Diastolic blood pressure 92 mm[Hg] 92 mm[Hg] eCW1 ([facility]) Systolic blood pressure 158 mm[Hg] 158 mm[Hg] e CW1 ([facility]) Body temperature 97.0 [degF] 97.0 [degF] eCW1 ( [facility]) Respiratory rate 18 /min 18 /min eCW1 ([facility]) Heart rate 90 /min 90 /min eCW1 ([facility]) Body mass index (BMI) [Ratio] 36.39 kg/m2 36.39 kg/m2 W1 ([facility]) Body height 61 [in_i] 61 [in_i] eCW1 ([facility]) Body weight 192.6 [lb_av] 192.6 [lb_av] eCW1 ([facility] Diastolic blood pressure 70 mm[Hg] 70 mm[Hg] ZEN ([facility]) sitting Systolic blood pressure 134 mm[Hg] 134 mm[Hg] M RENATE ([facility]) sitting Diastolic blood pressure 74 mm[Hg] 74 mm[Hg] MEDENT ([facility]) sitting, large cuff Systolic blood pressure 136 mm[Hg] 136 mm[Hg] M EDENT ([facility]) sitting, large cuff Respiratory rate 16 /min 16 /min MED[facility] ( [facility]) Heart rate 72 /min 72 /min [facility] ([facility]) Regular Body mass index (BMI) [Ratio] 34.4 kg/m2 34.4 k g/m2 [facility] ([facility]) Body height 62 [in_i] 62 [in_i] MEDENT ([facility]) 5'2" Body weight 188.00 [lb_av] 188.00 [lb_av] MEDEN T ([facility]) Diastolic blood pressure 79 mm[Hg] 79 mm[Hg] eCW1 ([facility]) Systolic blood pressure 149 mm[Hg] 149 mm[Hg] e CW1 ([facility]) Body temperature 98.0 [degF] 98.0 [degF] eCW1 ( [facility]) Respiratory rate 18 /min 18 /min eCW1 ([facility]) Heart rate 75 /min 75 /min eCW1 ([facility]) Body mass index (BMI) [Ratio] 36.46 kg/m2 36.46 kg/m2 eCW1 ([facility]) Body height 61 [in_i] 61 [in_i] eCW1 ([facility]) Body weight 193 [lb_av] 193 [lb_av] eCW1 ([facility]) Diastolic blood pressure 70 mm[Hg] 70 mm[Hg] MEDENT ([facility]) Sitting with home BP cuff Systolic blood pressure 154 mm[Hg] 154 mm[Hg] M EDENT ([facility]) Sitting with home BP cuff Heart rate 69 /min 69 /min MED[facility] ([facility]) Body mass index (BMI) [Ratio] 34.7 kg/m2 34.7 k g/m2 MEDENT ([facility]) Body height 62 [in_i] 62 [in_i] MEDENT ([facility]i [facility]) 5'2" Body weight 190.00 [lb_av] 190.00 [lb_av] MEDEN T ([facility]) Diastolic blood pressure 78 mm[Hg] 78 mm[Hg] eCW1 [facility] [facility] Systolic blood pressure 189 mm[Hg] 189 mm[Hg] e CW1 ([facility]) Body temperature 95.0 [degF] 95.0 [degF] eCW1 ( [facility]) Respiratory rate 18 /min 18 /min eCW1 ([facility]) Heart rate 74 /min 74 /min eCW1 ([facility]) Body mass index (BMI) [Ratio] 36.46 kg/m2 36.46 kg/m2 eCW1 ([facility]) Body height 61 [in_us] 61 [in_us] eCW1 ([facility]) Body weight Measured 193 [lb_av] 193 [lb_av] eC W1 ([facility]) Diastolic blood pressure 70 mm[Hg] 70 mm[Hg] eCW1 ([facility]) Systolic blood pressure 149 mm[Hg] 149 mm[Hg] e CW1 ([facility]) Body temperature 97.7 [degF] 97.7 [degF] eCW1 ( [facility]) Respiratory rate 18 /min 18 /min eCW1 ([facility]) Heart rate 77 /min 77 /min eCW1 ([facility]) Body mass index (BMI) [Ratio] 36.77 kg/m2 36.77 kg/m2 eCW1 ([facility]) Body height 61 [in_us] 61 [in_us] eCW1 ([facility]) Body weight Measured 194.6 [lb_av] 194.6 [lb_av ] eCW1 ([facility]) Diastolic blood pressure 74 mm[Hg] 74 mm[Hg] eCW1 ([facility]) Systolic blood pressure 148 mm[Hg] 148 mm[Hg] e CW1 ([facility]) Body temperature 98.8 [degF] 98.8 [degF] eCW1 ( [facility]) Respiratory rate 18 /min 18 /min eCW1 ([facility]) Heart rate 70 /min 70 /min eCW1 ([facility]) Body mass index (BMI) [Ratio] 36.24 kg/m2 36.24 kg/m2 eCW1 ([facility]) Body height 61 [in_us] 61 [in_us] eCW1 ([facility]) Body weight Measured 191.8 [lb_av] 191.8 [lb_av ] eCW1 ([facility]) Diastolic blood pressure 70 mm[Hg] 70 mm[Hg] eCW1 ([facility]) Systolic blood pressure 166 mm[Hg] 166 mm[Hg] e CW1 ([facility]) Body temperature 98.0 [degF] 98.0 [degF] eCW1 ( [facility]) Respiratory rate 18 /min 18 /min eCW1 ([facility]) Heart rate 73 /min 73 /min eCW1 ([facility]) Body mass index (BMI) [Ratio] 36.09 kg/m2 36.09 kg/m2 eCW1 ([facility]) Body height 61 [in_us] 61 [in_us] eCW1 ([facility]) Body weight Measured 191 [lb_av] 191 [lb_av] eC W1 ([facility]) Heart rate 80 /min 80 /min eCW1 ([facility]) Body mass index (BMI) [Ratio] 36.12 kg/m2 36.12 kg/m2 eCW1 ([facility]) Body height 61 [in_us] 61 [in_us] eCW1 ([facility]) Body weight Measured 191.2 [lb_av] 191.2 [lb_av ] eCW1 ([facility]) Diastolic blood pressure 63 mm[Hg] 63 mm[Hg] eCW1 ([facility]) Systolic blood pressure 146 mm[Hg] 146 mm[Hg] e CW1 ([facility]) Body temperature 96.5 [degF] 96.5 [degF] eCW1 ( [facility]) Respiratory rate 18 /min 18 /min eCW1 ([facility]) Patient Treatment Plan of Care Planned Activity Planned Date Details Description Data Source (s) CPAP mask 03/26/2020 12:00:00 AM EST e CW1 ([facility]) Loperamide Hydrochloride 2 MG Oral Capsule 11/13/2019 12:00:00 AM E DT eCW1 ([facility]) Loperamide Hydrochloride 2 MG Oral Capsule 11/13/2019 12:00:00 AM E DT eCW1 ([facility]) Loperamide Hydrochloride 2 MG Oral Capsule 11/13/2019 12:00:00 AM E DT eCW1 ([facility])
[2020-03-31] MEDS ORDERED: MORPHINE 4 MG/ML 1ML VIAL/SYRINGE (J2270) IV ONE (18:45)
[2020-03-31] MEDS ORDERED: ONDANSETRON 4MG/2ML VIAL IV ONE (18:45)
[2020-03-31] MEDS ORDERED: NS 1,000 ML IV SCH (19:15)
[2020-03-31] MEDS ORDERED: propofoL 200 MG/20 ML VIAL IV PRN (19:45)
[2020-03-31] MEDS ORDERED: propofoL 200 MG/20 ML VIAL IV ONE (20:30)
--- NOTE | 2020-03-31 21:14 | REPVR ---
PROCEDURE INFORMATION: Exam: XR Right Shoulder Exam date and time: 03/31/2020 8:26 PM Age: 74 years old Clinical indication: Pain; Shoulder; Right; Additional info: Post reduction TECHNIQUE: Imaging protocol: XR Right shoulder. Views: 1 view. COMPARISON: CR SHOULDER COMPLETE 03/31/2020. FINDINGS: Bones/joints: Glenohumeral alignment on the single provided view appears normal. AC joint alignment appears normal. No displaced fracture is seen. Soft tissues: Normal. IMPRESSION: Grossly normal alignment. Electronically signed by: Robert Eli On 03/31/2020 21:14:36 PM
[2020-03-31 23:20] VITALS: BP 174/91
== END 2020-03-31 23:36 | disposition home or self-care (01) ==
LOC: M ED 16:16
DX: S43.004A Unspecified dislocation of right shoulder joint, initial encounter (principal); W01.0XXA Fall on same level from slipping, tripping and stumbling without subsequent striking against object, initial encounter; Y92.099 Unspecified place in other non-institutional residence as the place of occurrence of the external cause; Y93.9 Activity, unspecified; Y99.9 Unspecified external cause status; I50.9 Heart failure, unspecified; I10 Essential (primary) hypertension; Z79.84 Long term (current) use of oral hypoglycemic drugs; Z79.899 Other long term (current) drug therapy; Z88.6 Allergy status to analgesic agent; Z88.8 Allergy status to other drugs, medicaments and biological substances; Z88.2 Allergy status to sulfonamides
CPT/HCPCS: 71045; 73020; 73060; 93041; 94760; 96372; 96374; 96375; 96376; 99285; J2270; J2405; J3360

== ENCOUNTER → 2020-04-04 | Outpatient (CLI) | payer MEDICARE ==
[~2020-04-04] MED LIST changes: +ACET-683 PO; +CITRTAB18 PO; -FOLI400T PO; +FOLI400T13 PO; +HYDR12.55 PO; +MILK500C PO
--- NOTE | 2020-04-04 16:23 | REP ---
INDICATION: F/U RIGHT SHOULDER. COMPARISON: Comparison study March 31, 2020.. TECHNIQUE: Five views of the right shoulder presented. FINDINGS: The right glenohumeral articulation remains normally aligned. A AC joint is normally aligned. No acute humeral or bony glenoid fracture is seen. There is diffuse osteopenia. IMPRESSION: No acute fracture. Normal glenohumeral alignment. <Electronically signed by Abram Fernandez > 04/04/20 [id number]
== END ==
LOC: M SOG 10:10
PROVIDERS: ATTEND Orthopaedic Surgery Sports Medicine
DX: S43.084A Other dislocation of right shoulder joint, initial encounter (principal); M85.821 Other specified disorders of bone density and structure, right upper arm; X58.XXXA Exposure to other specified factors, initial encounter; Y92.9 Unspecified place or not applicable

== ENCOUNTER → 2020-04-25 | Outpatient (CLI) | payer MEDICARE ==
--- NOTE | 2020-04-25 11:49 | REP ---
INDICATION: RIGHT SHOULDER PAIN. COMPARISON: 03/31/2020. TECHNIQUE: There are 6 views of the right shoulder including 2 axillary views and 2 lateral scapular views. FINDINGS: The previous umol head dislocation has been satisfactorily reduced. No Hill-Sachs lesion is identified on plain films. CT or MRI might be more sensitive. There is no fracture or dislocation. There are no calcifications or foreign bodies. IMPRESSION: Essentially negative right shoulder. The previous humeral head dislocation has been satisfactorily reduced. No Hill-Sachs lesion is identified on plain films. <Electronically signed by Dimitri Nunez > 04/25/20 1142
== END ==
LOC: M SOG 10:30
PROVIDERS: ATTEND Orthopaedic Surgery Sports Medicine
DX: S43.004D Unspecified dislocation of right shoulder joint, subsequent encounter (principal); W18.30XD Fall on same level, unspecified, subsequent encounter; Y92.009 Unspecified place in unspecified non-institutional (private) residence as the place of occurrence of the external cause

== ENCOUNTER → 2020-04-29 | Outpatient (REF) | payer MEDICARE ==
[2020-04-29 13:45] LABS: ALBUMIN 3.9 GM/DL (3.2-5.2); ALT/SGPT 24 U/L (12-78); BILIRUBIN,TOTAL 0.3 MG/DL (0.2-1.0); BLOOD UREA NITROGEN 15 MG/DL (7-18); CALCIUM LEVEL 9.7 MG/DL (8.8-10.2); CARBON DIOXIDE LEVEL 31 MEQ/L (21-32); CHLORIDE LEVEL 99 MEQ/L (98-107); CHOLESTEROL LEVEL 158 MG/DL (<200); CHOLESTEROL RISK RATIO 2.724 (<5); CREATININE FOR GFR 0.58 MG/DL (0.55-1.30); GLOMERULAR FILTRATION RATE > 60.0 (>39); GLUCOSE, FASTING 129 MG/DL (70-100); HDL CHOLESTEROL 58 MG/DL (>40); LDL CHOLESTEROL 75 MG/DL (<100); NON-HDL-C 100 MG/DL; POTASSIUM SERUM 4.1 MEQ/L (3.5-5.1); SODIUM LEVEL 137 MEQ/L (136-145); TOTAL PROTEIN 7.1 GM/DL (6.4-8.2); TRIGLYCERIDES LEVEL 123 MG/DL (<150)
[2020-04-29 13:51] LABS: TOTAL 25(OH) VITAMIN D 69.6 NG/ML (30.0-100.0)
[2020-04-29 14:00] LABS: HEMOGLOBIN A1c 6.7 %
== END ==
LOC: M SFHCADAM 09:26
PROVIDERS: ATTEND Physician Assistant
DX: E78.2 Mixed hyperlipidemia (principal); I10 Essential (primary) hypertension; E11.9 Type 2 diabetes mellitus without complications; M15.9 Polyosteoarthritis, unspecified

== ENCOUNTER → 2020-05-15 | Outpatient (CLI) | payer MEDICARE ==
--- NOTE | 2020-05-19 00:38 | ECWPNPC ---
PATIENT NAME: AL BARRIOS : 1945 GENDER: FEMALE VISIT DATE: 05/15/2020 DISCHARGE DATE: 05/15/20 1052 VISIT LOCKED DATE TIME: PHYSICIAN: PETER RECINOS PHYSICIAN PAGER NO: ACTIVE RESOURCE: PETER RECINOS REASON FOR APPOINTMENT 1. MED MGMNT/REVIEW UTOX HISTORY OF PRESENT ILLNESS GENERAL: HERE FOR ROUTINE FOLLOW-UP AND MEDICATION MANAGEMENT OF CHRONIC LOW BACK PAIN. CONTINUES TO FIND TRAMADOL EFFECTIVE AT REDUCING PAIN AND KEEPING HER FUNCTIONAL. DENIES ADVERSE SIDE EFFECTS. BRINGS IN HER MEDICATION WHICH IS APPROPRIATE FOR WHAT WAS DISPENSED. URINE TOXICOLOGY DONE AT LAST VISIT IS REVIEWED AND WITHIN NORMAL LIMITS. -. FALL RISK SCREENING: SCREENING 03/31/2020 FALL ONCE HURT HER SHOULDER WENT TO THE ER. PAIN SCREENING: PATIENT HAS A COMPLAINT OF ACUTE OR CHRONIC PAIN :YES LOCATION OF PAIN:LOW BACK INTENSITY OF PAIN (SCALE OF 1 TO 10):4 WHAT DOES YOUR PAIN FEEL LIKE:SHARP, STABBING, THROBBING, SHOOTING DURATION:INTERMITTENT PAIN IS INCREASED BY:ACTIVITIES, PROLONGED STANDING PAIN IS DECREASED BY:USE OF PAIN MEDICATIONS NURSING NOTE: -. PAIN CENTER INTAKE QUESTIONS: DO YOU HAVE A HISTORY OF MRSA? :NO DO YOU TAKE A BLOOD THINNERS? :NO DO YOU HAVE ANY BLEEDING DISORDERS? :NO ANY NEW NUMBNESS OR WEAKNESS IN YOUR LEGS OR ARMS? :NO ANY PACEMAKER,DEFIBRILLATOR, OR DORSAL COLUMN STIMULATOR? :NO DO YOU HAVE ANY RASHES OR OPEN SORES? :NO ARE YOU ALLERGIC TO IV DYE? :NO ARE YOU DIABETIC? :YES ANY NEW PROBLEMS WITH YOUR MEDICATIONS? :NO HAVE YOU RECEIVED A VACCINE IN THE PAST 30 DAYS? :YES IF SO WHAT VACCINE AND WHEN? 2ND COVID 04/26/2020 DO YOU PLAN TO RECEIVE A VACCINE IN THE NEXT 21 DAYS? :NO DO YOU NEED ANY PRESCRIPTION? :YES TRAMADOL DO YOU TAKE ANY IMMUNOSUPPRESSIVE MEDICATIONS? :NO IS THERE A CHANCE YOU COULD BE ? :NO ARE YOU BREAST FEEDING? :NO CURRENT MEDICATIONS TAKING ATENOLOL 50 MG TABLET 1 TABLET ORALLY ONCE A DAY TAKING LISINOPRIL 2.5 MG TABLET 1 TABLET ORALLY ONCE A DAY TAKING SPIRONOLACTONE 25 MG TABLET 1/2 TABLET ORALLY ONCE A DAY TAKING HYDROCHLOROTHIAZIDE 25 MG TABLET 1 TABLET ORALLY ONCE A DAY TAKING ASPIRIN 81 MG TABLET 2 TABS ORALLY ONCE A DAY TAKING FOLIC ACID 400 MCG TABLET 1 TABLET ORALLY ONCE A DAY TAKING LIPITOR 40 MG TABLET 1 TABLET ORALLY ONCE A DAY TAKING METFORMIN HCL 500 MG TABLET 1 TABLET WITH A MEAL ORALLY TWICE A DAY TAKING TRAMADOL HCL 50 MG TABLET 1 ORALLY Q8H PRN FOR SEVERE PAIN MDD3 TAKING TYLENOL EXTRA STRENGTH 500 MG TABLET 1 TABLET NEEDED ORALLY EVERY 6 HRS TAKING OMEPRAZOLE 20 MG CAPSULE DELAYED RELEASE 1 CAPSULE 30 MINUTES BEFORE MORNING MEAL ORALLY ONCE A DAY TAKING WELLBUTRIN SR 150 MG TABLET EXTENDED RELEASE 12 HOUR 1 TABLET ORALLY ONCE A DAY TAKING ALLOPURINOL 100 MG TABLET 1 TABLET ORALLY ONCE A DAY TAKING LORATADINE 10 MG TABLET 1 TABLET ORALLY ONCE A DAY TAKING LOPERAMIDE HCL 2 MG CAPSULE 2 CAPS AT ONSET, THEN 1 CAP Q2H NEEDED, MDD=8 ORALLY DIRECTED, NOTES: PRN TAKING VITAMIN D3 5000 UNIT CAPSULE 1 CAPSULE ORALLY ONCE A DAY TAKING CALCIUM CITRATE 150 MG CAPSULE 1 CAP ORALLY TWICE A DAY TAKING VITAMIN B COMPLEX TABLET 1 TABLET ORALLY ONCE A DAY TAKING ZINC 50 MG TABLET 1 TABLET ORALLY ONCE A DAY TAKING YOSEF 500 MG CAPSULE 1 CAP ORALLY TWICE A DAY TAKING COQ10 1 CAPSULE WITH A MEAL ORALLY ONCE A DAY TAKING CPAP MASK DIRECTED G47.33, ANTWON NIGHTLY TAKING ALOGLIPTIN BENZOATE 25 MG TABLET 1 TABLET ORALLY ONCE A DAY MEDICATION LIST REVIEWED AND RECONCILED WITH THE PATIENT PAST MEDICAL HISTORY HYPERTENSION CORONARY ARTERY DISEASE-2008-RST WITHOUT REVERSIBILITY MILD AORTIC STENOSIS AND MILD AORTIC REGURGITATION AND MILD MITRAL REGURGITATION BY TTE SEPTEMBER 2008 HYPERLIPIDEMIA - CONTROLLED ASTHMA DIABETES MELLITUS TYPE 2 [id number] SEPTEMBER 2009 A1C 6.5 GOUT OSTEOPENIA MULTIPLE CHEMICAL SENSITIVITY - STRONG SMELLS, ETC ANXIETY SACROILIITIS GERD ANTWON - USES CPAP SQUAMOUS CELL CARCINOMA ALLERGIES LESCOL: MYALGIA - ALLERGY ADVAIR: PARALYZED VIOCAL CORDS - ALLERGY BACTRIM: HIVES - ALLERGY DECONGESTANTS: SHAKING ON THE INSIDE, FEELS "UNWELL" - SIDE EFFECTS IBUPROFEN: HEAVINESS IN CHEST - SIDE EFFECTS NAPROXEN: RINGING IN EARS - SIDE EFFECTS MINOCYCLINE JANUVIA: LARGER DOSES - FATIGUE, WEAKNESS - SIDE EFFECTS ARTIFICIAL SWEETENERS: ABDOMINAL PAIN - SIDE EFFECTS SOCIAL HISTORY GENERAL: TOBACCO USE ARE YOU A:NONSMOKER LATEX QUESTIONNAIRE LATEX ALLERGY : HAVE YOU EVER DEVELOPED ANY TYPE OF REACTION AFTER HANDLING LATEX PRODUCTS SUCH RUBBER GLOVES, CONDOMS, DIAPHRAGMS, BALLOONS, SOCKS, OR UNDERWEAR?NO LATEX ALLERGY : HAVE YOU EVER DEVELOPED ANY TYPE OF REACTION DURING OR AFTER DENTAL APPOINTMENT, VAGINAL/RECTAL EXAMINATION, SURGICAL PROCEDURE, OR ANY OTHER EXPOSURE?NO LATEX RISK : HAVE YOU EVER HAD ANY DIFFICULTY BREATHING OR HIVES AFTER EATING OR HANDLING ANY FRUITS, OR VEGETABLES; SUCH KIWI, BANANAS, STONE FRUITS, OR CHESTNUTSNO LATEX RISK : DO YOU HAVE A PREVIOUS PERSONAL HISTORY OF MORE THAN NINE SURGERIES, SPINA BIFIDA, OR REPEATED CATHERIZATIONS? NO LATEX RISK : ARE YOU FREQUENTLY EXPOSED TO LATEX PRODUCTS IN YOUR OCCUPATION?NO DATE ASKED : 05/15/2020 ALCOHOL USE: YES, ONCE A YEAR. LUNG CANCER SCREENING SMOKING STATUS:NON SMOKER BMI CARE GOAL FOLLOW-UP ABOVE NORMAL BMI FOLLOW-UPDIETARY MANAGEMENT EDUCATION, GUIDANCE, AND COUNSELING ALCOHOL SCREENING DID YOU HAVE A DRINK CONTAINING ALCOHOL IN THE PAST YEAR?NO POINTS0 INTERPRETATIONNEGATIVE RECREATIONAL DRUG USE DENIES. CAFFEINE CAFFEINE USE? 1-2 CUPS OF TEA PER DAY SEXUAL HX HAD SEX IN THE LAST 12 MONTHS (VAGINAL, ORAL, OR ANAL)?NO HAVE YOU EVER HAD AN STD?NO HIV / HEP-C SCREENING HIV TEST OFFERED TO PATIENT:YES DATE OFFERED:04/22/2017 TEST ACCEPTED:NO HEP-C TEST OFFERED TO PATIENT:YES DATE OFFERED:04/22/2017 REASON:PATIENT DECLINED TEST ACCEPTED:NO REASON:PATIENT DECLINED BROCHURE PROVIDED TO PATIENTYES YARSANISM [id number] JAIN LANGUAGE TURKMEN. 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 DIET: LOW FAT, LOW CHOLESTEROL, NO CONCENTRATED SWEETS.. EXERCISE: GARDENS. MARITAL STATUS: SINGLE. OTHERS AT HOME: NONE. - PFS REFERRAL NEEDED?NO CLERGY REFERRAL NEEDED?NO PUBLIC HEALTH REFERRAL NEEDED?NO WAS THE PROVIDER NOTIFIED OF ANY PERTINENT INFO?YES N/A HAS THE PATIENT BEEN EDUCATED REGARDING HIS/HER PLAN OF CARE?YES HAS THE PATIENT BEEN EDUCATED REGARDING PAIN, THE RISK FOR PAIN, THE IMPORTANCE OF EFFECTIVE PAIN MANAGEMENT, AND THE PAIN ASSESSMENT PROCESS?YES HOUSING: OWNS HOME. ADVANCE DIRECTIVE ADVANCE DIRECTIVE DISCUSSED WITH PATIENT:YES HCP KRISTEN SHEPPARD [phone]) LIVING WILL ALDO PARRISH [phone] 02/13/20 [facility] REVIEW OF SYSTEMS CONSTITUTIONAL: ANY RECENT FEVER NO . CHILLS NO . WEIGHT CHANGE OF UNKNOWN REASONS NO . GASTROENTEROLOGY: NEW UNEXPLAINABLE CHANGES IN BOWEL CONTROL NO . CONSTIPATION NO . GENITOURINARY: ANY NEW CHANGE IN BLADDER CONTROL? NO . NEUROLOGY: NEW ONSET DIZZINESS OR NEUROLOGICAL CHANGES NOT MENTIONED NO . NEW NUMBNESS OR PAIN PATTERNS NOT MENTIONED AND PERTINENT TO TODAY'S VISIT NO . CARDIOLOGY: NEW CHEST PRESSURE NO . PATIENT DENIES NO . RESPIRATORY: UNEXPLAINABLE COUGH NO . NEW SHORTNESS OF BREATH NO . VITAL SIGNS WT 189.8 LBS, HT 61 IN, BMI 35.86 INDEX, BP 168/77 MM HG, HR 81 /MIN, RR 18 /MIN, TEMP 97.3 F, OXYGEN SAT % 98%, SAFE IN ENV? (Y/N) YES, NA INITIALS SC 10:23T.ZAC HENSON. EXAMINATION GENERAL EXAMINATION: GENERALAWAKE,ALERT ,PLEASANT . PSYCHAFFECT NORMAL . LUNGS:LUNG CALVIN ARE CLEAR TO AUSCULTATION BILATERALLY. GOOD MOVEMENT OF AIR . HEART:S1, S2 IN A REGULAR RATE AND RHYTHM. NO SIGNIFICANT MURMURS, RUBS OR GALLOPS NOTED . ASSESSMENTS SPONDYLOSIS OF LUMBOSACRAL REGION WITHOUT MYELOPATHY OR RADICULOPATHY - M47.817 (PRIMARY) TREATMENT SPONDYLOSIS OF LUMBOSACRAL REGION WITHOUT MYELOPATHY OR RADICULOPATHY CONTINUE TRAMADOL HCL TABLET, 50 MG, 1, ORALLY, Q8H PRN FOR SEVERE PAIN MDD3 PROCEDURE CODES FA211 ESTABILISHED PATIENT [facility] CHARGE DISPOSITION & COMMUNICATION FOLLOW UP 3 MONTHS (REASON: MED MGMNT/UTOX) ELECTRONICALLY SIGNED BY ONEIL SHI ON 05/18/2020 AT 03:12 PM EDT DISCLAIMER : THIS IS A VISIT SUMMARY EXTRACTED FROM THE [employer] CHART. IT IS NOT A COPY OF THE [employer] PROGRESS NOTE. MTDD
== END ==
LOC: M PAIN 10:15
PROVIDERS: ATTEND Nurse Practitioner Family
DX: M47.817 Spondylosis without myelopathy or radiculopathy, lumbosacral region (principal); G89.29 Other chronic pain; E11.9 Type 2 diabetes mellitus without complications; J45.909 Unspecified asthma, uncomplicated; K21.9 Gastro-esophageal reflux disease without esophagitis; G47.33 Obstructive sleep apnea (adult) (pediatric); Z86.59 Personal history of other mental and behavioral disorders; Z88.1 Allergy status to other antibiotic agents; Z88.6 Allergy status to analgesic agent; Z88.8 Allergy status to other drugs, medicaments and biological substances; Z91.018 Allergy to other foods; Z79.82 Long term (current) use of aspirin; Z79.84 Long term (current) use of oral hypoglycemic drugs; Z79.891 Long term (current) use of opiate analgesic; Z79.899 Other long term (current) drug therapy

== ENCOUNTER → 2020-05-27 | Outpatient (REF) | payer MEDICARE | LOC: M LAB REF 14:06 | PROVIDERS: ATTEND Dermatology | DX: L72.11 Pilar cyst (principal) ==

== ENCOUNTER → 2020-06-05 | Outpatient (REF) | payer MEDICARE | LOC: M LAB REF 16:57 | PROVIDERS: ATTEND Dermatology | DX: L57.0 Actinic keratosis (principal) ==

== ENCOUNTER → 2020-08-07 | Outpatient (CLI) | payer MEDICARE ==
--- NOTE | 2020-08-08 05:15 | ECWPNPC ---
PATIENT NAME: AL BARRIOS : 1945 GENDER: FEMALE VISIT DATE: 08/07/2020 DISCHARGE DATE: 08/07/20 1054 VISIT LOCKED DATE TIME: PHYSICIAN: PETER RECINOS PHYSICIAN PAGER NO: ACTIVE RESOURCE: PETER RECINOS REASON FOR APPOINTMENT 1. MED MGMNT/UTOX HISTORY OF PRESENT ILLNESS GENERAL: HERE FOR ROUTINE FOLLOW-UP AND MEDICATION MANAGEMENT OF CHRONIC LOW BACK PAIN. CONTINUES TO FIND TRAMADOL EFFECTIVE AT REDUCING PAIN AND KEEPING HER FUNCTIONAL. DENIES ADVERSE SIDE EFFECTS. BRINGS IN HER MEDICATION WHICH IS APPROPRIATE FOR WHAT WAS DISPENSED. URINE TOXICOLOGY DONE AT LAST VISIT IS REVIEWED AND WITHIN NORMAL LIMITS. - -. FALL RISK SCREENING: SCREENING ONE FALL THIS YEAR AND DISLOCTED HER RIGHT SHOULDER. PAIN SCREENING: PATIENT HAS A COMPLAINT OF ACUTE OR CHRONIC PAIN :YES LOCATION OF PAIN:LOW BACK INTENSITY OF PAIN (SCALE OF 1 TO 10):7 WHAT DOES YOUR PAIN FEEL LIKE:SHARP, STABBING DURATION:ONLY WITH SPECIFIC ACTIVITIES PAIN IS INCREASED BY:ACTIVITIES PAIN IS DECREASED BY:USE OF PAIN MEDICATIONS NURSING NOTE: -. PAIN CENTER INTAKE QUESTIONS: DO YOU HAVE A HISTORY OF MRSA? :NO DO YOU TAKE A BLOOD THINNERS? :NO DO YOU HAVE ANY BLEEDING DISORDERS? :NO ANY NEW NUMBNESS OR WEAKNESS IN YOUR LEGS OR ARMS? :NO ANY PACEMAKER,DEFIBRILLATOR, OR DORSAL COLUMN STIMULATOR? :NO DO YOU HAVE ANY RASHES OR OPEN SORES? :NO ARE YOU ALLERGIC TO IV DYE? :NO ARE YOU DIABETIC? :YES ANY NEW PROBLEMS WITH YOUR MEDICATIONS? :NO HAVE YOU RECEIVED A VACCINE IN THE PAST 30 DAYS? :YES IF SO WHAT VACCINE AND WHEN? 2ND COVID 04/26/2020 DO YOU PLAN TO RECEIVE A VACCINE IN THE NEXT 21 DAYS? :NO DO YOU NEED ANY PRESCRIPTION? :NO DO YOU TAKE ANY IMMUNOSUPPRESSIVE MEDICATIONS? :NO IS THERE A CHANCE YOU COULD BE ? :NO ARE YOU BREAST FEEDING? :NO CURRENT MEDICATIONS TAKING ATENOLOL 50 MG TABLET 1 TABLET ORALLY ONCE A DAY TAKING LISINOPRIL 2.5 MG TABLET 1 TABLET ORALLY ONCE A DAY TAKING SPIRONOLACTONE 25 MG TABLET 1/2 TABLET ORALLY ONCE A DAY TAKING HYDROCHLOROTHIAZIDE 25 MG TABLET 1 TABLET ORALLY ONCE A DAY TAKING ASPIRIN 81 MG TABLET 2 TABS ORALLY ONCE A DAY TAKING FOLIC ACID 400 MCG TABLET 1 TABLET ORALLY ONCE A DAY TAKING LIPITOR 40 MG TABLET 1 TABLET ORALLY ONCE A DAY TAKING TYLENOL EXTRA STRENGTH 500 MG TABLET 1 TABLET NEEDED ORALLY EVERY 6 HRS, NOTES: PRN TAKING OMEPRAZOLE 20 MG CAPSULE DELAYED RELEASE 1 CAPSULE 30 MINUTES BEFORE MORNING MEAL ORALLY ONCE A DAY TAKING WELLBUTRIN SR 150 MG TABLET EXTENDED RELEASE 12 HOUR 1 TABLET ORALLY ONCE A DAY TAKING ALLOPURINOL 100 MG TABLET 1 TABLET ORALLY ONCE A DAY TAKING LORATADINE 10 MG TABLET 1 TABLET ORALLY ONCE A DAY TAKING LOPERAMIDE HCL 2 MG CAPSULE 2 CAPS AT ONSET, THEN 1 CAP Q2H NEEDED, MDD=8 ORALLY DIRECTED, NOTES: PRN TAKING VITAMIN D3 5000 UNIT CAPSULE 1 CAPSULE ORALLY ONCE A DAY TAKING CALCIUM CITRATE 150 MG CAPSULE 1 CAP ORALLY TWICE A DAY TAKING VITAMIN B COMPLEX TABLET 1 TABLET ORALLY ONCE A DAY TAKING ZINC 50 MG TABLET 1 TABLET ORALLY ONCE A DAY TAKING YOSEF 500 MG CAPSULE 1 CAP ORALLY TWICE A DAY TAKING COQ10 1 CAPSULE WITH A MEAL ORALLY ONCE A DAY TAKING CPAP MASK DIRECTED G47.33, ANTWON NIGHTLY TAKING TRAMADOL HCL 50 MG TABLET 1 ORALLY Q8H PRN FOR SEVERE PAIN MDD3 TAKING JANUVIA 50 MG TABLET 1 TABLET ORALLY ONCE A DAY TAKING METFORMIN HCL 500 MG TABLET 1 TABLET WITH A MEAL ORALLY TWICE A DAY NOT-TAKING ALOGLIPTIN BENZOATE 25 MG TABLET 1 TABLET ORALLY ONCE A DAY MEDICATION LIST REVIEWED AND RECONCILED WITH THE PATIENT PAST MEDICAL HISTORY HYPERTENSION CORONARY ARTERY DISEASE-2008-RST WITHOUT REVERSIBILITY MILD AORTIC STENOSIS AND MILD AORTIC REGURGITATION AND MILD MITRAL REGURGITATION BY TTE SEPTEMBER 2008 HYPERLIPIDEMIA - CONTROLLED ASTHMA DIABETES MELLITUS TYPE 2 [id number] SEPTEMBER 2009 A1C 6.5 GOUT OSTEOPENIA MULTIPLE CHEMICAL SENSITIVITY - STRONG SMELLS, ETC ANXIETY SACROILIITIS GERD ANTWON - USES CPAP SQUAMOUS CELL CARCINOMA ALLERGIES LESCOL: MYALGIA - ALLERGY ADVAIR: PARALYZED VIOCAL CORDS - ALLERGY BACTRIM: HIVES - ALLERGY DECONGESTANTS: SHAKING ON THE INSIDE, FEELS "UNWELL" - SIDE EFFECTS IBUPROFEN: HEAVINESS IN CHEST - SIDE EFFECTS NAPROXEN: RINGING IN EARS - SIDE EFFECTS MINOCYCLINE: HIVES JANUVIA: LARGER DOSES - FATIGUE, WEAKNESS - SIDE EFFECTS ARTIFICIAL SWEETENERS: ABDOMINAL PAIN - SIDE EFFECTS SURGICAL HISTORY HYSTERECTOMY 1986 ANGIOPLASTY WITH STENT 06/10 RIGHT CARPAL RELEASE 11/2009 TONSILLECTOMY & ADNOIDECTOMY X2 195 APPENDECTOMY 1956 BUNIONECTOMY 1993 MENISCUS REPAIR 1997 CHOLECYSTECTOMY 2014 BILAT CATARACTS REMOVED 2016 CALCIFIED CYST REMOVED FROM HEAD 04/2017 CRYOSURGERY NOSE 2019 SQUAMOUS CELL REMOVAL FALL 2019 CARDIAC CATHETERIZATION 01/13/20 PILAR CYST 2020 RIGHT SHOULDER DISLOCTED 03/31/2020 SOCIAL HISTORY GENERAL: TOBACCO USE ARE YOU A:NONSMOKER LATEX QUESTIONNAIRE LATEX ALLERGY : HAVE YOU EVER DEVELOPED ANY TYPE OF REACTION AFTER HANDLING LATEX PRODUCTS SUCH RUBBER GLOVES, CONDOMS, DIAPHRAGMS, BALLOONS, SOCKS, OR UNDERWEAR?NO LATEX ALLERGY : HAVE YOU EVER DEVELOPED ANY TYPE OF REACTION DURING OR AFTER DENTAL APPOINTMENT, VAGINAL/RECTAL EXAMINATION, SURGICAL PROCEDURE, OR ANY OTHER EXPOSURE?NO LATEX RISK : HAVE YOU EVER HAD ANY DIFFICULTY BREATHING OR HIVES AFTER EATING OR HANDLING ANY FRUITS, OR VEGETABLES; SUCH KIWI, BANANAS, STONE FRUITS, OR CHESTNUTSNO LATEX RISK : DO YOU HAVE A PREVIOUS PERSONAL HISTORY OF MORE THAN NINE SURGERIES, SPINA BIFIDA, OR REPEATED CATHERIZATIONS? NO LATEX RISK : ARE YOU FREQUENTLY EXPOSED TO LATEX PRODUCTS IN YOUR OCCUPATION?NO DATE ASKED : 08/07/2020 ALCOHOL USE: YES, ONCE A YEAR. LUNG CANCER SCREENING SMOKING STATUS:NON SMOKER BMI CARE GOAL FOLLOW-UP ABOVE NORMAL BMI FOLLOW-UPDIETARY MANAGEMENT EDUCATION, GUIDANCE, AND COUNSELING ALCOHOL SCREENING DID YOU HAVE A DRINK CONTAINING ALCOHOL IN THE PAST YEAR?NO POINTS0 INTERPRETATIONNEGATIVE RECREATIONAL DRUG USE DENIES. CAFFEINE CAFFEINE USE? 1-2 CUPS OF TEA PER DAY SEXUAL HX HAD SEX IN THE LAST 12 MONTHS (VAGINAL, ORAL, OR ANAL)?NO HAVE YOU EVER HAD AN STD?NO HIV / HEP-C SCREENING HIV TEST OFFERED TO PATIENT:YES DATE OFFERED:04/22/2017 TEST ACCEPTED:NO HEP-C TEST OFFERED TO PATIENT:YES DATE OFFERED:04/22/2017 REASON:PATIENT DECLINED TEST ACCEPTED:NO REASON:PATIENT DECLINED BROCHURE PROVIDED TO PATIENTYES MU-ISM [id number] GNOSTICIST LANGUAGE DANISH. 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 DIET: LOW FAT, LOW CHOLESTEROL, NO CONCENTRATED SWEETS.. EXERCISE: GARDENS. MARITAL STATUS: SINGLE. OTHERS AT HOME: NONE. - PFS REFERRAL NEEDED?NO CLERGY REFERRAL NEEDED?NO PUBLIC HEALTH REFERRAL NEEDED?NO WAS THE PROVIDER NOTIFIED OF ANY PERTINENT INFO?YES N/A HAS THE PATIENT BEEN EDUCATED REGARDING HIS/HER PLAN OF CARE?YES HAS THE PATIENT BEEN EDUCATED REGARDING PAIN, THE RISK FOR PAIN, THE IMPORTANCE OF EFFECTIVE PAIN MANAGEMENT, AND THE PAIN ASSESSMENT PROCESS?YES HOUSING: OWNS HOME. ADVANCE DIRECTIVE ADVANCE DIRECTIVE DISCUSSED WITH PATIENT:YES HCP KRISTEN SHEPPARD [phone] LIVING WILL ALDO PARRISH [phone] 02/13/20 [facility] HOSPITALIZATION/MAJOR DIAGNOSTIC PROCEDURE SURGERIES ABOVE CHILDBIRTH MULTIPLE ADMISSIONS A CHILD - TONSILS, CARDIAC, INTESTINAL 8 HOURS IN ER, DISLOCATED RIGHT SHOULDER REVIEW OF SYSTEMS CONSTITUTIONAL: ANY RECENT FEVER NO . CHILLS NO . WEIGHT CHANGE OF UNKNOWN REASONS NO . GASTROENTEROLOGY: NEW UNEXPLAINABLE CHANGES IN BOWEL CONTROL NO . CONSTIPATION NO . GENITOURINARY: ANY NEW CHANGE IN BLADDER CONTROL? NO . NEUROLOGY: NEW ONSET DIZZINESS OR NEUROLOGICAL CHANGES NOT MENTIONED NO . NEW NUMBNESS OR PAIN PATTERNS NOT MENTIONED AND PERTINENT TO TODAY'S VISIT NO . CARDIOLOGY: NEW CHEST PRESSURE NO . PATIENT DENIES NO . RESPIRATORY: UNEXPLAINABLE COUGH NO . NEW SHORTNESS OF BREATH NO . VITAL SIGNS WT 188 LBS, HT 61 IN, BMI 35.52 INDEX, BP 167/72 MM HG, HR 74 /MIN, RR 18 /MIN, TEMP 96.8 F, OXYGEN SAT % 96%, SAFE IN ENV? (Y/N) YEST.ZAC HENSON. EXAMINATION GENERAL EXAMINATION: GENERALAWAKE,ALERT ,PLEASANT . PSYCHAFFECT NORMAL . LUNGS:LUNG CALVIN ARE CLEAR TO AUSCULTATION BILATERALLY. GOOD MOVEMENT OF AIR . HEART:S1, S2 IN A REGULAR RATE AND RHYTHM. NO SIGNIFICANT MURMURS, RUBS OR GALLOPS NOTED . ASSESSMENTS CHRONIC PRESCRIPTION OPIATE USE - Z79.891 (PRIMARY) SPONDYLOSIS OF LUMBOSACRAL REGION WITHOUT MYELOPATHY OR RADICULOPATHY - M47.817 TREATMENT CHRONIC PRESCRIPTION OPIATE USE CONTINUE TRAMADOL HCL TABLET, 50 MG, 1, ORALLY, Q8H PRN FOR SEVERE PAIN MDD3 LAB: URINE TEST GROUP CAROL ANN FRANK 08/07/2020 10:50:30 AM > LAST DOSE: TRAMADOL 08/07/2020 @6AM NOTES: ISTOP REGISTRY REVIEWED AND DEMONSTRATES COMPLLIANCE. BRINGS IN MEDICATIONS WHICH IS APPROPRIATE FOR WHAT WAS DISPENSED. RECENT URINE TOXICOLOGY REVIEWED. NO UNAUTHORIZED MEDICATIONS. NO ILLICIT SUBSTANCES AND PRESCRIBED MEDICATIONS WERE PRESENT. PROCEDURE CODES FA211 ESTABILISHED PATIENT [facility] FACILITY CHARGE DISPOSITION & COMMUNICATION FOLLOW UP 3 MONTHS (REASON: MED MGMNT/REVIEW UTOX) ELECTRONICALLY SIGNED BY ONEIL SHI ON 08/07/2020 AT 02:34 PM EDT DISCLAIMER : THIS IS A VISIT SUMMARY EXTRACTED FROM THE [employer] CHART. IT IS NOT A COPY OF THE [employer] PROGRESS NOTE. CELESTINO
== END ==
LOC: M PAIN 10:15
PROVIDERS: ATTEND Nurse Practitioner Family
DX: M47.817 Spondylosis without myelopathy or radiculopathy, lumbosacral region (principal); G89.29 Other chronic pain; E11.9 Type 2 diabetes mellitus without complications; J45.909 Unspecified asthma, uncomplicated; K21.9 Gastro-esophageal reflux disease without esophagitis; G47.33 Obstructive sleep apnea (adult) (pediatric); Z86.59 Personal history of other mental and behavioral disorders; Z88.1 Allergy status to other antibiotic agents; Z88.8 Allergy status to other drugs, medicaments and biological substances; Z79.82 Long term (current) use of aspirin; Z79.84 Long term (current) use of oral hypoglycemic drugs; Z79.891 Long term (current) use of opiate analgesic; Z79.899 Other long term (current) drug therapy

== ENCOUNTER → 2020-11-03 | Outpatient (REF) | payer MEDICARE ==
[~2020-11-03] MED LIST changes: -LISI2.5T2 PO; +LISI2.5T9 PO
[2020-11-03 15:47] LABS: ALBUMIN 4.1 GM/DL (3.2-5.2); ALT/SGPT 54 U/L (12-78); BILIRUBIN,TOTAL 0.4 MG/DL (0.2-1.0); BLOOD UREA NITROGEN 15 MG/DL (7-18); CALCIUM LEVEL 10.2 MG/DL (8.8-10.2); CARBON DIOXIDE LEVEL 29 MEQ/L (21-32); CHLORIDE LEVEL 101 MEQ/L (98-107); CHOLESTEROL LEVEL 159 MG/DL (<200); CHOLESTEROL RISK RATIO 2.606 (<5); GLOMERULAR FILTRATION RATE > 60.0 (>39); GLUCOSE, FASTING 126 MG/DL (70-100); HDL CHOLESTEROL 61 MG/DL (>40); LDL CHOLESTEROL 77 MG/DL (<100); NON-HDL-C 98 MG/DL; POTASSIUM SERUM 4.6 MEQ/L (3.5-5.1); SODIUM LEVEL 137 MEQ/L (136-145); TOTAL PROTEIN 7.3 GM/DL (6.4-8.2); TRIGLYCERIDES LEVEL 104 MG/DL (<150); URIC ACID 5.7 MG/DL (2.6-6.0)
== END ==
LOC: M SFHCADAM 08:59
PROVIDERS: ATTEND Physician Assistant
DX: I10 Essential (primary) hypertension (principal); E78.2 Mixed hyperlipidemia; E11.9 Type 2 diabetes mellitus without complications; M10.9 Gout, unspecified

== ENCOUNTER → 2020-11-07 | Outpatient (CLI) | payer MEDICARE | LOC: M PAIN 10:15 | PROVIDERS: ATTEND Anesthesiology | DX: M47.816 Spondylosis without myelopathy or radiculopathy, lumbar region (principal); G89.29 Other chronic pain; E11.9 Type 2 diabetes mellitus without complications; J45.909 Unspecified asthma, uncomplicated; K21.9 Gastro-esophageal reflux disease without esophagitis; G47.33 Obstructive sleep apnea (adult) (pediatric); Z86.59 Personal history of other mental and behavioral disorders; Z88.1 Allergy status to other antibiotic agents; Z88.6 Allergy status to analgesic agent; Z88.8 Allergy status to other drugs, medicaments and biological substances; Z91.018 Allergy to other foods; Z79.82 Long term (current) use of aspirin; Z79.84 Long term (current) use of oral hypoglycemic drugs; Z79.891 Long term (current) use of opiate analgesic; Z79.899 Other long term (current) drug therapy ==

== ENCOUNTER → 2021-02-18 | Outpatient (CLI) | payer MEDICARE | LOC: M PAIN 11:15 | PROVIDERS: ATTEND Anesthesiology | DX: M48.061 Spinal stenosis, lumbar region without neurogenic claudication (principal); M53.3 Sacrococcygeal disorders, not elsewhere classified; G89.29 Other chronic pain; E11.9 Type 2 diabetes mellitus without complications; Z79.82 Long term (current) use of aspirin; Z79.891 Long term (current) use of opiate analgesic; Z79.899 Other long term (current) drug therapy ==

== ENCOUNTER → 2021-05-06 | Outpatient (REF) | payer MEDICARE ==
[~2021-05-06] MED LIST changes: +OMEP-173 PO; -OMEP-218 PO
[2021-05-06 14:02] LABS: ALT/SGPT 27 U/L (12-78); BILIRUBIN,TOTAL 0.7 MG/DL (0.2-1.0); BLOOD UREA NITROGEN 17 MG/DL (7-18); CALCIUM LEVEL 9.7 MG/DL (8.8-10.2); CARBON DIOXIDE LEVEL 28 MEQ/L (21-32); CHLORIDE LEVEL 101 MEQ/L (98-107); CHOLESTEROL LEVEL 198 MG/DL (<200); CHOLESTEROL RISK RATIO 3.093 (<5); CREATININE FOR GFR 0.63 MG/DL (0.55-1.30); GLOMERULAR FILTRATION RATE > 60.0 (>39); GLUCOSE, FASTING 161 MG/DL (70-100); HDL CHOLESTEROL 64 MG/DL (>40); LDL CHOLESTEROL 105 MG/DL (<100); NON-HDL-C 134 MG/DL; POTASSIUM SERUM 3.8 MEQ/L (3.5-5.1); SODIUM LEVEL 137 MEQ/L (136-145); TOTAL PROTEIN 7.3 GM/DL (6.4-8.2); TRIGLYCERIDES LEVEL 146 MG/DL (<150)
== END ==
LOC: M SFHCADAM 09:04
PROVIDERS: ATTEND Physician Assistant
DX: I10 Essential (primary) hypertension (principal); E78.2 Mixed hyperlipidemia; E11.65 Type 2 diabetes mellitus with hyperglycemia

== ENCOUNTER → 2021-05-19 | Outpatient (CLI) | payer MEDICARE | LOC: M PLAIMG 09:51 | PROVIDERS: ATTEND Anesthesiology | DX: M53.3 Sacrococcygeal disorders, not elsewhere classified (principal); M48.061 Spinal stenosis, lumbar region without neurogenic claudication; M51.26 Other intervertebral disc displacement, lumbar region; M51.36 Other intervertebral disc degeneration, lumbar region ==

== ENCOUNTER → 2021-07-20 | Outpatient (CLI) | payer MEDICARE ==
[~2021-07-20] MED LIST changes: +ATOR40TA75; +BUPR-71; +COQ-100C5 PO; +GABA-1171; +HYDR-3490; +LISI2.5T9; +LOPE2CAP; +METF-839; +SPIR-10; +TRUL10IN; +TURM500T PO
== END ==
LOC: M PAIN 11:45
PROVIDERS: ATTEND Nurse Practitioner Family
DX: M46.1 Sacroiliitis, not elsewhere classified (principal); G89.29 Other chronic pain; E11.9 Type 2 diabetes mellitus without complications; J45.909 Unspecified asthma, uncomplicated; K21.9 Gastro-esophageal reflux disease without esophagitis; G47.33 Obstructive sleep apnea (adult) (pediatric); Z86.59 Personal history of other mental and behavioral disorders; Z88.1 Allergy status to other antibiotic agents; Z88.6 Allergy status to analgesic agent; Z88.8 Allergy status to other drugs, medicaments and biological substances; Z91.018 Allergy to other foods; Z79.82 Long term (current) use of aspirin; Z79.84 Long term (current) use of oral hypoglycemic drugs; Z79.899 Other long term (current) drug therapy

== ENCOUNTER → 2021-07-26 | Outpatient (CLI) | payer MEDICARE | LOC: M LABSMTC 12:00 | PROVIDERS: ATTEND Anesthesiology | DX: Z01.812 Encounter for preprocedural laboratory examination (principal); Z20.822 Contact with and (suspected) exposure to COVID-19 ==

== ENCOUNTER 2021-07-30 09:12 | Day surgery (SDC) | payer MEDICARE ==
[~2021-07-30] VITALS: Ht 154.9 cm; Wt 85.2 kg
[~2021-07-30 09:12] MED LIST changes: +LIDOCAINE 2% 100MG/5ML SDV (FOR ANES.) As Ordered ONE; +NS 1,000 ML IV ONE; +propofoL 200 MG/20 ML VIAL As Ordered ONE
[2021-07-30 11:00] VITALS: BP 149/65
== END 2021-07-30 11:12 | disposition home or self-care (01) ==
LOC: M OPP 09:12
PROVIDERS: ATTEND Surgery
DX: R19.7 Diarrhea, unspecified (principal); Z79.2 Long term (current) use of antibiotics; Z79.82 Long term (current) use of aspirin; Z79.1 Long term (current) use of non-steroidal anti-inflammatories (NSAID); Z79.84 Long term (current) use of oral hypoglycemic drugs; Z79.891 Long term (current) use of opiate analgesic; Z79.899 Other long term (current) drug therapy; Z88.8 Allergy status to other drugs, medicaments and biological substances; Z95.5 Presence of coronary angioplasty implant and graft

== ENCOUNTER → 2021-10-20 | Outpatient (CLI) | payer MEDICARE ==
[~2021-10-20] MED LIST changes: -LIDOCAINE 2% 100MG/5ML SDV (FOR ANES.) As Ordered ONE; -NS 1,000 ML IV ONE; -propofoL 200 MG/20 ML VIAL As Ordered ONE
== END ==
LOC: M PAIN 09:45
PROVIDERS: ATTEND Nurse Practitioner Family
DX: M46.1 Sacroiliitis, not elsewhere classified (principal); G89.29 Other chronic pain; E11.9 Type 2 diabetes mellitus without complications; I10 Essential (primary) hypertension; J45.909 Unspecified asthma, uncomplicated; K21.9 Gastro-esophageal reflux disease without esophagitis; G47.33 Obstructive sleep apnea (adult) (pediatric); Z86.59 Personal history of other mental and behavioral disorders; Z88.1 Allergy status to other antibiotic agents; Z88.6 Allergy status to analgesic agent; Z88.8 Allergy status to other drugs, medicaments and biological substances; Z91.018 Allergy to other foods; Z79.82 Long term (current) use of aspirin; Z79.84 Long term (current) use of oral hypoglycemic drugs; Z79.899 Other long term (current) drug therapy

== ENCOUNTER → 2021-11-19 | Outpatient (CLI) | payer MEDICARE ==
[2021-11-19 14:13] LABS: ALT/SGPT 27 U/L (12-78); BILIRUBIN,TOTAL 0.6 MG/DL (0.2-1.0); BLOOD UREA NITROGEN 10 MG/DL (7-18); CALCIUM LEVEL 9.5 MG/DL (8.8-10.2); CARBON DIOXIDE LEVEL 29 MEQ/L (21-32); CHLORIDE LEVEL 98 MEQ/L (98-107); CHOLESTEROL LEVEL 146 MG/DL (<200); CHOLESTEROL RISK RATIO 2.607 (<5); CREATININE FOR GFR 0.65 MG/DL (0.55-1.30); GLOMERULAR FILTRATION RATE > 60.0 (>39); GLUCOSE, FASTING 137 MG/DL (70-100); HDL CHOLESTEROL 56 MG/DL (>40); LDL CHOLESTEROL 70 MG/DL (<100); NON-HDL-C 90 MG/DL; POTASSIUM SERUM 4.1 MEQ/L (3.5-5.1); SODIUM LEVEL 137 MEQ/L (136-145); TOTAL PROTEIN 7.1 GM/DL (6.4-8.2); TRIGLYCERIDES LEVEL 98 MG/DL (<150)
[2021-11-19 16:24] LABS: HEMOGLOBIN A1c 7.1 %
== END ==
LOC: M LABDRWAD 08:53
PROVIDERS: ATTEND Physician Assistant
DX: E78.2 Mixed hyperlipidemia (principal); I10 Essential (primary) hypertension; E11.65 Type 2 diabetes mellitus with hyperglycemia

== ENCOUNTER → 2021-11-26 | Outpatient (REF) | payer MEDICARE ==
[2021-11-26 14:49] LABS: FREE T4 0.95 NG/DL (0.76-1.46); THYROID STIMULATING HORMONE 2.13 uIU/ML (0.358-3.740)
== END ==
LOC: M SFHCADAM 09:47
PROVIDERS: ATTEND Physician Assistant
DX: Z00.00 Encounter for general adult medical examination without abnormal findings (principal); E11.42 Type 2 diabetes mellitus with diabetic polyneuropathy; I25.10 Atherosclerotic heart disease of native coronary artery without angina pectoris; E78.2 Mixed hyperlipidemia

== ENCOUNTER → 2022-01-19 | Outpatient (CLI) | payer MEDICARE | LOC: M PAIN 11:00 | PROVIDERS: ATTEND Nurse Practitioner Family | DX: M46.1 Sacroiliitis, not elsewhere classified (principal); G89.29 Other chronic pain; E11.9 Type 2 diabetes mellitus without complications; I10 Essential (primary) hypertension; G47.33 Obstructive sleep apnea (adult) (pediatric); J45.909 Unspecified asthma, uncomplicated; K21.9 Gastro-esophageal reflux disease without esophagitis; Z95.5 Presence of coronary angioplasty implant and graft; Z86.59 Personal history of other mental and behavioral disorders; Z88.1 Allergy status to other antibiotic agents; Z88.6 Allergy status to analgesic agent; Z88.8 Allergy status to other drugs, medicaments and biological substances; Z91.02 Food additives allergy status; Z79.82 Long term (current) use of aspirin; Z79.84 Long term (current) use of oral hypoglycemic drugs; Z79.85 Long-term (current) use of injectable non-insulin antidiabetic drugs; Z79.899 Other long term (current) drug therapy ==

== ENCOUNTER → 2022-05-28 | Outpatient (REF) | payer MEDICARE ==
[2022-05-28 17:41] LABS: HEMOGLOBIN A1c 7.4 % (4.0-6.0)
[2022-05-28 17:57] LABS: HEMATOCRIT 41.1 % (36.0-47.0); HEMOGLOBIN 13.1 g/dl (12.0-15.5); MEAN CORPUSCULAR HEMOGLOBIN 27.9 pg (27.0-33.0); MEAN CORPUSCULAR HGB CONC 31.9 g/dl (32.0-36.5); MEAN CORPUSCULAR VOLUME 87.4 fl (80.0-96.0); PLATELET COUNT, AUTOMATED 348 10^3/uL (150-450); WHITE BLOOD COUNT 7.5 10^3/uL (4.0-10.0)
[2022-05-28 18:01] LABS: THYROID STIMULATING HORMONE 2.396 uIU/ML (0.55-4.78)
[2022-05-28 18:02] LABS: FREE T4 1.11 NG/DL (0.89-1.76)
[2022-05-28 18:03] LABS: ALBUMIN 4.4 G/DL (3.2-5.2); ALKALINE PHOSPHATASE 92 U/L (46-116); ALT/SGPT 17 U/L (7.0-40); AST/SGOT 26 U/L (<34); BILIRUBIN,TOTAL 0.6 MG/DL (0.3-1.2); BLOOD UREA NITROGEN 13 MG/DL (9-23); CALCIUM LEVEL 9.9 MG/DL (8.3-10.6); CARBON DIOXIDE LEVEL 28 MMOL/L (20-31); CHLORIDE LEVEL 99 MMOL/L (98-107); CHOLESTEROL LEVEL 160 MG/DL (<200); CHOLESTEROL RISK RATIO 2.53 (<5); CREATININE FOR GFR 0.54 MG/DL (0.55-1.30); GLOMERULAR FILTRATION RATE > 60.0 (>39); GLUCOSE, FASTING 107 MG/DL (74-106); HDL CHOLESTEROL 63.2 MG/DL (>40); MAGNESIUM LEVEL 1.6 MG/DL (1.8-2.4); NON-HDL-C 96.8 MG/DL; POTASSIUM SERUM 4.4 MMOL/L (3.5-5.1); SODIUM LEVEL 137 MMOL/L (136-145); TOTAL PROTEIN 7.2 G/DL (5.7-8.2); TRIGLYCERIDES LEVEL 124 MG/DL (<150)
== END ==
LOC: M SFHCADAM 12:17
PROVIDERS: ATTEND Physician Assistant
DX: E11.42 Type 2 diabetes mellitus with diabetic polyneuropathy (principal); I25.10 Atherosclerotic heart disease of native coronary artery without angina pectoris; I10 Essential (primary) hypertension; E78.2 Mixed hyperlipidemia; R25.2 Cramp and spasm

== ENCOUNTER → 2022-11-10 | Outpatient (REF) | payer MEDICARE ==
[2022-11-10 12:41] LABS: HEMATOCRIT 39.9 % (36.0-47.0); HEMOGLOBIN 12.6 g/dl (12.0-15.5); MEAN CORPUSCULAR HEMOGLOBIN 27.7 pg (27.0-33.0); MEAN CORPUSCULAR HGB CONC 31.6 g/dl (32.0-36.5); MEAN CORPUSCULAR VOLUME 87.7 fl (80.0-96.0); PLATELET COUNT, AUTOMATED 333 10^3/uL (150-450); RED BLOOD COUNT 4.55 10^6/uL (4.00-5.40); WHITE BLOOD COUNT 7.4 10^3/uL (4.0-10.0)
[2022-11-10 12:48] LABS: HEMOGLOBIN A1c 7.2 % (4.0-6.0)
[2022-11-10 13:05] LABS: ALBUMIN 3.9 G/DL (3.2-5.2); ALKALINE PHOSPHATASE 69 U/L (46-116); ALT/SGPT 23 U/L (7.0-40); AST/SGOT 20 U/L (<34); BILIRUBIN,TOTAL 0.3 MG/DL (0.3-1.2); BLOOD UREA NITROGEN 17 MG/DL (9-23); CALCIUM LEVEL 9.9 MG/DL (8.3-10.6); CARBON DIOXIDE LEVEL 27 MMOL/L (20-31); CHLORIDE LEVEL 102 MMOL/L (98-107); GLOMERULAR FILTRATION RATE > 60.0 (>39); GLUCOSE, FASTING 133 MG/DL (74-106); POTASSIUM SERUM 4.7 MMOL/L (3.5-5.1); SODIUM LEVEL 137 MMOL/L (136-145); TOTAL PROTEIN 6.8 G/DL (5.7-8.2)
== END ==
LOC: M SFHCADAM 08:50
PROVIDERS: ATTEND Physician Assistant
DX: I25.10 Atherosclerotic heart disease of native coronary artery without angina pectoris (principal); Z79.899 Other long term (current) drug therapy

== ENCOUNTER → 2023-05-10 | Outpatient (REF) | payer MEDICARE ==
[2023-05-10 14:20] LABS: HEMATOCRIT 37.6 % (36.0-47.0); HEMOGLOBIN 11.8 g/dl (12.0-15.5); MEAN CORPUSCULAR HEMOGLOBIN 27.6 pg (27.0-33.0); MEAN CORPUSCULAR HGB CONC 31.4 g/dl (32.0-36.5); MEAN CORPUSCULAR VOLUME 87.9 fl (80.0-96.0); PLATELET COUNT, AUTOMATED 302 10^3/uL (150-450); RED BLOOD COUNT 4.28 10^6/uL (4.00-5.40); WHITE BLOOD COUNT 7.4 10^3/uL (4.0-10.0)
[2023-05-10 14:23] LABS: ALBUMIN 3.5 G/DL (3.2-5.2); ALKALINE PHOSPHATASE 89 U/L (46-116); ALT/SGPT 27 U/L (7.0-40); AST/SGOT 20 U/L (<34); BILIRUBIN,TOTAL 0.4 MG/DL (0.3-1.2); BLOOD UREA NITROGEN 12 MG/DL (9-23); CALCIUM LEVEL 9.8 MG/DL (8.3-10.6); CARBON DIOXIDE LEVEL 29 MMOL/L (20-31); CHLORIDE LEVEL 103 MMOL/L (98-107); CHOLESTEROL LEVEL 194 MG/DL (<200); CHOLESTEROL RISK RATIO 3.43 (<5); CREATININE FOR GFR 0.54 MG/DL (0.55-1.30); GLOMERULAR FILTRATION RATE > 60.0 (>39); GLUCOSE, FASTING 175 MG/DL (74-106); HDL CHOLESTEROL 56.5 MG/DL (>40); LDL CHOLESTEROL 90.5 MG/DL (<100); NON-HDL-C 137.5 MG/DL; POTASSIUM SERUM 4.7 MMOL/L (3.5-5.1); SODIUM LEVEL 137 MMOL/L (136-145); TOTAL PROTEIN 6.3 G/DL (5.7-8.2); TRIGLYCERIDES LEVEL 235 MG/DL (<150)
[2023-05-10 14:33] LABS: HEMOGLOBIN A1c 7.8 % (4.0-6.0)
== END ==
LOC: M SFHCADAM 07:59
PROVIDERS: ATTEND Physician Assistant
DX: I10 Essential (primary) hypertension (principal); E11.65 Type 2 diabetes mellitus with hyperglycemia; E78.2 Mixed hyperlipidemia

== ENCOUNTER 2023-07-14 12:02 | Observation (INO) | payer MEDICARE ==
[~2023-07-14] VITALS: Ht 154.9 cm; Wt 82.9 kg
[~2023-07-14 12:02] MED LIST changes: -HYDR-3490; +HYDR-3490 PO; -LISI2.5T9; -LOPE2CAP; +LOPE2CAP PO; -METF-839; +METF-839 PO; -SPIR-10
[2023-07-14 15:29] LABS: HEMATOCRIT 35.9 % (36.0-47.0); HEMOGLOBIN 12.2 g/dl (12.0-15.5); MEAN CORPUSCULAR HEMOGLOBIN 26.8 pg (27.0-33.0); MEAN CORPUSCULAR VOLUME 78.7 fl (80.0-96.0); PLATELET COUNT, AUTOMATED 252 10^3/uL (150-450); RED BLOOD COUNT 4.56 10^6/uL (4.00-5.40); WHITE BLOOD COUNT 6.7 10^3/uL (4.0-10.0)
[2023-07-14 15:56] LABS: ALKALINE PHOSPHATASE 98 U/L (46-116); ALT/SGPT 49 U/L (7.0-40); AST/SGOT 28 U/L (<34); BILIRUBIN,DIRECT 0.2 MG/DL (<0.4); BILIRUBIN,TOTAL 0.6 MG/DL (0.3-1.2); BLOOD UREA NITROGEN 28 MG/DL (9-23); CALCIUM LEVEL 9.2 MG/DL (8.3-10.6); CARBON DIOXIDE LEVEL 25 MMOL/L (20-31); CHLORIDE LEVEL 90 MMOL/L (98-107); CK-MB VALUE MASS < 1.0 NG/ML (<3.6); CPK CREATINE PHOSPHOKINASE 21 U/L (34-145); CREATININE FOR GFR 0.69 MG/DL (0.55-1.30); GLOMERULAR FILTRATION RATE > 60.0 (>39); GLUCOSE, FASTING 169 MG/DL (74-106); MB/CK RELATIVE INDEX 4.76 (< OR =4); POTASSIUM SERUM 3.4 MMOL/L (3.5-5.1); SODIUM LEVEL 126 MMOL/L (136-145); TOTAL PROTEIN 6.2 G/DL (5.7-8.2)
[2023-07-14 16:06] LABS: ATYPICAL LYMPH 1 % (0-5); LYMPHOCYTES 16 % (16-44); METAMYELOCYTES 2 % (0-0); MONOCYTES 8 % (0-5); MYELOCYTES 1 % (0-0); NEUTROPHILS 62 % (28-66); PLATELET ESTIMATE NORMAL (NORMAL); PROMYELOCYTES 1 % (0-0)
[2023-07-14 20:17] LABS: VENOUS BASE EXCESS 0.7 (-2.0-2.0); VENOUS HCO3 26.1 MMOL/L (23.0-27.0); VENOUS O2 SATURATION 60.1 % (60.0-80.0); VENOUS PARTIAL PRESSURE CO2 44.8 mmHg (38.0-50.0); VENOUS PARTIAL PRESSURE O2 32.7 mmHg (30.0-50.0); VENOUS PH 7.383 UNITS (7.330-7.430); VENOUS STANDARD HCO3 24.3 MMOL/L; VENOUS TOTAL CO2 27.5 MMOL/L (24.0-28.0)
[2023-07-14] MEDS: NS 1,000 ML IV ONE (20:23)
[2023-07-14 20:42] LABS: D-DIMER QUANT 10.38 ug/mL (<0.5); INR 1.05; PARTIAL THROMBOPLASTIN TIME 24.6 SECONDS (24.8-34.2); PROTHROMBIN TIME 13.4 SECONDS (12.5-14.5)
[2023-07-14 20:52] LABS: MAGNESIUM LEVEL 1.4 MG/DL (1.8-2.4); PHOSPHORUS LEVEL 3.4 MG/DL (2.4-5.1)
[2023-07-14 20:55] LABS: FREE T4 1.32 NG/DL (0.89-1.76); THYROID STIMULATING HORMONE 2.896 uIU/ML (0.55-4.78)
[2023-07-14] MEDS ORDERED: ISOVUE-370 76% 100ML VIAL As Ordered ONE (21:18)
[2023-07-14 22:01] LABS: ACETONE/KETONE 2.13 MMOL/L (0.02-0.27)
[2023-07-14] MEDS: MAG SULF 1GM/100ML (MAG RUN) 1 GM in IV 1 EA IV ONE (22:20)
[2023-07-15] MEDS ORDERED: GLUCOSE 4 GM CHEW PO PRN (00:20)
[2023-07-15] MEDS ORDERED: DEXTROSE 50% 50ML SYRINGE IV PRN (00:20)
[2023-07-15] MEDS ORDERED: GLUCAGON INJ 1MG VIAL SC PRN (00:20)
[2023-07-15] MEDS ORDERED: BUPR15TASR PO (00:24)
[2023-07-15] MEDS ORDERED: TRUL0.5I SC (00:24)
[2023-07-15] MEDS ORDERED: ACET-683 PO (00:24)
[2023-07-15] MEDS ORDERED: CHEL50TA2 PO (00:24)
[2023-07-15] MEDS ORDERED: ATEN50TA2 PO (00:24)
[2023-07-15] MEDS ORDERED: LORA-1041 PO (00:24)
[2023-07-15] MEDS ORDERED: CO Q100C PO (00:24)
[2023-07-15] MEDS ORDERED: EQL50TAB2 PO (00:24)
[2023-07-15] MEDS ORDERED: CHOL125C6 PO (00:24)
[2023-07-15] MEDS ORDERED: HOME MED LIST COMPLETE! XX SCH ×2 (00:30→14:50)
[2023-07-15] MEDS: POTASSIUM CHLORIDE 10MEQ SR TABLET PO ONE (00:49)
[2023-07-15 01:06] LABS: HEMOGLOBIN A1c 8.1 % (4.0-6.0)
[2023-07-15 01:26] LABS: BLOOD UREA NITROGEN 23 MG/DL (9-23); CALCIUM LEVEL 8.7 MG/DL (8.3-10.6); CARBON DIOXIDE LEVEL 23 MMOL/L (20-31); CHLORIDE LEVEL 95 MMOL/L (98-107); CREATININE FOR GFR 0.56 MG/DL (0.55-1.30); GLOMERULAR FILTRATION RATE > 60.0 (>39); GLUCOSE, FASTING 171 MG/DL (74-106); MAGNESIUM LEVEL 1.8 MG/DL (1.8-2.4); POTASSIUM SERUM 3.1 MMOL/L (3.5-5.1); SODIUM LEVEL 129 MMOL/L (136-145)
[2023-07-15 01:28] LABS: URIC ACID 10.3 MG/DL (3.1-7.8)
[2023-07-15] MEDS ORDERED: SODIUM CHLORIDE 0.9% 1000ML IV ONE (01:30)
[2023-07-15] MEDS: KCL 40MEQ in NS 1000ML 1,000 ML IV SCH (01:45)
[2023-07-15] MEDS: INSULIN LISPRO (NovoLOG) PER UNIT SC SCH ×2 (08:19→20:24)
[2023-07-15] MEDS: LORATADINE 10 MG TAB PO SCH (08:20)
[2023-07-15] MEDS: OMEPRAZOLE 20MG CAP PO SCH (08:20)
[2023-07-15] MEDS: ENOXAPARIN 40MG/0.4ML SYRINGE (J1650 PER 10MG) SC SCH (08:20)
[2023-07-15] MEDS: allopurinoL 100 MG TAB PO SCH (08:20)
[2023-07-15 10:30] VITALS: BP 129/65; TEMP 97.7; O2SAT 96
[2023-07-15 10:51] LABS: BLOOD UREA NITROGEN 17 MG/DL (9-23); CALCIUM LEVEL 8.5 MG/DL (8.3-10.6); CARBON DIOXIDE LEVEL 22 MMOL/L (20-31); CHLORIDE LEVEL 102 MMOL/L (98-107); CREATININE FOR GFR 0.47 MG/DL (0.55-1.30); GLOMERULAR FILTRATION RATE > 60.0 (>39); GLUCOSE, FASTING 238 MG/DL (74-106); POTASSIUM SERUM 4.1 MMOL/L (3.5-5.1); SODIUM LEVEL 135 MMOL/L (136-145)
[2023-07-15] MEDS: buPROPion **SR TABLET** (ZYBAN) 150MG PO SCH (11:45)
[2023-07-15 12:30] VITALS: BP 125/65; TEMP 97.5; O2SAT 97
[2023-07-15 13:51] LABS: CHOLESTEROL LEVEL 151 MG/DL (<200); CHOLESTEROL RISK RATIO 6.18 (<5); HDL CHOLESTEROL 24.4 MG/DL (>40); LDL CHOLESTEROL 76.6 MG/DL (<100); NON-HDL-C 126.6 MG/DL; TRIGLYCERIDES LEVEL 250 MG/DL (<150)
[2023-07-15 14:37] LABS: HEMOGLOBIN A1c 8.1 % (4.0-6.0)
[2023-07-15] MEDS ORDERED: ASPI81TA26 PO (14:49)
[2023-07-15 20:00] VITALS: BP 123/59; TEMP 97.3; O2SAT 99
[2023-07-15 20:24] VITALS: BP 123/59
[2023-07-15] MEDS: atenoloL 25 MG TAB PO SCH (20:24)
[2023-07-15] MEDS ORDERED: atenoloL 50 MG TAB PO SCH (21:00)
[2023-07-15] MEDS: ACETAMINOPHEN TAB 650MG DOSE (2X325MG) PO PRN (21:27)
[2023-07-16 04:00] VITALS: BP 131/78; TEMP 97.5; O2SAT 99
[2023-07-16] MEDS: LIDOCAINE 5% (LIDODERM) PATCH TD SCH (05:19)
[2023-07-16 06:16] LABS: VENOUS BASE EXCESS -3.2 (-2.0-2.0); VENOUS HCO3 20.4 MMOL/L (23.0-27.0); VENOUS O2 SATURATION 96.5 % (60.0-80.0); VENOUS PARTIAL PRESSURE CO2 31.9 mmHg (38.0-50.0); VENOUS PARTIAL PRESSURE O2 97.9 mmHg (30.0-50.0); VENOUS PH 7.424 UNITS (7.330-7.430); VENOUS STANDARD HCO3 21.8 MMOL/L; VENOUS TOTAL CO2 21.4 MMOL/L (24.0-28.0)
[2023-07-16 06:34] LABS: BASO # 0.1 10^3/uL (0.0-0.2); BASO % 0.9 % (0.0-1.0); EOS # 0.3 10^3/uL (0.0-0.5); EOS % 4.6 % (0.0-3.0); HEMATOCRIT 32.9 % (36.0-47.0); HEMOGLOBIN 11.1 g/dl (12.0-15.5); LYMPH # 1.7 10^3/uL (1.5-5.0); LYMPH % 29.9 % (24.0-44.0); MEAN CORPUSCULAR HGB CONC 33.7 g/dl (32.0-36.5); MONO # 0.7 10^3/uL (0.0-0.8); NEUTROPHILS # 2.5 10^3/uL (1.5-8.5); NEUTROPHILS % 43.9 % (36.0-66.0); PLATELET COUNT, AUTOMATED 280 10^3/uL (150-450); RED BLOOD COUNT 4.11 10^6/uL (4.00-5.40); WHITE BLOOD COUNT 5.7 10^3/uL (4.0-10.0)
[2023-07-16 06:51] LABS: BLOOD UREA NITROGEN 12 MG/DL (9-23); CALCIUM LEVEL 9.4 MG/DL (8.3-10.6); CARBON DIOXIDE LEVEL 22 MMOL/L (20-31); CHLORIDE LEVEL 103 MMOL/L (98-107); CREATININE FOR GFR 0.43 MG/DL (0.55-1.30); GLOMERULAR FILTRATION RATE > 60.0 (>39); GLUCOSE, FASTING 192 MG/DL (74-106); MAGNESIUM LEVEL 1.2 MG/DL (1.8-2.4); POTASSIUM SERUM 4.9 MMOL/L (3.5-5.1); SODIUM LEVEL 133 MMOL/L (136-145)
[2023-07-16] MEDS: MAG SULF 1GM/100ML (MAG RUN) 1 GM in IV 1 EA IV SCH (08:57)
[2023-07-16 12:00] VITALS: BP 153/73; TEMP 97.7; O2SAT 96
== END 2023-07-16 16:45 | disposition home or self-care (01) ==
LOC: M ED 12:02 → M ED INP 23:42 → M MS5PR 07-15 10:25
PROVIDERS: ADMIT Internal Medicine; ATTEND Hospitalist
DX: R53.1 Weakness (principal); E83.42 Hypomagnesemia; E87.1 Hypo-osmolality and hyponatremia; E87.6 Hypokalemia; I10 Essential (primary) hypertension; E11.9 Type 2 diabetes mellitus without complications; I25.10 Atherosclerotic heart disease of native coronary artery without angina pectoris; Z98.61 Coronary angioplasty status; M10.9 Gout, unspecified; F32.A Depression, unspecified; E66.9 Obesity, unspecified; G47.33 Obstructive sleep apnea (adult) (pediatric); J45.998 Other asthma; Z79.82 Long term (current) use of aspirin; Z79.899 Other long term (current) drug therapy; Z88.8 Allergy status to other drugs, medicaments and biological substances
CPT/HCPCS: 36415; 70450; 71275; 74177; 80048; 80061; 80076; 80503; 81001; 82010; 82550; 82553; 82803; 83036; 83605; 83690; 83735; 83930; 83935; 84100; 84133; 84300; 84439; 84443; 84484; 84550; 85025; 85379; 85610; 85730; 87086; 93005; 96361; 96372; 96375; 97116; 97161; 97165; 97535; 99285; G0378; G0463; J1650; J1815; J3475; Q9967

== ENCOUNTER → 2023-07-20 | Outpatient (REF) | payer MEDICARE ==
[~2023-07-20] MED LIST changes: +BUPR15TASR PO; +CHEL50TA2 PO; +CHOL125C6 PO; +CO Q100C PO; +LORA-1041 PO; +TRUL0.5I SC
[2023-07-20 13:34] LABS: BLOOD UREA NITROGEN 8 MG/DL (9-23); CALCIUM LEVEL 10.3 MG/DL (8.3-10.6); CARBON DIOXIDE LEVEL 27 MMOL/L (20-31); CHLORIDE LEVEL 102 MMOL/L (98-107); CREATININE FOR GFR 0.55 MG/DL (0.55-1.30); GLOMERULAR FILTRATION RATE > 60.0 (>39); GLUCOSE, FASTING 183 MG/DL (74-106); MAGNESIUM LEVEL 1.3 MG/DL (1.8-2.4); POTASSIUM SERUM 5.1 MMOL/L (3.5-5.1); SODIUM LEVEL 137 MMOL/L (136-145)
== END ==
LOC: M SFHCADAM 09:07
PROVIDERS: ATTEND Physician Assistant
DX: I10 Essential (primary) hypertension (principal); E11.9 Type 2 diabetes mellitus without complications; E83.42 Hypomagnesemia; E87.1 Hypo-osmolality and hyponatremia; E87.6 Hypokalemia

== ENCOUNTER → 2023-08-04 | Outpatient (REF) | payer MEDICARE ==
[2023-08-04 13:56] LABS: BLOOD UREA NITROGEN 9 MG/DL (9-23); CALCIUM LEVEL 9.5 MG/DL (8.3-10.6); CARBON DIOXIDE LEVEL 27 MMOL/L (20-31); CHLORIDE LEVEL 99 MMOL/L (98-107); CREATININE FOR GFR 0.51 MG/DL (0.55-1.30); GLOMERULAR FILTRATION RATE > 60.0 (>39); GLUCOSE, FASTING 118 MG/DL (74-106); MAGNESIUM LEVEL 1.4 MG/DL (1.8-2.4); POTASSIUM SERUM 4.4 MMOL/L (3.5-5.1); SODIUM LEVEL 135 MMOL/L (136-145)
== END ==
LOC: M SFHCADAM 10:22
PROVIDERS: ATTEND Physician Assistant
DX: I10 Essential (primary) hypertension (principal); E11.42 Type 2 diabetes mellitus with diabetic polyneuropathy; E83.42 Hypomagnesemia

== ENCOUNTER 2023-08-14 20:33 | Emergency (ER) | payer MEDICARE ==
[~2023-08-14] VITALS: Ht 154.9 cm; Wt 84.1 kg
[2023-08-14 21:10] LABS: BASO # 0.1 10^3/uL (0.0-0.2); BASO % 0.5 % (0.0-1.0); EOS # 0.1 10^3/uL (0.0-0.5); EOS % 0.9 % (0.0-3.0); HEMATOCRIT 38.5 % (36.0-47.0); HEMOGLOBIN 12.5 g/dl (12.0-15.5); LYMPH # 2.1 10^3/uL (1.5-5.0); LYMPH % 22.9 % (24.0-44.0); MEAN CORPUSCULAR HGB CONC 32.5 g/dl (32.0-36.5); MEAN CORPUSCULAR VOLUME 83.2 fl (80.0-96.0); MONO # 0.5 10^3/uL (0.0-0.8); MONO % 5.5 % (2.0-8.0); NEUTROPHILS # 6.4 10^3/uL (1.5-8.5); NEUTROPHILS % 69.7 % (36.0-66.0); PLATELET COUNT, AUTOMATED 313 10^3/uL (150-450); RED BLOOD COUNT 4.63 10^6/uL (4.00-5.40); WHITE BLOOD COUNT 9.2 10^3/uL (4.0-10.0)
[2023-08-14 22:26] LABS: CK-MB VALUE MASS 1.9 NG/ML (<3.6)
[2023-08-14] MEDS: IPRATROPIUM 0.5MG/ALBUTEROL 2.5MG INH SOL UD 3ML (DUONEB) NEB ONE (22:33)
[2023-08-14 22:36] LABS: VENOUS BASE EXCESS -0.9 (-2.0-2.0); VENOUS O2 SATURATION 94.6 % (60.0-80.0); VENOUS PARTIAL PRESSURE CO2 35.9 mmHg (38.0-50.0); VENOUS PARTIAL PRESSURE O2 71.8 mmHg (30.0-50.0); VENOUS PH 7.425 UNITS (7.330-7.430); VENOUS STANDARD HCO3 23.7 MMOL/L; VENOUS TOTAL CO2 24.1 MMOL/L (24.0-28.0)
[2023-08-14 22:36] LABS: CPK CREATINE PHOSPHOKINASE 42 U/L (34-145); MB/CK RELATIVE INDEX 4.52 (< OR =4)
[2023-08-14 22:45] LABS: BLOOD UREA NITROGEN 15 MG/DL (9-23); CALCIUM LEVEL 9.3 MG/DL (8.3-10.6); CARBON DIOXIDE LEVEL 22 MMOL/L (20-31); CHLORIDE LEVEL 101 MMOL/L (98-107); CREATININE FOR GFR 0.53 MG/DL (0.55-1.30); GLOMERULAR FILTRATION RATE > 60.0 (>39); GLUCOSE, FASTING 158 MG/DL (74-106); POTASSIUM SERUM 4.1 MMOL/L (3.5-5.1); SODIUM LEVEL 135 MMOL/L (136-145)
[2023-08-14] MEDS ORDERED: ISOVUE-370 76% 100ML VIAL As Ordered ONE (22:59)
[2023-08-14 23:03] LABS: CK-MB VALUE MASS 2.1 NG/ML (<3.6)
[2023-08-14 23:05] LABS: MB/CK RELATIVE INDEX 4.56 (< OR =4)
[2023-08-14] MEDS ORDERED: HEPARIN SOD (PORCINE) 5000UNITS/ML 1ML VIAL/SYRINGE IV PRN (23:30)
[2023-08-15] MEDS: HEPARIN SOD (PORCINE) 5000UNITS/ML 1ML VIAL/SYRINGE IV ONE (00:39)
[2023-08-15] MEDS: HEPARIN DRIP 25,000 UNITS in IV 1 EA IV SCH (00:41)
[2023-08-15 01:42] VITALS: BP 163/95; TEMP 96.9; O2SAT 94
== END 2023-08-15 01:48 | disposition short-term general hospital (02) ==
LOC: EDBD 20:33 → M ED 20:33
DX: I26.99 Other pulmonary embolism without acute cor pulmonale (principal); Q27.8 Other specified congenital malformations of peripheral vascular system; I82.432 Acute embolism and thrombosis of left popliteal vein; I82.442 Acute embolism and thrombosis of left tibial vein; R91.8 Other nonspecific abnormal finding of lung field; J44.9 Chronic obstructive pulmonary disease, unspecified; I25.10 Atherosclerotic heart disease of native coronary artery without angina pectoris; E78.5 Hyperlipidemia, unspecified; J45.909 Unspecified asthma, uncomplicated; I27.20 Pulmonary hypertension, unspecified; E11.9 Type 2 diabetes mellitus without complications; Z98.61 Coronary angioplasty status; Z85.828 Personal history of other malignant neoplasm of skin; Z79.82 Long term (current) use of aspirin; Z79.4 Long term (current) use of insulin; Z79.899 Other long term (current) drug therapy; Z88.6 Allergy status to analgesic agent; Z88.2 Allergy status to sulfonamides; Z88.8 Allergy status to other drugs, medicaments and biological substances
CPT/HCPCS: 71045; 71275; 80048; 82550; 82553; 82803; 84484; 85025; 85730; 87486; 87581; 87633; 87798; 93005; 93041; 93970; 94640; 94760; 96365; 99285; Q9967

== ENCOUNTER → 2023-09-07 | Outpatient (REF) | payer MEDICARE ==
[2023-09-07 17:18] LABS: BASO % 0.6 % (0.0-1.0); EOS % 0.5 % (0.0-3.0); HEMATOCRIT 43.8 % (36.0-47.0); HEMOGLOBIN 14.3 g/dl (12.0-15.5); LYMPH # 1.7 10^3/uL (1.5-5.0); LYMPH % 25.2 % (24.0-44.0); MEAN CORPUSCULAR HEMOGLOBIN 29.4 pg (27.0-33.0); MEAN CORPUSCULAR HGB CONC 32.6 g/dl (32.0-36.5); MEAN CORPUSCULAR VOLUME 90.1 fl (80.0-96.0); MONO # 0.5 10^3/uL (0.0-0.8); MONO % 7.1 % (2.0-8.0); NEUTROPHILS # 4.4 10^3/uL (1.5-8.5); NEUTROPHILS % 66.3 % (36.0-66.0); PLATELET COUNT, AUTOMATED 322 10^3/uL (150-450); RED BLOOD COUNT 4.86 10^6/uL (4.00-5.40); WHITE BLOOD COUNT 6.6 10^3/uL (4.0-10.0)
[2023-09-07 17:41] LABS: BLOOD UREA NITROGEN 6 MG/DL (9-23); CALCIUM LEVEL 10.1 MG/DL (8.3-10.6); CARBON DIOXIDE LEVEL 28 MMOL/L (20-31); CHLORIDE LEVEL 99 MMOL/L (98-107); CREATININE FOR GFR 0.53 MG/DL (0.55-1.30); GLOMERULAR FILTRATION RATE > 60.0 (>39); GLUCOSE, FASTING 110 MG/DL (74-106); MAGNESIUM LEVEL 1.4 MG/DL (1.8-2.4); POTASSIUM SERUM 4.2 MMOL/L (3.5-5.1); SODIUM LEVEL 136 MMOL/L (136-145)
== END ==
LOC: M SFHCADAM 11:02
PROVIDERS: ATTEND Physician Assistant
DX: I26.94 Multiple subsegmental thrombotic pulmonary emboli without acute cor pulmonale (principal); Z79.899 Other long term (current) drug therapy

== ENCOUNTER → 2023-09-21 | Outpatient (REF) | payer MEDICARE ==
[2023-09-21 13:27] LABS: BLOOD UREA NITROGEN 12 MG/DL (9-23); CALCIUM LEVEL 10.1 MG/DL (8.3-10.6); CARBON DIOXIDE LEVEL 28 MMOL/L (20-31); CHLORIDE LEVEL 105 MMOL/L (98-107); CREATININE FOR GFR 0.57 MG/DL (0.55-1.30); GLOMERULAR FILTRATION RATE > 60.0 (>39); GLUCOSE, FASTING 110 MG/DL (74-106); MAGNESIUM LEVEL 1.5 MG/DL (1.8-2.4); POTASSIUM SERUM 4.2 MMOL/L (3.5-5.1); SODIUM LEVEL 137 MMOL/L (136-145)
== END ==
LOC: M SFHCADAM 09:22
PROVIDERS: ATTEND Physician Assistant
DX: E83.42 Hypomagnesemia (principal)

== ENCOUNTER → 2023-09-29 | Outpatient (REF) | payer MEDICARE ==
[2023-09-29 13:17] LABS: BLOOD UREA NITROGEN 12 MG/DL (9-23); CARBON DIOXIDE LEVEL 27 MMOL/L (20-31); CHLORIDE LEVEL 107 MMOL/L (98-107); CREATININE FOR GFR 0.56 MG/DL (0.55-1.30); GLOMERULAR FILTRATION RATE > 60.0 (>39); GLUCOSE, FASTING 124 MG/DL (74-106); MAGNESIUM LEVEL 1.8 MG/DL (1.8-2.4); POTASSIUM SERUM 4.5 MMOL/L (3.5-5.1); SODIUM LEVEL 139 MMOL/L (136-145)
== END ==
LOC: M SFHCADAM 08:25
PROVIDERS: ATTEND Physician Assistant
DX: E83.42 Hypomagnesemia (principal)

== ENCOUNTER → 2023-10-25 | Outpatient (CLI) | payer MEDICARE | LOC: M PLAIMG 08:30 | PROVIDERS: ATTEND Physician Assistant | DX: I50.810 Right heart failure, unspecified (principal); I26.09 Other pulmonary embolism with acute cor pulmonale; I08.3 Combined rheumatic disorders of mitral, aortic and tricuspid valves; I27.20 Pulmonary hypertension, unspecified ==

== ENCOUNTER → 2023-11-15 | Outpatient (REF) | payer MEDICARE ==
[2023-11-15 17:38] LABS: BLOOD UREA NITROGEN 18 MG/DL (9-23); CALCIUM LEVEL 10.4 MG/DL (8.3-10.6); CARBON DIOXIDE LEVEL 29 MMOL/L (20-31); CHLORIDE LEVEL 102 MMOL/L (98-107); CREATININE FOR GFR 0.56 MG/DL (0.55-1.30); GLOMERULAR FILTRATION RATE > 60.0 (>39); GLUCOSE, FASTING 106 MG/DL (74-106); POTASSIUM SERUM 4.7 MMOL/L (3.5-5.1); SODIUM LEVEL 138 MMOL/L (136-145)
[2023-11-15 18:43] LABS: HEMOGLOBIN A1c 6.5 % (4.0-6.0)
== END ==
LOC: M SFHCADAM 08:54
PROVIDERS: ATTEND Physician Assistant
DX: I10 Essential (primary) hypertension (principal); E11.9 Type 2 diabetes mellitus without complications; E78.2 Mixed hyperlipidemia; I25.10 Atherosclerotic heart disease of native coronary artery without angina pectoris

== ENCOUNTER → 2024-05-30 | Outpatient (REF) | payer MEDICARE ==
[2024-05-30 14:25] LABS: MEAN CORPUSCULAR HEMOGLOBIN 29.5 pg (27.0-33.0); MEAN CORPUSCULAR HGB CONC 32.5 g/dl (32.0-36.5); MEAN CORPUSCULAR VOLUME 90.7 fl (80.0-96.0); PLATELET COUNT, AUTOMATED 285 10^3/uL (150-450); RED BLOOD COUNT 4.41 10^6/uL (4.00-5.40); WHITE BLOOD COUNT 8.7 10^3/uL (4.0-10.0)
[2024-05-30 14:33] LABS: URIC ACID 5.6 MG/DL (3.1-7.8)
[2024-05-30 14:37] LABS: ALBUMIN 3.8 G/DL (3.2-5.2); ALKALINE PHOSPHATASE 95 U/L (35-104); ALT/SGPT 27 U/L (7.0-40); AST/SGOT 26 U/L (<34); BILIRUBIN,TOTAL 0.3 MG/DL (0.3-1.2); BLOOD UREA NITROGEN 17 MG/DL (9-23); CALCIUM LEVEL 9.4 MG/DL (8.3-10.6); CARBON DIOXIDE LEVEL 28 MMOL/L (20-31); CHLORIDE LEVEL 98 MMOL/L (98-107); CHOLESTEROL LEVEL 216 MG/DL (<200); CHOLESTEROL RISK RATIO 3.77 (<5); CREATININE FOR GFR 0.51 MG/DL (0.55-1.30); GLOMERULAR FILTRATION RATE > 90.0 (>39); GLUCOSE, FASTING 135 MG/DL (74-106); HDL CHOLESTEROL 57.2 MG/DL (>40); LDL CHOLESTEROL 125.4 MG/DL (<100); MAGNESIUM LEVEL 1.8 MG/DL (1.8-2.4); NON-HDL-C 158.8 MG/DL; POTASSIUM SERUM 4.9 MMOL/L (3.5-5.1); SODIUM LEVEL 140 MMOL/L (136-145); TOTAL PROTEIN 6.8 G/DL (5.7-8.2); TRIGLYCERIDES LEVEL 167 MG/DL (<150)
[2024-05-30 14:40] LABS: THYROID STIMULATING HORMONE 2.027 uIU/ML (0.55-4.78); TOTAL 25(OH) VITAMIN D 76.2 NG/ML (20.0-100.0)
[2024-05-30 14:42] LABS: FREE T4 1.19 NG/DL (0.89-1.76)
[2024-05-30 15:11] LABS: HEMOGLOBIN A1c 7.2 % (4.0-6.0)
[2024-05-30 18:02] LABS: MALB URINE SIEMENS < 3.0 MG/L
== END ==
LOC: M SFHCADAM 09:28
PROVIDERS: ATTEND Physician Assistant
DX: I10 Essential (primary) hypertension (principal); E78.2 Mixed hyperlipidemia; F41.1 Generalized anxiety disorder; E11.9 Type 2 diabetes mellitus without complications; J45.909 Unspecified asthma, uncomplicated; M10.9 Gout, unspecified; E83.42 Hypomagnesemia; M81.0 Age-related osteoporosis without current pathological fracture

== ENCOUNTER → 2024-08-21 | Outpatient (REF) | payer MEDICARE ==
[~2024-08-21] MED LIST changes: -EQL50TAB2 PO; +LORA-1164 PO; -LORA-622 PO; +VITA1TAB82 PO
[2024-08-21 15:38] LABS: ALT/SGPT 23 U/L (7.0-40); AST/SGOT 25 U/L (<34); CALCIUM LEVEL 10.0 MG/DL (8.3-10.6); CARBON DIOXIDE LEVEL 27 MMOL/L (20-31); CHLORIDE LEVEL 102 MMOL/L (98-107); CHOLESTEROL LEVEL 166 MG/DL (<200); CHOLESTEROL RISK RATIO 2.90 (<5); CREATININE FOR GFR 0.54 MG/DL (0.55-1.30); GLOMERULAR FILTRATION RATE > 90.0 (>32); LDL CHOLESTEROL 82.2 MG/DL (<100); NON-HDL-C 108.8 MG/DL; POTASSIUM SERUM 4.4 MMOL/L (3.5-5.1); SODIUM LEVEL 141 MMOL/L (136-145); TRIGLYCERIDES LEVEL 133 MG/DL (<150)
[2024-08-21 16:11] LABS: ESTIMATED AVERAGE GLUCOSE 160.0 MG/DL (60-110)
== END ==
LOC: M SFHCADAM 08:03
PROVIDERS: ATTEND Physician Assistant
DX: E11.65 Type 2 diabetes mellitus with hyperglycemia (principal); I25.10 Atherosclerotic heart disease of native coronary artery without angina pectoris

== ENCOUNTER → 2024-11-27 | Outpatient (REF) | payer MEDICARE ==
[2024-11-27 13:33] LABS: PLATELET COUNT, AUTOMATED 271 10^3/uL (150-450)
[2024-11-27 13:40] LABS: VITAMIN B12 LEVEL 383 PG/ML (211-911)
[2024-11-27 13:42] LABS: FREE T4 0.96 NG/DL (0.89-1.76)
[2024-11-27 13:45] LABS: ESTIMATED AVERAGE GLUCOSE 166.0 MG/DL (60-110)
[2024-11-27 13:50] LABS: ALT/SGPT 20 U/L (7.0-40); AST/SGOT 22 U/L (<34); CALCIUM LEVEL 10.0 MG/DL (8.3-10.6); CARBON DIOXIDE LEVEL 26 MMOL/L (20-31); CHLORIDE LEVEL 100 MMOL/L (98-107); CREATININE FOR GFR 0.56 MG/DL (0.55-1.30); GLOMERULAR FILTRATION RATE > 90.0 (>32); POTASSIUM SERUM 4.3 MMOL/L (3.5-5.1); SODIUM LEVEL 140 MMOL/L (136-145)
== END ==
LOC: M SFHCADAM 08:44
PROVIDERS: ATTEND Physician Assistant
DX: E11.59 Type 2 diabetes mellitus with other circulatory complications (principal); Z68.35 Body mass index [BMI] 35.0-35.9, adult; E78.00 Pure hypercholesterolemia, unspecified; I11.0 Hypertensive heart disease with heart failure